=== PATIENT | male | born 1945 | race Caucasian/White ===

== ENCOUNTER → 2016-07-19 | Outpatient (CLI) | payer MEDICARE ==
--- NOTE | 2016-07-19 22:50 | CONS ---
DATE OF CONSULTATION: REASON FOR CONSULTATION: Sleep apnea. This is a 71-year-old male patient who was recently diagnosed having obstructive sleep apnea. The patient has undergone a sleep study in a sleep center in [place], [place], and he was told that he had obstructive sleep apnea, yet no followup was done. Unfortunately the results of the sleep study are not available to me at this point, and the patient failed to bring any of his paperwork and documentation regarding his sleep study. He snores and he has chronic sleepiness during the day. He also has restlessness and pain and burning sensation in his feet bilaterally. He has hypotestosteronism and is currently on testosterone supplements. He has also multiple other comorbidities, including coronary artery disease, hypertension, hypothyroidism, obesity along with peripheral neuropathy. He goes to bed around 9 p.m. and sometimes he goes to bed around 11 p.m. His wake-up time varies. Roughly he sleeps around 7 hours per night. Assaria score is 2. PAST MEDICAL HISTORY: 1. Coronary artery disease with previous stenting. 2. ANIKA. 3. Hypertension. 4. Hypothyroidism. 5. Obesity. 6. Peripheral neuropathy. 7. Hypotestosteronism. PAST SURGICAL HISTORY: Cardiac catheterization and insertion of coronary stents. Outpatient medication list includes: 1. Lisinopril 20 b.i.d. 2. Norvasc 5 daily. 3. Flomax 0.4 daily. 4. Atenolol 100 mg at bedtime. 5. Fish oil. 6. Percocet. 7. Calcium and vitamin D. ALLERGIES: MORPHINE. SOCIAL HISTORY: Nonsmoker. No history of alcoholism. No history of IV drugs. FAMILY HISTORY: Noncontributory. REVIEW OF SYSTEMS: Twelve-point review of systems was done. Positive finding were all mentioned above in the history of present illness. HIS CURRENT VITALS: BP is 181/68, pulse 65, respiratory rate 16, temperature 98.0. Saturation 96% on room air. Neck size 18 inches. BMI is 36.7. Assaria score is 2. Weight is 242. Height is 68 inches. GENERAL APPEARANCE: Calm, comfortable. HEENT: Mallampati class III. Edentulous. LUNGS: Clear to auscultation. HEART: Heart sounds are regular rate and rhythm. Normal S1 and S2. No S3. No S4. No murmurs. ABDOMEN: Soft, nontender. No organomegaly. EXTREMITIES: No edema. No cyanosis or clubbing. IMPRESSION: 1. Obstructive sleep apnea. The patient has been recently diagnosed having sleep apnea, and the documentation will be forwarded to me for further decisions in regard to his treatment. His sleep study was done at a sleep center in [place]. 2. Coronary artery disease with previous insertion of coronary stent. 3. Hypertension. 4. Hypothyroidism. 5. Obesity with a body mass index of 36.7. 6. Peripheral neuropathy. PLAN: 1. No decision will be made as far as treatment for today. 2. The patient will see me back once he is able to locate and bring in his sleep study that was done recently at an outside sleep center. 3. Encourage weight loss. 4. Issues related to sleep hygiene were discussed. 5. Tight control of cardiovascular risk factors. 6. Will continue to follow.
== END | disposition home or self-care (01) ==
LOC: SLEEP 16:09
PROVIDERS: ATTEND Internal Medicine Critical Care Medicine
DX: G47.33 Obstructive sleep apnea (adult) (pediatric) (principal); I25.10 Atherosclerotic heart disease of native coronary artery without angina pectoris; I10 Essential (primary) hypertension; E66.9 Obesity, unspecified; Z68.36 Body mass index [BMI] 36.0-36.9, adult; G62.9 Polyneuropathy, unspecified; Z95.5 Presence of coronary angioplasty implant and graft; Z88.5 Allergy status to narcotic agent; Z79.899 Other long term (current) drug therapy
CPT/HCPCS: 99202; 99211

== ENCOUNTER → 2016-08-30 | Outpatient (CLI) | payer MEDICARE ==
--- NOTE | 2016-08-30 19:02 | PN ---
A 71-year-old male patient is being seen in followup at the sleep center regarding his obstructive sleep apnea. The patient was seen in consultation 07/19/2016 and back then, he did not have any documentation of previous sleep studies. He was told to have ANIKA; however, he did not follow up with the sleep center and for that reason he is coming in for further advice. Note that the patient has multiple comorbidities, including coronary artery disease, hypertension, hypothyroidism, obesity and peripheral neuropathy and hypotestosteronism. He also suffers from chronic back pain. I was able to obtain a copy of the sleep study that was done on this patient on 03/21/2016. This turned out to be a split-night study. The patient was diagnosed having obstructive sleep apnea, moderate in severity, with an AHI of 24. Following that, the patient was given CPAP titration and was started at CPAP pressure of 4 and titrated up to 9 cm of water. Apparently this titration was ineffective in reducing his apnea-hypopnea index to less than 5 and this was labeled to be as a failed study and repeat titration was suggested. Nevertheless, the patient is currently refusing to undergo any further investigation or treatment regarding this issue. He tells me that he is feeling well. He does not have any major hypersomnia or sleepiness during the day. His sleep quality has improved. He is trying to lose weight and he has lost a few pounds since his last evaluation. I went over the studies. I went over the discussion in regard to his obstructive sleep apnea; however, the patient does not seem to be ready to undertake any treatment at this point in time. Based on that, I am willing to follow up this patient in 6 to 12 months and re-address the situation. REVIEW OF SYSTEMS: Twelve-point review of systems was done. Positive findings all mentioned above in the history of present illness. Otherwise, the rest is negative for now. His current vitals: BP is 178/75, pulse 56, respirations 16, temperature 98.2, saturation 97% on room air. Neck size 18 inches and BMI is 37.0. GENERAL APPEARANCE: Calm, comfortable. HEENT: Short neck. Crowding of the posterior pharynx there is no goiter or neck masses. LUNGS: Diminished breath sounds bilaterally, otherwise clear. HEART: Sounds are regular rate and rhythm. Normal S1, S2. No S3 or S4. No murmurs. ABDOMEN: Soft and nontender. No organomegaly. EXTREMITIES: No edema. No cyanosis or clubbing. IMPRESSION: 1. Obstructive sleep apnea, apnea-hypopnea index of 24. This is based on a sleep study that was done in a sleep center in [place], [place]. The patient was titrated to a continuous positive airway pressure of 9 and this was labeled to be an ineffective titration, knowing that the apnea-hypopnea index did not get reduced to less than 5. 2. Coronary artery disease with previous coronary stenting. 3. Hypertension. 4. Hypothyroidism. 5. Obesity. 6. Peripheral neuropathy. PLAN: The risks and benefits of CPAP therapy were discussed. The patient declined any treatment at this point. He will try to lose weight. He will optimize sleep hygiene measures, tight control of cardiovascular risk factors, see me back in a year's time in followup, earlier if needed, especially if he gets more symptomatic.
== END | disposition home or self-care (01) ==
LOC: SLEEP 14:47
PROVIDERS: ATTEND Internal Medicine Critical Care Medicine
DX: G47.33 Obstructive sleep apnea (adult) (pediatric) (principal); I25.10 Atherosclerotic heart disease of native coronary artery without angina pectoris; Z95.5 Presence of coronary angioplasty implant and graft; I10 Essential (primary) hypertension; E03.9 Hypothyroidism, unspecified; E66.9 Obesity, unspecified; Z68.37 Body mass index [BMI] 37.0-37.9, adult; G62.9 Polyneuropathy, unspecified; G89.29 Other chronic pain; M54.9 Dorsalgia, unspecified

== ENCOUNTER → 2016-09-26 | Outpatient (CLI) | payer MEDICARE ==
[2016-09-26 10:59] LABS: Anisocytosis Slight; CH 31.7; CHCM 34.7; HCT 44.9 % (39.0-53.0); HDW 3.99; HGB 15.2 gm/dL (13.0-17.5); MCH 31.1 pg (25.0-35.0); MCHC 33.9 g/dL (31.0-37.0); MCV 91.8 fL (80.0-100.0); Mean Platelet Volume 7.7; Poikilocytosis Slight; RBC 4.89 m/uL (4.30-5.90); RDW 16.5 % (11.5-15.5); WBC 6.4 k/uL (3.8-10.6)
[2016-09-26 11:33] LABS: Prostate Specific Antigen 0.88 ng/mL (0.00-4.00)
== END | disposition home or self-care (01) ==
LOC: LABWHC1 10:17
PROVIDERS: ATTEND Internal Medicine Endocrinology, Diabetes & Metabolism
DX: E29.1 Testicular hypofunction (principal)
CPT/HCPCS: 36415; 84153; 84403; 85027

== ENCOUNTER → 2017-06-08 | Outpatient (CLI) | payer MEDICARE ==
--- NOTE | 2017-06-08 15:33 | MR ---
EXAMINATION TYPE: MR brain wo con DATE OF EXAM: 06/08/2017 12:16 PM COMPARISON: 08/29/2015 HISTORY: Headache FINDINGS: The ventricles, basal cisterns and sulci overlying the cerebral convexities are moderately enlarged. Presence of a cavum septum pellucidum and cavum vergae. There is evidence of mild to moderate periventricular white matter ischemic demyelination. Remote deep white matter insults are also noted. No acute edema is seen on diffusion weighted imaging. There is no evidence for midline shift or mass effect. Acute intracranial hemorrhage or extra-axial collection is not evident. The paranasal sinuses and mastoid air cells are well-aerated. IMPRESSION: Age-related atrophic and chronic small vessel ischemic change. No acute intracranial process at this time.
== END ==
LOC: RADMRIMAIN 11:45
PROVIDERS: ATTEND Psychiatry & Neurology Neurology
DX: G31.1 Senile degeneration of brain, not elsewhere classified (principal); I67.82 Cerebral ischemia; R51 Headache
CPT/HCPCS: 70551

== ENCOUNTER → 2017-06-08 | Outpatient (CLI) | payer MEDICARE ==
--- NOTE | 2017-06-08 10:20 | CT ---
EXAMINATION TYPE: CT lumbar spine wo con DATE OF EXAM: 06/08/2017 COMPARISON: NONE HISTORY: Low back pain CT DLP: [address] of the lumbar spine was performed. Bone and soft tissue window settings are submitted as well as coronal and sagittal reconstructions. L1-L2: Normal disc space height. No disc herniation protrusion or central stenosis. No facet joint arthropathy. No evidence for foraminal encroachment. There is mild ventral spondylosis. L2-L3: Normal disc space height. No disc herniation protrusion or central stenosis. No facet joint arthropathy. No evidence for foraminal encroachment. Ventral spondylosis identified. L3-L4: Postoperative changes of fusion. Intervertebral stabilizer noted. Pedicular screws in place. D ecompressive laminectomy. Streak artifact limits evaluation. No evidence for recurrent or residual di sease although examination is limited. Alignment within normal limits. L4-L5: Postoperative changes of fusion. Intervertebral stabilizer noted. Pedicular screws in place. D ecompressive laminectomy. Streak artifact limits evaluation. No evidence for recurrent or residual di sease although examination is limited. Grade 1 anterolisthesis L4 and L5 measuring 3.5 mm. L5-S1: Mild degenerative disc space narrowing. Mild circumferential disc bulge with minimal effacemen t ventral thecal sac. No herniation or protrusion. Facet joint arthropathy with bilateral foraminal e ncroachment. No paraspinal masses are identified. Lumbar segments are free if fracture. IMPRESSION: 1. Postoperative changes of lumbar laminectomy with fusion at L3-4 and L4-5. Grade 1 anterolisthesis L4 and L5 of 3.5 mm. 2. Mild degenerative disc disease and disc bulging at L5-S1.
== END | disposition home or self-care (01) ==
LOC: RADCTMAIN 08:44
PROVIDERS: ATTEND Psychiatry & Neurology Neurology
DX: M51.27 Other intervertebral disc displacement, lumbosacral region (principal); M43.16 Spondylolisthesis, lumbar region; M51.37 Other intervertebral disc degeneration, lumbosacral region; R51 Headache; Z98.890 Other specified postprocedural states; Z98.1 Arthrodesis status
CPT/HCPCS: 70551; 72131

== ENCOUNTER → 2017-07-07 | Outpatient (CLI) | payer MEDICARE ==
[2017-07-07 15:24] LABS: HCT 43.4 % (39.0-53.0); HGB 14.3 gm/dL (13.0-17.5); MCH 28.5 pg (25.0-35.0); MCHC 33.1 g/dL (31.0-37.0); MCV 86.2 fL (80.0-100.0); Mean Platelet Volume 7.5; Platelet Count 134 k/uL (150-450); RBC 5.03 m/uL (4.30-5.90); RDW 15.7 % (11.5-15.5); WBC 5.8 k/uL (3.8-10.6)
[2017-07-07 15:54] LABS: Anion Gap 11 mmol/L; Blood Urea Nitrogen 25 mg/dL (9-20); Carbon Dioxide 32 mmol/L (22-30); Chloride 99 mmol/L (98-107); Potassium 4.8 mmol/L (3.5-5.1); Sodium 142 mmol/L (137-145)
== END | disposition home or self-care (01) ==
LOC: LABPAT 14:56
PROVIDERS: ATTEND Internal Medicine Interventional Cardiology
DX: Z01.812 Encounter for preprocedural laboratory examination (principal); I73.9 Peripheral vascular disease, unspecified
CPT/HCPCS: 36415; 80051; 82565; 84520; 85027

== ENCOUNTER 2017-07-13 11:00 | Day surgery (SDC) | payer MEDICARE ==
[2017-07-10 15:40] VITALS: BMI 29.5
[~2017-07-13 11:00] MED LIST: SODIUM CHLORIDE 0.9% 1,000 ML in EMPTY BAG 1 BAG IV ONE
[2017-07-13 11:57] LABS: Anisocytosis Slight; Basophils % (A) 0 %; Eosinophils % (A) 1 %; HCT 40.7 % (39.0-53.0); HGB 13.5 gm/dL (13.0-17.5); Lymphocytes # (A) 1.1 k/uL (1.0-4.8); Lymphocytes % (A) 19 %; MCH 28.1 pg (25.0-35.0); MCHC 33.3 g/dL (31.0-37.0); MCV 84.6 fL (80.0-100.0); Mean Platelet Volume 8.4; Monocytes # (A) 0.5 k/uL (0-1.0); Monocytes % (A) 8 %; Neutrophils # (A) 4.3 k/uL (1.3-7.7); Neutrophils % (A) 71 %; Platelet Count 134 k/uL (150-450); RBC 4.81 m/uL (4.30-5.90); RDW 16.3 % (11.5-15.5)
[2017-07-13 12:06] LABS: Anion Gap 8 mmol/L; Blood Urea Nitrogen 17 mg/dL (9-20); Calcium 9.3 mg/dL (8.4-10.2); Carbon Dioxide 33 mmol/L (22-30); Chloride 97 mmol/L (98-107); Glucose 86 mg/dL (74-99); Potassium 4.5 mmol/L (3.5-5.1); Sodium 138 mmol/L (137-145)
[2017-07-13] MEDS ORDERED: SODIUM CHLORIDE 0.9% 1,000 ML IV SCH (12:15)
[2017-07-13] MEDS ORDERED: NITROGLYCERIN SL TABS 0.4 MG TAB SUBLINGUAL PRN (13:12)
[2017-07-13] MEDS ORDERED: [UNRECOGNIZED DRUG - OTHER] IJ SCH (13:15)
[2017-07-13 17:11] LABS: Glucose,Whole Blood 86 mg/dL (75-99)
[2017-07-13] MEDS: SODIUM CHLORIDE 0.9% 1,000 ML IV SCH ×2 (17:26→23:58)
[2017-07-13] MEDS: oxyCODONE-APAP 10-325MG 1 EACH TAB PO PRN ×2 (17:28→21:32)
[2017-07-13] MEDS: amLODIPine 5 MG TAB PO SCH (17:28)
[2017-07-13] MEDS ORDERED: TAMSULOSIN 0.4 MG CAP.ER.24H PO SCH (21:00)
[2017-07-13] MEDS ORDERED: ATENOLOL 50 MG TAB PO SCH (21:00)
[2017-07-13 21:01] LABS: Glucose,Whole Blood 103 mg/dL (75-99)
[2017-07-13] MEDS ORDERED: ACETAMINOPHEN TAB 325 MG TAB PO PRN (21:09)
[2017-07-13] MEDS ORDERED: DOCUSATE 100 MG CAP PO PRN (21:58)
[2017-07-14] MEDS: oxyCODONE-APAP 10-325MG 1 EACH TAB PO PRN ×3 (01:12→15:45)
[2017-07-14 07:05] LABS: Glucose,Whole Blood 101 mg/dL (75-99)
[2017-07-14 08:14] VITALS: RESP 18
[2017-07-14] MEDS ORDERED: MIDAZOLAM 2 MG/2 ML VIAL IV ONE (08:52)
[2017-07-14] MEDS ORDERED: SODIUM CHLORIDE 0.9% 1,000 ML IV ONE (08:59)
[2017-07-14] MEDS ORDERED: LISINOPRIL 20 MG TAB PO SCH (09:00)
[2017-07-14] MEDS ORDERED: DHA PO SCH (09:00)
[2017-07-14] MEDS ORDERED: FISH OIL PO SCH (09:00)
[2017-07-14] MEDS ORDERED: EPA PO SCH (09:00)
[2017-07-14] MEDS ORDERED: POTASSIUM 198 MG PO SCH (09:00)
[2017-07-14] MEDS ORDERED: MAGNESIUM OXIDE 400 MG TAB PO SCH (09:00)
[2017-07-14] MEDS ORDERED: ASCORBIC ACID 500 MG TAB PO SCH (09:00)
[2017-07-14] MEDS ORDERED: IODIXANOL 320 MG/ML 100 ML INTRAARTER ONE (09:26)
[2017-07-14] MEDS ORDERED: SODIUM CHLORIDE 0.9% 1,000 ML IV SCH (09:30)
[2017-07-14] MEDS: SODIUM CHLORIDE 0.9% 1,000 ML IV SCH (09:40)
--- NOTE | 2017-07-14 10:04 | LTR ---
DATE OF SERVICE: 07/14/2017 RE: Wicho Michael Dear Dr. Simms; Mr. Wicho Michael was experiencing bilateral lower extremities intermittent claudication. He underwent a peripheral angiogram and that came in to be unremarkable without any evidence of peripheral arterial disease. I want to thank you for allowing me to participate in his care and please do not hesitate to call if you have any question or concern. Sincerely, MD MANNY Messina / BRINA: [phone] /
--- NOTE | 2017-07-14 10:07 | AN ---
ANGIOGRAPHY REPORT DATE OF SERVICE: 07/14/2017 PERFORMING PHYSICIAN: Jairo Hamilton MD, [facility]. PROCEDURE PERFORMED: 1. An abdominal aortogram. 2. Bilateral lower extremities runoff. INDICATION: This is a pleasant 72-year-old gentleman who was experiencing bilateral lower extremities intermittent claudication. APPROACH: Right common femoral artery. COMPLICATION: None. LEVEL OF SEDATION: Moderate sedation length of 13 minutes. PROCEDURE DESCRIPTION: After obtaining an informed consent, the patient was brought to the [facility]. The right common femoral artery was cannulated using micropuncture technique and a micropuncture wire passed easily, then I placed a 6-[place] sheath in the right common femoral artery. After that, I did an abdominal aortogram and bilateral lower extremities runoff using 5-[place] pigtail catheter which was initially placed at the level of the renal arteries, then it was pulled into above the bifurcation of the aorta to right and left common iliac arteries. The procedure was completed without any complication. SELECTIVE PERIPHERAL ANGIOGRAM: 1. The abdominal aorta appeared to be angiographically normal. 2. RENAL ARTERIES: The right and left renal arteries are angiographically normal. 3. ILIAC ARTERIES: The right and left common iliac arteries are angiographically normal. The right and left external and internal iliac arteries are angiographically normal. 4. FEMORAL ARTERIES: The right and left common femoral arteries are angiographically normal. 5. PROFUNDA: The right and left profunda are patent. 6. SFA: The right and left SFA are patent as well. 7. POPLITEAL: The right and left popliteal are patent as well. 8. BELOW THE KNEE: There are 3 vessels runoff below the knee, bilaterally. CONCLUSION: Normal peripheral angiogram. POSTPROCEDURE MANAGEMENT: Medical treatment only and follow up with the patient. MMODL / IJN: [id number] /
--- NOTE | 2017-07-14 10:13 | DS ---
DISCHARGE SUMMARY ADMISSION DATE: 07/13/2017 DISCHARGE DATE: 07/14/2017 BRIEF HISTORY: This is a pleasant 72-year-old gentleman who was experiencing bilateral lower extremities intermittent claudication. He was admitted to the hospital yesterday and unfortunately we could not do the angiogram on yesterday, so we kept him overnight to do today. Today, he underwent a peripheral angiogram that came in to be unremarkable. The patient is going to be discharged home and I will follow up with him in the office next week. MANNY / BRINA: [phone] /
--- NOTE | 2017-07-14 11:45 | IR ---
EXAMINATION TYPE: IR angio abdominal w runoff DATE OF EXAM: 07/14/2017 CLINICAL HISTORY: Leg pain. TECHNIQUE: Fluoroscopy. COMPARISON: None. FINDINGS: Fluoroscopic guidance was provided during abdominal angiogram with lower extremity runoff procedure performed by Dr. Hamilton. A total of 1.5 minutes of fluoroscopic time was utilized during the procedure and 7 cine images are acquired. There is vascular access right groin region. There is surgical change lower lumbar spine and lap band device. Please refer to procedure note for further details of intravascular procedure as I was not p resent nor performed procedure. IMPRESSION: As Above.
[2017-07-14] MEDS ORDERED: CHOLECALCIFEROL 1,000 UNIT TAB PO SCH (12:00)
[2017-07-14 12:09] LABS: Glucose,Whole Blood 87 mg/dL (75-99)
[2017-07-14] MEDS: amLODIPine 5 MG TAB PO SCH (15:43)
--- NOTE | 2017-07-14 15:51 | P.GSCN ---
History of Present Illness Consult date: 07/14/17 Reason for Consult: Urinary retention History of present illness: The patient is a 72-year-old male admitted on 07/13/2017 for the purpose of an aortogram and evaluation of the arteries in his left leg due to a history suggestive of claudication. The arteriogram could not be performed yesterday but was performed today and did not show any significant peripheral vascular disease. Yesterday the patient was unable to void and required in and out catheterization on 2 occasions for over 1000 mL. The patient has been able to void small amounts today but continues to have postvoid residuals over 1000 mL. I was asked to see the patient for further evaluation. Patient has a history of bladder outflow obstruction and had been started on tamsulosin in 2014. He said that he had been doing well up until approximately 2 weeks ago when he was placed on a new medication. The patient could not recall the name of the medication but said that it made it more difficult for him to void and he was voiding much more frequently. He also had some problems with constipation. He said that he discontinued the medication one week ago but continued to have some difficulty. Prior to this he said he was voiding every 1-2 hours during the day and 3 times at night. Over the last week he said that he was voiding at least every hour. He is also had some recent constipation and said that his last bowel movement was 3 days ago. He has had no gross hematuria or dysuria. Review of Systems - Constitutional Reports chronic pain - Cardiovascular Denies chest pain - Respiratory Denies congestion, Denies cough - Gastrointestinal Reports constipation, Denies abdominal pain - Genitourinary Reports as per HPI Past Medical History Past Medical History: Coronary Artery Disease (CAD), Chest Pain / Angina, Deep Vein Thrombosis (DVT), GERD/Reflux, Hypertension, Osteoarthritis (OA), Prostate Disorder, Vascular Disorder Additional Past Medical History / Comment(s): migraines, hx KIDNEY STONES. urinary frequency. chronic back pain. marilou lower leg edema, poor circulation in legs, neuropathy, varicose veins, DVT rt leg 1999, abdominal hernia, History of Any Multi-Drug Resistant Organisms: None Reported Past Surgical History: Back Surgery, Bariatric Surgery, Heart Catheterization With Stent, Joint Replacement, Orthopedic Surgery Additional Past Surgical History / Comment(s): 2 CARDIAC STENTS 1999, neck surgery with bone graft, cervical fusion, back sugery with cage, hemorrhoidectomy, rt knee replacement x2, penile implant, spinal fusion Past Anesthesia/Blood Transfusion Reactions: Previous Problems w/ Anesthesia Additional Past Anesthesia/Blood Transfusion Reaction / Comm: woke up with severe leg cramps after back surgery Date of Last Stent Placement:: 1999 Smoking Status: Never smoker - Past Family History Mother Family Medical History: No Reported History Additional Family Medical History / Comment(s): . Father History Unknown: Yes Family Medical History: Congestive Heart Failure (CHF) Additional Family Medical History / Comment(s): ALCOHOL, SMOKING Brother(s) Family Medical History: Coronary Artery Disease (CAD), Diabetes Mellitus Sister(s) Family Medical History: No Reported History Daughter(s) Family Medical History: No Reported History Medications and Allergies Home Medications Medication Instructions Recorded Confirmed Type Lisinopril [Prinivil] 40 mg PO QAM 01/01/15 07/10/17 History oxyCODONE-APAP 10-325MG [Percocet 1 tab PO Q4HR PRN 01/01/15 07/10/17 History 10-325 mg] amLODIPine [Norvasc] 5 mg PO DAILY@1400 04/01/15 07/10/17 History Ascorbic Acid [Vitamin C] 1,000 mg PO DAILY 07/10/17 07/10/17 History Atenolol [Tenormin] 50 mg PO HS 07/10/17 07/10/17 History Cholecalciferol (Vitamin D3) 4,000 unit PO DAILY 07/10/17 07/13/17 History [Vitamin D3] Fish Oil/Dha/Epa [Fish Oil 1,200 2 each PO DAILY 07/10/17 07/10/17 History mg Fish Oil] Magnesium Oxide [Mag-Ox] 500 mg PO DAILY 07/10/17 07/10/17 History Nitroglycerin Sl Tabs [Nitrostat] 0.4 mg SUBLINGUAL Q5M PRN 07/10/17 07/10/17 History Potassium 198 mg PO DAILY 07/10/17 07/10/17 History Tamsulosin HCl [Flomax] 0.4 mg PO HS 07/10/17 07/10/17 History Testosterone Injections(Dose 1 applicate IJ Q14D 07/10/17 07/10/17 History Unknown) Allergies Allergy/AdvReac Type Severity Reaction Status Date / Time morphine Allergy Rash/Hives Verified 07/10/17 15:21 Surgical - Exam Vital Signs Temp Pulse Resp BP Pulse Ox 98.7 F 54 L 20 128/61 98 07/13/17 11:48 07/13/17 11:48 07/13/17 11:48 07/13/17 11:48 07/13/17 11:48 - General well developed, well nourished, no distress, obese - Neck no masses, no lymphadectomy - Respiratory normal respiratory effort - Abdomen Abdomen: soft, non tender - Genitourinary other (The patient has a [place] inflatable penile prosthesis with the pump in his right scrotum. The prosthesis is functional but was inflated at the time of my examination. I deflated the prosthesis at the time of my examination.) - Rectum Rectum: normal sphincter tone, no masses, other (Prostate is 2+ enlarged and smooth. A moderate amount of stool is present in the rectum but the patient does not appear to have a fecal impaction.) Results - Labs 07/13/17 11:52 07/13/17 11:52 Abnormal Lab Results - Last 24 Hours (Table) 07/13/17 07/14/17 Range/Units 20:58 07:02 POC Glucose (mg/dL) 103 H 101 H (75-99) mg/dL Assessment and Plan (1) Urinary retention Narrative/Plan: The patient sounds like he's had difficulty voiding even prior to this admission. He does have a history of BPH which has been treated with tamsulosin but by history his symptoms worsened approximately 2 weeks ago when he was started on a new medication. Unfortunately the patient could not recall the name of the medication although it has been discontinued. At the present time the patient is having postvoid residuals in excess of 1000 mL. I told him that it would be best to either perform intermittent catheterization frequently enough that his bladder volumes are not over 500 mL or to leave a 14-[place] catheter in place for several days to allow the bladder to regain its tone. The patient should be continued on tamsulosin. He may also need a laxative if he has constipation. From my standpoint the patient could be discharged either with an indwelling catheter or performing self- catheterization. He could be seen back in follow-up in the office next week. Current Visit: Yes Status: Acute Code(s): R33.9 - RETENTION OF URINE, UNSPECIFIED SNOMED Code(s): 850153081
[2017-07-14 15:52] VITALS: BP 184/85; PULSE 65; TEMP 97.4
== END 2017-07-14 17:40 | disposition home or self-care (01) ==
LOC: CATHCVL 11:00 → 3OBS 13:11 → CATHCVL 07-14 17:40
PROVIDERS: ATTEND Internal Medicine Interventional Cardiology
DX: I73.9 Peripheral vascular disease, unspecified (principal); N40.1 Benign prostatic hyperplasia with lower urinary tract symptoms; R33.8 Other retention of urine; I10 Essential (primary) hypertension; E78.2 Mixed hyperlipidemia; I25.118 Atherosclerotic heart disease of native coronary artery with other forms of angina pectoris; Z95.5 Presence of coronary angioplasty implant and graft; K21.9 Gastro-esophageal reflux disease without esophagitis; M19.90 Unspecified osteoarthritis, unspecified site; G43.909 Migraine, unspecified, not intractable, without status migrainosus; G89.29 Other chronic pain; M54.9 Dorsalgia, unspecified; G62.9 Polyneuropathy, unspecified; Z86.718 Personal history of other venous thrombosis and embolism; Z82.49 Family history of ischemic heart disease and other diseases of the circulatory system; Z79.891 Long term (current) use of opiate analgesic; Z79.899 Other long term (current) drug therapy; Z98.84 Bariatric surgery status; Z98.1 Arthrodesis status; Z96.651 Presence of right artificial knee joint; Z88.5 Allergy status to narcotic agent
CPT/HCPCS: 92610; 36200; 75625; 75716; 80048; 85025; C1894; C1769 ×4; J2250; Q9967

== ENCOUNTER 2017-07-31 11:41 | Inpatient (IN) | payer MEDICARE ==
[2017-07-31 12:11] LABS: Glucose,Whole Blood 111 mg/dL (75-99)
--- NOTE | 2017-07-31 12:21 | ED ---
General Adult HPI - General Chief complaint: Neuro Symptoms/Deficit Stated complaint: Stroke Time Seen by Provider: 07/31/17 11:45 Source: patient, RN notes reviewed Mode of arrival: wheelchair Limitations: no limitations - History of Present Illness Initial comments: This is a 72-year-old male who presents emergency Department complaining of slurred speech. Patient states he started having some slight difficulty swallowing approximately 3 weeks ago and then slowly the swelling got worse as did his speech and over the last week the symptoms got progressively worse. Patient denies any numbness or weakness. Patient denies any blurred vision. Patient denies any headache family states he is not altered in any way. Patient states he can't eat but it's difficult to swallow he is not choking on anything however. Patient denies any recent fever chills or cough. Patient denies any lightheadedness or being off balance. Patient denies any chest pain palpitations difficulty breathing or shortness of breath. Patient denies any abdominal pain patient denies nausea vomiting or diarrhea. - Related Data Home Medications Medication Instructions Recorded Confirmed Lisinopril [Prinivil] 40 mg PO QAM 01/01/15 07/31/17 oxyCODONE-APAP 10-325MG [Percocet 1 tab PO Q4HR PRN 01/01/15 07/31/17 10-325 mg] amLODIPine [Norvasc] 5 mg PO DAILY@1400 04/01/15 07/31/17 Ascorbic Acid [Vitamin C] 1,000 mg PO DAILY 07/10/17 07/31/17 Atenolol [Tenormin] 50 mg PO HS 07/10/17 07/31/17 Cholecalciferol (Vitamin D3) 4,000 unit PO DAILY 07/10/17 07/31/17 [Vitamin D3] Fish Oil/Dha/Epa [Fish Oil 1,200 2 each PO DAILY 07/10/17 07/31/17 mg Fish Oil] Magnesium Oxide [Mag-Ox] 500 mg PO DAILY 07/10/17 07/31/17 Nitroglycerin Sl Tabs [Nitrostat] 0.4 mg SUBLINGUAL Q5M PRN 07/10/17 07/31/17 Potassium 198 mg PO DAILY 07/10/17 07/31/17 Tamsulosin HCl [Flomax] 0.4 mg PO HS 07/10/17 07/31/17 Testosterone Injections(Dose 1 applicate IJ Q14D 07/10/17 07/31/17 Unknown) Allergies Allergy/AdvReac Type Severity Reaction Status Date / Time morphine Allergy Rash/Hives Verified 07/31/17 12:08 Review of Systems ROS Statement: Those systems with pertinent positive or pertinent negative responses have been documented in the HPI. ROS Other: All systems not noted in ROS Statement are negative. Past Medical History Past Medical History: Coronary Artery Disease (CAD), Chest Pain / Angina, CVA/ TIA, GERD/Reflux, Hyperlipidemia, Hypertension, Musculoskeletal Disorder, Osteoarthritis (OA), Prostate Disorder, Renal Disease, Vascular Disorder Additional Past Medical History / Comment(s): CHRONIC CONSTIPATION FROM PAIN MEDS. KIDNEY STONES. urinary frequency. chronic back pain. BPH, impotence status post penile implant. Bilateral lower extremity edema, WITH CHRONIC LEG PAIN (POST PAIN CLINIC PROCEDURE). History of Any Multi-Drug Resistant Organisms: None Reported Past Surgical History: Back Surgery, Bariatric Surgery, Heart Catheterization With Stent, Joint Replacement, Orthopedic Surgery Additional Past Surgical History / Comment(s): CARDIAC STENTS 1999. Lap band surgery 10 years ago. penile implant. RIGHT KNEE REPLACED X 2. Past Anesthesia/Blood Transfusion Reactions: No Reported Reaction Date of Last Stent Placement:: 1999 Past Psychological History: No Psychological Hx Reported Smoking Status: Never smoker - Past Family History Mother Family Medical History: No Reported History Additional Family Medical History / Comment(s): . Father History Unknown: Yes Family Medical History: Congestive Heart Failure (CHF) Additional Family Medical History / Comment(s): ALCOHOL, SMOKING Brother(s) Family Medical History: Coronary Artery Disease (CAD), Diabetes Mellitus Sister(s) Family Medical History: No Reported History Daughter(s) Family Medical History: No Reported History General Exam - General Exam Comments Initial Comments: GENERAL: Patient is well-developed and well-nourished. Patient is nontoxic and well- hydrated and is in no acute distress. ENT: Neck is soft and supple. No significant lymphadenopathy is noted. Oropharynx is clear. Moist mucous membranes. Neck has full range of motion without eliciting any pain. EYES: The sclera were anicteric and conjunctiva were pink and moist. Extraocular movements were intact and pupils were equal round and reactive to light. Eyelids were unremarkable. PULMONARY: Unlabored respirations. Good breath sounds bilaterally. No audible rales rhonchi or wheezing was noted. CARDIOVASCULAR: There is a regular rate and rhythm without any murmurs gallops or rubs. ABDOMEN: Soft and nontender with normal bowel sounds. No palpable organomegaly was noted. There is no palpable pulsatile mass. SKIN: Skin is clear with no lesions or rashes and otherwise unremarkable. NEUROLOGIC: Patient is alert and oriented x3. Cranial nerves II through XII are grossly intact. Motor and sensory are also intact. Patient has significantly slurred speech and his tongue appears to deviate to the right when he tries to stick it out.. MUSCULOSKELETAL: Normal extremities with adequate strength and full range of motion. No lower extremity swelling or edema. No calf tenderness. LYMPHATICS: No significant lymphadenopathy is noted PSYCHIATRIC: Normal psychiatric evaluation. Normal interpersonal interactions appears functionally intact in deals appropriately with others. No signs of depression. No signs of anxiety. Limitations: no limitations Course Vital Signs 07/31/17 07/31/17 11:42 13:42 Temperature 97.9 F Pulse Rate 65 55 L Respiratory 18 18 Rate Blood Pressure 140/66 132/64 O2 Sat by Pulse 97 95 Oximetry Medical Decision Making - Medical Decision Making EKG shows normal sinus rhythm at 62 bpm [place] interval is on a 74 QRS 100 a QT interval 46 QTC is 412 per patient's EKG shows no ST segment elevation or depression or T wave abnormalities are noted. CT shows no acute abnormalities. Patient continues to have difficulty manipulating his tongue swallowing. - Lab Data Result diagrams: 07/31/17 12:00 07/31/17 12:00 Lab Results 07/31/17 07/31/17 07/31/17 Range/Units 11:56 12:00 12:00 WBC 7.8 (3.8-10.6) k/uL RBC 4.96 (4.30-5.90) m/uL Hgb 14.2 (13.0-17.5) gm/dL Hct 42.6 (39.0-53.0) % MCV 86.0 (80.0-100.0) fL MCH 28.7 (25.0-35.0) pg MCHC 33.4 (31.0-37.0) g/dL RDW 16.3 H (11.5-15.5) % Plt Count 157 (150-450) k/uL Neutrophils % 79 % Lymphocytes % 13 % Monocytes % 7 % Eosinophils % 0 % Basophils % 0 % Neutrophils # 6.1 (1.3-7.7) k/uL Lymphocytes # 1.0 (1.0-4.8) k/uL Monocytes # 0.5 (0-1.0) k/uL Eosinophils # 0.0 (0-0.7) k/uL Basophils # 0.0 (0-0.2) k/uL Anisocytosis Slight PT (9.0-12.0) sec INR (<1.2) APTT (22.0-30.0) sec Sodium (137-145) mmol/L Potassium (3.5-5.1) mmol/L Chloride (98-107) mmol/L Carbon Dioxide (22-30) mmol/L Anion Gap mmol/L BUN (9-20) mg/dL Creatinine (0.66-1.25) mg/dL Est GFR (CKD-EPI)AfAm (>60 ml/min/1.73 sqM) Est GFR (CKD-EPI)NonAf (>60 ml/min/1.73 sqM) Glucose (74-99) mg/dL POC Glucose (mg/dL) 111 H (75-99) mg/dL POC Glu Advertising Copy Writer ID Mohit Hernandez Calcium (8.4-10.2) mg/dL Total Bilirubin (0.2-1.3) mg/dL AST (17-59) U/L ALT (21-72) U/L Alkaline Phosphatase (38-126) U/L Total Creatine Kinase 61 (55-170) U/L CK-MB (CK-2) 1.5 (0.0-2.4) ng/mL CK-MB (CK-2) Rel Index 2.5 Troponin I <0.012 (0.000-0.034) ng/mL Total Protein (6.3-8.2) g/dL Albumin (3.5-5.0) g/dL 07/31/17 07/31/17 Range/Units 12:00 12:00 WBC (3.8-10.6) k/uL RBC (4.30-5.90) m/uL Hgb (13.0-17.5) gm/dL Hct (39.0-53.0) % MCV (80.0-100.0) fL MCH (25.0-35.0) pg MCHC (31.0-37.0) g/dL RDW (11.5-15.5) % Plt Count (150-450) k/uL Neutrophils % % Lymphocytes % % Monocytes % % Eosinophils % % Basophils % % Neutrophils # (1.3-7.7) k/uL Lymphocytes # (1.0-4.8) k/uL Monocytes # (0-1.0) k/uL Eosinophils # (0-0.7) k/uL Basophils # (0-0.2) k/uL Anisocytosis PT 10.7 (9.0-12.0) sec INR 1.1 (<1.2) APTT 23.1 (22.0-30.0) sec Sodium 141 (137-145) mmol/L Potassium 4.2 (3.5-5.1) mmol/L Chloride 103 (98-107) mmol/L Carbon Dioxide 27 (22-30) mmol/L Anion Gap 11 mmol/L BUN 18 (9-20) mg/dL Creatinine 0.95 (0.66-1.25) mg/dL Est GFR (CKD-EPI)AfAm >90 (>60 ml/min/1.73 sqM) Est GFR (CKD-EPI)NonAf 81 (>60 ml/min/1.73 sqM) Glucose 111 H (74-99) mg/dL POC Glucose (mg/dL) (75-99) mg/dL POC Glu Advertising Copy Writer ID Calcium 9.7 (8.4-10.2) mg/dL Total Bilirubin 0.7 (0.2-1.3) mg/dL AST 18 (17-59) U/L ALT 21 (21-72) U/L Alkaline Phosphatase 69 (38-126) U/L Total Creatine Kinase (55-170) U/L CK-MB (CK-2) (0.0-2.4) ng/mL CK-MB (CK-2) Rel Index Troponin I (0.000-0.034) ng/mL Total Protein 6.7 (6.3-8.2) g/dL Albumin 4.1 (3.5-5.0) g/dL Disposition Clinical Impression: Cerebrovascular accident Disposition: ADMITTED IP TO THIS HOSP Referrals: Altaf Simms DO [Primary Care Provider] - 1-2 days Time of Disposition: 13:53
[2017-07-31 12:29] LABS: Anisocytosis Slight; Basophils % (A) 0 %; Eosinophils % (A) 0 %; HCT 42.6 % (39.0-53.0); HGB 14.2 gm/dL (13.0-17.5); Lymphocytes % (A) 13 %; MCH 28.7 pg (25.0-35.0); MCHC 33.4 g/dL (31.0-37.0); Mean Platelet Volume 7.9; Monocytes # (A) 0.5 k/uL (0-1.0); Monocytes % (A) 7 %; Neutrophils # (A) 6.1 k/uL (1.3-7.7); Neutrophils % (A) 79 %; Platelet Count 157 k/uL (150-450); RBC 4.96 m/uL (4.30-5.90); RDW 16.3 % (11.5-15.5); WBC 7.8 k/uL (3.8-10.6)
[2017-07-31 12:43] LABS: INR 1.1 (<1.2); Partial Thromboplastin Time 23.1 sec (22.0-30.0); Prothrombin Time 10.7 sec (9.0-12.0)
[2017-07-31 12:44] LABS: ALT 21 U/L (21-72); AST 18 U/L (17-59); Albumin 4.1 g/dL (3.5-5.0); Alkaline Phosphatase 69 U/L (38-126); Anion Gap 11 mmol/L; Blood Urea Nitrogen 18 mg/dL (9-20); Calcium 9.7 mg/dL (8.4-10.2); Carbon Dioxide 27 mmol/L (22-30); Chloride 103 mmol/L (98-107); Glucose 111 mg/dL (74-99); Potassium 4.2 mmol/L (3.5-5.1); Sodium 141 mmol/L (137-145); Total Bilirubin 0.7 mg/dL (0.2-1.3); Total Protein 6.7 g/dL (6.3-8.2)
--- NOTE | 2017-07-31 12:50 | CT ---
EXAMINATION TYPE: CT brain wo con for TPA DATE OF EXAM: 07/31/2017 COMPARISON: 07/27/2015 HISTORY: Neuro deficits CT DLP: 1008.9 mGycm Automated exposure control for dose reduction was used. Helical acquisition through the brain. FINDINGS: There is no hemorrhage or hydrocephalus. Periventricular white matter shows patchy low attenuation. N o mass effect. There may be some increase in the low attenuation in the periventricular location on t he right involving the internal capsule, basal ganglia as compared to prior. Cerebral vascular calcif ications are present. Cortical atrophy is likely age-related. Calvarium is intact. IMPRESSION: FINDINGS SUGGEST CHRONIC CEREBRAL VASCULAR DISEASE AND ISCHEMIA, AGE RELATED ATROPHY. NO ACUTE ABNORM ALITY IS EVIDENT. INTERVAL CHANGE DESCRIBED, BRAIN MRI MAY BE OF BENEFIT.
[2017-07-31 12:52] LABS: Creatine Kinase 61 U/L (55-170)
--- NOTE | 2017-07-31 13:02 | XR ---
EXAMINATION TYPE: XR chest 2V DATE OF EXAM: 07/31/2017 COMPARISON: 01/01/2015 TECHNIQUE: PA and lateral views submitted. HISTORY: Altered mental status FINDINGS: The lungs are clear and there is no pneumothorax, pleural effusion, or focal pneumonia. Hypertrophi c and degenerative change of the spine. Postsurgical change overlying the cervical spine. Arthropathy of the right shoulder correlate for chronic rotator cuff disease. No overt failure. IMPRESSION: 1. No acute process.
[2017-07-31 13:05] LABS: Creatine Kinase MB 1.5 ng/mL (0.0-2.4); Troponin I <0.012 ng/mL (0.000-0.034)
[2017-07-31] MEDS ORDERED: ASPIRIN 325 MG TAB PO STA (13:54)
[2017-07-31] MEDS ORDERED: NITROGLYCERIN SL TABS 0.4 MG TAB SUBLINGUAL PRN (19:54)
--- NOTE | 2017-07-31 20:14 | P.HPIM ---
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 Patient followed Dr. Blandon in May for his lower back. He was started on a pain pill by him. According to patient he started having difficulty swallowing after he initiated the pill which he took for 7 days. Following difficulty swallowing patient started having difficulty with slurring of his voice. Since patient had gait instability when he woke up this morning he decided to come to the ER for evaluation. He denies any lightheadedness or dizziness. He denies any motor or sensory loss, any numbness of face or drooping. Patient denies any history of seizures. He denies any history of cancer or weight loss. He had an normal MRI brain done in May. Labs included CBC and BMP are unremarkable. Carotid Dopplers, echo , MRI brain ordered to evaluate the brain stem for bulbar palsy. Review of Systems Constitutional: Denies chills, Denies fever, Denies lethargy, Denies malaise, Denies poor appetite, Denies weakness, Denies weight loss Eyes: denies decreased vision, denies diplopia, denies discharge, denies pain Ears: deny: decreased hearing Ears, nose, mouth and throat: Denies dental pain, Denies headache, Denies nasal discharge, Denies nose pain endorses swallowing difficulty worse with solid food , does have problems swallowing pills intermittently Cardiovascular: Denies chest pain, Denies decreased exercise tolerance, Denies edema, Denies high blood pressure, Denies irregular heart beat, Denies palpitations, Denies paroxysmal nocturnal dyspnea, Denies rapid heart beat, Denies shortness of breath Respiratory: Denies congestion, Denies cough, Denies cough with sputum, Denies dyspnea, Denies home oxygen, Denies wheezing Gastrointestinal: Denies abdominal pain, Denies change in bowel habits, Denies coffee ground emesis, Denies early satiety, Denies excessive gas, Denies heartburn, Denies hematemesis, Denies hematochezia, Denies loss of appetite, Denies nausea, Denies vomiting Genitourinary: Denies dysuria, Denies flank pain, Denies kidney stones, Denies menorrhagia, Denies urgency, Denies urinary frequency Musculoskeletal: Denies gait dysfunction, Denies limitation of motion, Denies morning stiffness, Denies muscle cramps Integumentary: Denies rash, Denies wounds, Denies brittle nails, Denies change in hair/nails, Denies darkening of skin Neurological: Endorses balance difficulties, endorses change in speech, Denies double vision, Denies gait dysfunction, Denies loss of vision, Denies motor disturbance, Denies numbness, Denies paralysis, Denies paresthesias, Denies seizures Psychiatric: Denies anxiety, Denies depression Endocrine: Denies excessive sweating, Denies excessive thirst, Denies high blood sugars, Denies palpitations Hematologic/Lymphatic: Denies easy bruising, Denies lymphadenopathy Past Medical History Past Medical History: Coronary Artery Disease (CAD), Chest Pain / Angina, CVA/ TIA, GERD/Reflux, Hyperlipidemia, Hypertension, Musculoskeletal Disorder, Osteoarthritis (OA), Prostate Disorder, Renal Disease, Vascular Disorder Additional Past Medical History / Comment(s): CHRONIC CONSTIPATION FROM PAIN MEDS. KIDNEY STONES. urinary frequency. chronic back pain. BPH, impotence status post penile implant. Bilateral lower extremity edema, WITH CHRONIC LEG PAIN (POST PAIN CLINIC PROCEDURE). History of Any Multi-Drug Resistant Organisms: None Reported Past Surgical History: Back Surgery, Bariatric Surgery, Heart Catheterization With Stent, Joint Replacement, Orthopedic Surgery Additional Past Surgical History / Comment(s): CARDIAC STENTS 1999. Lap band surgery 10 years ago. penile implant. RIGHT KNEE REPLACED X 2. Past Anesthesia/Blood Transfusion Reactions: No Reported Reaction Date of Last Stent Placement:: 1999 Past Psychological History: No Psychological Hx Reported Smoking Status: Never smoker - Past Family History Mother Family Medical History: No Reported History Additional Family Medical History / Comment(s): . Father History Unknown: Yes Family Medical History: Congestive Heart Failure (CHF) Additional Family Medical History / Comment(s): ALCOHOL, SMOKING Brother(s) Family Medical History: Coronary Artery Disease (CAD), Diabetes Mellitus Sister(s) Family Medical History: No Reported History Daughter(s) Family Medical History: No Reported History Additional Family Medical History / Comment(s): Daughter has peripheral artery disease. No history of stroke in mother or father Medications and Allergies Home Medications Medication Instructions Recorded Confirmed Type Lisinopril [Prinivil] 40 mg PO QAM 01/01/15 07/31/17 History oxyCODONE-APAP 10-325MG [Percocet 1 tab PO Q4HR PRN 01/01/15 07/31/17 History 10-325 mg] amLODIPine [Norvasc] 5 mg PO DAILY@1400 04/01/15 07/31/17 History Ascorbic Acid [Vitamin C] 1,000 mg PO DAILY 07/10/17 07/31/17 History Atenolol [Tenormin] 50 mg PO HS 07/10/17 07/31/17 History Cholecalciferol (Vitamin D3) 4,000 unit PO DAILY 07/10/17 07/31/17 History [Vitamin D3] Fish Oil/Dha/Epa [Fish Oil 1,200 2 each PO DAILY 07/10/17 07/31/17 History mg Fish Oil] Magnesium Oxide [Mag-Ox] 500 mg PO DAILY 07/10/17 07/31/17 History Nitroglycerin Sl Tabs [Nitrostat] 0.4 mg SUBLINGUAL Q5M PRN 07/10/17 07/31/17 History Potassium 198 mg PO DAILY 07/10/17 07/31/17 History Tamsulosin HCl [Flomax] 0.4 mg PO HS 07/10/17 07/31/17 History Testosterone Injections(Dose 1 applicate IJ Q14D 07/10/17 07/31/17 History Unknown) Allergies Allergy/AdvReac Type Severity Reaction Status Date / Time morphine Allergy Rash/Hives Verified 07/31/17 12:08 Physical Exam Vitals: Vital Signs Temp Pulse Pulse Resp BP BP Pulse Ox 07/31/17 18:28 98.2 F 60 18 158/85 98 07/31/17 17:47 97.9 F 64 18 146/62 98 07/31/17 17:24 64 18 146/62 07/31/17 14:37 54 L 18 130/63 98 07/31/17 13:42 55 L 18 132/64 95 07/31/17 11:42 97.9 F 65 18 140/66 97 Intake and Output 07/31/17 07/31/17 07/31/17 06:59 14:59 22:59 Other: # Voids 1 Weight 93.44 kg - Constitutional General appearance: cooperative, no acute distress - EENT Eyes: anicteric sclerae, PERRLA, normal appearance, no nystagmus appreciated no facial droop or facial numbness ENT: hearing grossly normal - Neck Neck: no lymphadenopathy, normal ROM, no other, no rigidity, no stridor, no thyromegaly is able to shrug his shoulders equally with good strength - Respiratory Respiratory: bilateral: CTA, negative: diminished, dullness, rales, rhonchi - Cardiovascular Rhythm: regular Heart sounds: normal: S1, S2 Abnormal Heart Sounds: no systolic murmur, no diastolic murmur, no rub, no S3 Gallop, no S4 Gallop, no click, no other - Gastrointestinal General gastrointestinal: normal bowel sounds, soft - Integumentary Integumentary: no rash - Neurologic Neurologic: Pupils equal and reactive to light. Significant tongue atrophy seen on the left side of the tongue with deviation to the left. equal elevation of the palate bilaterally. Patient has limited movement of the neck bilaterally due to significant degenerative disc disease in the neck - Musculoskeletal Musculoskeletal: gait normal, strength equal bilaterally Romberg negative. [id number] test negative ,negative for dysdiadochokinesia - Psychiatric Psychiatric: A&O x's 3, appropriate affect Results CBC & Chem 7: 07/31/17 12:00 07/31/17 12:00 Labs: Abnormal Lab Results - Last 24 Hours (Table) 07/31/17 07/31/17 07/31/17 Range/Units 11:56 12:00 12:00 RDW 16.3 H (11.5-15.5) % Glucose 111 H (74-99) mg/dL POC Glucose (mg/dL) 111 H (75-99) mg/dL Thrombosis Risk Factor Assmnt - DVT/VTE Prophylaxis DVT/VTE Prophylaxis: Pharmacologic Prophylaxis ordered Assessment and Plan Plan: 1. Gait instability with speech and swallowing abnormality. Differential includes bulbar or pseudobulbar palsy. Patient's gait instability points towards brainstem lesion. MRI brain ordered. Carotid Dopplers ordered was stopped neurology evaluation ordered as it is unclear if patient has a central or peripheral lesion. There is a possibility patient's close the pharyngeal and valgus now is also involved. Continue aspirin daily. Lipid panel ordered. Echo ordered. Swallow evaluation. PE evaluation. We will consider ENT evaluation if central lesion rule out 2. chronic kidney disease stage III. Stable 3. Benign prostatic hypertrophy. Flomax 0.4 mg orally once every day. 4. CAD status post PCI. Atenolol 100 mg orally once every day, aspirin 81 mg once every day. 5. Hypertension and hypertensive cardiovascular disease. Atenolol 100 mg orally once every day, lisinopril 20 mg orally twice a day along with amlodipine 5 mg orally once every day. 6. Postlaminectomy syndrome. Chronic pain syndrome. Continue current pain management. 7. DVT prophylaxis .heparin 5000 units subcutaneously every 12 hours . 8. GI prophylaxis .Prilosec 20 mg orally once every day . 9. Inpatient .estimated length of stay 2 days . 10. Full code .
[2017-07-31] MEDS: ATENOLOL 50 MG TAB PO SCH (20:48)
[2017-07-31] MEDS: TAMSULOSIN 0.4 MG CAP.ER.24H PO SCH (20:48)
[2017-07-31] MEDS: HEPARIN SODIUM,PORCINE 5,000 UNIT/ML 1 ML VIAL SQ SCH (20:48)
[2017-07-31] MEDS: oxyCODONE-APAP 10-325MG 1 EACH TAB PO PRN (21:02)
[2017-08-01] MEDS: oxyCODONE-APAP 10-325MG 1 EACH TAB PO PRN ×6 (00:31→23:23)
[2017-08-01 05:19] LABS: Cholesterol 158 mg/dL (<200); HDL Cholesterol 39 mg/dL (40-60); LDL Cholesterol,Calculated 100 mg/dL (0-99); Triglycerides 93 mg/dL (<150)
--- NOTE | 2017-08-01 05:43 | CONS ---
CONSULTATION DATE OF CONSULTATION: 07/31/2017. CHIEF COMPLAINT: Dysarthria. HISTORY OF PRESENT ILLNESS: Mr. Michael is a pleasant 72-year-old, male, who is being evaluated by the neurology service per the request of Dr. Christianson for slurred speech. The patient was brought into [facility] Emergency Room with the complaints of slurred speech, which started approximately 2-3 weeks ago. His symptoms did not improve, which caused him to come into the emergency room. He also reports having some dysphagia over the past few days. He denies any extremity numbness or weakness and denies any headache. A CT scan of the brain was done, which showed hypoattenuation involving the internal capsule and basal ganglia. There was also evidence of small vessel ischemic changes and generalized atrophy. His CBC, comprehensive metabolic profile, cardiac enzymes and INR were reviewed and were normal. At the time of my evaluation, he is resting in his bed and appears to be in no acute distress. He denies any changes in his symptoms. PAST MEDICAL HISTORY: Coronary artery disease, angina, history of ischemic strokes, gastroesophageal reflux disease, dyslipidemia, hypertension, arthritis, benign prostatic hypertrophy, chronic pain syndrome with chronic low back pain, history of coronary artery stent placement, joint replacement surgery, lumbar spine surgery, bariatric surgery. SOCIAL HISTORY: He denies any tobacco, alcohol or drug use. FAMILY HISTORY: Positive for heart disease and diabetes. HOME MEDICATIONS: Reviewed in the chart. ALLERGIES: MORPHINE. REVIEW OF SYSTEMS: CONSTITUTIONAL: Negative. EYES: Negative. ENT: As mentioned above. CARDIOVASCULAR: Negative. RESPIRATORY: Negative. NEUROLOGICAL: As mentioned above. GASTROINTESTINAL: As mentioned above. GENITOURINARY: Negative. DERMATOLOGICAL: Negative. ENDOCRINE: Negative. MUSCULOSKELETAL: As mentioned above. PSYCHIATRIC: Negative. PHYSICAL EXAM: Vital signs show a temperature of 98.2, pulse 60, respiration 18, blood pressure 158/85. GENERAL APPEARANCE: The patient is a well-developed male, who appears to be in no acute distress. HEENT: Normocephalic, atraumatic. Extraocular muscles are intact. The patient has significant left side tongue atrophy. NECK: Supple with no masses felt. CARDIOVASCULAR: Regular rate and rhythm. ABDOMEN: Nontender, nondistended. EXTREMITIES: Showed no edema or clubbing. NEUROLOGICAL EXAM: The patient is alert aware and oriented x3. Speech is slightly dysarthric. Language testing was normal. Sensory exam was normal to light touch in all 4 extremities. No lateralizing weakness is seen. No pronator drift is noticed. Cranial nerve testing showed left tongue atrophy with no fasciculations seen. IMPRESSION: 1. Dysarthria. 2. Dysphagia. 3. Left hypoglossal nerve palsy. 4. Tongue atrophy. RECOMMENDATION: The patient's dysphagia and dysarthria are unchanged and have been present for a few weeks as mentioned above. His CT scan of the brain did show evidence of hypoattenuation. An MRI of the brain with contrast has been ordered. I will consult speech therapy. His left hypoglossal nerve palsy etiology is unknown at this time. The MRI of the brain. Will check for any structural abnormalities for this finding. A carotid Doppler has been ordered as well. The patient has been started on aspirin daily. Continue neuro checks. I will continue to follow with you. Further recommendations to follow. Thank you for allowing me to participate in the care of your patient. If you have any questions, please feel free to contact me. MANNY / JAVIERN: [id number] /
[2017-08-01] MEDS: FAMOTIDINE 20 MG TAB PO SCH (08:31)
[2017-08-01] MEDS: HEPARIN SODIUM,PORCINE 5,000 UNIT/ML 1 ML VIAL SQ SCH ×2 (08:31→20:12)
[2017-08-01] MEDS: LISINOPRIL 20 MG TAB PO SCH (08:32)
[2017-08-01] MEDS: ASPIRIN 325 MG TAB PO SCH (08:34)
[2017-08-01 08:47] VITALS: RESP 18
[2017-08-01 10:42] VITALS: BMI 29.3
--- NOTE | 2017-08-01 11:05 | ECHOF ---
Referral Reason:stroke MEASUREMENTS -------- HEIGHT: 177.8 cm WEIGHT: 92.5 kg BP: 113/58 RVIDd: 3.8 cm (< 3.3) IVSd: 1.3 cm (0.6 - 1.1) LVIDd: 4.5 cm (3.9 - 5.3) LVPWd: 1.3 cm (0.6 - 1.1) IVSs: 1.6 cm LVIDs: 3.4 cm LVPWs: 1.6 cm LA Diam: 3.8 cm (2.7 - 3.8) LAESV Index (A-L): 25.01 ml/m Ao Diam: 3.6 cm (2.0 - 3.7) AV Cusp: 2.4 cm (1.5 - 2.6) MV EXCURSION: 13.536 mm (> 18.000) MV EF SLOPE: 70 mm/s (70 - 150) EPSS: 0.7 cm MV E Jose: 0.86 m/s MV DecT: 242 ms MV A Jose: 0.96 m/s MV E/A Ratio: 0.89 RAP: 5.00 mmHg RVSP: 24.48 mmHg FINDINGS -------- Sinus rhythm. This was a technically good study. The left ventricular size is normal. There is mild concentric left ventricular hypertrophy. Overa ll left ventricular systolic function is normal with, an EF between 55 - 60 %. The right ventricle is mild to moderately enlarged. Normal LA size by volume 22+/-6 ml/m2. The right atrium is normal in size. The aortic valve is trileaflet and appears structurally normal. Mild mitral annular calcification present. Trace tricuspid regurgitation present. Right ventricular systolic pressure is normal at < 35 mmHg. Trace/mild (physiologic) pulmonic regurgitation. The aortic root size is normal. Normal inferior vena cava with normal inspiratory collapse consistent with estimated right atrial pre ssure of 5 mmHg. The inferior vena cava is mildly dilated. There is no pericardial effusion. CONCLUSIONS -------- 1. Sinus rhythm. 2. This was a technically good study. 3. The left ventricular size is normal. 4. There is mild concentric left ventricular hypertrophy. 5. Overall left ventricular systolic function is normal with, an EF between 55 - 60 %. 6. The right ventricle is mild to moderately enlarged. 7. Normal LA size by volume 22+/-6 ml/m2. 8. The right atrium is normal in size. 9. The aortic valve is trileaflet and appears structurally normal. 10. Mild mitral annular calcification present. 11. Trace tricuspid regurgitation present. 12. Right ventricular systolic pressure is normal at < 35 mmHg. 13. Trace/mild (physiologic) pulmonic regurgitation. 14. The aortic root size is normal. 15. Normal inferior vena cava with normal inspiratory collapse consistent with estimated right atrial pressure of 5 mmHg. 16. The inferior vena cava is mildly dilated. 17. There is no pericardial effusion. [employer]: Lula Olguin RDCS
--- NOTE | 2017-08-01 13:33 | P.PN ---
Subjective Progress Note Date: 08/01/17 Principal diagnosis: Dysarthria 70-year-old male one of Dr. 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 Patient followed Dr. Blandon in May for his lower back. He was started on a pain pill by him. According to patient he started having difficulty swallowing after he initiated the pill which he took for 7 days. Following difficulty swallowing patient started having difficulty with slurring of his voice. Since patient had gait instability when he woke up this morning he decided to come to the ER for evaluation. He denies any lightheadedness or dizziness. He denies any motor or sensory loss, any numbness of face or drooping. Patient denies any history of seizures. He denies any history of cancer or weight loss. He had an normal MRI brain done in May. Labs included CBC and BMP are unremarkable. Carotid Dopplers, echo , MRI brain ordered to evaluate the brain stem for bulbar palsy. 08/01: Patient doing well today. He was able to eat his meal without any aspiration. Speech therapy evaluated the patient is monitoring recommended regular diet/ thin liquids. Brain MRI pending. Carotid Dopplers pending. Objective - Vital Signs Vital signs: Vital Signs Temp 98.4 F 08/01/17 12:00 Pulse 60 08/01/17 12:00 Resp 18 08/01/17 12:00 BP 136/70 08/01/17 12:00 Pulse Ox 98 08/01/17 12:00 Intake & Output 07/31/17 08/01/17 08/01/17 18:59 06:59 18:59 Intake Total 480 360 Balance 480 360 Weight 93.44 kg 92.7 kg 92.7 kg Intake: Oral 480 360 Other: Voiding Method Toilet # Voids 1 3 0 - Exam - Constitutional General appearance: cooperative, no acute distress - EENT Eyes: anicteric sclerae, PERRLA, normal appearance, no nystagmus appreciated no facial droop or facial numbness ENT: hearing grossly normal - Neck Neck: no lymphadenopathy, normal ROM, no other, no rigidity, no stridor, no thyromegaly is able to shrug his shoulders equally with good strength - Respiratory Respiratory: bilateral: CTA, negative: diminished, dullness, rales, rhonchi - Cardiovascular Rhythm: regular Heart sounds: normal: S1, S2 Abnormal Heart Sounds: no systolic murmur, no diastolic murmur, no rub, no S3 Gallop, no S4 Gallop, no click, no other - Gastrointestinal General gastrointestinal: normal bowel sounds, soft - Integumentary Integumentary: no rash - Neurologic Neurologic: Pupils equal and reactive to light. Significant tongue atrophy seen on the left side of the tongue with deviation to the left. equal elevation of the palate bilaterally. Patient has limited movement of the neck bilaterally due to significant degenerative disc disease in the neck - Musculoskeletal Musculoskeletal: gait normal, strength equal bilaterally Romberg negative. Ndmfyk-ev-axmi test negative ,negative for dysdiadochokinesia - Psychiatric Psychiatric: A&O x's 3, appropriate affect - Labs CBC & Chem 7: 07/31/17 12:00 07/31/17 12:00 Labs: Abnormal Lab Results - Last 24 Hours (Table) 07/31/17 Range/Units 12:00 LDL Cholesterol, Calc 100 H (0-99) mg/dL HDL Cholesterol 39 L (40-60) mg/dL Assessment and Plan Plan: 1. Gait instability resolved with speech and swallowing abnormality. Differential includes bulbar or pseudobulbar palsy. Patient's gait instability points towards brainstem lesion. MRI brain ordered. Carotid Dopplers ordered was stopped neurology evaluation ordered as it is unclear if patient has a central or peripheral lesion. There is a possibility patient's close the pharyngeal and valgus nerve is also involved. Continue aspirin daily. Lipid panel ordered. Echo ordered. Swallow evaluation was appropriate speech recommended regular diet/thin liquids. 2. chronic kidney disease stage III. Stable 3. Benign prostatic hypertrophy. Flomax 0.4 mg orally once every day. 4. CAD status post PCI. Atenolol 100 mg orally once every day, aspirin 81 mg once every day. 5. Hypertension and hypertensive cardiovascular disease. Atenolol 100 mg orally once every day, lisinopril 20 mg orally twice a day along with amlodipine 5 mg orally once every day. 6. Postlaminectomy syndrome. Chronic pain syndrome. Continue current pain management. 7. DVT prophylaxis .heparin 5000 units subcutaneously every 12 hours . 8. GI prophylaxis .Prilosec 20 mg orally once every day . 9. Disposition patient can be discharged today if MRI is back and carotid dopplers are n ormal 10. Full code .
[2017-08-01] MEDS ORDERED: amLODIPine 5 MG TAB PO SCH (14:00)
--- NOTE | 2017-08-01 14:49 | US ---
EXAMINATION TYPE: US carotid duplex BILAT DATE OF EXAM: 08/01/2017 COMPARISON: US 07/27/2015 CLINICAL HISTORY: stroke. Stroke EXAM MEASUREMENTS: RIGHT: Peak Systolic Velocity (PSV) cm/sec ----- Right CCA: 92.1 ----- Right ICA: 138.4 ----- Right ECA: 131.6 ICA/CCA ratio: 1.5 RIGHT: End Diastole cm/sec ----- Right CCA: 17.2 ----- Right ICA: 26.8 ----- Right ECA: 12.4 LEFT: Peak Systolic Velocity (PSV) cm/sec ----- Left CCA: 122.9 ----- Left ICA: 160.9 ----- Left ECA: 118.5 ICA/CCA ratio: 1.3 LEFT: End Diastole cm/sec ----- Left CCA: 17.0 ----- Left ICA: 20.9 ----- Left ECA: 11.2 VERTEBRALS (direction of flow): Right Vertebral: Antegrade Left Vertebral: Antegrade Rhythm: Normal Slightly more elevated velocities since previous exam IMPRESSION: Slightly elevated peak systolic velocities corresponding to a of 50-69% of the right internal carotid artery, left internal carotid artery, and external carotid arteries. Grayscale images favor 50% sten osis. CTA neck could be performed for more accurate assessment of degree of stenosis is clinically in dicated. Underlying hypertension is also suspected.
[2017-08-01] MEDS: CHOLECALCIFEROL 1,000 UNIT TAB PO SCH (14:53)
[2017-08-01] MEDS: MAGNESIUM OXIDE 400 MG TAB PO SCH (14:54)
--- NOTE | 2017-08-01 15:28 | MR ---
EXAMINATION TYPE: MR brain wo/w con DATE OF EXAM: 08/01/2017 COMPARISON: 07/31/2017 HISTORY: stroke TECHNIQUE: Multiplanar, multisequence images of the brain and brainstem is performed without and with IV contras t, utilizing 9 mL intravenous Gadavist . FINDINGS: Diffusion weighted images demonstrate no acute clear infiltrate involving the right putamen , globus pallidus, and medel radiata of the right frontal lobe. Correspondingly there is an area of T2/IR hyperintensity representing edema. Other foci of nonspecific white matter change that are demon strated as T2/IR hyperintensity are scattered throughout the subcortical and periventricular white ma tter. Note is made of a normal variant cavum septum lucidum et verge. There is no extra-axial fluid c ollection. The ventricular system and peripheral sulci are symmetrically prominent compatible with a ge-related volume loss. Midline structures demonstrate normal morphology. The craniocervical junction appears within normal limits. Post contrast images demonstrate no abnormal enhancement. The dural venous sinuses appear pa tent. The visualized sinuses are clear and the globes are intact. IMPRESSION: 1. Acute lacunar injury of the right basal ganglia extending into the right medel radiata. 2. Mild burden nonspecific white matter change, most commonly on the basis of chronic microangiopathy . 2. No abnormal intracranial enhancement or enhancing intracranial mass. A Yellow level critical message alert has been initiated for Sheryl Christianson MD via the [employer] Critical Results System on 08/01/2017 3:26 PM. This message alert has been sent to Sheryl Christianson MD via the preferences provided by the clinician for the receipt of Radiology Critical Findings. Message ID [id number].
[2017-08-01] MEDS ORDERED: amLODIPine 5 MG TAB PO STA (16:29)
--- NOTE | 2017-08-01 17:11 | P.PN ---
Subjective Progress Note Date: 08/01/17 Principal diagnosis: Dysarthria This 72-year-old male continuing to be evaluated by the neurology service. He was brought to [facility] emergency room with slurred speech and trouble swallowing. He denied any lateralizing numbness or weakness. Initial CT of the brain showed some hypoattenuation of the internal capsule in the basal ganglion. A subsequent MRI was done and showed an acute lacunar infarct of the right basal ganglia extending into the right medel radiata. It also showed chronic microvascular disease. No masses or enhancing lesions were found were found. His carotid Dopplers did show some significant stenosis bilaterally. A CTA of the head and neck have been ordered. He does have a significant cardiovascular history. He will not take statins due to muscle aches and chest pain. At the time my exam he is resting comfortably in bed in no acute distress. Objective - Vital Signs Vital signs: Vital Signs Temp 98.2 F 08/01/17 16:00 Pulse 52 L 08/01/17 16:00 Resp 18 08/01/17 16:00 BP 196/86 08/01/17 16:00 Pulse Ox 96 08/01/17 16:00 Intake & Output 07/31/17 08/01/17 08/01/17 18:59 06:59 18:59 Intake Total 480 360 Balance 480 360 Weight 93.44 kg 92.7 kg 92.7 kg Intake: Oral 480 360 Other: Voiding Method Toilet # Voids 1 3 0 - Constitutional General appearance: Present: cooperative, no acute distress - EENT Eyes: Present: PERRLA. Absent: abnormal pupil, EOMI, ptosis ENT: Present: hearing grossly normal - Neck Neck: Present: normal ROM - Respiratory Respiratory: negative: prolonged expiration, prolonged inspiration - Cardiovascular Rhythm: regular - Gastrointestinal General gastrointestinal: Absent: distended - Neurologic Neurologic Comment(s): Patient is alert awake and oriented 3. Speech is mildly dysarthric. Language is normal. There is no lateralizing weakness. There is no sensory deficit. Cranial nerve testing continues to show left-sided tongue atrophy. - Labs CBC & Chem 7: 07/31/17 12:00 07/31/17 12:00 Labs: Abnormal Lab Results - Last 24 Hours (Table) 07/31/17 Range/Units 12:00 LDL Cholesterol, Calc 100 H (0-99) mg/dL HDL Cholesterol 39 L (40-60) mg/dL Assessment and Plan (1) Dysarthria Current Visit: Yes Status: Acute Code(s): R47.1 - DYSARTHRIA AND ANARTHRIA SNOMED Code(s): 6532820 (2) Dysphagia Current Visit: Yes Status: Acute Code(s): R13.10 - DYSPHAGIA, UNSPECIFIED SNOMED Code(s): 15495373 (3) Cerebrovascular accident Current Visit: Yes Status: Acute Code(s): I63.9 - CEREBRAL INFARCTION, UNSPECIFIED SNOMED Code(s): 749773085 (4) Hyperlipidemia Current Visit: Yes Status: Acute Code(s): E78.5 - HYPERLIPIDEMIA, UNSPECIFIED SNOMED Code(s): 92374139 (5) Coronary artery disease Current Visit: Yes Status: Chronic Code(s): I25.10 - ATHSCL HEART DISEASE OF [place] CORONARY ARTERY W/O ANG PCTRS SNOMED Code(s): 33513761 (6) Hypertension Current Visit: Yes Status: Chronic Code(s): I10 - ESSENTIAL (PRIMARY) HYPERTENSION SNOMED Code(s): 07416822 (7) Carotid stenosis Current Visit: Yes Status: Chronic Code(s): I65.29 - OCCLUSION AND STENOSIS OF UNSPECIFIED CAROTID ARTERY SNOMED Code(s): 53558050 Plan: This patient has suffered an acute stroke involving the right basal ganglia and right medel radiata. His symptoms of dysarthria and dysphagia are slowly improving. He will continue to work with physical and speech therapy. With his significant cardiac history Plavix would be recommended. He had stopped antiplatelets on its own and was restarted on aspirin 325 mg. Unsure whether there is some reaction or contraindication to Plavix. If not it should be restarted 75 mg daily. He refuses to take statins. He says they have given him muscle aches and/or chest pain in the past. He also believes that taking statins did some harm to his brother. No further neurological workup is needed. A serum homocysteine level was ordered. If this is abnormal consideration can be given to adding Folbic We can be consulted on as-needed basis for any changes in his neurological status. I have performed a history and physical on the above patient. I have reviewed the above note, and agree.
--- NOTE | 2017-08-01 18:40 | CT ---
EXAMINATION TYPE: CT angio head neck DATE OF EXAM: 08/01/2017 HISTORY: Abnormal US COMPARISON: NONE CT DLP: 394.9 mGycm. Automated Exposure Control for Dose Reduction was Utilized. TECHNIQUE: CTA scan of the neck is performed with IV Contrast, patient injected with 70 mL of Omnipa que 350, axial images are obtained, coronal and sagittal reformatted images are reviewed. Three-D rec onstructed images are created on an independent workstation and reviewed. FINDINGS: Carotid/Vascular Structures: Minimal nonhemodynamically significant atheromatous plaquing is seen at the origin of the brachiocephalic artery. There is a normal configuration of the great vessel branch pattern of the aortic arch. At the carotid bulbs there is 50% short segment luminal narrowing spannin g a distance of approximately 4 mm each. There is no hemodynamically significant stenosis within the common carotid arteries or visualized extracranial internal carotid arteries. In the intracranial int ernal carotid arteries nonhemodynamically significant stenosis is seen at the supraclinoid portion on the left and approximately 50% stenosis of the cavernous portion on the right and 50% within the sup raclinoid portion of the right. No evidence of dissection or focal aneurysmal outpouching is seen. There is dominance of the left ella tebral artery. No evidence of vascular occlusion. The [place] of [place] is patent. There is mild centr ilobular emphysema in the visualized lung apices. Multilevel degenerative changes of the cervical spi ne are moderate in degree with anterior cervical fusion device. Osseous structures are grossly intact . Other: The visualized portions of the brain are discussed in the MR brain of the same date. This incl udes the known acute lacunar injury of the right basal ganglia and medel radiata. IMPRESSION: 1. Short segment focal stenoses of the carotid bulbs measuring over 4 mm in distance of approximately 50% stenosis bilaterally. 2. Approximately 50% stenosis of the cavernous portion of the right internal carotid artery and supra clinoid portion of the right internal carotid artery. 3. The known right acute lacunar injury is better visualized on the MR brain of the same day.
[2017-08-01] MEDS: ATENOLOL 50 MG TAB PO SCH (19:53)
[2017-08-01] MEDS: TAMSULOSIN 0.4 MG CAP.ER.24H PO SCH (19:54)
--- NOTE | 2017-08-01 21:02 | CONS ---
DATE OF CONSULTATION: 08/01/2017 This is a 72-year-old gentleman who has been admitted to [facility] through the ER. The patient came with history of slurred speech and difficulty in swallowing. The patient has been admitted and had a complete stroke workup. The patient had ultrasound of the carotid which shows bilateral 50-69% stenosis. The patient had a MRI of the brain which showed acute lacunar infarct involving the right basal ganglia. The patient has a significant coronary artery disease. The patient also has a chronic back pain for that he has been seeing Neurology. There is no history of TIA, amaurosis fugax. No history of any motor deficit. The patient has no evidence of any swelling in the foot. PHYSICAL EXAMINATION: NECK: Supple. No bruit appreciated. CHEST: Clear to auscultation. ABDOMEN: Soft. Femoral pulses are present. The patient has a normal motor function upper and lower extremity. The patient is scheduled to have a CT of the carotid. We will wait for the result and neuro has been on consult. We will follow with you. Thank you very for this consultation. MMODL / IJN: [id number] / PIPER
[2017-08-02] MEDS: CYCLOBENZAPRINE 10 MG TAB PO PRN ×2 (00:59→08:00)
[2017-08-02] MEDS: oxyCODONE-APAP 10-325MG 1 EACH TAB PO PRN ×2 (03:14→08:00)
[2017-08-02] MEDS: ASPIRIN 325 MG TAB PO SCH (07:56)
[2017-08-02] MEDS: MAGNESIUM OXIDE 400 MG TAB PO SCH (07:56)
[2017-08-02] MEDS: HEPARIN SODIUM,PORCINE 5,000 UNIT/ML 1 ML VIAL SQ SCH (07:56)
[2017-08-02] MEDS: FAMOTIDINE 20 MG TAB PO SCH (07:56)
[2017-08-02] MEDS: LISINOPRIL 20 MG TAB PO SCH (07:56)
[2017-08-02] MEDS: CHOLECALCIFEROL 1,000 UNIT TAB PO SCH (07:56)
[2017-08-02 08:50] VITALS: BP 139/97; PULSE 67; TEMP 98.2
--- NOTE | 2017-08-02 13:06 | P.DS ---
Providers Date of admission: 07/31/17 13:54 Expected date of discharge: 08/02/17 Attending physician: Sheryl Christianson Consults: 07/31/17 14:01 Consult Physician Urgent Consulting Provider: Rigo Blandon Consult Reason/Comments: CVA Do you want consulting provider notified?: Yes 08/01/17 16:49 Consult Physician Urgent Consulting Provider: Jose Luis Lewis Consult Reason/Comments: carotid stenosis Do you want consulting provider notified?: Yes Primary care physician: Altaf Simms [facility] Course: 70-year-old male one of Dr. 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 Patient followed Dr. Blandon in May for his lower back. He was started on a pain pill by him. According to patient he started having difficulty swallowing after he initiated the pill which he took for 7 days. Following difficulty swallowing patient started having difficulty with slurring of his voice. Since patient had gait instability when he woke up this morning he decided to come to the ER for evaluation. He denies any lightheadedness or dizziness. He denies any motor or sensory loss, any numbness of face or drooping. Patient denies any history of seizures. He denies any history of cancer or weight loss. He had an normal MRI brain done in May. Labs included CBC and BMP are unremarkable. Carotid Dopplers, echo , MRI brain ordered to evaluate the brain stem for bulbar palsy. 08/01: Patient doing well today. He was able to eat his meal without any aspiration. Speech therapy evaluated the patient is monitoring recommended regular diet/ thin liquids. Brain MRI pending. Carotid Dopplers pending. 08/02: MRI of the brain showed acute lacunar injury of the right basal ganglia extending into the right medel radiata. Mild burden nonspecific white matter change most commonly on the basis of chronic microangiopathic. No abnormal intracranial enhancement or enhancing intracranial mass. Carotid ultrasound revealed 50-69% right internal carotid artery stenosis and left internal carotid artery and external carotid arteries. Grayscale images fever 50% stenosis. Patient's discharge was held yesterday due to these findings and CT of the carotids and vascular consult requested. Patient has been seen by Dr. Lewis who is waiting for the recent report on the CT of the carotids. This revealed short segment focal stenosis of the carotid bulbs measuring 4 mm and distance of approximately 50% stenosis bilaterally. Approximate 50% stenosis of the cavernous portion of the right internal carotid artery and supraclinoid portion of the right internal carotid artery. Known right acute lacunar injury is better visualized on the MR brain. Patient has been evaluated by speech therapy with recommendations for regular diet and thin liquids but patient needs to take small bites. Patient was evaluated by OT and PT with recommendations for home. Patient refuses taking a statin which will not be provided at discharge because of this. His blood pressure remains high for which amlodipine will be increased to 10 mg daily. Fish oil will be discontinued and discussed in detail with the patient and his daughter. Regarding the tongue atrophy, patient has had this for more than one month and recommend the patient follow up with oral surgeon. Referral placed on this discharge for Dr. Starkey. She'll be discharged home today in stable condition. Discharge diagnoses: 1. Acute lacunar CVA, right basal ganglia extending into the right medel radiata. 2. Chronic kidney disease stage III. 3. Benign prostatic hypertrophy. 4. CAD status post PCI. 5. Hypertension and hypertensive cardiovascular disease. 6. Postlaminectomy syndrome. Discharge plan: home Impression and plan of care have been directed as dictated by the signing physician. Ana Maria Benson nurse practitioner acting as scribe for signing physician. Patient Condition at Discharge: Good Plan - Discharge Summary Discharge Rx Participant: No New Discharge Prescriptions: New amLODIPine [Norvasc] 10 mg PO DAILY #30 tablet Clopidogrel Bisulfate [Plavix] 75 mg PO DAILY #30 tab Continue Lisinopril [Prinivil] 40 mg PO QAM oxyCODONE-APAP 10-325MG [Percocet 10-325 mg] 1 tab PO Q4HR PRN PRN Reason: Pain Potassium 198 mg PO DAILY Magnesium Oxide [Mag-Ox] 500 mg PO DAILY Cholecalciferol (Vitamin D3) [Vitamin D3] 4,000 unit PO DAILY Ascorbic Acid [Vitamin C] 1,000 mg PO DAILY Nitroglycerin Sl Tabs [Nitrostat] 0.4 mg SUBLINGUAL Q5M PRN PRN Reason: Chest Pain Tamsulosin HCl [Flomax] 0.4 mg PO HS Atenolol [Tenormin] 50 mg PO HS Testosterone Injections(Dose Unknown) 1 applicate IJ Q14D Discontinued amLODIPine [Norvasc] 5 mg PO DAILY@1400 Fish Oil/Dha/Epa [Fish Oil 1,200 mg Fish Oil] 2 each PO DAILY Discharge Medication List Lisinopril [Prinivil] 40 mg PO QAM 01/01/15 [History] oxyCODONE-APAP 10-325MG [Percocet 10-325 mg] 1 tab PO Q4HR PRN 01/01/15 [History ] Ascorbic Acid [Vitamin C] 1,000 mg PO DAILY 07/10/17 [History] Atenolol [Tenormin] 50 mg PO HS 07/10/17 [History] Cholecalciferol (Vitamin D3) [Vitamin D3] 4,000 unit PO DAILY 07/10/17 [History] Magnesium Oxide [Mag-Ox] 500 mg PO DAILY 07/10/17 [History] Nitroglycerin Sl Tabs [Nitrostat] 0.4 mg SUBLINGUAL Q5M PRN 07/10/17 [History] Potassium 198 mg PO DAILY 07/10/17 [History] Tamsulosin HCl [Flomax] 0.4 mg PO HS 07/10/17 [History] Testosterone Injections(Dose Unknown) 1 applicate IJ Q14D 07/10/17 [History] Clopidogrel Bisulfate [Plavix] 75 mg PO DAILY #30 tab 08/02/17 [Rx] amLODIPine [Norvasc] 10 mg PO DAILY #30 tablet 08/02/17 [Rx] Follow up Appointment(s)/Referral(s): Efrem Starkey DDS [STAFF PHYSICIAN] - 1 Week (Please call to make appointment ) Rigo Blandon MD [STAFF PHYSICIAN] - 1 Week (Spoke to sales attendant Sonya. Office will call with appointment time.) Altaf Simms DO [Primary Care Provider] - 1 Week (Spoke to sales attendant. Office will call with appointment time) Jose Luis Lewis MD [STAFF PHYSICIAN] - 08/09/17 11:30 am (monday) Patient Instructions/Handouts: Carotid Artery Disease (DC), Stroke (DC) Discharge Disposition: HOME SELF-CARE
== END 2017-08-02 10:15 | disposition home or self-care (01) | DRG 66 ==
LOC: EC 11:41 → 6SEL 13:54
PROVIDERS: ADMIT Internal Medicine; ATTEND Internal Medicine
DX: I63.9 Cerebral infarction, unspecified (principal); R13.10 Dysphagia, unspecified; I13.10 Hypertensive heart and chronic kidney disease without heart failure, with stage 1 through stage 4 chronic kidney disease, or unspecified chronic kidney disease; N18.3 Chronic kidney disease, stage 3 (moderate); R47.1 Dysarthria and anarthria; E78.5 Hyperlipidemia, unspecified; G58.8 Other specified mononeuropathies; G89.4 Chronic pain syndrome; I25.10 Atherosclerotic heart disease of native coronary artery without angina pectoris; I65.21 Occlusion and stenosis of right carotid artery; K21.9 Gastro-esophageal reflux disease without esophagitis; M96.1 Postlaminectomy syndrome, not elsewhere classified; N40.0 Benign prostatic hyperplasia without lower urinary tract symptoms; K59.03 Drug induced constipation; M19.90 Unspecified osteoarthritis, unspecified site; M79.606 Pain in leg, unspecified; R26.9 Unspecified abnormalities of gait and mobility; K14.8 Other diseases of tongue; R35.0 Frequency of micturition; Z79.899 Other long term (current) drug therapy; Z88.5 Allergy status to narcotic agent; Z86.73 Personal history of transient ischemic attack (TIA), and cerebral infarction without residual deficits; Z95.5 Presence of coronary angioplasty implant and graft; Z98.84 Bariatric surgery status; Z96.651 Presence of right artificial knee joint; Z82.49 Family history of ischemic heart disease and other diseases of the circulatory system; Z87.442 Personal history of urinary calculi
CPT/HCPCS: 36415; 70450; 70496; 70498; 70553; 71046; 80053; 80061; 82550; 82553; 83090; 84484; 85025; 85610; 85730; 93005; 93306; 93880; 99285

== ENCOUNTER → 2017-08-17 | Outpatient (CLI) | payer MEDICARE ==
--- NOTE | 2017-08-18 09:10 | NM ---
Nuclear medicine hepatobiliary scan. HISTORY: Pain. DOSAGE: The patient received 8 ounces of ensure plus and 5.2 mCi of Technetium 99m Choletec. FINDINGS: There is normal hepatic extraction. The gallbladder is seen by 30 minutes. There is bilia ry to bowel clearance by 20 minutes. Ejection fraction is 24%. IMPRESSION: 1. Ejection fraction of 24% correlate for biliary dyskinesia.
== END | disposition home or self-care (01) ==
LOC: RADNMMAIN 14:48
PROVIDERS: ATTEND Surgery
DX: K81.1 Chronic cholecystitis (principal)
CPT/HCPCS: 78227; A9537; J2805

== ENCOUNTER 2017-08-31 09:13 | Day surgery (SDC) | payer MEDICARE ==
[2017-08-29 11:00] VITALS: BMI 28.7
[~2017-08-31 09:13] MED LIST changes: +LACTATED RINGERS 1,000 ML IV SCH; -SODIUM CHLORIDE 0.9% 1,000 ML in EMPTY BAG 1 BAG IV ONE
[2017-08-31 09:46] VITALS: RESP 16; TEMP 98.1
[2017-08-31] MEDS ORDERED: LIDOCAINE 1% 20 ML VIAL (10MG/ML) FOR IV START INTRADERMA ONE (09:53)
[2017-08-31] MEDS ORDERED: GLYCOPYRROLATE 0.2 MG/ML 2 ML VIAL ONE (10:47)
[2017-08-31] MEDS ORDERED: PROPOFOL 10 MG/ML 20 ML VIAL IV ONE (10:47)
[2017-08-31] MEDS ORDERED: LIDOCAINE 1% INJ 10MG/ML (20 ML MDV) ONE (10:47)
--- NOTE | 2017-08-31 10:54 | P.GSHP ---
History of Present Illness H&P Date: 08/31/17 Chief Complaint: GERD, dysphagia, screening colonoscopy Cyst 72-year-old male referred from Dr. Altaf Simms. Patient presents today for EGD and colonoscopy. He's had issues with GERD and dysphagia. His last colonoscopy was over 10 years ago Past Medical History Past Medical History: Coronary Artery Disease (CAD), Chest Pain / Angina, CVA/ TIA, GERD/Reflux, Hyperlipidemia, Hypertension, Musculoskeletal Disorder, Osteoarthritis (OA), Prostate Disorder, Renal Disease, Vascular Disorder Additional Past Medical History / Comment(s): CHRONIC CONSTIPATION FROM PAIN MEDS. KIDNEY STONES. urinary frequency. chronic back pain. BPH, impotence status post penile implant. Bilateral lower extremity edema, WITH CHRONIC LEG PAIN (POST PAIN CLINIC PROCEDURE). CVA-07/31/17, HX FREQUENT CONSTIPATION History of Any Multi-Drug Resistant Organisms: None Reported Past Surgical History: Back Surgery, Bariatric Surgery, Heart Catheterization With Stent, Joint Replacement, Orthopedic Surgery Additional Past Surgical History / Comment(s): CARDIAC STENTS 1999. Lap band surgery 10 years ago. penile implant. RIGHT KNEE REPLACED X 2.cervical sx has titanium plate, colonoscopy, AORTAGRAM, COLONOSCOPY Past Anesthesia/Blood Transfusion Reactions: Previous Problems w/ Anesthesia Additional Past Anesthesia/Blood Transfusion Reaction / Comment(s): had itchy skin and severe leg cramps after sx Date of Last Stent Placement:: 1999 Smoking Status: Never smoker - Past Family History Mother Family Medical History: Cancer Additional Family Medical History / Comment(s): . Father History Unknown: Yes Family Medical History: Congestive Heart Failure (CHF) Additional Family Medical History / Comment(s): etoh, smoking Brother(s) Family Medical History: Coronary Artery Disease (CAD), Diabetes Mellitus Sister(s) Family Medical History: No Reported History Daughter(s) Family Medical History: No Reported History Additional Family Medical History / Comment(s): Daughter has peripheral artery disease. No history of stroke in mother or father Medications and Allergies Home Medications Medication Instructions Recorded Confirmed Type Lisinopril [Prinivil] 40 mg PO QAM 01/01/15 08/29/17 History oxyCODONE-APAP 10-325MG [Percocet 1 tab PO Q4HR PRN 01/01/15 08/29/17 History 10-325 mg] Ascorbic Acid [Vitamin C] 1,000 mg PO DAILY 07/10/17 08/29/17 History Atenolol [Tenormin] 50 mg PO HS 07/10/17 08/31/17 History Cholecalciferol (Vitamin D3) 4,000 unit PO DAILY 07/10/17 08/31/17 History [Vitamin D3] Magnesium Oxide [Mag-Ox] 500 mg PO DAILY 07/10/17 08/31/17 History Nitroglycerin Sl Tabs [Nitrostat] 0.4 mg SUBLINGUAL Q5M PRN 07/10/17 08/31/17 History Potassium 198 mg PO DAILY 07/10/17 08/31/17 History Tamsulosin HCl [Flomax] 0.4 mg PO HS 07/10/17 08/31/17 History Testosterone Injections(Dose 1 applicate IJ Q14D 07/10/17 08/31/17 History Unknown) Clopidogrel Bisulfate [Plavix] 75 mg PO DAILY #30 tab 08/02/17 08/29/17 Rx amLODIPine [Norvasc] 10 mg PO DAILY #30 tablet 08/02/17 08/29/17 Rx Aspirin EC [Ecotrin Low Dose] 81 mg PO DAILY 08/29/17 08/29/17 History Fish Oil/Dha/Epa [Fish Oil 1,200 1 each PO DAILY 08/29/17 08/29/17 History mg Fish Oil] Cyclobenzaprine [Flexeril] 5 mg PO TID PRN 08/31/17 08/31/17 History Allergies Allergy/AdvReac Type Severity Reaction Status Date / Time morphine Allergy Rash/Hives Verified 08/29/17 10:51 Surgical - Exam Vital Signs Temp Pulse Resp BP Pulse Ox 98.1 F 53 L 16 137/77 96 08/31/17 09:45 08/31/17 09:45 08/31/17 09:45 08/31/17 09:45 08/31/17 09:45 - General well developed, no distress - Eyes PERRL - ENT normal pinna - Neck no masses - Respiratory normal expansion - Cardiovascular Rhythm: regular - Abdomen Abdomen: soft, non tender Results - Imaging Additional studies: Patient's recent HIDA scan shows diminished ejection fraction of 24% soaked biliary dysfunction. Assessment and Plan Assessment: GERD and dysphagia. We'll perform EGD. We'll also perform screening colonoscopy.
[2017-08-31] MEDS ORDERED: LACTATED RINGERS 1,000 ML IV ONE (11:11)
--- NOTE | 2017-08-31 11:17 | P.OP ---
Date of Procedure: 08/31/17 Preoperative Diagnosis: GERD Screening colonoscopy Postoperative Diagnosis: Antral gastritis No evidence of esophagitis LAP-BAND in normal position without evidence of erosion or inflammation. Normal colonoscopy with limited view mucosa due to large amount of stool Procedure(s) Performed: EGD Colonoscopy Anesthesia: MAC Surgeon: Edmundo Singh Pathology: other (Antrum) Condition: stable Disposition: PACU Description of Procedure: The patient's placed on the endoscopy table lateral position. He received received IV sedation. The gastroscope placed oropharynx and passed into the esophagus and stomach. Scope was then placed through the pylorus. The first second portion of the duodenum appeared normal. Scope was then brought back the antrum and this was minimal inflamed. A biopsies performed. The scope was retroflexed and remainder stomach appeared normal. The patient had a previous placed lap band device this was without evidence of inflammation or erosion. There was no evidence of a hiatal hernia. The distal esophagus appeared normal. The proximal esophagus appeared normal. Scope was withdrawn for patient. Next digital rectal exam was performed which revealed a large amount liquid stool. The flexible colonoscope was then placed patient anus passed throughout the entire colon. The entire colon had a large amount of pasty stool throughout. This limited the view of the mucosa. The right colon, transverse colon, descending colon and sigmoid colon appeared normal. Scope was then brought back the rectum this appeared normal. There is known to blood or polyps in the colon. However the view was quite limited. The patient's recent HIDA scan shows abnormal ejection fraction consistent with biliary dysfunction. He'll be seen in the office for consultation regarding laparoscopic cholecystectomy.
[2017-08-31 11:50] VITALS: BP 137/62; PULSE 50
== END 2017-08-31 12:18 | disposition home or self-care (01) ==
LOC: ORWHC2ENDO 09:13
PROVIDERS: ATTEND Surgery
DX: Z12.11 Encounter for screening for malignant neoplasm of colon (principal); K29.70 Gastritis, unspecified, without bleeding; K64.9 Unspecified hemorrhoids; I25.10 Atherosclerotic heart disease of native coronary artery without angina pectoris; K21.9 Gastro-esophageal reflux disease without esophagitis; E78.5 Hyperlipidemia, unspecified; M19.90 Unspecified osteoarthritis, unspecified site; G89.29 Other chronic pain; I10 Essential (primary) hypertension; K59.09 Other constipation; T40.2X5A Adverse effect of other opioids, initial encounter; I73.9 Peripheral vascular disease, unspecified; Z95.5 Presence of coronary angioplasty implant and graft; Z86.73 Personal history of transient ischemic attack (TIA), and cerebral infarction without residual deficits; Z82.49 Family history of ischemic heart disease and other diseases of the circulatory system; Z79.82 Long term (current) use of aspirin; Z87.442 Personal history of urinary calculi; N40.0 Benign prostatic hyperplasia without lower urinary tract symptoms; Z98.84 Bariatric surgery status; Z96.651 Presence of right artificial knee joint; Z79.02 Long term (current) use of antithrombotics/antiplatelets; Z79.899 Other long term (current) drug therapy
CPT/HCPCS: 88305; 43239; J2001; J2704; G0121

== ENCOUNTER 2017-09-06 13:19 | Day surgery (SDC) | payer MEDICARE ==
[2017-09-01 15:59] VITALS: BMI 30.4
[~2017-09-06 13:19] MED LIST changes: +DEXAMETHASONE SOD PHOSPHATE 10 MG/ML 1 ML VIAL IV ONE; +HEPARIN SODIUM,PORCINE 5,000 UNIT/ML 1 ML VIAL SQ ONE; +MORPHINE SULFATE 4 MG/0.8 ML SYRINGE (INJ) IV PRN; +ONDANSETRON ODT 4 MG TAB PO ONE; +ceFAZolin IN SWFI 2 GM/20 ML SYRINGE IVP ONE
--- NOTE | 2017-09-06 13:42 | P.GSHP ---
History of Present Illness H&P Date: 09/06/17 Chief Complaint: Right upper quadrant pain Is a 72-year-old male who presents today for laparoscopic cholestatic. Patient' s had complaints of right upper quadrant pain. His recent HIDA scan shows abnormal ejection fraction. Past Medical History Past Medical History: Coronary Artery Disease (CAD), Chest Pain / Angina, CVA/ TIA, GERD/Reflux, Hyperlipidemia, Hypertension, Musculoskeletal Disorder, Osteoarthritis (OA), Prostate Disorder, Renal Disease, Vascular Disorder Additional Past Medical History / Comment(s): Pt states he had a stroke 07/02 and 07/30 r/[employer] BP;Hx KIDNEY STONES. urinary frequency. chronic back pain. BPH, impotence status post penile implant. Bilateral lower extremity edema, CHRONIC LEG PAIN (POST PAIN CLINIC PROCEDURE). Chronic constipation History of Any Multi-Drug Resistant Organisms: None Reported Past Surgical History: Back Surgery, Bariatric Surgery, Heart Catheterization With Stent, Joint Replacement, Orthopedic Surgery Additional Past Surgical History / Comment(s): CARDIAC STENTS 1999. Lap band surgery 10 years ago. penile implant. RIGHT KNEE REPLACED X 2.cervical sx has titanium plate, colonoscopy Past Anesthesia/Blood Transfusion Reactions: Previous Problems w/ Anesthesia Additional Past Anesthesia/Blood Transfusion Reaction / Comment(s): had itchy skin and severe leg cramps after sx Date of Last Stent Placement:: 1999 Smoking Status: Never smoker - Past Family History Mother Family Medical History: Cancer Additional Family Medical History / Comment(s): . Father History Unknown: Yes Family Medical History: Congestive Heart Failure (CHF) Additional Family Medical History / Comment(s): etoh, smoking Brother(s) Family Medical History: Coronary Artery Disease (CAD), Diabetes Mellitus Sister(s) Family Medical History: No Reported History Daughter(s) Family Medical History: No Reported History Additional Family Medical History / Comment(s): Daughter has peripheral artery disease. No history of stroke in mother or father Medications and Allergies Home Medications Medication Instructions Recorded Confirmed Type Lisinopril [Prinivil] 40 mg PO QAM 01/01/15 09/01/17 History oxyCODONE-APAP 10-325MG [Percocet 1 tab PO Q4HR PRN 01/01/15 09/01/17 History 10-325 mg] Ascorbic Acid [Vitamin C] 1,000 mg PO DAILY 07/10/17 09/01/17 History Atenolol [Tenormin] 50 mg PO HS 07/10/17 09/01/17 History Cholecalciferol (Vitamin D3) 4,000 unit PO DAILY 07/10/17 09/01/17 History [Vitamin D3] Magnesium Oxide [Mag-Ox] 500 mg PO DAILY 07/10/17 09/01/17 History Nitroglycerin Sl Tabs [Nitrostat] 0.4 mg SUBLINGUAL Q5M PRN 07/10/17 09/01/17 History Potassium 198 mg PO DAILY 07/10/17 09/01/17 History Tamsulosin HCl [Flomax] 0.4 mg PO HS 07/10/17 09/01/17 History Testosterone Injections(Dose 1 applicate IJ Q14D 07/10/17 09/01/17 History Unknown) Clopidogrel Bisulfate [Plavix] 75 mg PO DAILY #30 tab 08/02/17 09/01/17 Rx amLODIPine [Norvasc] 10 mg PO DAILY #30 tablet 08/02/17 09/01/17 Rx Aspirin EC [Ecotrin Low Dose] 81 mg PO DAILY 08/29/17 09/01/17 History Fish Oil/Dha/Epa [Fish Oil 1,200 1 each PO DAILY 08/29/17 09/01/17 History mg Fish Oil] Cyclobenzaprine [Flexeril] 5 mg PO TID PRN 08/31/17 09/01/17 History Docusate [Colace] 100 mg PO BID #20 capsule 09/06/17 Rx HYDROcodone/APAP 7.5-325MG [Evangeline 1 each PO Q4H PRN #30 tab 09/06/17 Rx 7.5] Allergies Allergy/AdvReac Type Severity Reaction Status Date / Time morphine Allergy Rash/Hives Verified 09/06/17 13:32 Surgical - Exam - General well developed, no distress - Eyes PERRL - ENT normal pinna - Neck no masses - Respiratory normal expansion - Cardiovascular Rhythm: regular - Abdomen Abdomen: soft, non tender Assessment and Plan Assessment: Chronic cholecystitis Right upper quadrant pain Abnormal ejection fraction on HIDA scan. We'll perform laparoscopic cholecystectomy.
[2017-09-06] MEDS ORDERED: LIDOCAINE 1% 20 ML VIAL (10MG/ML) FOR IV START INTRADERMA ONE (14:04)
[2017-09-06] MEDS ORDERED: BUPIVACAINE (PF) 0.25% 30 ML VIAL SQ ONE (14:27)
[2017-09-06] MEDS ORDERED: SUCCINYLCHOLINE CHLORIDE 100 MG/5 ML SYR IV ONE (14:34)
[2017-09-06] MEDS ORDERED: PROPOFOL 10 MG/ML 20 ML VIAL IV ONE (14:34)
[2017-09-06] MEDS ORDERED: fentaNYL (PF) 50 MCG/ML 2 ML AMP ONE (14:34)
[2017-09-06] MEDS ORDERED: LIDOCAINE 1% INJ 10MG/ML (20 ML MDV) ONE (14:34)
[2017-09-06] MEDS ORDERED: MIDAZOLAM 2 MG/2 ML VIAL ONE (14:34)
[2017-09-06] MEDS ORDERED: GLYCOPYRROLATE 0.2 MG/ML 2 ML VIAL ONE (14:34)
[2017-09-06] MEDS ORDERED: NEOSTIGMINE 1 MG/ML 10 ML VIAL ONE (14:34)
[2017-09-06] MEDS ORDERED: ROCURONIUM BROMIDE 10 MG/ML 10 ML VIAL IV ONE (14:34)
--- NOTE | 2017-09-06 15:34 | P.OP ---
Date of Procedure: 09/06/17 Preoperative Diagnosis: Chronic Cholecystitis Postoperative Diagnosis: Chronic cholecystitis Procedure(s) Performed: Laparoscopic cholecystectomy Anesthesia: WISAM Surgeon: Edmundo Singh Pathology: other (Gallbladder) Condition: stable Disposition: PACU Description of Procedure: The patient was placed on the operating table. The patient received a general endotracheal tube anesthesia. The patients abdomen was prepped and draped in the usual sterile fashion. Through an infraumbilical stab incision, the fascia of the anterior abdominal wall was grasped with a pair of Kochers and then the Veress needle was placed in the peritoneal cavity. Position of the Veress needle was confirmed with positive drop test. The abdomen was then insufflated. After adequate insufflation, the 10 mm trocar was placed in the peritoneal cavity. Following this the laparoscope was placed in the peritoneal cavity. The patient was placed in the head-up, right side up position and then a 5 mm trocar was placed in the right lateral and right subcostal position under direct visualization. A 8 mm trocar was placed in the epigastric position. The gallbladder was grasped in the fundus and infundibulum. Traction on the gallbladder was placed in the lateral and the cephalad positions. The triangle of Calot was visualized.. The cystic duct was bluntly dissected until the union of the cystic duct and common bile duct was seen. The cystic duct was then divided and sealed with the Harmonic scissors. A PDS Endoloop was then placed throughout the cystic duct stump. The cystic artery divided and sealed with the Harmonic scissors. The gallbladder was then removed from the liver bed using Harmonic scissors. The gallbladder was then extracted through the epigastric port site. Operative field was checked for any bleeding spots and Harmonic scissors was used to coagulate the liver bed. The abdomen was irrigated. The trocars were removed. The skin was closed using interrupted 3-0 Vicryl suture. Dermabond dressing were applied. The patient tolerated the procedure well.
[2017-09-06 15:57] VITALS: RESP 18; TEMP 97.8
[2017-09-06] MEDS ORDERED: KETOROLAC 30 MG/ML 1 ML VIAL IVP ONE (15:57)
[2017-09-06] MEDS ORDERED: LACTATED RINGERS 1,000 ML IV ONE (16:00)
[2017-09-06] MEDS ORDERED: oxyCODONE-APAP 10-325MG 1 EACH TAB PO PRN ×2 (17:04→17:06)
[2017-09-06 17:13] VITALS: PULSE 62
[2017-09-06 17:32] VITALS: BP 157/71
== END 2017-09-06 17:50 | disposition home or self-care (01) ==
LOC: OR 13:19
PROVIDERS: ATTEND Surgery
DX: K81.1 Chronic cholecystitis (principal); I25.119 Atherosclerotic heart disease of native coronary artery with unspecified angina pectoris; K21.9 Gastro-esophageal reflux disease without esophagitis; E78.5 Hyperlipidemia, unspecified; I10 Essential (primary) hypertension; M19.90 Unspecified osteoarthritis, unspecified site; N40.0 Benign prostatic hyperplasia without lower urinary tract symptoms; N28.9 Disorder of kidney and ureter, unspecified; M54.9 Dorsalgia, unspecified; M79.606 Pain in leg, unspecified; G89.29 Other chronic pain; K59.00 Constipation, unspecified; Z98.84 Bariatric surgery status; Z95.5 Presence of coronary angioplasty implant and graft; Z86.73 Personal history of transient ischemic attack (TIA), and cerebral infarction without residual deficits; Z87.442 Personal history of urinary calculi; Z96.651 Presence of right artificial knee joint; Z96.89 Presence of other specified functional implants; Z79.02 Long term (current) use of antithrombotics/antiplatelets; Z79.82 Long term (current) use of aspirin; Z79.890 Hormone replacement therapy; Z79.899 Other long term (current) drug therapy; Z88.5 Allergy status to narcotic agent
CPT/HCPCS: 88304; 47562; J2250; J1644; J1100; J2710; J2001; J3010; J0330; J2704

== ENCOUNTER → 2017-10-13 | Outpatient (CLI) | payer MEDICARE ==
--- NOTE | 2017-10-13 12:48 | MR ---
EXAMINATION TYPE: MR lumbar spine wo/w con DATE OF EXAM: 10/13/2017 COMPARISON: MRI lumbar spine October 31, 2013. CT lumbar spine June 08, 2017 History: chronic radicular low back pain with history of fusion per order. Back back surgery with ext lionel pain for 9 months causing pain into both lower extremities per patient. TECHNIQUE: Multiplanar, multisequence images of the lumbar spine is performed without and with IV contrast, util izing 10 mL intravenous Gadavist FINDINGS: Sagittal images of the lumbar spine show vertebral body heights and alignment to remain sta ble. There is stable slight grade 1 anterolisthesis of L4 on L5 not significantly changed from recent CT. There is artifact from posterior interpedicular rods and screws transfixing L3-L5 levels bilater ally now identified. Artifact from disc material at this level is seen. Postsurgical change with bila teral laminectomy defects and spinous process resection in the posterior soft tissue is noted. The in tervertebral discs demonstrate normal heights above and below this. Some disc desiccation L5-S1 leve l is present. The conus medullaris remains normal in position and signal ending mid L1 level. The rosa ne marrow signal intensity is within normal limits. No suspicious postcontrast enhancement is seen. N o suspicious new disc herniations are identified. Axial images show the T12-L1 to show persistent mild right-sided facet arthropathy seen better on CT axial image 9. Spinal canal is preserved. Bilateral neural foramina are patent. Axial images at L1-L2 level remain within normal limits. Axial images at L2-L3 level show artifact from posterior fusion hardware. There is mild broad disc bu lge minimally effacing the anterior thecal sac. Bilateral neural foramina are patent. Axial images at L3-L4 level show artifact from posterior and lateral fusion hardware. There are bilat eral laminectomy defect with spinous process resection. Enhancing scar tissue surrounds spinal canal along the anterior right and posterior aspects axial image 13. Bilateral neural foramina are felt pat ent. Some artifact degradation however is noted. Axial images at L4-L5 level show artifact from posterior and lateral fusion hardware. There is enhanc ing scar tissue surrounding spinal canal. There are bilateral laminectomy defects and spinous process resection. Bilateral neural foramina are felt patent though there is some obscuration from artifact. Axial images at L5-S1 level show persistent moderate to severe right greater than left facet degenera tive changes. There is central disc protrusion seen. Spinal canal is felt preserved. Bilateral neural foramina are felt patent. There is some spurring in the superior sacroiliac joints redemonstrated on inferior most axial images bilaterally. There is irregular thin walled lobulated fluid over left iliopsoas muscle axial image 6 which is unchanged from CT axial image 65 of uncertain etiology. IMPRESSION: Postsurgical change L3-L5 level redemonstrated with stable alignment. Multilevel degenera tive changes are seen as detailed above.
== END ==
LOC: RADMRIMAIN 10:41
PROVIDERS: ATTEND Orthopaedic Surgery Orthopaedic Surgery of the Spine
DX: M51.16 Intervertebral disc disorders with radiculopathy, lumbar region (principal); Z98.1 Arthrodesis status
CPT/HCPCS: 82565; 72158; 36415; A9581

== ENCOUNTER → 2017-10-16 | Outpatient (CLI) | payer MEDICARE ==
[2017-10-16 14:03] LABS: HCT 41.2 % (39.0-53.0); HGB 14.3 gm/dL (13.0-17.5); MCH 30.7 pg (25.0-35.0); MCHC 34.6 g/dL (31.0-37.0); MCV 88.6 fL (80.0-100.0); Mean Platelet Volume 7.3; Platelet Count 169 k/uL (150-450); RBC 4.65 m/uL (4.30-5.90); WBC 5.8 k/uL (3.8-10.6)
[2017-10-16 14:25] LABS: T4, Free (Free Thyroxine) 1.14 ng/dL (0.78-2.19)
== END | disposition home or self-care (01) ==
LOC: LABWHC1 13:17
PROVIDERS: ATTEND Internal Medicine Endocrinology, Diabetes & Metabolism
DX: E04.2 Nontoxic multinodular goiter (principal); E29.1 Testicular hypofunction
CPT/HCPCS: 36415; 84403; 84439; 84443; 85027

== ENCOUNTER → 2017-10-19 | Outpatient (CLI) | payer MEDICARE ==
--- NOTE | 2017-10-19 10:34 | XR ---
EXAMINATION TYPE: XR abdomen 1V DATE OF EXAM: 10/19/2017 COMPARISON: NONE HISTORY: Pain TECHNIQUE: Single supine KUB image of the abdomen is obtained FINDINGS: Gastric banding device noted. Small bowel demonstrates no evidence for dilatation or air fluid levels. Gas and fecal material is seen in non-distended colon. No convincing evidence for pneumoperitoneum. No unusual calcifications. The lung bases are clear. The osseous structures are intact. IMPRESSION: 1. Overall nonobstructive bowel gas pattern.
== END | disposition home or self-care (01) ==
LOC: RADXRMAIN 10:15
PROVIDERS: ATTEND Family Medicine
DX: G89.29 Other chronic pain (principal); R10.9 Unspecified abdominal pain
CPT/HCPCS: 74018

== ENCOUNTER → 2017-10-31 | Outpatient (CLI) | payer MEDICARE ==
--- NOTE | 2017-10-31 09:21 | CT ---
EXAMINATION TYPE: CT abdomen pelvis wo con DATE OF EXAM: 10/31/2017 COMPARISON: 03/31/2015 HISTORY: Abdominal pain, Constipation CT DLP: 1059 mGycm Automated exposure control for dose reduction was used. TECHNIQUE: Helical acquisition of images was performed from the lung bases through the pelvis. FINDINGS: Lack of intravenous contrast limits evaluation of the solid viscera. LUNG BASES: Minimal bibasilar subsegmental atelectasis is present. LIVER/GB: No significant abnormality is appreciated. Gallbladder is surgically absent. PANCREAS: No ductal dilatation. SPLEEN: No splenomegaly. ADRENALS: No nodularity or thickening. KIDNEYS: No hydronephrosis. The known hyperdense renal cyst is not well appreciated on today's examin ation and could be further evaluated with enhanced CT. FREE AIR: No free air is visualized REPRODUCTIVE ORGANS: Penile prosthesis is incidentally noted. URINARY BLADDER: Largely decompressed and incompletely evaluated. ADENOPATHY: No greater than 1 cm short axis lymph node is seen within the abdomen or pelvis. OSSEOUS STRUCTURES: Moderate degenerative changes of the femoral acetabular joints and visualized th oracolumbar spine are seen with postsurgical changes of the lower lumbar spine. BOWEL: Gastric lap band is seen at the gastroesophageal junction. There is slight eccentric wall thi ckening that is right lateral on series 3 image 89 within the rectum and right lateral fascial thicke hansa. Few colonic diverticula are present without pericolonic fat stranding. A moderate amount retain ed bowel limits evaluation for colonic masses. No obstructing mass is identified. Asymmetric wall thi ckening could relate to haustral thickening and peristalsis just above the ileocecal valve on series 3 image 48. There is slight lipomatous hypertrophy of the ileocecal valve. Terminal ileum is none thi ckened. No dilation of small bowel or large bowel. OTHER: Abdominal aorta is of normal course and caliber with moderate calcific atheromatous changes. IMPRESSION: RIGHT LATERAL ECCENTRIC RECTAL WALL THICKENING THAT COULD RELATE TO INCOMPLETE DISTENTION OR SESSILE MASS.. DIRECT VISUALIZATION IS RECOMMENDED. NO OBSTRUCTING MASSES SEEN. THERE IS ALSO THICKENING OF T HE ASCENDING COLON JUST SUPERIOR TO THE ILEOCECAL VALVE FOR WHICH COLONOSCOPY IS RECOMMENDED THIS COULD REPRESENT HAUSTRAL THICKENING FROM PERISTALSIS OR MASS. MODERATE AMOUNT RETAINED COLONIC STOOL DOES LIMIT EVALUATION FOR COLONIC MASSES. NO OBSTRUCTION.
== END | disposition home or self-care (01) ==
LOC: RADCTMAIN 07:11
PROVIDERS: ATTEND Family Medicine
DX: R93.3 Abnormal findings on diagnostic imaging of other parts of digestive tract (principal); R10.9 Unspecified abdominal pain; K59.00 Constipation, unspecified
CPT/HCPCS: 74176

== ENCOUNTER 2017-12-25 08:59 | Day surgery (SDC) | payer MEDICARE ==
[2017-12-20 12:29] VITALS: BMI 29.0
[~2017-12-25 08:59] MED LIST changes: -DEXAMETHASONE SOD PHOSPHATE 10 MG/ML 1 ML VIAL IV ONE; -HEPARIN SODIUM,PORCINE 5,000 UNIT/ML 1 ML VIAL SQ ONE; +LIDOCAINE 1% 20 ML VIAL (10MG/ML) FOR IV START INTRADERMA PRN; -MORPHINE SULFATE 4 MG/0.8 ML SYRINGE (INJ) IV PRN; -ONDANSETRON ODT 4 MG TAB PO ONE; -ceFAZolin IN SWFI 2 GM/20 ML SYRINGE IVP ONE
[2017-12-25 09:17] VITALS: RESP 16; TEMP 98.1
[2017-12-25] MEDS ORDERED: PROPOFOL 10 MG/ML 20 ML VIAL IV ONE (10:03)
[2017-12-25] MEDS ORDERED: LIDOCAINE 1% INJ 10MG/ML (20 ML MDV) ONE (10:03)
[2017-12-25 10:37] VITALS: PULSE 54
--- NOTE | 2017-12-25 10:40 | P.PCN ---
Date of Procedure: 12/25/17 Procedure(s) Performed: Procedure: Total colonoscopy. Preoperative diagnosis: Abnormal CT of the abdomen. Postoperative diagnosis: Sigmoid diverticulosis with no evidence of acute diverticulitis, strictures, polyps or cancer. Preparation: HalfLytely prep. Sedation: Was provided by anesthesia. Brief clinical history: The patient is a 72-year-old male who I have evaluated in the office last month regarding abnormal computed tomography scan. There was eccentric right lateral thickening of the rectum and the radiologist raised the question of rectal mass. There were other areas of abnormality elsewhere on that study. He had a poor prep on his colonoscopy in 2013 and he was thus scheduled for this evaluation to rule out neoplasia or other pathology. Procedure: With the patient on his left lateral decubitus position and after informed consent and adequate sedation, the perianal area was inspected and it did not show any fissures or fistulas. There were no masses felt on digital rectal examination. The Olympus CFQ 160L video colonoscope was then inserted in the rectum in the usual fashion and advanced to the cecum. The preparation was less than ideal and I spent some time cleansing the bowel washing and suctioning. There were multiple diverticular orifices seen scattered in the sigmoid but I saw no evidence of acute diverticulitis or strictures. The mucosa appeared healthy. No polyps or tumors were seen. Particular attention was made to the areas of abnormalities on CT including the rectum. No obvious abnormalities were noted. I retroflexed the endoscope in the rectum before the endoscope was withdrawn. The patient tolerated the procedure well. Plan: The patient was reassured. Discussed dietary measures. He will follow up with you as planned and I recommended repeat exam in 10 years depending on his overall health at that time. He will discuss that with you.
[2017-12-25 11:29] VITALS: BP 128/70
== END 2017-12-25 11:43 | disposition home or self-care (01) ==
LOC: ORWHC2ENDO 08:59
DX: K57.30 Diverticulosis of large intestine without perforation or abscess without bleeding (principal); K21.9 Gastro-esophageal reflux disease without esophagitis; I25.10 Atherosclerotic heart disease of native coronary artery without angina pectoris; I10 Essential (primary) hypertension; E78.5 Hyperlipidemia, unspecified; N40.0 Benign prostatic hyperplasia without lower urinary tract symptoms; M19.90 Unspecified osteoarthritis, unspecified site; Z95.5 Presence of coronary angioplasty implant and graft; Z87.442 Personal history of urinary calculi; Z86.73 Personal history of transient ischemic attack (TIA), and cerebral infarction without residual deficits; Z79.02 Long term (current) use of antithrombotics/antiplatelets; Z79.899 Other long term (current) drug therapy; Z88.5 Allergy status to narcotic agent
CPT/HCPCS: 45378; J2001; J2704

== ENCOUNTER 2018-02-28 13:32 | Emergency (ER) | payer MEDICARE ==
[2018-02-28] MEDS ORDERED: SODIUM CHLORIDE 0.9% 1,000 ML IV STA (14:02)
[2018-02-28] MEDS ORDERED: LORazepam 2 MG/ML INJ IV STA (14:02)
--- NOTE | 2018-02-28 14:07 | ED ---
General Adult HPI - General Chief complaint: Recheck/Abnormal Lab/Rx Stated complaint: rt arm pain Time Seen by Provider: 02/28/18 13:49 Source: patient, family, RN notes reviewed Mode of arrival: wheelchair Limitations: no limitations - History of Present Illness Initial comments: Patient is a pleasant 73-year-old male presenting to the emergency Department with right arm spasms. Patient woke up around 7:00 and took his pills. Patient also took 2 diet pills and 2 energy pills. Patient states these were new things for him. Patient states since around 8:00 he is starting to have spasms of his extremities, mostly of the right arm. Patient denies having any chest discomfort. No difficulty breathing. No weakness. No history of similar symptoms previously. Patient has taken around 10 nitroglycerin however none of them have seemed to help at all. Patient was sweaty earlier. - Related Data Home Medications Medication Instructions Recorded Confirmed Lisinopril [Prinivil] 20 mg PO BID 01/01/15 02/28/18 oxyCODONE-APAP 10-325MG [Percocet 1 tab PO Q4HR PRN 01/01/15 02/28/18 10-325 mg] Atenolol [Tenormin] 100 mg PO HS 07/10/17 02/28/18 Magnesium Oxide [Mag-Ox] 500 mg PO DAILY 07/10/17 02/28/18 Nitroglycerin Sl Tabs [Nitrostat] 0.4 mg SUBLINGUAL Q5M PRN 07/10/17 02/28/18 Potassium 99 mg PO DAILY 07/10/17 02/28/18 Tamsulosin HCl [Flomax] 0.4 mg PO BID 07/10/17 02/28/18 Fish Oil/Dha/Epa [Fish Oil 1,200 1 cap PO DAILY 08/29/17 02/28/18 mg Fish Oil] Testosterone Cypionate 200 mg IM Q14D 02/28/18 02/28/18 [Depo-Testosterone] Previous Rx's Medication Instructions Recorded Clopidogrel Bisulfate [Plavix] 75 mg PO DAILY #30 tab 08/02/17 amLODIPine [Norvasc] 10 mg PO DAILY #30 tablet 08/02/17 Docusate [Colace] 100 mg PO BID #20 capsule 09/06/17 Allergies Allergy/AdvReac Type Severity Reaction Status Date / Time morphine Allergy Rash/Hives Verified 02/28/18 14:13 Review of Systems ROS Statement: Those systems with pertinent positive or pertinent negative responses have been documented in the HPI. ROS Other: All systems not noted in ROS Statement are negative. Constitutional: Denies: fever Eyes: Denies: eye pain ENT: Denies: ear pain Respiratory: Denies: cough Cardiovascular: Denies: chest pain Endocrine: Denies: fatigue Gastrointestinal: Denies: abdominal pain Genitourinary: Denies: dysuria Musculoskeletal: Denies: back pain Skin: Denies: rash Neurological: Denies: headache, weakness, confusion Past Medical History Past Medical History: Coronary Artery Disease (CAD), Chest Pain / Angina, GERD/ Reflux, Hyperlipidemia, Hypertension, Musculoskeletal Disorder, Osteoarthritis ( OA), Prostate Disorder, Renal Disease, Vascular Disorder Additional Past Medical History / Comment(s): CHRONIC CONSTIPATION FROM PAIN MEDS. KIDNEY STONES. urinary frequency. chronic back pain. BPH, impotence status post penile implant. Bilateral lower extremity edema, WITH CHRONIC LEG PAIN (POST PAIN CLINIC PROCEDURE). History of Any Multi-Drug Resistant Organisms: None Reported Past Surgical History: Back Surgery, Bariatric Surgery, Cholecystectomy, Heart Catheterization With Stent, Joint Replacement, Orthopedic Surgery Additional Past Surgical History / Comment(s): CARDIAC STENTS 1999. Lap band surgery 10 years ago. penile implant. RIGHT KNEE REPLACED X 2.cervical sx has titanium plate, colonoscopy, EGD Past Anesthesia/Blood Transfusion Reactions: Previous Problems w/ Anesthesia Additional Past Anesthesia/Blood Transfusion Reaction / Comment(s): had itchy skin and severe leg cramps after sx Date of Last Stent Placement:: 1999 Past Psychological History: Depression Smoking Status: Never smoker Past Alcohol Use History: None Reported Past Drug Use History: None Reported - Past Family History Mother Family Medical History: Cancer Additional Family Medical History / Comment(s): . Father History Unknown: Yes Family Medical History: No Reported History, Congestive Heart Failure (CHF) Additional Family Medical History / Comment(s): etoh, smoking Brother(s) Family Medical History: Coronary Artery Disease (CAD), Diabetes Mellitus Sister(s) Family Medical History: No Reported History Daughter(s) Family Medical History: No Reported History Additional Family Medical History / Comment(s): Daughter has peripheral artery disease. No history of stroke in mother or father General Exam Limitations: no limitations General appearance: alert, in no apparent distress, other (Patient is noticed having intermittent extremity spasms) Head exam: Present: atraumatic, normocephalic Eye exam: Present: normal appearance, PERRL, EOMI. Absent: nystagmus ENT exam: Present: normal oropharynx Neck exam: Present: normal inspection Respiratory exam: Present: normal lung sounds bilaterally. Absent: chest wall tenderness Cardiovascular Exam: Present: regular rate, normal rhythm Expanded Peripheral pulses: 2+: Radial (R), Radial (L), Dorsalis Pedis (R), Dorsalis Pedis (L) GI/Abdominal exam: Present: soft. Absent: tenderness Extremities exam: Present: normal inspection, full ROM. Absent: tenderness, pedal edema, calf tenderness Neurological exam: Present: alert, oriented X3, CN II-XII intact. Absent: motor sensory deficit Expanded Neurological exam: Present: protecting the airway Patient oriented to: Present: person, place, time Speech: Present: fluid speech Cranial nerves: EOM's Intact: Normal, Facial Sensation: Normal Sensory exam: Upper Extremity Light Touch: Normal, Lower Extremity Light Touch: Normal Motor strength exam: RUE: 5, LUE: 5, RLE: 5, LLE: 5 Eye Response: (4) open spontaneously Motor Response: (6) obeys commands Verbal Response: (5) oriented Psychiatric exam: Present: normal affect, normal mood Skin exam: Present: normal color Course Vital Signs 02/28/18 02/28/18 02/28/18 13:47 13:55 14:00 Temperature 99 F Pulse Rate 58 L 61 56 L Respiratory 18 Rate Blood Pressure 125/81 125/81 O2 Sat by Pulse 97 98 97 Oximetry 02/28/18 02/28/18 02/28/18 14:30 15:00 16:00 Temperature Pulse Rate 66 62 67 Respiratory 20 18 Rate Blood Pressure 118/75 115/72 147/76 O2 Sat by Pulse 97 96 98 Oximetry EKG Findings - EKG Comments: EKG Findings:: Sinus bradycardia 57. For screening AV block with UT of 202. QRS 110. QT 390. QTC 379. Normal axis. Normal QRS. No acute ST change. Medical Decision Making - Medical Decision Making Patient reevaluated and resting comfortably in bed. Patient is symptom-free at this time. Patient requests discharge home. Patient denies having any extremity problems at this time. Patient still denies ever having any chest discomfort. Patient states he feels he just needed time for the pills to get out of his system. Patient is alert and oriented 3. - Lab Data Result diagrams: 02/28/18 13:59 02/28/18 13:59 Lab Results 02/28/18 02/28/18 02/28/18 Range/Units 13:59 13:59 13:59 WBC 9.9 (3.8-10.6) k/uL RBC 5.23 (4.30-5.90) m/uL Hgb 15.3 (13.0-17.5) gm/dL Hct 46.4 (39.0-53.0) % MCV 88.8 (80.0-100.0) fL MCH 29.2 (25.0-35.0) pg MCHC 32.9 (31.0-37.0) g/dL RDW 14.7 (11.5-15.5) % Plt Count 177 (150-450) k/uL Neutrophils % 87 % Lymphocytes % 9 % Monocytes % 3 % Eosinophils % 0 % Basophils % 0 % Neutrophils # 8.6 H (1.3-7.7) k/uL Lymphocytes # 0.9 L (1.0-4.8) k/uL Monocytes # 0.3 (0-1.0) k/uL Eosinophils # 0.0 (0-0.7) k/uL Basophils # 0.0 (0-0.2) k/uL PT (9.0-12.0) sec INR (<1.2) APTT (22.0-30.0) sec Sodium 140 (137-145) mmol/L Potassium 4.7 (3.5-5.1) mmol/L Chloride 108 H (98-107) mmol/L Carbon Dioxide 24 (22-30) mmol/L Anion Gap 8 mmol/L BUN 19 (9-20) mg/dL Creatinine 1.02 (0.66-1.25) mg/dL Est GFR (CKD-EPI)AfAm 85 (>60 ml/min/1.73 sqM) Est GFR (CKD-EPI)NonAf 73 (>60 ml/min/1.73 sqM) Glucose 109 H (74-99) mg/dL Calcium 9.7 (8.4-10.2) mg/dL Magnesium 1.9 (1.6-2.3) mg/dL Total Bilirubin 0.7 (0.2-1.3) mg/dL AST 23 (17-59) U/L ALT 30 (21-72) U/L Alkaline Phosphatase 80 (38-126) U/L Total Creatine Kinase 108 (55-170) U/L CK-MB (CK-2) 2.4 (0.0-2.4) ng/mL CK-MB (CK-2) Rel Index 2.2 Troponin I <0.012 (0.000-0.034) ng/mL Total Protein 7.1 (6.3-8.2) g/dL Albumin 4.2 (3.5-5.0) g/dL 02/28/18 Range/Units 13:59 WBC (3.8-10.6) k/uL RBC (4.30-5.90) m/uL Hgb (13.0-17.5) gm/dL Hct (39.0-53.0) % MCV (80.0-100.0) fL MCH (25.0-35.0) pg MCHC (31.0-37.0) g/dL RDW (11.5-15.5) % Plt Count (150-450) k/uL Neutrophils % % Lymphocytes % % Monocytes % % Eosinophils % % Basophils % % Neutrophils # (1.3-7.7) k/uL Lymphocytes # (1.0-4.8) k/uL Monocytes # (0-1.0) k/uL Eosinophils # (0-0.7) k/uL Basophils # (0-0.2) k/uL PT 10.9 (9.0-12.0) sec INR 1.1 (<1.2) APTT 24.3 (22.0-30.0) sec Sodium (137-145) mmol/L Potassium (3.5-5.1) mmol/L Chloride (98-107) mmol/L Carbon Dioxide (22-30) mmol/L Anion Gap mmol/L BUN (9-20) mg/dL Creatinine (0.66-1.25) mg/dL Est GFR (CKD-EPI)AfAm (>60 ml/min/1.73 sqM) Est GFR (CKD-EPI)NonAf (>60 ml/min/1.73 sqM) Glucose (74-99) mg/dL Calcium (8.4-10.2) mg/dL Magnesium (1.6-2.3) mg/dL Total Bilirubin (0.2-1.3) mg/dL AST (17-59) U/L ALT (21-72) U/L Alkaline Phosphatase (38-126) U/L Total Creatine Kinase (55-170) U/L CK-MB (CK-2) (0.0-2.4) ng/mL CK-MB (CK-2) Rel Index Troponin I (0.000-0.034) ng/mL Total Protein (6.3-8.2) g/dL Albumin (3.5-5.0) g/dL - Radiology Data Radiology results: report reviewed (Computed tomography scan shows lacunar infarct. No acute intercranial process.), image reviewed (chest x-ray shows no acute process.) Disposition Clinical Impression: Spasm Disposition: HOME SELF-CARE Condition: Stable Instructions: Muscle Spasm (ED) Additional Instructions: Please discontinue energy pills and diet pills. Please follow-up with primary care physician in the next day or 2 for recheck. Return for chest pain, increased spasms, worsening or change in symptoms, change in mental status, or other concerns Is patient prescribed a controlled substance at d/c from ED?: No Referrals: Altaf Simms DO [Primary Care Provider] - 1-2 days Time of Disposition: 16:55
[2018-02-28 14:29] LABS: Basophils % (A) 0 %; Eosinophils % (A) 0 %; HCT 46.4 % (39.0-53.0); HGB 15.3 gm/dL (13.0-17.5); Lymphocytes # (A) 0.9 k/uL (1.0-4.8); Lymphocytes % (A) 9 %; MCH 29.2 pg (25.0-35.0); MCHC 32.9 g/dL (31.0-37.0); MCV 88.8 fL (80.0-100.0); Mean Platelet Volume 7.1; Monocytes # (A) 0.3 k/uL (0-1.0); Monocytes % (A) 3 %; Neutrophils # (A) 8.6 k/uL (1.3-7.7); Neutrophils % (A) 87 %; Platelet Count 177 k/uL (150-450); RBC 5.23 m/uL (4.30-5.90); RDW 14.7 % (11.5-15.5); WBC 9.9 k/uL (3.8-10.6)
[2018-02-28 14:40] LABS: Albumin 4.2 g/dL (3.5-5.0); Calcium 9.7 mg/dL (8.4-10.2); Magnesium 1.9 mg/dL (1.6-2.3); Potassium 4.7 mmol/L (3.5-5.1); Total Bilirubin 0.7 mg/dL (0.2-1.3); Total Protein 7.1 g/dL (6.3-8.2)
[2018-02-28 14:47] LABS: INR 1.1 (<1.2); Partial Thromboplastin Time 24.3 sec (22.0-30.0); Prothrombin Time 10.9 sec (9.0-12.0)
[2018-02-28 14:50] LABS: Creatine Kinase 108 U/L (55-170)
[2018-02-28 15:03] LABS: Creatine Kinase MB 2.4 ng/mL (0.0-2.4); Troponin I <0.012 ng/mL (0.000-0.034)
--- NOTE | 2018-02-28 15:46 | CT ---
EXAMINATION TYPE: CT brain wo con DATE OF EXAM: 02/28/2018 COMPARISON: 07/31/2017 HISTORY: 73-year-old male confusion, Altered mental status. TECHNIQUE: Examination was done in axial plane without intravenous contrast. Coronal and sagittal r econstructions performed. CT DLP: 1167.4 mGycm Automated exposure control for dose reduction was used. FINDINGS: There is no evidence of acute intracranial hemorrhage, acute ischemic changes, mass, mass-effect, or extra-axial fluid collection. There is no effacement of cerebral sulci or basal subarachnoid cister ns. There is no hydrocephalus. There is no midline shift. [place]-white matter distinction is preserv ed. Normal variant persistent cavum septum lucidum. There is a matured lacunar infarct of the right basal ganglia as compared to 07/31/2017 mild age-related cerebral cortical atrophy. Paranasal sinuses and mastoid air cells well pneumatized. Orbits and globes are intact. 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 No acute intracranial abnormality seen.
--- NOTE | 2018-02-28 15:59 | XR ---
EXAMINATION TYPE: XR chest 2V DATE OF EXAM: 02/28/2018 COMPARISON: Prior chest x-ray 07/31/2017 HISTORY: Chest pain TECHNIQUE: Frontal and lateral views of the chest are obtained. FINDINGS: There is no focal air space opacity, pleural effusion, or pneumothorax seen. The cardiac silhouette size is stable. The osseous structures are intact. Postop changes are noted in the cervi crystal spine. Right shoulder is high riding as on prior possibly due to chronic rotator cuff tear, arthr opathy noted at the acromioclavicular joints. There are overlying cardiac leads. Patient is rotated. Aorta is dense. Postop changes are noted in the abdomen IMPRESSION: No acute cardiopulmonary process.
[2018-02-28 16:43] VITALS: BP 147/76; PULSE 67; RESP 18
[2018-02-28 17:21] VITALS: TEMP 97.5
== END 2018-02-28 17:20 | disposition home or self-care (01) ==
LOC: EC 13:32
DX: M62.838 Other muscle spasm (principal); M79.601 Pain in right arm; I25.119 Atherosclerotic heart disease of native coronary artery with unspecified angina pectoris; I10 Essential (primary) hypertension; Z79.899 Other long term (current) drug therapy; Z88.5 Allergy status to narcotic agent
CPT/HCPCS: 36415; 80053; 82550; 82553; 83735; 84484; 85025; 85610; 85730; 71046; 70450; 99284; 96374; 96361 ×3; J2060

== ENCOUNTER → 2018-03-08 | Outpatient (CLI) | payer MEDICARE ==
[2018-03-08 14:26] LABS: HCT 43.5 % (39.0-53.0); HGB 14.8 gm/dL (13.0-17.5); MCH 29.8 pg (25.0-35.0); MCV 87.7 fL (80.0-100.0); Mean Platelet Volume 7.9; Platelet Count 140 k/uL (150-450); RBC 4.96 m/uL (4.30-5.90); RDW 14.7 % (11.5-15.5); WBC 5.4 k/uL (3.8-10.6)
--- NOTE | 2018-03-08 14:27 | US ---
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 0.9 X 0.7 x 0.6 cm hypoechoic mixed nodule at the upper pole with poorly defined margins. This nodule is wider than tall and shows no intranodular vascularity. 2. 1.9 X 2.0 x 1.5 cm isoechoic solid nodule at the mid pole with well-defined margins. This nodule is wider than tall and shows no intranodular vascularity. LEFT: # of nodules measured on left: 2 1. 1.1 X 1.0 x 1.1 cm hypoechoic mixed nodule at the mid pole with well-defined margins. This nodu le is taller than wide and shows no intranodular vascularity. 2. 0.5 X 0.4 x 0.3 cm hypoechoic mixed nodule at the mid lateral pole with well-defined margins. Th is nodule is wider than tall and shows no intranodular vascularity. ISTHMUS: # of nodules measured in the isthmus: 0 Bilateral neck scanned: inferior to right thyroid an oval, solid, hyperechoic nodule is seen = 0.6 x 0.5 x 0.6cm IMPRESSION: 1. Multiple thyroid nodules the largest of which measures 1.9 cm on the right and is solid in nature. This meet criteria for needle aspiration, which should be considered. Alternatively nuclear medicine thyroid uptake scan could evaluate for cold nodule at this location. 2. Possible 6 mm hyperechoic lymph node adjacent to the thyroid gland. Surveillance is recommended al though this is nonenlarged at this time.
== END | disposition home or self-care (01) ==
LOC: RADUSWWP 13:20
PROVIDERS: ATTEND Internal Medicine Endocrinology, Diabetes & Metabolism
DX: E04.2 Nontoxic multinodular goiter (principal)
CPT/HCPCS: 36415; 76536; 84153; 84403; 85027

== ENCOUNTER → 2018-08-17 | Outpatient (CLI) | payer MEDICARE ==
--- NOTE | 2018-08-17 16:19 | MR ---
EXAMINATION TYPE: MR hips BILAT wo con DATE OF EXAM: 08/17/2018 COMPARISON: CT abdomen and pelvis 07/03/2017 HISTORY: [facility] Hip Pain Standard multiplanar, multisequence MRI departmental protocol Multiplanar, multisequence images of the pelvis focusing on the bilateral hips were acquired. FINDINGS: There is symmetric [id number] axial joint space loss with moderate acetabular spurr ing in both hip joints. There are small to moderate right greater than left hip joint effusions noted . Femoral head shapes are maintained bilaterally. There is heterogeneity of bone marrow signal intens ity without suspicious edema. No serpiginous low T1 signal is present. Remainder pelvic structures ar e intact with heterogeneous signal. No significant increased fluid signal seen at level of greater or lesser trochanters bilaterally. Muscle bulk is symmetric and felt within normal limits and bilateral thighs. There is small fat-conta ining right inguinal hernia. No significant left-sided hernia is seen. No suspicious groin adenopathy is noted. Prostate gland is heterogeneous and upper limits of normal in size. There is artifact from penile pro sthetic device noted. Visualized portion of the bladder is unremarkable. No suspicious bowel dilatati on is seen. Some diverticula are seen in visualized sigmoid colon. No concerning pelvic fluid collect ion is noted. IMPRESSION: Fairly moderate to severe degenerative changes both hips, right slightly worse than left, with increased joint effusion noted.
== END | disposition home or self-care (01) ==
LOC: RADMRIMAIN 14:28
PROVIDERS: ATTEND Family Medicine
DX: M16.0 Bilateral primary osteoarthritis of hip (principal)

== ENCOUNTER → 2018-08-17 | Outpatient (CLI) | payer MEDICARE | LOC: LABWHC1 15:37 | PROVIDERS: ATTEND Family Medicine | DX: Z01.812 Encounter for preprocedural laboratory examination (principal); M54.9 Dorsalgia, unspecified; M25.551 Pain in right hip; M25.552 Pain in left hip | CPT/HCPCS: 36415; 82565 ==

== ENCOUNTER → 2018-08-18 | Outpatient (CLI) | payer MEDICARE ==
--- NOTE | 2018-08-18 22:53 | MR ---
EXAMINATION TYPE: MR lumbar spine wo/w con DATE OF EXAM: 08/18/2018 COMPARISON: MRI lumbar spine 10/13/2017 HISTORY: Back pain, Logan hip pain CONTRAST: 10 mL intravenous Gadavist. TECHNIQUE: Multiplanar, multisequence images of the lumbar spine were acquired. FINDINGS: Cord terminates at the T12 level L5-S1: Small central focal bulge has mild anterior thecal sac compression. No spinal canal stenosis i s present. Mild right foraminal narrowing is present. Marked facet hypertrophy is present on the righ t and moderate on the left. Disc desiccation is present. L4-L5: Disc desiccation is present. Mild disc bulging is anterior thecal sac flattening. No AP spinal canal stenosis is present. Pedicle screws are present at L5 and L4. This causes some limitation on t he evaluation. Obvious foraminal stenosis is identified. Some mild foraminal narrowing is suspected. L3-L4: No focal disc herniation or significant disc bulge is evident. No spinal canal stenosis is pre sent. Mild bilateral foraminal narrowing is present, greater on the left. Pedicle screws are present which cause some limitation on the evaluation. Laminectomies been performed at this level L2-L3: No focal disc herniation or significant disc bulge is evident. No spinal canal stenosis is pre sent. There is some posterior lateral thecal sac compression from ligamentum flavum laxity and facet hypertrophy. L1-L2: No significant disc bulge or disc herniation. No spinal canal stenosis. No foraminal stenosi s. . T12-L1: No significant disc bulge or disc herniation. No spinal canal stenosis. No foraminal stenos is. . No abnormal enhancement. COMPARISON: Findings appear stable over the interval. No new focal bulging significant change and fac et hypertrophy or obvious change foraminal narrowing is evident. Disc height and disc hydration level s appear preserved. IMPRESSION: 1. Examination is stable from comparison. 2. Facet hypertrophy and ligamentum flavum laxity L2-3 with posterior lateral thecal sac compression. 3. Multilevel facet changes. Pedicle screws and postsurgical laminectomies to the mid to lower lumbar spine, stable from comparison
== END ==
LOC: RADMRIMAIN 14:04
PROVIDERS: ATTEND Family Medicine
DX: M47.816 Spondylosis without myelopathy or radiculopathy, lumbar region (principal)
CPT/HCPCS: 72158; A9585

== ENCOUNTER → 2018-10-30 | Outpatient (CLI) | payer MEDICARE ==
--- NOTE | 2018-10-30 14:07 | US ---
EXAMINATION TYPE: US thyroid st tissue head/neck DATE OF EXAM: 10/30/2018 COMPARISON: 03/08/2018 CLINICAL HISTORY: E04.2 NONTOXIC MULTINODULAR GOITER. GLAND SIZE: Right Lobe: 5.9 x 2.5 x 2.6 cm Overall Parenchyma: homogenous Left Lobe: 5.1 x 2.2 x 1.8 cm Overall Parenchyma: homogeneous Isthmus Thickness: 0.6 cm NODULES RIGHT: # of nodules measured on right: 2 1. 1.1 X 0.8 x 0.8 cm hypoechoic mixed nodule at the upper pole with poorly defined margins; . Thi s nodule is wider than tall and shows no intranodular vascularity. Prior size: 0.9 x 0.7 x 0.6 cm 2. 1.9 X 1.6 x 2.1 cm isoechoic solid nodule at the mid pole with well-defined margins; . This nodu le is wider than tall and shows no intranodular vascularity. Prior size: 1.9 x 2.0 x 1.5 cm LEFT: # of nodules measured on left: 1 1. 1.2 X 1.2 x 1.2 cm hypoechoic mixed nodule at the mid pole with well-defined margins; shows enha ncement. This nodule is taller than wide and shows no intranodular vascularity. Prior size: 1.1 x 1.0 x 1.1 cm Left subcentimeter nodule from previous exam not appreciated at this time ISTHMUS: # of nodules measured in the isthmus: 0 Bilateral neck scanned, no evidence of lymphadenopathy. Homogeneous slightly enlarged thyroid with stable nodules. No new suspicious nodules. IMPRESSION: As above.
[2018-10-30 14:22] LABS: HCT 46.3 % (39.0-53.0); HGB 15.4 gm/dL (13.0-17.5); MCH 30.7 pg (25.0-35.0); MCHC 33.2 g/dL (31.0-37.0); MCV 92.7 fL (80.0-100.0); Mean Platelet Volume 7.9; Platelet Count 169 k/uL (150-450); Poikilocytosis Slight; RDW 15.8 % (11.5-15.5)
[2018-10-30 14:30] LABS: T4, Free (Free Thyroxine) 1.02 ng/dL (0.78-2.19)
== END | disposition home or self-care (01) ==
LOC: RADUSWWP 12:45
PROVIDERS: ATTEND Internal Medicine Endocrinology, Diabetes & Metabolism
DX: E04.2 Nontoxic multinodular goiter (principal); E29.1 Testicular hypofunction
CPT/HCPCS: 76536; 84153; 84403; 84439; 84443; 85027

== ENCOUNTER 2018-12-08 11:19 | Emergency (ER) | payer MEDICARE ==
[2018-12-08 11:28] VITALS: PULSE 50
[2018-12-08] MEDS ORDERED: DIPH,PERTUS(ACELL)TETVAC-LF 0.5 ML VIAL IM ONE (11:40)
[2018-12-08] MEDS ORDERED: LIDOCAINE 1% INJ 10MG/ML (20 ML MDV) SQ ONE (11:48)
--- NOTE | 2018-12-08 12:03 | XR ---
EXAMINATION TYPE: XR hand complete RT , 3 VIEWS DATE OF EXAM ORDERED: 12/08/2018 HISTORY: Pain. COMPARISON: None. FINDINGS: The fingers are flexed in all projections. This makes assessment of the joint spaces diffi cult. There are degenerative changes present in the PIP and DIP joints as well as the MCP joints. The re has been partial collapse of the scaphoid. There is severe degenerative change at the base of the thumb. The trapezoid is largely collapsed. The triscaphe joint is degenerative. There is been a previ ous fracture of the distal radius and ulnar styloid. This dilator no fracture is ununited. No new fra ctures are seen. No radiopaque foreign body is identified. IMPRESSION: 1. NO ACUTE OSSEOUS LESION. 2. NO RETAINED FOREIGN BODY. 3. SEVERE DEGENERATIVE CHANGE. 4. EVIDENCE OF PRIOR TRAUMA.
--- NOTE | 2018-12-08 12:03 | ED ---
Wound/Laceration HPI - General Chief Complaint: Wound/Laceration Stated Complaint: RT THUMB LAC Time Seen by Provider: 12/08/18 11:40 Source: patient, RN notes reviewed, old records reviewed Mode of arrival: ambulatory Limitations: no limitations - History of Present Illness Initial Comments: Patient is a 73-year-old male who presents emergency department today for evaluation with complaints of laceration over his right thumb. Patient reports that he cut it on a metal clip that while he was loading lawn equipment and out of a trailer with his friend. Patient reports he has full range of motion of the thumb. Patient states he is right-handed. Patient states that when he cut his thumb the tissue came out of the laceration. Patient states that he is questioning if he is up-to-date on his vaccines for tetanus. - Related Data Home Medications Medication Instructions Recorded Confirmed Lisinopril [Prinivil] 20 mg PO BID 01/01/15 02/28/18 oxyCODONE-APAP 10-325MG [Percocet 1 tab PO Q4HR PRN 01/01/15 02/28/18 10-325 mg] Atenolol [Tenormin] 100 mg PO HS 07/10/17 02/28/18 Magnesium Oxide [Mag-Ox] 500 mg PO DAILY 07/10/17 02/28/18 Nitroglycerin Sl Tabs [Nitrostat] 0.4 mg SUBLINGUAL Q5M PRN 07/10/17 02/28/18 Potassium 99 mg PO DAILY 07/10/17 02/28/18 Tamsulosin HCl [Flomax] 0.4 mg PO BID 07/10/17 02/28/18 Fish Oil/Dha/Epa [Fish Oil 1,200 1 cap PO DAILY 08/29/17 02/28/18 mg Fish Oil] Testosterone Cypionate 200 mg IM Q14D 02/28/18 02/28/18 [Depo-Testosterone] Previous Rx's Medication Instructions Recorded Clopidogrel Bisulfate [Plavix] 75 mg PO DAILY #30 tab 08/02/17 amLODIPine [Norvasc] 10 mg PO DAILY #30 tablet 08/02/17 Docusate [Colace] 100 mg PO BID #20 capsule 09/06/17 Cephalexin [Keflex] 500 mg PO Q8HR #21 cap 12/08/18 Allergies Allergy/AdvReac Type Severity Reaction Status Date / Time morphine Allergy Rash/Hives Verified 12/08/18 11:27 Review of Systems ROS Statement: Those systems with pertinent positive or pertinent negative responses have been documented in the HPI. ROS Other: All systems not noted in ROS Statement are negative. Past Medical History Past Medical History: Coronary Artery Disease (CAD), Chest Pain / Angina, GERD/Reflux, Hyperlipidemia, Hypertension, Musculoskeletal Disorder, Osteoarthritis (OA), Prostate Disorder, Renal Disease, Vascular Disorder Additional Past Medical History / Comment(s): CHRONIC CONSTIPATION FROM PAIN MEDS. KIDNEY STONES. urinary frequency. chronic back pain. BPH, impotence status post penile implant. Bilateral lower extremity edema, WITH CHRONIC LEG PAIN (POST PAIN CLINIC PROCEDURE). History of Any Multi-Drug Resistant Organisms: None Reported Past Surgical History: Back Surgery, Bariatric Surgery, Heart Catheterization With Stent, Joint Replacement, Orthopedic Surgery Additional Past Surgical History / Comment(s): CARDIAC STENTS 1999. Lap band surgery 10 years ago. penile implant. RIGHT KNEE REPLACED X 2.cervical sx has titanium plate, colonoscopy Past Anesthesia/Blood Transfusion Reactions: Previous Problems w/ Anesthesia Additional Past Anesthesia/Blood Transfusion Reaction / Comment(s): had itchy skin and severe leg cramps after sx Date of Last Stent Placement:: 1999 Past Psychological History: No Psychological Hx Reported Smoking Status: Never smoker Past Alcohol Use History: None Reported Past Drug Use History: None Reported - Past Family History Mother Family Medical History: Cancer Additional Family Medical History / Comment(s): . Father History Unknown: Yes Family Medical History: No Reported History, Congestive Heart Failure (CHF) Additional Family Medical History / Comment(s): etoh, smoking Brother(s) Family Medical History: Coronary Artery Disease (CAD), Diabetes Mellitus Sister(s) Family Medical History: No Reported History Daughter(s) Family Medical History: No Reported History Additional Family Medical History / Comment(s): Daughter has peripheral artery disease. No history of stroke in mother or father General Exam - General Exam Comments Initial Comments: His is a 73-year-old male. Alert and oriented 3. No significant distress. Limitations: no limitations Head exam: Present: atraumatic, normocephalic, normal inspection Eye exam: Present: normal appearance, PERRL, EOMI. Absent: scleral icterus, conjunctival injection, periorbital swelling ENT exam: Present: normal exam, mucous membranes moist Neck exam: Present: normal inspection. Absent: tenderness, meningismus, lymphadenopathy Respiratory exam: Present: normal lung sounds bilaterally. Absent: respiratory distress, wheezes, rales, rhonchi, stridor Cardiovascular Exam: Present: regular rate, normal rhythm, normal heart sounds. Absent: systolic murmur, diastolic murmur, rubs, gallop, clicks GI/Abdominal exam: Present: soft, normal bowel sounds. Absent: distended, tenderness, guarding, rebound, rigid Extremities exam: Present: normal inspection, full ROM, normal capillary refill. Absent: tenderness, pedal edema, joint swelling, calf tenderness Right Hand Wrist exam: Present: full ROM, swelling ( 3cm laceration to pad of R thumb ). Absent: normal inspection Neuro motor exam: Present: wrist extension intact, thumb opposition intact, thumb IP flexion intact, thumb adduction intact Back exam: Present: normal inspection Neurological exam: Present: alert, oriented X3, CN II-XII intact Psychiatric exam: Present: normal affect, normal mood Skin exam: Present: warm, dry, intact, normal color. Absent: rash Course Vital Signs 12/08/18 11:25 Temperature 98.3 F Pulse Rate 50 L Respiratory 20 Rate Blood Pressure 127/67 O2 Sat by Pulse 96 Oximetry Procedures - Laceration Laceration #1 Size (cm): 3 Description: linear Depth: simple, single layer Anesthetic Used: lidocaine 1% Anesthesia Technique: local infiltration Amount (mls): 5 Pre-repair: wound explored, irrigated extensively Type of Sutures: nylon Size of Sutures: 5-0 Number of Sutures: 8 Technique: simple, interrupted Patient Tolerated Procedure: well, no complications Medical Decision Making - Medical Decision Making Patient is a 73-year-old male process returns today with laceration of his right thumb. Patient was moving lawn equipment and cut his thumb. Patient x-ray was negative for any fracture 14 foreign body. Wound was thoroughly irrigated and closed with 8 sutures. I discussed monitoring for infection including redness and drainage. Due to the nature of the limiting somewhat contaminated Patient will be started on Keflex. I discussed suture instructions. All questions were answered return parameters were discussed. Patient has full range motion of the thumb and DIP and normal is neurovascularly intact. - Radiology Data Radiology results: report reviewed X-rays negative for any acute osseous lesion. No retained foreign body. Severe degenerative changes. Evidence of prior trauma the hand. Disposition Clinical Impression: Thumb laceration Disposition: HOME SELF-CARE Condition: Good Instructions (If sedation given, give patient instructions): Care For Your Stitches (ED) Additional Instructions: Please return to the emergency room in 8-10 days to have sutures removed. Please leave wound covered for the first 24-48 hours and then leave open to air after that time. Please use clean soap and water to clean the suture area to prevent scabbing over the top of your sutures. Please watch for any signs of infection which may include but not limited to increased pain, swelling, redness, fever or chills. Please return to the emergency room if any signs of infection do occur. Please return to the emergency room for any other concerns or complications. Prescriptions: Cephalexin [Keflex] 500 mg PO Q8HR #21 cap Is patient prescribed a controlled substance at d/c from ED?: No Referrals: Altaf Simms DO [Primary Care Provider] - 1-2 days Time of Disposition: 13:14
[2018-12-08 13:23] VITALS: BP 141/84; RESP 18; TEMP 99
== END 2018-12-08 13:21 | disposition home or self-care (01) ==
LOC: EC 11:19
DX: S61.011A Laceration without foreign body of right thumb without damage to nail, initial encounter (principal); I25.10 Atherosclerotic heart disease of native coronary artery without angina pectoris; I10 Essential (primary) hypertension; N40.0 Benign prostatic hyperplasia without lower urinary tract symptoms; M19.90 Unspecified osteoarthritis, unspecified site; Z95.5 Presence of coronary angioplasty implant and graft; Z79.890 Hormone replacement therapy; Z79.899 Other long term (current) drug therapy; Z88.5 Allergy status to narcotic agent; Z96.651 Presence of right artificial knee joint; Z23 Encounter for immunization; W26.8XXA Contact with other sharp object(s), not elsewhere classified, initial encounter; Y93.89 Activity, other specified
CPT/HCPCS: 73130; 90715; 99283; 12002; 90471; J2001

== ENCOUNTER 2019-01-19 17:19 | Emergency (ER) | payer MEDICARE ==
[2019-01-19 17:24] VITALS: RESP 18; TEMP 97.9
--- NOTE | 2019-01-19 17:38 | ED ---
General Adult HPI - General Source: patient, RN notes reviewed, old records reviewed Mode of arrival: wheelchair Limitations: no limitations <Delfino Lockwood - Last Filed: 01/19/19 22:51> <Tash Sood - Last Filed: 01/19/19 23:03> - General Chief complaint: Extremity Problem,Nontraumatic Stated complaint: poss bloodclot post op rt hip replacement Time Seen by Provider: 01/19/19 17:26 - History of Present Illness Initial comments: 73-year-old male patient with past history significant for prior DVT, total hip replacement approximately 10 days ago presents ED chief complaint of right posterior thigh pain which is no ongoing for approximately 2 days. Patient seen that he has another DVT. Patient has an chest pain shortness of breath. Patient denies any other complaints at this time. Systemic: Pt denies fatigue, fever/chills, rash. Pt denies weakness, night sweats, weight loss. Neuro: Pt denies headache, visual disturbances, syncope or pre-syncope. HEENT: Pt denies ocular discharge or irritation, otalgia, rhinorrhea, pharyngitis or notable lymphadenopathy. Cardiopulmonary: Pt denies chest pain, SOB, heart palpitations, dyspnea on exertion. Abdominal/GI: Pt denies abdominal pain, n/v/d. : Pt denies dysuria, burning w/ urination, frequency/urgency. Denies new onset urinary or bowel incontinence. MSK: Pt denies loss of strength or function in extremities. Neuro: Pt denies new onset weakness, paresthesias. (Delfino Lockwood) - Related Data Home Medications Medication Instructions Recorded Confirmed Lisinopril [Prinivil] 20 mg PO BID 01/01/15 01/19/19 oxyCODONE-APAP 10-325MG [Percocet 1 tab PO Q4HR PRN 01/01/15 01/19/19 10-325 mg] Fish Oil/Dha/Epa [Fish Oil 1,200 1 cap PO DAILY 08/29/17 01/19/19 mg Fish Oil] Previous Rx's Medication Instructions Recorded Clopidogrel Bisulfate [Plavix] 75 mg PO DAILY #30 tab 08/02/17 amLODIPine [Norvasc] 10 mg PO DAILY #30 tablet 08/02/17 Allergies Allergy/AdvReac Type Severity Reaction Status Date / Time morphine AdvReac Itching Verified 01/19/19 21:55 Review of Systems ROS Other: All systems not noted in ROS Statement are negative. <Delfino Lockwood - Last Filed: 01/19/19 22:51> ROS Other: All systems not noted in ROS Statement are negative. <Alberto Soodssdiamond Miller - Last Filed: 01/19/19 23:03> ROS Statement: Those systems with pertinent positive or pertinent negative responses have been documented in the HPI. Past Medical History Past Medical History: Coronary Artery Disease (CAD), Chest Pain / Angina, GERD/Reflux, Hyperlipidemia, Hypertension, Musculoskeletal Disorder, Osteoarthritis (OA), Prostate Disorder, Renal Disease, Vascular Disorder Additional Past Medical History / Comment(s): CHRONIC CONSTIPATION FROM PAIN MEDS. KIDNEY STONES. urinary frequency. chronic back pain. BPH, impotence status post penile implant. Bilateral lower extremity edema, WITH CHRONIC LEG PAIN (POST PAIN CLINIC PROCEDURE). History of Any Multi-Drug Resistant Organisms: None Reported Past Surgical History: Back Surgery, Bariatric Surgery, Heart Catheterization With Stent, Joint Replacement, Orthopedic Surgery Additional Past Surgical History / Comment(s): CARDIAC STENTS 1999. Lap band surgery 10 years ago. penile implant. RIGHT KNEE REPLACED X 2.cervical sx has titanium plate, colonoscopy Past Anesthesia/Blood Transfusion Reactions: Previous Problems w/ Anesthesia Additional Past Anesthesia/Blood Transfusion Reaction / Comment(s): had itchy skin and severe leg cramps after sx Date of Last Stent Placement:: 1999 Past Psychological History: No Psychological Hx Reported Smoking Status: Never smoker Past Alcohol Use History: None Reported Past Drug Use History: None Reported - Past Family History Mother Family Medical History: Cancer Additional Family Medical History / Comment(s): . Father History Unknown: Yes Family Medical History: No Reported History, Congestive Heart Failure (CHF) Additional Family Medical History / Comment(s): etoh, smoking Brother(s) Family Medical History: Coronary Artery Disease (CAD), Diabetes Mellitus Sister(s) Family Medical History: No Reported History Daughter(s) Family Medical History: No Reported History Additional Family Medical History / Comment(s): Daughter has peripheral artery disease. No history of stroke in mother or father <Delfino Lockwood - Last Filed: 01/19/19 22:51> General Exam Limitations: no limitations <Delfino Lockwood - Last Filed: 01/19/19 22:51> - General Exam Comments Initial Comments: Constitutional: NAD, AOX3, Pt has pleasant affect. HEENT: NC/AT, trachea midline, neck supple, no lymphadenopathy. Posterior pharynx non erythematous, without exudates. External ears appear normal, without discharge. Mucous membranes moist. Eyes PERRLA, EOM intact. There is no scleral icterus. No pallor noted. Cardiopulmonary: RRR, no murmurs, rubs or gallops, no JVD noted. Lungs CTAB in anterior and posterior gonzalez. No peripheral edema. Abdominal exam: Abdomen soft and non-distended. Abdomen non-tender to palpation in all 4 quadrants. Bowel sounds active in LLQ. No hepatosplenomegaly. No ecchymosis Neuro: CN II-XII grossly intact. No nuchal rigidity. No raccon eyes, no woodard sign, no hemotympanum. No cervical spinal tenderness. MSK: Wound site clean, dry, no erythema, no discharge. No posterior calf tenderness bilaterally, homans sign negative bilaterally. Mild amount of bruising of right lower foot region, likely migratory. No peripheral less than 2 seconds. Distal pulses intact and equal. Posterior tibialis and radial pulse +2 bilaterally. Sensation intact in upper and lower extremities. Full active ROM in upper and lower extremities, 5/5 stregnth. (Delfino Lockwood) Course Vital Signs 01/19/19 01/19/19 01/19/19 17:22 20:31 20:39 Temperature 97.9 F Pulse Rate 57 L 53 L 60 Respiratory 18 Rate Blood Pressure 104/56 O2 Sat by Pulse 98 Oximetry Medical Decision Making - Lab Data Result diagrams: 01/19/19 17:40 01/19/19 19:35 <Delfino Lockwood - Last Filed: 01/19/19 22:51> - Lab Data Result diagrams: 01/19/19 17:40 01/19/19 22:30 <Tash Sood - Last Filed: 01/19/19 23:03> - Medical Decision Making 73 y/o male pt presents to ED in order to be evaluated for DVT. PT VSS, afebrile. Physical exam displayed: Wound site clean, dry, no erythema, no discharge. No posterior calf tenderness bilaterally, homans sign negative bilaterally. Mild amount of bruising of right lower foot region, likely migratory. No peripheral less than 2 seconds. Distal pulses intact and equal. Posterior tibialis and radial pulse +2 bilaterally. Sensation intact in upper and lower extremities. Full active ROM in upper and lower extremities, 5/5 stregnth. Laboratory investigations revealed hyperkalemia. US negative for DVT. Rpt K+ was 6.1. Pt initiated on tx for hyperkalemia, pt was signed out to attending physician Dr. Sood pending hyperkalemia tx. (Delfino Lockwood) - Lab Data Lab Results 01/19/19 01/19/19 01/19/19 Range/Units 17:40 17:40 17:40 WBC 8.1 (3.8-10.6) k/uL RBC 3.97 L (4.30-5.90) m/uL Hgb 12.3 L (13.0-17.5) gm/dL Hct 36.0 L (39.0-53.0) % MCV 90.7 (80.0-100.0) fL MCH 30.9 (25.0-35.0) pg MCHC 34.1 (31.0-37.0) g/dL RDW 18.7 H (11.5-15.5) % Plt Count 221 (150-450) k/uL Neutrophils % 75 % Lymphocytes % 13 % Monocytes % 8 % Eosinophils % 3 % Basophils % 1 % Neutrophils # 6.1 (1.3-7.7) k/uL Lymphocytes # 1.0 (1.0-4.8) k/uL Monocytes # 0.6 (0-1.0) k/uL Eosinophils # 0.2 (0-0.7) k/uL Basophils # 0.1 (0-0.2) k/uL Poikilocytosis Moderate Anisocytosis Slight PT 10.2 (9.0-12.0) sec INR 0.9 (<1.2) APTT 27.9 (22.0-30.0) sec Sodium 136 L (137-145) mmol/L Potassium 5.6 H (3.5-5.1) mmol/L Chloride 101 (98-107) mmol/L Carbon Dioxide 26 (22-30) mmol/L Anion Gap 9 mmol/L BUN 39 H (9-20) mg/dL Creatinine 1.69 H (0.66-1.25) mg/dL Est GFR (CKD-EPI)AfAm 46 (>60 ml/min/1.73 sqM) Est GFR (CKD-EPI)NonAf 40 (>60 ml/min/1.73 sqM) Glucose 102 H (74-99) mg/dL Calcium 9.0 (8.4-10.2) mg/dL Total Bilirubin 1.0 (0.2-1.3) mg/dL AST 35 (17-59) U/L ALT 34 (21-72) U/L Alkaline Phosphatase 85 (38-126) U/L Total Protein 6.7 (6.3-8.2) g/dL Albumin 3.9 (3.5-5.0) g/dL 01/19/19 01/19/19 Range/Units 19:35 22:30 WBC (3.8-10.6) k/uL RBC (4.30-5.90) m/uL Hgb (13.0-17.5) gm/dL Hct (39.0-53.0) % MCV (80.0-100.0) fL MCH (25.0-35.0) pg MCHC (31.0-37.0) g/dL RDW (11.5-15.5) % Plt Count (150-450) k/uL Neutrophils % % Lymphocytes % % Monocytes % % Eosinophils % % Basophils % % Neutrophils # (1.3-7.7) k/uL Lymphocytes # (1.0-4.8) k/uL Monocytes # (0-1.0) k/uL Eosinophils # (0-0.7) k/uL Basophils # (0-0.2) k/uL Poikilocytosis Anisocytosis PT (9.0-12.0) sec INR (<1.2) APTT (22.0-30.0) sec Sodium 136 L (137-145) mmol/L Potassium 6.1 H* 4.6 (3.5-5.1) mmol/L Chloride 100 (98-107) mmol/L Carbon Dioxide 25 (22-30) mmol/L Anion Gap 11 mmol/L BUN 38 H (9-20) mg/dL Creatinine 1.52 H (0.66-1.25) mg/dL Est GFR (CKD-EPI)AfAm 52 (>60 ml/min/1.73 sqM) Est GFR (CKD-EPI)NonAf 45 (>60 ml/min/1.73 sqM) Glucose 172 H (74-99) mg/dL Calcium 9.0 (8.4-10.2) mg/dL Total Bilirubin (0.2-1.3) mg/dL AST (17-59) U/L ALT (21-72) U/L Alkaline Phosphatase (38-126) U/L Total Protein (6.3-8.2) g/dL Albumin (3.5-5.0) g/dL Disposition Is patient prescribed a controlled substance at d/c from ED?: No <Delfino Lockwood - Last Filed: 01/19/19 22:51> Is patient prescribed a controlled substance at d/c from ED?: No <Tash Sood - Last Filed: 01/19/19 23:03> Clinical Impression: Leg swelling Disposition: HOME SELF-CARE Condition: Stable Instructions (If sedation given, give patient instructions): Musculoskeletal Pain (ED) Additional Instructions: Patient to adhere to previously discussed treatment plan and will take medication(s) as directed. Patient to follow up with PCP in 1-2 days. Patient to return to ED if symptoms do not improve. Follow-up with primary care provider orthopedic surgeon tomorrow, return to ER if condition worsens. Referrals: Altaf Simms DO [Primary Care Provider] - 1-2 days
[2019-01-19 17:53] LABS: Anisocytosis Slight; Basophils # (A) 0.1 k/uL (0-0.2); Basophils % (A) 1 %; Eosinophils # (A) 0.2 k/uL (0-0.7); Eosinophils % (A) 3 %; HGB 12.3 gm/dL (13.0-17.5); Lymphocytes % (A) 13 %; MCH 30.9 pg (25.0-35.0); MCHC 34.1 g/dL (31.0-37.0); MCV 90.7 fL (80.0-100.0); Mean Platelet Volume 8.1; Monocytes # (A) 0.6 k/uL (0-1.0); Monocytes % (A) 8 %; Neutrophils # (A) 6.1 k/uL (1.3-7.7); Neutrophils % (A) 75 %; Platelet Count 221 k/uL (150-450); Poikilocytosis Moderate; RBC 3.97 m/uL (4.30-5.90); RDW 18.7 % (11.5-15.5); WBC 8.1 k/uL (3.8-10.6)
[2019-01-19 18:03] LABS: Albumin 3.9 g/dL (3.5-5.0); Potassium 5.6 mmol/L (3.5-5.1); Total Protein 6.7 g/dL (6.3-8.2)
[2019-01-19 18:06] LABS: INR 0.9 (<1.2); Partial Thromboplastin Time 27.9 sec (22.0-30.0); Prothrombin Time 10.2 sec (9.0-12.0)
[2019-01-19] MEDS ORDERED: SODIUM CHLORIDE 0.9% 500 ML 500 ML IV STA ×2 (18:12→18:56)
[2019-01-19] MEDS ORDERED: HYDROmorphone 0.5 MG/0.5 ML SYRINGE IVP STA ×2 (18:16→20:13)
[2019-01-19] MEDS ORDERED: HYDROmorphone 1 MG/ML 1 ML SYRINGE IVP STA (18:56)
--- NOTE | 2019-01-19 19:50 | US ---
EXAMINATION TYPE: US venous doppler duplex LE RT DATE OF EXAM: 01/19/2019 5:33 PM COMPARISON: NONE CLINICAL HISTORY: Pain. Pain post op hip surgery SIDE PERFORMED: Right TECHNIQUE: The lower extremity deep venous system is examined utilizing real time linear array sonog temi with graded compression, doppler sonography and color-flow sonography. VESSELS IMAGED: External Iliac Vein (EIV) Common Femoral Vein Deep Femoral Vein Greater Saphenous Vein * Femoral Vein Popliteal Vein Small Saphenous Vein * Proximal Calf Veins (* superficial vessels) Right Leg: Negative for DVT IMPRESSION: No evidence of deep venous thrombosis in the right leg.
[2019-01-19] MEDS ORDERED: DEXTROSE 10 % IN WATER 250 ML IV ONE (20:05)
[2019-01-19] MEDS ORDERED: CALCIUM GLUCONATE 1 GM in SODIUM CHLORIDE 0.9% 100 ML IVPB ONE (20:05)
[2019-01-19] MEDS ORDERED: ALBUTEROL NEB (CONC) 2.5 MG/0.5 ML INHALATION ONE (20:05)
[2019-01-19] MEDS ORDERED: SODIUM BICARB 8.4% 50 ML SYR (1 MEQ/ML) IV ONE (20:05)
[2019-01-19] MEDS ORDERED: INSULIN REGULAR 100 UNIT/ML VIAL IV ONE (20:05)
[2019-01-19 20:40] VITALS: PULSE 60
[2019-01-19 22:54] LABS: Potassium 4.6 mmol/L (3.5-5.1)
[2019-01-19 23:47] VITALS: BP 110/60
== END 2019-01-19 23:05 | disposition home or self-care (01) ==
LOC: EC 17:19
DX: S90.31XA Contusion of right foot, initial encounter (principal); R07.9 Chest pain, unspecified; R06.02 Shortness of breath; E87.5 Hyperkalemia; I25.10 Atherosclerotic heart disease of native coronary artery without angina pectoris; I10 Essential (primary) hypertension; M19.90 Unspecified osteoarthritis, unspecified site; Z86.718 Personal history of other venous thrombosis and embolism; Z95.5 Presence of coronary angioplasty implant and graft; Z96.651 Presence of right artificial knee joint; Z96.641 Presence of right artificial hip joint; Z79.891 Long term (current) use of opiate analgesic; Z79.899 Other long term (current) drug therapy; Z88.5 Allergy status to narcotic agent; Z53.8 Procedure and treatment not carried out for other reasons
CPT/HCPCS: 99285; 96365; 96375; 96376 ×2; 96361; 36415; 94640; 80053; 80048; 84132; 85025; 85610; 85730; 93971; J1170 ×2; J0610

== ENCOUNTER 2019-01-21 16:23 | Emergency (ER) | payer MEDICARE ==
[2019-01-21 16:29] VITALS: RESP 18
[2019-01-21] MEDS ORDERED: HYDROmorphone 1 MG/ML 1 ML SYRINGE IVP STA ×3 (17:14→20:49)
--- NOTE | 2019-01-21 17:23 | ED ---
Extremity Problem HPI - General Chief complaint: Extremity Problem,Nontraumatic Stated complaint: poss blood clot Time Seen by Provider: 01/21/19 16:36 Source: patient, RN notes reviewed, old records reviewed Mode of arrival: wheelchair Limitations: physical limitation - History of Present Illness Initial comments: Patient is a 73-year-old male who presents emergency department today with chief complaint of right lower extremity swelling and pain. Patient reports she's had a hip arthroplasty proximally 2 weeks ago. He was sent home on oxycodone and is having a visiting nurse evaluated the Patient. He has no fever at this time. Patient states that he was here in the emergency department 2 days ago worried about possible blood clot. He is on Plavix and resumed this after surgery. Patient reports that he has had some pain from the lower extremity were also worsening pain over the last 8 hours in the right hip joint. Patient states that he has had his surgery at [facility] with Dr. Olson. She states she has not followed with Dr. Olson as of this time. - Related Data Home Medications Medication Instructions Recorded Confirmed Lisinopril [Prinivil] 20 mg PO BID 01/01/15 01/21/19 oxyCODONE-APAP 10-325MG [Percocet 1 tab PO Q4HR PRN 01/01/15 01/21/19 10-325 mg] Fish Oil/Dha/Epa [Fish Oil 1,200 1 cap PO DAILY 08/29/17 01/21/19 mg Fish Oil] Previous Rx's Medication Instructions Recorded Clopidogrel Bisulfate [Plavix] 75 mg PO DAILY #30 tab 08/02/17 amLODIPine [Norvasc] 10 mg PO DAILY #30 tablet 08/02/17 Allergies Allergy/AdvReac Type Severity Reaction Status Date / Time No Known Allergies Allergy Verified 01/21/19 16:38 Review of Systems ROS Statement: Those systems with pertinent positive or pertinent negative responses have been documented in the HPI. ROS Other: All systems not noted in ROS Statement are negative. Past Medical History Past Medical History: Coronary Artery Disease (CAD), Chest Pain / Angina, GERD/Reflux, Hyperlipidemia, Hypertension, Musculoskeletal Disorder, Osteoarthritis (OA), Prostate Disorder, Renal Disease, Vascular Disorder Additional Past Medical History / Comment(s): CHRONIC CONSTIPATION FROM PAIN MEDS. KIDNEY STONES. urinary frequency. chronic back pain. BPH, impotence status post penile implant. Bilateral lower extremity edema, WITH CHRONIC LEG PAIN (POST PAIN CLINIC PROCEDURE). History of Any Multi-Drug Resistant Organisms: None Reported Past Surgical History: Back Surgery, Bariatric Surgery, Heart Catheterization With Stent, Joint Replacement, Orthopedic Surgery Additional Past Surgical History / Comment(s): CARDIAC STENTS 1999. Lap band surgery 10 years ago. penile implant. RIGHT KNEE REPLACED X 2.cervical sx has titanium plate, colonoscopy, rt hip replacement Past Anesthesia/Blood Transfusion Reactions: Previous Problems w/ Anesthesia Additional Past Anesthesia/Blood Transfusion Reaction / Comment(s): had itchy skin and severe leg cramps after sx Date of Last Stent Placement:: 1999 Past Psychological History: No Psychological Hx Reported Smoking Status: Never smoker Past Alcohol Use History: None Reported Past Drug Use History: None Reported - Past Family History Mother Family Medical History: Cancer Additional Family Medical History / Comment(s): . Father History Unknown: Yes Family Medical History: No Reported History, Congestive Heart Failure (CHF) Additional Family Medical History / Comment(s): etoh, smoking Brother(s) Family Medical History: Coronary Artery Disease (CAD), Diabetes Mellitus Sister(s) Family Medical History: No Reported History Daughter(s) Family Medical History: No Reported History Additional Family Medical History / Comment(s): Daughter has peripheral artery disease. No history of stroke in mother or father General Exam - General Exam Comments Initial Comments: 73-year-old male. Patient appears in moderate discomfort. In a wheelchair. Limitations: physical limitation General appearance: alert, in no apparent distress Head exam: Present: atraumatic, normocephalic, normal inspection Eye exam: Present: normal appearance, PERRL, EOMI. Absent: scleral icterus, conjunctival injection, periorbital swelling ENT exam: Present: normal exam, mucous membranes moist Neck exam: Present: normal inspection. Absent: tenderness, meningismus, lymphadenopathy Respiratory exam: Present: normal lung sounds bilaterally. Absent: respiratory distress, wheezes, rales, rhonchi, stridor Cardiovascular Exam: Present: regular rate, normal rhythm, normal heart sounds. Absent: systolic murmur, diastolic murmur, rubs, gallop, clicks GI/Abdominal exam: Present: soft, normal bowel sounds. Absent: distended, tenderness, guarding, rebound, rigid Extremities exam: Present: normal inspection, full ROM, normal capillary refill, other (Patient has evidence of ecchymosis over the right lower extremity, diffuse edema noted. Dorsalis pedis pulse is intact. ). Absent: tenderness, pedal edema, joint swelling, calf tenderness Back exam: Present: normal inspection Neurological exam: Present: alert, oriented X3, CN II-XII intact Psychiatric exam: Present: normal affect, normal mood Skin exam: Present: warm, dry, intact, normal color. Absent: rash Course Vital Signs 01/21/19 01/21/19 16:26 19:14 Temperature 98.0 F Pulse Rate 55 L 69 Respiratory 18 18 Rate Blood Pressure 158/75 118/59 O2 Sat by Pulse 92 L 98 Oximetry Medical Decision Making - Medical Decision Making is a 33-year-old male presents for worsening pain or is a extremity 2 weeks post hip replacement. Patient has a well-appearing incision site over the lateral aspect of his right hip. He is has some significant hematoma and edema over the left right lower extremity. Patient had some blood work obtained today. Labs reveal unremarkable. His kidney function is improved. Patient potassium is mildly elevated at 5.80 was given IV fluids. Patient going studies are unremarkable. Ultrasound was negative for DVT at this time. Due to the edema states he was inflated. Shows no evidence of air or soft tissue fluid collection. Patient does have diffuse edema. Patient's hemoglobin is stable at this time. He has normal pulses bilaterally as well. I discussed the extremity edema is likely due to being on blood thinners and keeping the foot down. I discussed that he would benefit from Jonah wrap compression stockings to help pull the foot back into the leg. Patient is agreeable to treatment plan. Discharged home in stable condition. Discussed case with Dr. Arshad, who also examined the Patient. - Lab Data Result diagrams: 01/21/19 17:23 01/21/19 17:23 Lab Results 01/21/19 01/21/19 01/21/19 Range/Units 17:23 17: 17:23 WBC 7.0 (3.8-10.6) k/uL RBC 3.82 L (4.30-5.90) m/uL Hgb 11.6 L (13.0-17.5) gm/dL Hct 34.5 L (39.0-53.0) % MCV 90.4 (80.0-100.0) fL MCH 30.3 (25.0-35.0) pg MCHC 33.6 (31.0-37.0) g/dL RDW 16.5 H (11.5-15.5) % Plt Count 212 (150-450) k/uL Poikilocytosis Slight Anisocytosis Slight PT 10.3 (9.0-12.0) sec INR 1.0 (<1.2) APTT 28.8 (22.0-30.0) sec Sodium 136 L (137-145) mmol/L Potassium 5.8 H (3.5-5.1) mmol/L Chloride 100 (98-107) mmol/L Carbon Dioxide 27 (22-30) mmol/L Anion Gap 9 mmol/L BUN 38 H (9-20) mg/dL Creatinine 1.38 H (0.66-1.25) mg/dL Est GFR (CKD-EPI)AfAm 59 (>60 ml/min/1.73 sqM) Est GFR (CKD-EPI)NonAf 51 (>60 ml/min/1.73 sqM) Glucose 100 H (74-99) mg/dL Calcium 9.1 (8.4-10.2) mg/dL Total Bilirubin 0.7 (0.2-1.3) mg/dL AST 36 (17-59) U/L ALT 28 (21-72) U/L Alkaline Phosphatase 82 (38-126) U/L C-Reactive Protein 32.3 H (<10.0) mg/L Total Protein 6.8 (6.3-8.2) g/dL Albumin 4.0 (3.5-5.0) g/dL - Radiology Data Radiology results: report reviewed Ultrasound is negative for DVT as compared to study [address] of the lower sternum A shows metal hardware from the right knee arthroplasty causing streak artifact making evaluation suboptimal. No acute fracture C and positioning is satisfactory. Asymmetric enlargement of the right lower extremity versus absent left lower extremity with asymmetric moderate diffuse obtaining sedated. No fluid collection or hematomas noted. Muscle bulk is preserved. No fracture dislocation or hip. Disposition Clinical Impression: Lower extremity edema, Post-op pain, Superficial bruising of lower leg Disposition: HOME SELF-CARE Instructions (If sedation given, give patient instructions): Leg Edema (ED) Additional Instructions: Patient needs to follow-up with manufacture specialist. Patient should keep the lower external Jonah wrap and practice frequent range of motion is much as possible. Patient should return to the emergency department if any alarming signs or symptoms occur. Is patient prescribed a controlled substance at d/c from ED?: No Referrals: Altaf Simms DO [Primary Care Provider] - 1-2 days Time of Disposition: 20:13
[2019-01-21 17:35] LABS: Anisocytosis Slight; HCT 34.5 % (39.0-53.0); HGB 11.6 gm/dL (13.0-17.5); MCH 30.3 pg (25.0-35.0); MCHC 33.6 g/dL (31.0-37.0); MCV 90.4 fL (80.0-100.0); Mean Platelet Volume 6.9; Platelet Count 212 k/uL (150-450); Poikilocytosis Slight; RBC 3.82 m/uL (4.30-5.90); RDW 16.5 % (11.5-15.5)
[2019-01-21 17:44] LABS: Partial Thromboplastin Time 28.8 sec (22.0-30.0); Prothrombin Time 10.3 sec (9.0-12.0)
[2019-01-21 18:02] LABS: C Reactive Protein 32.3 mg/L (<10.0); Calcium 9.1 mg/dL (8.4-10.2); Potassium 5.8 mmol/L (3.5-5.1); Total Bilirubin 0.7 mg/dL (0.2-1.3); Total Protein 6.8 g/dL (6.3-8.2)
--- NOTE | 2019-01-21 18:37 | US ---
EXAMINATION TYPE: US venous doppler duplex LE RT DATE OF EXAM: 01/21/2019 6:25 PM COMPARISON: ] Lower extremity venous ultrasound 2 days ago. CLINICAL HISTORY: Pain. Right hip replacement 2 weeks ago. Pain right leg. Patient on Plavix due to c ardiac issues SIDE PERFORMED: right TECHNIQUE: The lower extremity deep venous system is examined utilizing real time linear array sonog temi with graded compression, doppler sonography and color-flow sonography. VESSELS IMAGED: External Iliac Vein (EIV) Common Femoral Vein Deep Femoral Vein Greater Saphenous Vein * Femoral Vein Popliteal Vein Small Saphenous Vein * Proximal Calf Veins (* superficial vessels) Right Leg: No evidence of DVT as visualized Grayscale, color doppler, spectral doppler imaging performed of the deep veins of the right lower ext remity. There is normal flow, compressibility, vascular waveforms. IMPRESSION: No ultrasound evidence for acute DVT in the right lower extremity. No significant change from study 2 days earlier.
[2019-01-21] MEDS ORDERED: SODIUM CHLORIDE 0.9% 1,000 ML IV ONE (19:11)
[2019-01-21] MEDS ORDERED: SODIUM CHLORIDE 0.9% 1,000 ML IV SCH (19:15)
--- NOTE | 2019-01-21 19:46 | XR ---
EXAMINATION TYPE: XR Hip RT and AP Pelvis DATE OF EXAM: 01/21/2019 COMPARISON: CT abdomen and pelvis October 31, 2017 HISTORY: Pelvic and right hip pain. TECHNIQUE: A single AP view of the pelvis is obtained. Two views of the right hip are obtained. FINDINGS: There is no acute fracture/dislocation evident in the pelvis. Symmetric mild narrowing of the sacroiliac joints. Metallic hardware from right hip arthroplasty. Mild narrowing and spurring lef t hip joint. Partial visualization of surgical change in the to lower lumbar spine. Pubic symphysis i s intact. Two views of right hip show no acute fracture or dislocation. Metallic prosthesis is well seated. No acute fracture is evident. Small metallic densities in the region of the penis are redemonstrated. IMPRESSION: There is no acute fracture or dislocation in the pelvis or right hip.
--- NOTE | 2019-01-21 20:04 | CT ---
EXAMINATION TYPE: CT lower leg RT w con DATE OF EXAM: 01/21/2019 COMPARISON: None. HISTORY: Hip surgery 2 weeks ago. Redness, pain and swelling to right lower leg. CT DLP: 544.8 mGycm Automated exposure control for dose reduction was used. CONTRAST: Performed with IV Contrast, patient injected with 80 mL of Isovue M300. Imaging is performed centered at the level of the right knee. FINDINGS: Metallic hardware from right knee arthroplasty is present causing streak artifact making evaluation s uboptimal. No acute prosthetic fracture is seen. Positioning is felt satisfactory. There is moderate to large suprapatellar joint effusion. Nonspecific finding. There is asymmetric enlargement of the right lower extremity versus absent left lower extremity with asymmetric moderate diffuse subcutaneous edema. No well-formed fluid collection or hematoma is noted. Muscle bulk is preserved. IMPRESSION: As above.
[2019-01-21 21:27] VITALS: BP 162/72; PULSE 72; TEMP 97.8
== END 2019-01-21 21:27 | disposition home or self-care (01) ==
LOC: EC 16:23
DX: S80.11XA Contusion of right lower leg, initial encounter (principal); G89.18 Other acute postprocedural pain; M79.89 Other specified soft tissue disorders; I25.119 Atherosclerotic heart disease of native coronary artery with unspecified angina pectoris; I10 Essential (primary) hypertension; Z79.02 Long term (current) use of antithrombotics/antiplatelets; Z79.899 Other long term (current) drug therapy; Z98.84 Bariatric surgery status; Z95.5 Presence of coronary angioplasty implant and graft; Z96.641 Presence of right artificial hip joint; Z96.651 Presence of right artificial knee joint
CPT/HCPCS: 99284 ×2; 96374 ×2; 96376 ×3; 96361 ×3; 36415; 80053; 85027; 85610; 85730; 86140; 73502; 93971; 73701; J1170; Q9967

== ENCOUNTER 2019-01-22 19:05 | Emergency (ER) | payer MEDICARE ==
--- NOTE | 2019-01-22 20:09 | ED ---
General Adult HPI - General Source: EMS Mode of arrival: EMS Limitations: physical limitation <Chantal Robertson - Last Filed: 01/22/19 23:24> <Jg Mclean - Last Filed: 01/24/19 08:11> - General Chief complaint: Extremity Injury, Lower Stated complaint: Hip pain Time Seen by Provider: 01/22/19 19:23 - History of Present Illness Initial comments: Patient is a 73-year-old male presenting to the emergency Department via EMS with complaints of right hip pain 3 days. Patient has been in the ER the previous 2 days secondary to right hip pain. Patient states the pain is still there and is not improving. Patient states he is unable to move around his house or stand up. Patient states he does have visiting nurses and visiting rehab but he is not improving. Patient states he did elevate his legs yesterday without improvement. Patient states he is ready to go to hospice and does not want to stay in this much pain. Patient states he spoke to somebody from a [facility] hospice and they said for "$2,000, they will put me on a morphine drip and slowly increase it until I within 7-10 days." Patient states he does not want his family to come back to his room as he is ready to go to hospice. Harmony ent is denying fever, chills, chest pain, shortness of breath, cough. Patient has no other complaints at this time. Upon arrival to ER, vital signs are stable, afebrile. (Chantal Robertson) - Related Data Home Medications Medication Instructions Recorded Confirmed Lisinopril [Prinivil] 20 mg PO BID 01/01/15 01/22/19 oxyCODONE-APAP 10-325MG [Percocet 1 tab PO Q4HR PRN 01/01/15 01/22/19 10-325 mg] Fish Oil/Dha/Epa [Fish Oil 1,200 1 cap PO DAILY 08/29/17 01/22/19 mg Fish Oil] Previous Rx's Medication Instructions Recorded Clopidogrel Bisulfate [Plavix] 75 mg PO DAILY #30 tab 08/02/17 amLODIPine [Norvasc] 10 mg PO DAILY #30 tablet 08/02/17 Furosemide [Lasix] 20 mg PO DAILY #5 tab 01/21/19 Allergies Allergy/AdvReac Type Severity Reaction Status Date / Time No Known Allergies Allergy Verified 01/22/19 19:12 Review of Systems ROS Other: All systems not noted in ROS Statement are negative. <Chantal Robertson - Last Filed: 01/22/19 23:24> ROS Other: All systems not noted in ROS Statement are negative. <Jg Mclean - Last Filed: 01/24/19 08:11> ROS Statement: Those systems with pertinent positive or pertinent negative responses have been documented in the HPI. Past Medical History Past Medical History: Coronary Artery Disease (CAD), Chest Pain / Angina, GERD/Reflux, Hyperlipidemia, Hypertension, Musculoskeletal Disorder, Osteoarthritis (OA), Prostate Disorder, Renal Disease, Vascular Disorder Additional Past Medical History / Comment(s): CHRONIC CONSTIPATION FROM PAIN MEDS. KIDNEY STONES. urinary frequency. chronic back pain. BPH, impotence status post penile implant. Bilateral lower extremity edema, WITH CHRONIC LEG PAIN (POST PAIN CLINIC PROCEDURE). History of Any Multi-Drug Resistant Organisms: None Reported Past Surgical History: Back Surgery, Bariatric Surgery, Heart Catheterization With Stent, Joint Replacement, Orthopedic Surgery Additional Past Surgical History / Comment(s): CARDIAC STENTS 1999. Lap band surgery 10 years ago. penile implant. RIGHT KNEE REPLACED X 2.cervical sx has titanium plate, colonoscopy, rt hip replacement Past Anesthesia/Blood Transfusion Reactions: Previous Problems w/ Anesthesia Additional Past Anesthesia/Blood Transfusion Reaction / Comment(s): had itchy skin and severe leg cramps after sx Date of Last Stent Placement:: 1999 Past Psychological History: No Psychological Hx Reported Smoking Status: Never smoker Past Alcohol Use History: None Reported Past Drug Use History: None Reported - Past Family History Mother Family Medical History: Cancer Additional Family Medical History / Comment(s): . Father History Unknown: Yes Family Medical History: No Reported History, Congestive Heart Failure (CHF) Additional Family Medical History / Comment(s): etoh, smoking Brother(s) Family Medical History: Coronary Artery Disease (CAD), Diabetes Mellitus Sister(s) Family Medical History: No Reported History Daughter(s) Family Medical History: No Reported History Additional Family Medical History / Comment(s): Daughter has peripheral artery disease. No history of stroke in mother or father <Chantal Robertson - Last Filed: 01/22/19 23:24> General Exam Limitations: physical limitation <Chantal Robertson Last Filed: 01/22/19 23:24> - General Exam Comments Initial Comments: GENERAL: Well-appearing, well-nourished and in no acute distress. HEAD: Atraumatic, normocephalic. EYES: Pupils equal round and reactive to light, extraocular movements intact, sclera anicteric, conjunctiva are normal. ENT: TMs normal, nares patent, oropharynx clear without exudates. Moist mucous membranes. NECK: Normal range of motion, supple without lymphadenopathy or JVD. LUNGS: Breath sounds clear to auscultation bilaterally and equal. No wheezes rales or rhonchi. HEART: Regular rate and rhythm without murmurs, rubs or gallops. ABDOMEN: Soft, nontender, normoactive bowel sounds. No guarding, no rebound. No masses appreciated. : Deferred EXTREMITIES: Patient has bilateral lower leg edema with 1+ pitting. Neurovascular intact bilateral. Patient does have some mild erythema right lower leg. Patient's incisions on right hip look clean and dry, no signs of infection. No fluctuance noted. No clubbing or cyanosis. NEUROLOGICAL: Cranial nerves II through XII grossly intact. Normal speech. PSYCH: Normal mood. Patient is wanting to go to hospice and is sick of being in pain. SKIN: Warm, Dry, normal turgor, no rashes or lesions noted. (Chantal Robertson) Course Vital Signs 01/22/19 01/22/19 01/23/19 19:08 23:21 00:22 Temperature 98.6 F 98 F Pulse Rate 70 75 79 Respiratory 16 18 16 Rate Blood Pressure 156/73 141/63 152/64 O2 Sat by Pulse 94 L 96 96 Oximetry Medical Decision Making - Lab Data Result diagrams: 01/22/19 20:00 01/22/19 20:00 <Chantal Robertson - Last Filed: 01/22/19 23:24> - Lab Data Result diagrams: 01/22/19 20:00 01/22/19 20:00 <Jg Mclean - Last Filed: 01/24/19 08:11> - Medical Decision Making Patient is a 73-year-old male presenting with right hip pain 3 days. Patient has been in the ER on 2 other occasions for the same issue. Patient states this time he is wanting to go to hospice care and just wants to . Patient states he has not been able to get up and move around last 2 days. Previous imaging was reviewed today. On exam patient has bilateral lower leg edema as well as bruising of the right lower extremity. Patient's surgery incision sites clean and dry, no signs of infection. CBC shows normal white count, hemoglobin is 10.3 which is slightly down from yesterday at 11.6. Sodium is 134 today, be glad has improved at 25. A shows no signs of infection. Chest x-ray is normal. Imaging performed her last 2 visits was reviewed as well. EPS to evaluate the patient secondary to suicidal complaints. They cleared the patient. Case was discussed with Dr. Mclean. Dr. Christianson declined to admit the patient secondary to recent surgery and recommended transfer back to surgical facility. Dr. Bloom from the ER at [facility] accepted the patient as an ER to ER transfer. Patient is in agreement with this plan. (Chantal Robertson) I saw this patient in conjunction with the physician assistant credit manager. I performed independent history and physical exam. Agree with case management.. I discussed case with , who requests patient go back to his surgical facility. (Jg Mclean) - Lab Data Lab Results 01/22/19 01/22/19 01/22/19 Range/Units 20:00 20:00 20:16 WBC 6.1 (3.8-10.6) k/uL RBC 3.71 L (4.30-5.90) m/uL Hgb 10.3 L (13.0-17.5) gm/dL Hct 32.9 L (39.0-53.0) % MCV 88.8 (80.0-100.0) fL MCH 27.8 (25.0-35.0) pg MCHC 31.3 (31.0-37.0) g/dL RDW 16.3 H (11.5-15.5) % Plt Count 227 (150-450) k/uL Neutrophils % 76 % Lymphocytes % 13 % Monocytes % 7 % Eosinophils % 1 % Basophils % 1 % Neutrophils # 4.6 (1.3-7.7) k/uL Lymphocytes # 0.8 L (1.0-4.8) k/uL Monocytes # 0.5 (0-1.0) k/uL Eosinophils # 0.1 (0-0.7) k/uL Basophils # 0.1 (0-0.2) k/uL Poikilocytosis Slight Anisocytosis Slight Sodium 134 L (137-145) mmol/L Potassium 4.6 (3.5-5.1) mmol/L Chloride 101 (98-107) mmol/L Carbon Dioxide 30 (22-30) mmol/L Anion Gap 3 mmol/L BUN 25 H (9-20) mg/dL Creatinine 1.13 (0.66-1.25) mg/dL Est GFR (CKD-EPI)AfAm 75 (>60 ml/min/1.73 sqM) Est GFR (CKD-EPI)NonAf 65 (>60 ml/min/1.73 sqM) Glucose 116 H (74-99) mg/dL Calcium 8.7 (8.4-10.2) mg/dL Total Bilirubin 0.7 (0.2-1.3) mg/dL AST 29 (17-59) U/L ALT 29 (21-72) U/L Alkaline Phosphatase 80 (38-126) U/L Total Protein 6.3 (6.3-8.2) g/dL Albumin 3.7 (3.5-5.0) g/dL Urine Color Light Yellow Urine Appearance Clear (Clear) Urine pH 6.5 (5.0-8.0) Ur Specific [place] 1.008 (1.001-1.035) Urine Protein Negative (Negative) Urine Glucose (UA) Negative (Negative) Urine Ketones Negative (Negative) Urine Blood Negative (Negative) Urine Nitrite Negative (Negative) Urine Bilirubin Negative (Negative) Urine Urobilinogen <2.0 (<2.0) mg/dL Ur Leukocyte Esterase Negative (Negative) Disposition Is patient prescribed a controlled substance at d/c from ED?: No - Out of Hospital Transfer - Req. Specs Out of Hospital Transfer - Requested Specifics: Other Emergency Center ([facility] ER) <Chantal Robertson - Last Filed: 01/22/19 23:24> <Jg Mclean - Last Filed: 01/24/19 08:11> Clinical Impression: Leg swelling, Post-op pain, Superficial bruising of lower leg Disposition: OTHER INSTITUTION NOT DEFINED Condition: Stable Instructions (If sedation given, give patient instructions): Hip Pain (ED) Referrals: Altaf Simms DO [Primary Care Provider] - 1-2 days
[2019-01-22 20:28] LABS: Appearance,Urine Clear (Clear); Bilirubin,Urine Negative (Negative); Blood,Urine Negative (Negative); Color,Urine Light Yellow; Glucose,Urine (UA) Negative (Negative); Ketones,Urine Negative (Negative); Leukocyte Esterase,Urine Negative (Negative); Nitrite,Urine Negative (Negative); PH, Urine 6.5 (5.0-8.0); Protein,Urine Negative (Negative); Specific Gravity,Urine 1.008 (1.001-1.035); Urobilinogen,Urine <2.0 mg/dL (<2.0)
[2019-01-22 20:30] LABS: Anisocytosis Slight; Basophils # (A) 0.1 k/uL (0-0.2); Basophils % (A) 1 %; Eosinophils # (A) 0.1 k/uL (0-0.7); Eosinophils % (A) 1 %; HCT 32.9 % (39.0-53.0); HGB 10.3 gm/dL (13.0-17.5); Lymphocytes # (A) 0.8 k/uL (1.0-4.8); Lymphocytes % (A) 13 %; MCH 27.8 pg (25.0-35.0); MCHC 31.3 g/dL (31.0-37.0); MCV 88.8 fL (80.0-100.0); Mean Platelet Volume 6.8; Monocytes # (A) 0.5 k/uL (0-1.0); Monocytes % (A) 7 %; Neutrophils # (A) 4.6 k/uL (1.3-7.7); Neutrophils % (A) 76 %; Platelet Count 227 k/uL (150-450); Poikilocytosis Slight; RBC 3.71 m/uL (4.30-5.90); RDW 16.3 % (11.5-15.5); WBC 6.1 k/uL (3.8-10.6)
[2019-01-22 20:39] LABS: Albumin 3.7 g/dL (3.5-5.0); Calcium 8.7 mg/dL (8.4-10.2); Potassium 4.6 mmol/L (3.5-5.1); Total Bilirubin 0.7 mg/dL (0.2-1.3); Total Protein 6.3 g/dL (6.3-8.2)
[2019-01-22] MEDS ORDERED: SODIUM CHLORIDE 0.9% 1,000 ML IV STA (20:52)
[2019-01-22] MEDS ORDERED: HYDROmorphone 0.5 MG/0.5 ML SYRINGE IVP STA ×2 (20:52→23:24)
--- NOTE | 2019-01-22 21:04 | XR ---
EXAMINATION: XR chest 2V DATE AND TIME: 01/22/2019 8:31 PM CLINICAL INDICATION: PHH; recent surgery TECHNIQUE: Departmental protocol COMPARISON: 02/28/2018 FINDINGS: The lungs are clear. The pleural spaces are negative. The cardiac silhouette is not enlarged. The remainder of the mediastinal silhouette is unremarkable. The skeletal structures and soft tissues are negative for acute findings. IMPRESSION: NO ACUTE PROCESS.
[2019-01-22 23:22] VITALS: TEMP 98
[2019-01-23 00:23] VITALS: BP 152/64; PULSE 79; RESP 16
== END 2019-01-23 00:37 | disposition other institution (70) ==
LOC: EC 19:05
DX: G89.18 Other acute postprocedural pain (principal); S80.11XA Contusion of right lower leg, initial encounter; M79.89 Other specified soft tissue disorders; M25.551 Pain in right hip; I25.119 Atherosclerotic heart disease of native coronary artery with unspecified angina pectoris; I10 Essential (primary) hypertension; Z95.5 Presence of coronary angioplasty implant and graft; Z98.84 Bariatric surgery status; Z96.651 Presence of right artificial knee joint; Z96.641 Presence of right artificial hip joint; Z98.890 Other specified postprocedural states
CPT/HCPCS: 36415; 80053; 85025; 81003; 71046; 99285; 96374; 96376; 96361; J1170

== ENCOUNTER 2019-03-11 14:41 | Emergency (ER) | payer MEDICARE ==
[2019-03-11 14:50] VITALS: BP 148/66; PULSE 84; RESP 18; TEMP 98.1
--- NOTE | 2019-03-11 15:01 | ED ---
General Adult HPI - General Stated complaint: Rash Time Seen by Provider: 03/11/19 14:47 Source: patient, RN notes reviewed Mode of arrival: ambulatory Limitations: no limitations - History of Present Illness Initial comments: 74-year-old male presented emergency from chief complaint rash his right side. He is not exactly sure when this started. Does when these had dry skin for several weeks but states this feels different. He states it slightly itchy slightly painful. He did have chickenpox as child denies any new soaps lotions detergents. Patient had surgery 3 weeks ago for right hip. - Related Data Home Medications Medication Instructions Recorded Confirmed Lisinopril [Prinivil] 20 mg PO BID 01/01/15 01/22/19 oxyCODONE-APAP 10-325MG [Percocet 1 tab PO Q4HR PRN 01/01/15 01/22/19 10-325 mg] Fish Oil/Dha/Epa [Fish Oil 1,200 1 cap PO DAILY 08/29/17 01/22/19 mg Fish Oil] Previous Rx's Medication Instructions Recorded Clopidogrel Bisulfate [Plavix] 75 mg PO DAILY #30 tab 08/02/17 amLODIPine [Norvasc] 10 mg PO DAILY #30 tablet 08/02/17 Furosemide [Lasix] 20 mg PO DAILY #5 tab 01/21/19 valACYclovir HCL [Valtrex] 1,000 mg PO Q8HR #30 tab 03/11/19 Allergies Allergy/AdvReac Type Severity Reaction Status Date / Time No Known Allergies Allergy Verified 03/11/19 14:50 Review of Systems ROS Statement: Those systems with pertinent positive or pertinent negative responses have been documented in the HPI. ROS Other: All systems not noted in ROS Statement are negative. Past Medical History Past Medical History: Coronary Artery Disease (CAD), Chest Pain / Angina, GERD/Reflux, Hyperlipidemia, Hypertension, Musculoskeletal Disorder, Osteoarthritis (OA), Prostate Disorder, Renal Disease, Vascular Disorder Additional Past Medical History / Comment(s): CHRONIC CONSTIPATION FROM PAIN MEDS. KIDNEY STONES. urinary frequency. chronic back pain. BPH, impotence status post penile implant. Bilateral lower extremity edema, WITH CHRONIC LEG PAIN (POST PAIN CLINIC PROCEDURE). History of Any Multi-Drug Resistant Organisms: None Reported Past Surgical History: Back Surgery, Bariatric Surgery, Heart Catheterization With Stent, Joint Replacement, Orthopedic Surgery Additional Past Surgical History / Comment(s): CARDIAC STENTS 1999. Lap band surgery 10 years ago. penile implant. RIGHT KNEE REPLACED X 2.cervical sx has titanium plate, colonoscopy, rt hip replacement Past Anesthesia/Blood Transfusion Reactions: Previous Problems w/ Anesthesia Additional Past Anesthesia/Blood Transfusion Reaction / Comment(s): had itchy skin and severe leg cramps after sx Date of Last Stent Placement:: 1999 Past Psychological History: No Psychological Hx Reported Smoking Status: Never smoker Past Alcohol Use History: None Reported Past Drug Use History: None Reported - Past Family History Mother Family Medical History: Cancer Additional Family Medical History / Comment(s): . Father History Unknown: Yes Family Medical History: No Reported History, Congestive Heart Failure (CHF) Additional Family Medical History / Comment(s): etoh, smoking Brother(s) Family Medical History: Coronary Artery Disease (CAD), Diabetes Mellitus Sister(s) Family Medical History: No Reported History Daughter(s) Family Medical History: No Reported History Additional Family Medical History / Comment(s): Daughter has peripheral artery disease. No history of stroke in mother or father General Exam Limitations: no limitations General appearance: alert, in no apparent distress Head exam: Present: atraumatic, normocephalic, normal inspection Neck exam: Present: normal inspection, full ROM. Absent: tenderness, meningismus, lymphadenopathy Respiratory exam: Present: normal lung sounds bilaterally. Absent: respiratory distress, wheezes, rales, rhonchi, stridor Cardiovascular Exam: Present: regular rate, normal rhythm, normal heart sounds. Absent: systolic murmur, diastolic murmur, rubs, gallop, clicks Neurological exam: Present: alert Skin exam: Present: warm, dry, intact, normal color, rash (Right mid torso region there is an erythematous slightly raised macular papular rash consistent with herpes zoster) Course Vital Signs 03/11/19 14:48 Temperature 98.1 F Pulse Rate 84 Respiratory 18 Rate Blood Pressure 148/66 O2 Sat by Pulse 98 Oximetry Medical Decision Making - Medical Decision Making Patient appears to have early is herpes zoster. Patient was started on Valtrex. Patient also has noted dry skin denies use some moisturizing lotion including Eucerin or Aveeno. Return parameters were discussed. Disposition Clinical Impression: Shingles Disposition: HOME SELF-CARE Condition: Stable Instructions (If sedation given, give patient instructions): Shingles (ED) Additional Instructions: Please return to the Emergency Department if symptoms worsen or any other concerns. Prescriptions: valACYclovir HCL [Valtrex] 1,000 mg PO Q8HR #30 tab Is patient prescribed a controlled substance at d/c from ED?: No Referrals: Altaf Simms DO [Primary Care Provider] - 1-2 days Time of Disposition: 15:01
== END 2019-03-11 15:04 | disposition home or self-care (01) ==
LOC: EC 14:41
DX: B02.9 Zoster without complications (principal); I25.119 Atherosclerotic heart disease of native coronary artery with unspecified angina pectoris; I10 Essential (primary) hypertension; M19.90 Unspecified osteoarthritis, unspecified site; G89.29 Other chronic pain; Z79.891 Long term (current) use of opiate analgesic; Z79.899 Other long term (current) drug therapy; Z95.5 Presence of coronary angioplasty implant and graft; Z96.651 Presence of right artificial knee joint; Z96.641 Presence of right artificial hip joint; Z86.19 Personal history of other infectious and parasitic diseases
CPT/HCPCS: 99282

== ENCOUNTER → 2019-03-11 | Outpatient (CLI) | payer MEDICARE ==
--- NOTE | 2019-03-11 15:49 | CT ---
EXAMINATION TYPE: CT abdomen pelvis w con DATE OF EXAM: 03/11/2019 COMPARISON: None INDICATION: intra-abdominal pelvic swelling, mass DLP: 1639 mGycm, Automated exposure control for dose reduction was used. CONTRAST: 100 ml mL of Isovue 300. Study performed with Oral Contrast TECHNIQUE: Axial images were obtained from above the diaphragm to the pubic rami in the axial plane a t 5 mm thick sections. Reconstructed images are reviewed on the computer in the coronal plane. FINDINGS: Limited CT sections are obtained the lung bases. The lung bases are clear. CT ABDOMEN: Liver: Normal Spleen: Normal Pancreas: Normal Adrenal glands: The adrenal glands are normal. Gallbladder: Normal Kidneys: No masses are evident. No hydronephrosis is present. No cysts are present. Delayed images were obtained through the kidneys, which remain unremarkable. Aorta: Vascular calcification is within the aorta. Inferior vena cava: Normal. CT PELVIS: Loops of bowel within the abdomen and pelvis are normal. There are loops of bowel which are incom pletely distended or lack oral contrast limiting their evaluation. No suspicious dilated loops of bow el are evident. Appendix: Not well visualized. No suspicious tubular structures or inflammatory changes are evident. Urinary bladder: Normal. Genitourinary structures: Penile prosthesis is present. Osseous structures: No suspicious lytic or sclerotic lesions. Right hip prosthesis is present. There are some pedicle screws and post lumbar spine changes present. IMPRESSIONS: 1. No suspicious abnormality, for abdominal swelling.
== END | disposition home or self-care (01) ==
LOC: RADCTMAIN 12:23
PROVIDERS: ATTEND Family Medicine
DX: N28.89 Other specified disorders of kidney and ureter (principal); R19.00 Intra-abdominal and pelvic swelling, mass and lump, unspecified site
CPT/HCPCS: 99282; 82565; 84520; 74177; 36415; Q9967

== ENCOUNTER 2020-11-12 12:31 | Inpatient (IN) | payer MEDICARE ==
--- NOTE | 2020-11-12 13:01 | ED ---
General Adult HPI - General Chief complaint: Arrhythmia/Palpitations Stated complaint: elevated heart rate Time Seen by Provider: 11/12/20 12:42 Source: patient, EMS, RN notes reviewed Mode of arrival: EMS Limitations: no limitations - History of Present Illness Initial comments: Patient is a pleasant 75-year-old male presenting to the emergency Department with complaints of chest discomfort. Onset was around 9:30 this morning while showering. Discomfort is improved at this point however still remains some. Discomfort feels like tightness. Patient has some associated dyspnea and sweating. Patient has been somewhat nauseated. Patient does have history of atrial fibrillation. Patient does not feel palpitations. No leg pain or leg swelling. - Related Data Home Medications Medication Instructions Recorded Confirmed lisinopriL [Prinivil] 20 mg PO BID 01/01/15 01/22/19 oxyCODONE-APAP 10-325MG [Percocet 1 tab PO Q4HR PRN 01/01/15 01/22/19 10-325 mg] Fish Oil/Dha/Epa [Fish Oil 1,200 1 cap PO DAILY 08/29/17 01/22/19 mg Fish Oil] Previous Rx's Medication Instructions Recorded Clopidogrel Bisulfate [Plavix] 75 mg PO DAILY #30 tab 08/02/17 amLODIPine [Norvasc] 10 mg PO DAILY #30 tablet 08/02/17 Furosemide [Lasix] 20 mg PO DAILY #5 tab 01/21/19 valACYclovir HCL [Valtrex] 1,000 mg PO Q8HR #30 tab 03/11/19 Allergies Allergy/AdvReac Type Severity Reaction Status Date / Time No Known Allergies Allergy Verified 11/12/20 12:55 Review of Systems ROS Statement: Those systems with pertinent positive or pertinent negative responses have been documented in the HPI. ROS Other: All systems not noted in ROS Statement are negative. Constitutional: Denies: fever Eyes: Denies: eye pain ENT: Denies: ear pain Respiratory: Reports: as per HPI. Denies: cough Cardiovascular: Reports: as per HPI, chest pain Endocrine: Denies: fatigue Gastrointestinal: Denies: abdominal pain Genitourinary: Denies: dysuria Musculoskeletal: Denies: back pain Skin: Denies: rash Neurological: Denies: weakness Past Medical History Past Medical History: Coronary Artery Disease (CAD), Chest Pain / Angina, GERD/Reflux, Hyperlipidemia, Hypertension, Musculoskeletal Disorder, Osteoarthritis (OA), Prostate Disorder, Renal Disease, Vascular Disorder Additional Past Medical History / Comment(s): CHRONIC CONSTIPATION FROM PAIN MEDS. KIDNEY STONES. urinary frequency. chronic back pain. BPH, impotence status post penile implant. Bilateral lower extremity edema, WITH CHRONIC LEG PAIN (POST PAIN CLINIC PROCEDURE). Covid Pneumonia History of Any Multi-Drug Resistant Organisms: None Reported Past Surgical History: Back Surgery, Bariatric Surgery, Heart Catheterization With Stent, Joint Replacement, Orthopedic Surgery Additional Past Surgical History / Comment(s): CARDIAC STENTS 1999. Lap band surgery 10 years ago. penile implant. RIGHT KNEE REPLACED X 2.cervical sx has titanium plate, colonoscopy, rt hip replacement Past Anesthesia/Blood Transfusion Reactions: Previous Problems w/ Anesthesia Additional Past Anesthesia/Blood Transfusion Reaction / Comment(s): had itchy skin and severe leg cramps after sx Date of Last Stent Placement:: 1999 Past Psychological History: No Psychological Hx Reported Smoking Status: Never smoker Past Alcohol Use History: None Reported Past Drug Use History: None Reported - Past Family History Mother Family Medical History: Cancer Additional Family Medical History / Comment(s): . Father History Unknown: Yes Family Medical History: No Reported History, Congestive Heart Failure (CHF) Additional Family Medical History / Comment(s): etoh, smoking Brother(s) Family Medical History: Coronary Artery Disease (CAD), Diabetes Mellitus Sister(s) Family Medical History: No Reported History Daughter(s) Family Medical History: No Reported History Additional Family Medical History / Comment(s): Daughter has peripheral artery disease. No history of stroke in mother or father General Exam Limitations: no limitations General appearance: alert, in no apparent distress Head exam: Present: normocephalic Eye exam: Present: normal appearance Neck exam: Present: normal inspection Respiratory exam: Present: normal lung sounds bilaterally Cardiovascular Exam: Present: tachycardia Expanded Peripheral pulses: 2+: Radial (R), Radial (L), Posterior Tibialis (R), Posterior Tibialis (L), Dorsalis Pedis (R), Dorsalis Pedis (L) GI/Abdominal exam: Present: soft. Absent: tenderness Extremities exam: Present: normal inspection. Absent: pedal edema, calf tenderness Neurological exam: Present: alert Psychiatric exam: Present: normal affect, normal mood Skin exam: Present: normal color Course Vital Signs 11/12/20 11/12/20 11/12/20 12:46 13:42 14:14 Temperature 98.0 F 98.8 F Pulse Rate 197 H 72 76 Respiratory 18 14 16 Rate Blood Pressure 108/84 105/69 109/66 O2 Sat by Pulse 98 98 99 Oximetry - Reevaluation(s) Reevaluation #1: 11/12/20 12:59 EKG #2 shows white count 6 tachycardia with rate of 196. QRS 126. QT 276. QTc 490. Normal axis. Nonspecific intraventricular block. Nonspecific T waves. Patient converted with irregular rhythm spontaneously. Repeat EKG shows atrial flutter with 2-1 conduction with a rate of 128. QRS 132. QT 356. QTc 519. Left axis. Right bundle branch block. Q wave in lead III. Patient presents with tachycardia of unknown origin. While this is slightly wide it is not typical appearance of V. tach. Patient did convert on his own and did have a regular rhythm during conversion. Repeat EKG were consistent with atrial flutter. 11/12/20 14:25 Case was discussed with Dr. Hahn and EKGs reviewed. He feels likely patient has atrial tachycardia. Patient was placed on Cardizem drip and rhythm has further improved. Heart rate is 78 this time. Patient reevaluated and updated. Case also discussed with Dr. Graham, who will admit his patient. EKG Findings - EKG Comments: EKG Findings:: White Tachycardia with rate of 196. QRS 126. QT 276. QTc 498. Normal axis. Nonspecific interventricular block. Nonspecific T waves. Medical Decision Making - Lab Data Result diagrams: 11/12/20 12:57 11/12/20 12:57 Lab Results 11/12/20 11/12/20 11/12/20 Range/Units 12:57 12:57 12:57 WBC 7.0 (3.8-10.6) k/uL RBC 4.28 L (4.30-5.90) m/uL Hgb 12.5 L (13.0-17.5) gm/dL Hct 38.9 L (39.0-53.0) % MCV 90.7 (80.0-100.0) fL MCH 29.2 (25.0-35.0) pg MCHC 32.2 (31.0-37.0) g/dL RDW 16.3 H (11.5-15.5) % Plt Count 139 L (150-450) k/uL MPV 8.4 Neutrophils % 71 % Lymphocytes % 18 % Monocytes % 7 % Eosinophils % 2 % Basophils % 0 % Neutrophils # 5.0 (1.3-7.7) k/uL Lymphocytes # 1.3 (1.0-4.8) k/uL Monocytes # 0.5 (0-1.0) k/uL Eosinophils # 0.2 (0-0.7) k/uL Basophils # 0.0 (0-0.2) k/uL Hypochromasia Slight Poikilocytosis Moderate Anisocytosis Slight PT 10.9 (9.0-12.0) sec INR 1.0 (<1.2) APTT 25.2 (22.0-30.0) sec Sodium 140 (137-145) mmol/L Potassium 4.6 (3.5-5.1) mmol/L Chloride 108 H (98-107) mmol/L Carbon Dioxide 25 (22-30) mmol/L Anion Gap 7 mmol/L BUN 13 (9-20) mg/dL Creatinine 1.03 (0.66-1.25) mg/dL Est GFR (CKD-EPI)AfAm 83 (>60 ml/min/1.73 sqM) Est GFR (CKD-EPI)NonAf 72 (>60 ml/min/1.73 sqM) Glucose 110 H (74-99) mg/dL Calcium 9.6 (8.4-10.2) mg/dL Magnesium 2.2 (1.6-2.3) mg/dL Total Bilirubin 0.4 (0.2-1.3) mg/dL AST 22 (17-59) U/L ALT 12 (4-49) U/L Alkaline Phosphatase 72 (38-126) U/L Troponin I (0.000-0.034) ng/mL Total Protein 6.6 (6.3-8.2) g/dL Albumin 4.0 (3.5-5.0) g/dL TSH 2.980 (0.465-4.680) mIU/L Free T4 0.96 (0.78-2.19) ng/dL Free T3 pg/mL 3.9 (2.8-5.3) pg/ml 11/12/20 Range/Units 12:57 WBC (3.8-10.6) k/uL RBC (4.30-5.90) m/uL Hgb (13.0-17.5) gm/dL Hct (39.0-53.0) % MCV (80.0-100.0) fL MCH (25.0-35.0) pg MCHC (31.0-37.0) g/dL RDW (11.5-15.5) % Plt Count (150-450) k/uL MPV Neutrophils % % Lymphocytes % % Monocytes % % Eosinophils % % Basophils % % Neutrophils # (1.3-7.7) k/uL Lymphocytes # (1.0-4.8) k/uL Monocytes # (0-1.0) k/uL Eosinophils # (0-0.7) k/uL Basophils # (0-0.2) k/uL Hypochromasia Poikilocytosis Anisocytosis PT (9.0-12.0) sec INR (<1.2) APTT (22.0-30.0) sec Sodium (137-145) mmol/L Potassium (3.5-5.1) mmol/L Chloride (98-107) mmol/L Carbon Dioxide (22-30) mmol/L Anion Gap mmol/L BUN (9-20) mg/dL Creatinine (0.66-1.25) mg/dL Est GFR (CKD-EPI)AfAm (>60 ml/min/1.73 sqM) Est GFR (CKD-EPI)NonAf (>60 ml/min/1.73 sqM) Glucose (74-99) mg/dL Calcium (8.4-10.2) mg/dL Magnesium (1.6-2.3) mg/dL Total Bilirubin (0.2-1.3) mg/dL AST (17-59) U/L ALT (4-49) U/L Alkaline Phosphatase (38-126) U/L Troponin I <0.012 (0.000-0.034) ng/mL Total Protein (6.3-8.2) g/dL Albumin (3.5-5.0) g/dL TSH (0.465-4.680) mIU/L Free T4 (0.78-2.19) ng/dL Free T3 pg/mL (2.8-5.3) pg/ml Critical Care Time Critical Care Time: Yes Total Critical Care Time: 32 Disposition Clinical Impression: Atrial tachycardia Disposition: ADMITTED IP TO THIS HOSP Is patient prescribed a controlled substance at d/c from ED?: No Referrals: Rocky Graham MD [Primary Care Provider] - 1-2 days Decision Time: 14:26
[2020-11-12 13:06] LABS: Anisocytosis Slight; Basophils % (A) 0 %; Eosinophils # (A) 0.2 k/uL (0-0.7); Eosinophils % (A) 2 %; HCT 38.9 % (39.0-53.0); HGB 12.5 gm/dL (13.0-17.5); Hypochromasia Slight; Lymphocytes # (A) 1.3 k/uL (1.0-4.8); Lymphocytes % (A) 18 %; MCH 29.2 pg (25.0-35.0); MCHC 32.2 g/dL (31.0-37.0); MCV 90.7 fL (80.0-100.0); Mean Platelet Volume 8.4; Monocytes # (A) 0.5 k/uL (0-1.0); Monocytes % (A) 7 %; Neutrophils % (A) 71 %; Platelet Count 139 k/uL (150-450); Poikilocytosis Moderate; RBC 4.28 m/uL (4.30-5.90); RDW 16.3 % (11.5-15.5)
--- NOTE | 2020-11-12 13:17 | XR ---
EXAMINATION TYPE: XR chest 2V DATE OF EXAM: 11/12/2020 COMPARISON: 10/08/2020 TECHNIQUE: PA and lateral views submitted. HISTORY: Dysrhythmia FINDINGS: Neuropathy of the shoulders. Postsurgical change overlying the cervical spine. Heart enlarged and the re is a coarsened interstitium with left basilar subsegmental consolidation. Degenerative change spin e. Atherosclerotic change aorta. IMPRESSION: 1. Cardiomegaly stable in appearance. 2. Probable left basilar atelectasis correlate clinically.
[2020-11-12 13:19] LABS: Calcium 9.6 mg/dL (8.4-10.2); Magnesium 2.2 mg/dL (1.6-2.3); Potassium 4.6 mmol/L (3.5-5.1); Total Bilirubin 0.4 mg/dL (0.2-1.3); Total Protein 6.6 g/dL (6.3-8.2)
[2020-11-12 13:20] LABS: Partial Thromboplastin Time 25.2 sec (22.0-30.0); Prothrombin Time 10.9 sec (9.0-12.0)
[2020-11-12] MEDS ORDERED: DILTIAZEM 125 MG in SODIUM CHLORIDE 0.9% 100 ML IV SCH (13:30)
[2020-11-12 13:35] LABS: T4, Free (Free Thyroxine) 0.96 ng/dL (0.78-2.19)
[2020-11-12] MEDS ORDERED: NALOXONE 0.4 MG/ML 1 ML VIAL IV PRN (14:26)
[2020-11-12] MEDS ORDERED: SODIUM CHLORIDE 0.9% 1,000 ML IV SCH (14:30)
[2020-11-12] MEDS: oxyCODONE-APAP 10-325MG 1 EACH TAB PO PRN ×3 (16:00→23:45)
[2020-11-12] MEDS ORDERED: FUROSEMIDE 40 MG TAB PO PRN (16:55)
[2020-11-12] MEDS ORDERED: oxyCODONE-APAP 10-325MG 1 EACH TAB PO PRN (16:55)
[2020-11-12] MEDS ORDERED: NITROGLYCERIN SL TABS 0.4 MG TAB SUBLINGUAL PRN (16:55)
[2020-11-12] MEDS ORDERED: TESTOSTERONE CYPIONATE 200 MG/ML 1ML VIAL IM SCH (18:00)
[2020-11-12] MEDS: APIXABAN 5 MG TAB PO SCH (20:17)
[2020-11-12] MEDS: METOPROLOL TARTRATE 25 MG TAB PO SCH (20:17)
[2020-11-12] MEDS: lisinopriL 20 MG TAB PO SCH (20:17)
[2020-11-12 20:48] VITALS: RESP 18
[2020-11-12] MEDS: IPRATROPIUM-ALBUTEROL 3 ML NEB INHALATION SCH (21:46)
[2020-11-13] MEDS: oxyCODONE-APAP 10-325MG 1 EACH TAB PO PRN (04:20)
[2020-11-13] MEDS: IPRATROPIUM-ALBUTEROL 3 ML NEB INHALATION SCH ×2 (07:41→11:09)
[2020-11-13] MEDS: APIXABAN 5 MG TAB PO SCH (08:15)
[2020-11-13] MEDS: lisinopriL 20 MG TAB PO SCH (08:15)
[2020-11-13] MEDS: METOPROLOL TARTRATE 25 MG TAB PO SCH (08:15)
[2020-11-13] MEDS ORDERED: DILTIAZEM ORAL 30 MG TAB PO SCH (09:00)
[2020-11-13] MEDS ORDERED: POTASSIUM CHLORIDE ER 10 MEQ TAB.ER.PRT PO SCH (09:00)
--- NOTE | 2020-11-13 12:05 | P.CRDCN ---
History of Present Illness History of present illness: HISTORY OF PRESENTING ILLNESS This is a pleasant 75-year-old male past medical history significant for paroxysmal atrial fibrillation on eliquis, coronary artery disease s/p PCI RCA, hypertension, dyslipidemia, recent COVID infection and carotid artery disease. He follows in the office with Dr. Hamilton. We have been asked to see in consultation for atrial tachycardia. He states his homecare nurse came to visit yesterday and upon taking his vital signs he was sent to ER. According to the patient he had taken a shower earlier that morning and upon getting out of the shower he felt diaphoretic, nauseated and palpitations. EKG on arrival revealed rapid atrial tachycardia. He was initiated on Cardizem infusion. His heart rate did currently he continues to be in atrial flutter with controlled ventricular rates. He has no further symptoms of palpitations or chest tightness. His breathing is stable. Chest x-ray reveals left basilar atelectasis with chronic cardiomegaly. Laboratory data reviewed, WBC 7, hemoglobin 12.5, platelets 139, sodium 140, potassium 4.6, creatinine 1.03, magnesium 2.2, troponin negative 1, 0.054, 0.058 and TSH 2.98. Current daily cardiac medications include diltiazem 30 mg 3 times a day, Lopressor 75 mg twice a day, Eliquis 5 mg twice a day, Lasix 40 mg daily as needed for lower extremity edema and lisinopril 20 mg twice a day. He had an echocardiogram performed in the office 08/2020 revealing preserved LV systolic function with EF 55%. REVIEW OF SYSTEMS At the time of my exam: CONSTITUTIONAL: Denies fever or chills. CARDIOVASCULAR: Denies chest pain, shortness of breath, orthopnea, PND or palpitations. RESPIRATORY: Denies cough. GASTROINTESTINAL: Denies abdominal pain, diarrhea, constipation, nausea or vomiting. MUSCULOSKELETAL: Denies myalgias. NEUROLOGIC: Denies numbness, tingling, headacbe or weakness. ENDOCRINE: Denies fatigue, weight change, polydipsia or polyurina. GENITOURINARY: Denies burning, hematuria or urgency with micturation. HEMATOLOGIC: Denies history of anemia or bleeding. PHYSICAL EXAMINATION Blood pressure 131/85 heart rate 64 afebrile and maintaining oxygen saturation on nasal cannula. CONSTITUTIONAL: No apparent distress. HEENT: Head is normocephalic. Pupils are equal, round. Sclerae anicteric. Mucous membranes of the mouth are moist. No JVD. No carotid bruit. CHEST EXAMINATION: Lungs are clear to auscultation. No chest wall tenderness is noted on palpation or with deep breathing. HEART EXAMINATION: Regular rate and rhythm. S1, S2 heard. No murmurs, gallops or rub. ABDOMEN: Soft, nontender. Positive bowel sounds. EXTREMITIES: 2+ peripheral pulses, no lower extremity edema and no calf tenderness. NEUROLOGIC EXAMINATION: Patient is awake, alert and oriented x3. ASSESSMENT Paroxysmal atrial tachycardia/atrial fibrillation with rapid ventricular rate Typical atrial flutter Troponin leak secondary to RVR, not primary cardiac injury. Coronary artery disease status post PCI Hypertension Dyslipidemia Peripheral vascular disease PLAN Continue Eliquis for thromboembolic protection. Increase metoprolol to 100 mg twice a day. Discontinue diltiazem. Patient does not require echocardiogram as he just had one completed in the office. He can be discharged in the afternoon from a cardiac perspective, follow-up in the office with Dr. Hamilton in 2 weeks. Thank you kindly for this consultation. Nurse Practitioner note has been reviewed, I agree with a documented findings and plan of care. Patient was seen and examined. Past Medical History Past Medical History: Atrial Fibrillation, Coronary Artery Disease (CAD), Chest Pain / Angina, GERD/Reflux, Hyperlipidemia, Hypertension, Musculoskeletal Disorder, Osteoarthritis (OA), Prostate Disorder, Renal Disease, Vascular Disorder Additional Past Medical History / Comment(s): CHRONIC CONSTIPATION FROM PAIN MEDS. KIDNEY STONES. urinary frequency. chronic back pain. BPH, impotence status post penile implant. Bilateral lower extremity edema, WITH CHRONIC LEG PAIN (POST PAIN CLINIC PROCEDURE). Covid Pneumonia History of Any Multi-Drug Resistant Organisms: None Reported Past Surgical History: Back Surgery, Bariatric Surgery, Heart Catheterization With Stent, Joint Replacement, Orthopedic Surgery Additional Past Surgical History / Comment(s): CARDIAC STENTS 1999. Lap band vallejo rgery 10 years ago. penile implant. RIGHT KNEE REPLACED X 2.cervical sx has titanium plate, colonoscopy, rt hip replacement Past Anesthesia/Blood Transfusion Reactions: Previous Problems w/ Anesthesia Additional Past Anesthesia/Blood Transfusion Reaction / Comment(s): had itchy skin and severe leg cramps after sx Date of Last Stent Placement:: 1999 Past Psychological History: No Psychological Hx Reported Additional Psychological History / Comment(s): pt independant. lives alone has 1 pet dog. lives in single level home that has 2 steps.home care nurse Smoking Status: Never smoker Past Alcohol Use History: None Reported Additional Past Alcohol Use History / Comment(s): used to drink occ but quit 2013 Past Drug Use History: None Reported - Past Family History Mother Family Medical History: Cancer Additional Family Medical History / Comment(s): . Father History Unknown: Yes Family Medical History: No Reported History, Congestive Heart Failure (CHF) Additional Family Medical History / Comment(s): etoh, smoking Brother(s) Family Medical History: Coronary Artery Disease (CAD), Diabetes Mellitus Sister(s) Family Medical History: No Reported History Daughter(s) Family Medical History: No Reported History Additional Family Medical History / Comment(s): Daughter has peripheral artery disease. No history of stroke in mother or father Medications and Allergies Home Medications Medication Instructions Recorded Confirmed Type lisinopriL [Prinivil] 20 mg PO BID 01/01/15 11/12/20 History oxyCODONE-APAP 10-325MG [Percocet 1 tab PO Q6H PRN 01/01/15 11/12/20 History 10-325 mg] Fish Oil/Dha/Epa [Fish Oil 1,200 1 cap PO DAILY 08/29/17 11/12/20 History mg Fish Oil] Apixaban [Eliquis] 5 mg PO BID 11/12/20 11/12/20 History Furosemide [Lasix] 40 mg PO DAILY PRN 11/12/20 11/12/20 History Ipratropium-Albuterol Nebulize 3 ml INHALATION RT-QID 11/12/20 11/12/20 History [Duoneb 0.5 mg-3 mg/3 ml Soln] Nitroglycerin Sl Tabs [Nitrostat] 0.4 mg SUBLINGUAL Q5M PRN 11/12/20 11/12/20 History Potassium Chloride ER [K-Dur 10] 10 meq PO DAILY 11/12/20 11/12/20 History Testosterone Cypionate 200 mg IM Q14D 11/12/20 11/12/20 History [Depo-Testosterone] Metoprolol Tartrate [Lopressor] 100 mg PO BID #360 tab 11/13/20 Rx Allergies Allergy/AdvReac Type Severity Reaction Status Date / Time No Known Allergies Allergy Verified 11/12/20 15:18 Physical Exam Vitals: Vital Signs Temp Pulse Pulse Resp BP BP Pulse Ox 11/13/20 04:00 66 18 117/80 98 11/13/20 01:25 18 11/12/20 23:46 67 18 119/75 98 11/12/20 21:55 68 11/12/20 21:46 60 11/12/20 20:00 98.4 F 64 18 115/59 99 11/12/20 16:15 78 20 117/92 98 11/12/20 16:00 97.8 F 65 18 126/75 100 11/12/20 15:46 18 11/12/20 15:08 74 117/92 11/12/20 14:14 98.8 F 76 16 109/66 99 11/12/20 13:42 72 14 105/69 98 11/12/20 12:46 98.0 F 197 H 18 108/84 98 Intake and Output 11/12/20 11/13/20 11/13/20 22:59 06:59 14:59 Intake Total 15 Balance 15 Intake: Intake, IV Titration 15 Amount Diltiazem 125 mg In 15 Sodium Chloride 0.9% 100 ml @ 5 MG/HR 5 mls/hr IV .Q24H [facility] Rx#:[id number] Other: Voiding Method Urinal # Voids 1 Weight 108.862 kg 107.5 kg Results 11/12/20 12:57 11/12/20 12:57 Cardiac Enzymes 11/12/20 11/12/20 11/12/20 Range/Units 12:57 12:57 16:46 AST 22 (17-59) U/L Troponin I <0.012 0.054 H* (0.000-0.034) ng/mL 11/12/20 Range/Units 18:42 AST (17-59) U/L Troponin I 0.058 H* (0.000-0.034) ng/mL Coagulation 11/12/20 Range/Units 12:57 PT 10.9 (9.0-12.0) sec APTT 25.2 (22.0-30.0) sec CBC 11/12/20 Range/Units 12:57 WBC 7.0 (3.8-10.6) k/uL RBC 4.28 L (4.30-5.90) m/uL Hgb 12.5 L (13.0-17.5) gm/dL Hct 38.9 L (39.0-53.0) % Plt Count 139 L (150-450) k/uL Comprehensive Metabolic Panel 11/12/20 Range/Units 12:57 Sodium 140 (137-145) mmol/L Potassium 4.6 (3.5-5.1) mmol/L Chloride 108 H (98-107) mmol/L Carbon Dioxide 25 (22-30) mmol/L BUN 13 (9-20) mg/dL Creatinine 1.03 (0.66-1.25) mg/dL Glucose 110 H (74-99) mg/dL Calcium 9.6 (8.4-10.2) mg/dL AST 22 (17-59) U/L ALT 12 (4-49) U/L Alkaline Phosphatase 72 (38-126) U/L Total Protein 6.6 (6.3-8.2) g/dL Albumin 4.0 (3.5-5.0) g/dL Current Medications Generic Name Dose Route Start Last Admin Trade Name Freq PRN Reason Stop Dose Admin Albuterol/Ipratropium 3 ml 11/12/20 20:00 11/13/20 07:41 Ipratropium-Albuterol 3 Ml Neb INHALATION Not Given RT-QID [facility] Apixaban 5 mg 11/12/20 21:00 11/12/20 20:17 Apixaban 5 Mg Tab PO 5 mg BID [facility] Administration Protocol Diltiazem HCl 30 mg 11/13/20 09:00 Diltiazem Oral 30 Mg Tab PO TID [facility] Furosemide 40 mg 11/12/20 16:55 Furosemide 40 Mg Tab PO DAILY PRN Edema Sodium Chloride 1,000 mls @ 20 mls/hr 11/12/20 14:30 11/12/20 16:18 Saline 0.9% IV Not Given .Q24H [facility] Lisinopril 20 mg 11/12/20 21:00 11/12/20 20:17 Lisinopril 20 Mg Tab PO 20 mg BID [facility] Administration Metoprolol Tartrate 75 mg 11/12/20 21:00 11/12/20 20:17 Metoprolol Tartrate 25 Mg Tab PO 75 mg BID [facility]COM Administration Naloxone HCl 0.2 mg 11/12/20 14:26 Naloxone 0.4 Mg/Ml 1 Ml Vial IV Q2M PRN Opioid Reversal Nitroglycerin 0.4 mg 11/12/20 16:55 Nitroglycerin Sl Tabs 0.4 Mg Tab SUBLINGUAL Q5M PRN Chest Pain Oxycodone/Acetaminophen 1 each 11/12/20 15:18 11/13/20 04:20 Oxycodone-Apap 10-325mg 1 Each Tab PO 1 each Q4H PRN Administration Pain Oxycodone/Acetaminophen 1 each 11/12/20 16:55 Oxycodone-Apap 10-325mg 1 Each Tab PO Q6H PRN Pain Potassium Chloride 10 meq 11/13/20 09:00 Potassium Chloride Er 10 Meq Tab.Er.Prt PO DAILY [facility] Testosterone Cypionate 200 mg 11/12/20 18:00 11/12/20 21:01 Testosterone Cypionate 200 Mg/Ml 1ml Vial IM 200 mg Q14D [facility] Administration Intake and Output 11/12/20 11/13/20 11/13/20 22:59 06:59 14:59 Intake Total 15 Balance 15 Intake: Intake, IV Titration 15 Amount Diltiazem 125 mg In 15 Sodium Chloride 0.9% 100 ml @ 5 MG/HR 5 mls/hr IV .Q24H [facility] Rx#:[id number] Other: Voiding Method Urinal # Voids 1 Weight 108.862 kg 107.5 kg 11/12/20 12:57 11/12/20 12:57
--- NOTE | 2020-11-13 12:25 | HP ---
HISTORY AND PHYSICAL DATE OF SERVICE: 11/12/2020 HISTORY OF PRESENT ILLNESS: A 75-year-old white male who came into the emergency room with chest discomfort, atrial fibrillation, rapid ventricular response up to the 200 level on the pulse rate. Was given Cardizem. He states he was taking his oral Cardizem at home. He was showering and came out and his pulse was in the 200s. He came to the emergency room and he was admitted for atrial fibrillation with rapid ventricular response. Started on Cardizem drip. Await for Cardiology recommendations. Daughter also states he was having abdominal pain real bad at home, worsening over the past few weeks. HOME MEDICINES: Prinivil 20 mg b.i.d., Percocet 10 q.4 hours, fish oil pills. He takes Plavix 75 mg daily, Norvasc 10 mg daily, Lasix 20 mg daily, Valtrex 1000 mg every 8 hours. ALLERGIES: None. REVIEW OF SYSTEMS: 14 point review of systems negative except for as mentioned in HPI. PAST MEDICAL HISTORY: Coronary artery disease, chest pain, angina, GERD, dyslipidemia, hypertension, osteoarthritis, prostate disorder, renal disease, vascular disorder, chronic constipation, kidney stones, chronic leg ulcers. SURGERIES: Back surgery, bariatric surgery, heart catheterizations with stents, cardiac stents, and knee replacements. FAMILY HISTORY: Mother with cancer. Father with congestive heart failure. Brother with coronary artery disease and diabetes mellitus. PHYSICAL EXAMINATION: Temp is 98, pulse was 197 in the ER, currently 70-72 on the last couple, cardiovascular S1, S2, tachy. Lungs show rales at the bases. Hematology negative Homans'. Psych fair mood and affect. Neurologic alert orient x3. INTEGUMENT: No rashes. ASSESSMENT: 1. Atrial fibrillation with rapid ventricular response. 2. Chronic obstructive pulmonary disease. 3. Severe osteoarthritis, degenerative disk disease. Wait for Cardiology get involved. Do a TSH. I also ordered an echo. Will do CT scan of the abdomen and pelvis in the future also. MMODL / IJN: [id number] /
[2020-11-13 12:51] VITALS: BP 121/78; PULSE 65; TEMP 97.8
--- NOTE | 2020-11-13 13:13 | CT ---
EXAMINATION TYPE: CT abdomen pelvis wo con DATE OF EXAM: 11/13/2020 COMPARISON: 03/11/2019 HISTORY: Generalized pain. CT DLP: 1306.4 mGycm Examination of the solid and hollow viscera is limited given the lack of contrast. FINDINGS: LUNG BASES: No evidence for nodule. Strandy basilar densities may reflect atelectasis versus developi ng infiltrate. LIVER/GB: The gallbladder is unremarkable. No space-occupying hepatic lesion. PANCREAS: No pancreatic mass identified. No inflammatory process seen. SPLEEN: No evidence for splenomegaly. No intrasplenic lesions seen. ADRENALS: No adrenal nodules identified. No evidence for thickening. KIDNEYS: Subcentimeter hyperdense lesion lower pole left kidney likely reflects a hemorrhagic cyst. N o nephrolithiasis. No hydronephrosis. BOWEL: Gastric banding device is in place. Appendix has a normal appearance. No evidence of bowel obs truction. No inflammatory process. Lymph nodes: No evidence for adenopathy greater than 1 cm. Abdominal aorta: Atheromatous changes seen. No evidence for aneurysm. Genital organs: No significant abnormality. Other: Lumbar laminectomy and fusion changes. Penile prosthesis noted. IMPRESSION: 1. No acute process to account for the patient's symptoms.
[2020-11-13] MEDS ORDERED: METOPROLOL TARTRATE 50 MG TAB PO SCH (21:00)
== END 2020-11-13 13:51 | disposition home or self-care (01) | DRG 310 ==
LOC: SUPCPDRO 12:31 → EC 12:31 → 3SCARD 14:26
PROVIDERS: ADMIT Family Medicine; ATTEND Family Medicine
DX: I47.1 Supraventricular tachycardia (principal); E78.5 Hyperlipidemia, unspecified; I10 Essential (primary) hypertension; I25.10 Atherosclerotic heart disease of native coronary artery without angina pectoris; K21.9 Gastro-esophageal reflux disease without esophagitis; K59.03 Drug induced constipation; G89.29 Other chronic pain; M54.9 Dorsalgia, unspecified; N40.1 Benign prostatic hyperplasia with lower urinary tract symptoms; R35.0 Frequency of micturition; N52.9 Male erectile dysfunction, unspecified; M19.90 Unspecified osteoarthritis, unspecified site; Z96.0 Presence of urogenital implants; M79.605 Pain in left leg; M79.604 Pain in right leg; R60.0 Localized edema; J44.9 Chronic obstructive pulmonary disease, unspecified; I73.9 Peripheral vascular disease, unspecified; I48.0 Paroxysmal atrial fibrillation; I48.3 Typical atrial flutter; Z98.84 Bariatric surgery status; Z95.5 Presence of coronary angioplasty implant and graft; Z96.651 Presence of right artificial knee joint; Z96.641 Presence of right artificial hip joint; Z79.899 Other long term (current) drug therapy; Z79.02 Long term (current) use of antithrombotics/antiplatelets; Z79.891 Long term (current) use of opiate analgesic; Z87.442 Personal history of urinary calculi; Z87.01 Personal history of pneumonia (recurrent); Z86.16 Personal history of COVID-19; Z82.49 Family history of ischemic heart disease and other diseases of the circulatory system; Z83.3 Family history of diabetes mellitus; Z80.9 Family history of malignant neoplasm, unspecified; Z81.1 Family history of alcohol abuse and dependence; Z79.01 Long term (current) use of anticoagulants
CPT/HCPCS: 36415; 71046; 74176; 80053; 83735; 84439; 84443; 84481; 84484; 85025; 85610; 85730; 93005; 94640; 96365; 99291

== ENCOUNTER 2020-11-27 07:54 | Observation (INO) | payer MEDICARE ==
[~2020-11-27 07:54] MED LIST changes: +ALPRAZolam 0.25 MG TAB PO PRN; +ALPRAZolam 0.5 MG TAB PO PRN; +ASPIRIN 325 MG TAB PO STA; +ATORVASTATIN 80 MG TAB PO STA; -LACTATED RINGERS 1,000 ML IV SCH; -LIDOCAINE 1% 20 ML VIAL (10MG/ML) FOR IV START INTRADERMA PRN; +SODIUM CHLORIDE 0.9% 1,000 ML in EMPTY BAG 1 BAG IV ONE
[2020-11-27] MEDS ORDERED: SODIUM CHLORIDE 0.9% 1,000 ML IV ONE (08:14)
[2020-11-27] MEDS ORDERED: LIDOCAINE 1% INJ 10MG/ML (20 ML MDV) ONE (09:02)
[2020-11-27] MEDS ORDERED: VERAPAMIL 2.5 MG/ML 2 ML AMP ONE (09:02)
[2020-11-27] MEDS ORDERED: fentaNYL (PF) 50 MCG/ML 2 ML AMP ONE (10:17)
[2020-11-27] MEDS ORDERED: HEPARIN SODIUM 1,000 UN/ML (10ML VL) ONE ×2 (10:17→11:34)
[2020-11-27] MEDS: fentaNYL (PF) 50 MCG/ML 2 ML AMP IVP ONE ×2 (10:24→11:14)
[2020-11-27] MEDS ORDERED: MIDAZOLAM 2 MG/2 ML VIAL IVP ONE (10:24)
[2020-11-27] MEDS ORDERED: LIDOCAINE 1% INJ 10MG/ML (20 ML MDV) SQ ONE (10:26)
[2020-11-27] MEDS ORDERED: VERAPAMIL SYRINGE (5 MG/10 ML) INTRAARTER ONE (10:29)
[2020-11-27] MEDS ORDERED: HEPARIN SODIUM 1,000 UN/ML (10ML VL) IV ONE ×2 (10:38→11:35)
[2020-11-27] MEDS ORDERED: CLOPIDOGREL 75 MG TAB ONE (10:38)
[2020-11-27] MEDS ORDERED: CLOPIDOGREL 75 MG TAB PO ONE (10:42)
[2020-11-27] MEDS ORDERED: HYDROmorphone 0.5 MG/0.5 ML SYRINGE IVP ONE (10:45)
[2020-11-27] MEDS: MIDAZOLAM 2 MG/2 ML VIAL IVP ONE ×2 (10:56→11:13)
[2020-11-27] MEDS ORDERED: IOPAMIDOL-370 125ML BTL INJ ONE (11:31)
[2020-11-27] MEDS ORDERED: oxyCODONE-APAP 10-325MG 1 EACH TAB PO PRN (11:36)
[2020-11-27] MEDS ORDERED: NITROGLYCERIN SL TABS 0.4 MG TAB SUBLINGUAL PRN ×2 (11:36→11:37)
[2020-11-27] MEDS ORDERED: FUROSEMIDE 40 MG TAB PO PRN (11:36)
[2020-11-27] MEDS ORDERED: ATROPINE SULFATE 0.1 MG/ML 10ML SYRINGE IV PRN (11:37)
[2020-11-27] MEDS ORDERED: MAG HYDROX/AL HYDROX/SIMETH 30 ML CUP PO PRN (11:37)
[2020-11-27] MEDS ORDERED: ZOLPIDEM 5 MG TAB PO PRN (11:37)
[2020-11-27] MEDS ORDERED: RX INFO: IV CONTRAST WAS GIVEN 1 EACH MISC MISCELLANE PRN (11:37)
[2020-11-27] MEDS ORDERED: SODIUM CHLORIDE 0.9% 1,000 ML IV SCH (11:45)
[2020-11-27] MEDS ORDERED: HYDROmorphone 0.5 MG/0.5 ML SYRINGE IVP STA (11:59)
[2020-11-27] MEDS: IPRATROPIUM-ALBUTEROL 3 ML NEB INHALATION SCH ×3 (14:59→21:37)
[2020-11-27 15:26] VITALS: BMI 35.0
[2020-11-27] MEDS: METOPROLOL TARTRATE 50 MG TAB PO SCH (20:50)
[2020-11-27] MEDS: lisinopriL 20 MG TAB PO SCH (20:50)
[2020-11-27] MEDS: DILTIAZEM ORAL 30 MG TAB PO SCH ×2 (23:30→23:41)
[2020-11-28] MEDS: NITROGLYCERIN SL TABS 0.4 MG TAB SUBLINGUAL PRN ×2 (03:59→11:25)
[2020-11-28] MEDS: HYDROmorphone 1 MG/ML 1 ML SYRINGE IVP PRN ×2 (05:14→11:35)
[2020-11-28] MEDS: IPRATROPIUM-ALBUTEROL 3 ML NEB INHALATION SCH ×2 (07:34→11:23)
[2020-11-28 07:58] VITALS: TEMP 97.9
[2020-11-28 08:12] LABS: Basophils % (A) 0 %; Eosinophils # (A) 0.1 k/uL (0-0.7); Eosinophils % (A) 1 %; HCT 35.3 % (39.0-53.0); HGB 11.4 gm/dL (13.0-17.5); Hypochromasia Marked; Lymphocytes # (A) 1.1 k/uL (1.0-4.8); Lymphocytes % (A) 18 %; MCH 28.9 pg (25.0-35.0); MCHC 32.3 g/dL (31.0-37.0); MCV 89.4 fL (80.0-100.0); Mean Platelet Volume 10.9; Monocytes # (A) 0.3 k/uL (0-1.0); Monocytes % (A) 5 %; Neutrophils # (A) 4.7 k/uL (1.3-7.7); Neutrophils % (A) 75 %; Platelet Count 106 k/uL (150-450); Poikilocytosis Moderate; RBC 3.95 m/uL (4.30-5.90); RDW 15.6 % (11.5-15.5); WBC 6.3 k/uL (3.8-10.6)
[2020-11-28 08:22] LABS: African American GFR (CKD) >90 (>60 ml/min/1.73 sqM); Anion Gap 4 mmol/L; Blood Urea Nitrogen 17 mg/dL (9-20); Calcium 8.8 mg/dL (8.4-10.2); Carbon Dioxide 29 mmol/L (22-30); Chloride 104 mmol/L (98-107); Glucose 148 mg/dL (74-99); Magnesium 2.1 mg/dL (1.6-2.3); Non-African American GFR(CKD) 85 (>60 ml/min/1.73 sqM); Potassium 4.5 mmol/L (3.5-5.1); Sodium 137 mmol/L (137-145)
[2020-11-28] MEDS: lisinopriL 20 MG TAB PO SCH (08:53)
[2020-11-28] MEDS: METOPROLOL TARTRATE 50 MG TAB PO SCH (08:53)
[2020-11-28] MEDS: DILTIAZEM ORAL 30 MG TAB PO SCH (08:53)
[2020-11-28] MEDS ORDERED: CLOPIDOGREL 75 MG TAB PO SCH (09:00)
[2020-11-28] MEDS ORDERED: POTASSIUM CHLORIDE ER 10 MEQ TAB.ER.PRT PO SCH (09:00)
[2020-11-28] MEDS ORDERED: NON FORMULARY DRUG (Fish Oil/Dha/Epa [Fish Oil 1,200 Mg Fish Oil] 1 EACH Capsule) PO SCH (09:00)
[2020-11-28 10:55] VITALS: RESP 18
[2020-11-28 11:33] VITALS: BP 110/74; PULSE 83
[2020-11-28] MEDS ORDERED: ASPIRIN 81 MG PO SCH (12:15)
--- NOTE | 2020-11-28 12:42 | XR ---
EXAMINATION TYPE: XR chest 2V DATE OF EXAM: 11/28/2020 COMPARISON: 11/12/2020 INDICATION: Short of breath TECHNIQUE: Frontal and lateral views of the chest are obtained. FINDINGS: The heart size is normal. The pulmonary vasculature is normal. Minimal fluid may be within the costophrenic angles.. IMPRESSION: 1. Very small pleural effusions may be present. Follow up exams can be performed as clinically indica sandrita
--- NOTE | 2020-11-28 12:55 | CONS ---
CONSULTATION DATE OF SERVICE: 11/27/2020 A 75-year-old white male who had a PTCA done x2. HOME MEDICATIONS: Have been reordered, which include Xanax 0.25 q.6 hours, Plavix 75 mg daily, Cardizem 30 mg t.i.d., Lasix 40 mg daily, DuoNeb updraft q.i.d., Zestril 20 mg b.i.d., Lopressor 100 b.i.d., nitroglycerin sublingual p.r.n., Percocet 10 every 6 hours, potassium chloride 10 mEq daily. PAST MEDICAL HISTORY: Coronary artery disease, diastolic heart failure, hypertension, atrial fibrillation, rapid ventricular response, COPD, prior COVID pneumonia 6 months ago, anxiety. REVIEW OF SYSTEMS: Fourteen-point review of systems negative except for severe pain. PHYSICAL EXAMINATION: Temperature 97.9, blood pressure 131/70, O2 99 on room air, and pulse 96, respiratory 18-20. CARDIOVASCULAR: S1, S2. LUNGS: Clear GI: Soft. PSYCH: Flat mood and affect. NEUROLOGIC: Alert orient x3. OPHTHALMOLOGIC: Pupils equal, round, reactive. ASSESSMENT: 1. Status post PTCA. 2. Coronary artery disease. 3. Hypertension. 4. Chronic obstructive pulmonary disease. 5. Prior COVID. 6. Possible sleep apnea. 7. Acute on chronic anemia. 8. Diabetes mellitus. Continue current treatments. Monitor electrolytes. Prognosis guarded. Follow up in next 24 to 48 hours. Home medications are reordered. Pain medications were ordered overnight. MMODL / IJN: [id number] /
[2020-11-28] MEDS ORDERED: APIXABAN 5 MG TAB PO SCH (13:15)
[2020-11-28] MEDS ORDERED: APIXABAN 2.5 MG TABLET PO SCH (13:30)
--- NOTE | 2020-11-28 13:58 | P.DS ---
Providers Date of admission: 11/28/20 13:08 Expected date of discharge: 11/28/20 Attending physician: Jairo Hamilton Consults: 11/27/20 11:37 Consult Physician Routine Consulting Provider: [facility] Reason/Comments: Post Interventional patient Do you want consulting provider notified?: Already Contacted 11/27/20 14:30 Consult Physician Routine Consulting Provider: Rocky Graham Reason/Comments: Medical management Do you want consulting provider notified?: Yes [facility] [place] Course: This is a 75-year-old male who underwent stenting of the RCA [address] Hamilton. Patient is doing well post procedure. Patient initially was complaining of chest pain. EKG completed revealing some ST-T wave changes in inferior leads. Upon further evaluation of patient, he states he is not having chest pain. He states he feels like he cant "get a full breath". He states this has been chronic since having Covid 4 months ago. Another repeat EKG was completed with resolution of changes in inferior leads. He reports chronic back pain that radiates to both of his arms. Patient did have an episode of atrial tachycardia this morning while walking to the bathroom. Patient was asymptomatic. The patient was deemed stable for discharge home today per Dr. Hamilton. The patient has been discharged home on triple therapy including aspirin 81 mg daily, Plavix 75 mg daily and Eliquis 2.5 mg twice a day. He is to follow up on an outpatient basis. Please see EMR for further hospital course details. Discharge diagnosis #1 coronary artery disease status post PCI to RCA 2 #2 atrial tachycardia Nurse practitioner note has been reviewed by physician. Signing provider agrees with the documented findings, assessment, and plan of care. Plan - Discharge Summary Discharge Rx Participant: No New Discharge Prescriptions: New Aspirin 81 mg PO DAILY #90 chew Clopidogrel [Plavix] 75 mg PO DAILY #90 tab Apixaban [Eliquis] 2.5 mg PO BID #60 tab Continue lisinopriL [Prinivil] 20 mg PO BID oxyCODONE-APAP 10-325MG [Percocet 10-325 mg] 1 tab PO Q6H PRN PRN Reason: Pain Fish Oil/Dha/Epa [Fish Oil 1,200 mg Fish Oil] 1 cap PO DAILY Potassium Chloride ER [K-Dur 10] 10 meq PO DAILY Metoprolol Tartrate [Lopressor] 100 mg PO BID #360 tab Ipratropium-Albuterol Nebulize [Duoneb 0.5 mg-3 mg/3 ml Soln] 3 ml INHALATION RT-QID Nitroglycerin Sl Tabs [Nitrostat] 0.4 mg SUBLINGUAL Q5M PRN PRN Reason: Chest Pain Furosemide [Lasix] 40 mg PO DAILY PRN PRN Reason: Edema Testosterone Cypionate [Depo-Testosterone] 200 mg IM Q14D Diltiazem Oral [Cardizem*] 30 mg PO TID Discontinued Apixaban [Eliquis] 5 mg PO BID Aspirin 325 mg PO ONCE Discharge Medication List lisinopriL [Prinivil] 20 mg PO BID 01/01/15 [History] oxyCODONE-APAP 10-325MG [Percocet 10-325 mg] 1 tab PO Q6H PRN 01/01/15 [History] Fish Oil/Dha/Epa [Fish Oil 1,200 mg Fish Oil] 1 cap PO DAILY 08/29/17 [History] Furosemide [Lasix] 40 mg PO DAILY PRN 11/12/20 [History] Ipratropium-Albuterol Nebulize [Duoneb 0.5 mg-3 mg/3 ml Soln] 3 ml INHALATION RT-QID 11/12/20 [History] Nitroglycerin Sl Tabs [Nitrostat] 0.4 mg SUBLINGUAL Q5M PRN 11/12/20 [History] Potassium Chloride ER [K-Dur 10] 10 meq PO DAILY 11/12/20 [History] Testosterone Cypionate [Depo-Testosterone] 200 mg IM Q14D 11/12/20 [History] Metoprolol Tartrate [Lopressor] 100 mg PO BID #360 tab 11/13/20 [Rx] Diltiazem Oral [Cardizem*] 30 mg PO TID 11/27/20 [History] Apixaban [Eliquis] 2.5 mg PO BID #60 tab 11/28/20 [Rx] Aspirin 81 mg PO DAILY #90 chew 11/28/20 [Rx] Clopidogrel [Plavix] 75 mg PO DAILY #90 tab 11/28/20 [Rx] Follow up Appointment(s)/Referral(s): Jairo Hamilton MD [STAFF PHYSICIAN] - 12/04/20 10:30 am Patient Instructions/Handouts: After Radial Heart Catheterization (GEN)
[2020-12-04] MEDS ORDERED: TESTOSTERONE CYPIONATE 200 MG/ML 1ML VIAL IM SCH (09:00)
== END 2020-11-28 14:01 | disposition home or self-care (01) ==
LOC: CATHCVL 07:54 → 3SCARD 11:36 → CATHCVL 11-28 13:02 → 3SCARD 11-28 13:08
PROVIDERS: ADMIT Internal Medicine Interventional Cardiology; ATTEND Internal Medicine Interventional Cardiology
DX: I25.110 Atherosclerotic heart disease of native coronary artery with unstable angina pectoris (principal); I11.0 Hypertensive heart disease with heart failure; I50.32 Chronic diastolic (congestive) heart failure; I48.91 Unspecified atrial fibrillation; J44.9 Chronic obstructive pulmonary disease, unspecified; Z86.16 Personal history of COVID-19; Z87.01 Personal history of pneumonia (recurrent); F41.9 Anxiety disorder, unspecified; D64.9 Anemia, unspecified; E11.9 Type 2 diabetes mellitus without complications; G89.29 Other chronic pain; M54.9 Dorsalgia, unspecified; I47.1 Supraventricular tachycardia; E78.00 Pure hypercholesterolemia, unspecified; I65.23 Occlusion and stenosis of bilateral carotid arteries; E78.2 Mixed hyperlipidemia; I70.212 Atherosclerosis of native arteries of extremities with intermittent claudication, left leg; I70.211 Atherosclerosis of native arteries of extremities with intermittent claudication, right leg; Z86.73 Personal history of transient ischemic attack (TIA), and cerebral infarction without residual deficits; Z79.02 Long term (current) use of antithrombotics/antiplatelets; Z79.899 Other long term (current) drug therapy; Z79.891 Long term (current) use of opiate analgesic; Z88.5 Allergy status to narcotic agent
CPT/HCPCS: 94640; 93458; 83880; 80048; 83735; 85025; 71046; G0378; C9600; C1769 ×4; C1894 ×2; C1887 ×2; C1725 ×4; C1874; J2250; J2001; J3010; J1644; J1170 ×2; Q9967

== ENCOUNTER 2020-12-23 12:42 | Observation (INO) | payer MEDICARE ==
[2020-12-23] MEDS ORDERED: FUROSEMIDE 10 MG/ML 4 ML VIAL IV STA (13:09)
--- NOTE | 2020-12-23 13:21 | ED ---
Chest Pain HPI - General Chief Complaint: Chest Pain Stated Complaint: Chest Pain Time Seen by Provider: 12/23/20 12:59 Source: patient, RN notes reviewed Mode of arrival: ambulatory Limitations: no limitations - History of Present Illness Initial Comments: This is a 75-year-old male who was post coated in August of this year who presents with complaints of shortness of breath exertional dyspnea some chest discomfort peripheral edema also in August weight gain overnight. No fevers chills nausea vomiting sweats at this time. He was instructed to come the emergency department by his doctor. MD Complaint: chest pain, other - Related Data Home Medications Medication Instructions Recorded Confirmed lisinopriL [Prinivil] 20 mg PO BID 01/01/15 11/27/20 oxyCODONE-APAP 10-325MG [Percocet 1 tab PO Q6H PRN 01/01/15 11/27/20 10-325 mg] Fish Oil/Dha/Epa [Fish Oil 1,200 1 cap PO DAILY 08/29/17 11/27/20 mg Fish Oil] Furosemide [Lasix] 40 mg PO DAILY PRN 11/12/20 11/27/20 Ipratropium-Albuterol Nebulize 3 ml INHALATION RT-QID 11/12/20 11/27/20 [Duoneb 0.5 mg-3 mg/3 ml Soln] Nitroglycerin Sl Tabs [Nitrostat] 0.4 mg SUBLINGUAL Q5M PRN 11/12/20 11/27/20 Potassium Chloride ER [K-Dur 10] 10 meq PO DAILY 11/12/20 11/27/20 Testosterone Cypionate 200 mg IM Q14D 11/12/20 11/27/20 [Depo-Testosterone] Previous Rx's Medication Instructions Recorded Metoprolol Tartrate [Lopressor] 100 mg PO BID #360 tab 11/13/20 Apixaban [Eliquis] 2.5 mg PO BID #60 tab 11/28/20 Aspirin 81 mg PO DAILY #90 chew 11/28/20 Clopidogrel [Plavix] 75 mg PO DAILY #90 tab 11/28/20 Diltiazem Oral [Cardizem*] 30 mg PO TID #90 tab 11/28/20 Allergies Allergy/AdvReac Type Severity Reaction Status Date / Time No Known Allergies Allergy Verified 12/23/20 12:50 Review of Systems ROS Statement: Those systems with pertinent positive or pertinent negative responses have been documented in the HPI. ROS Other: All systems not noted in ROS Statement are negative. EKG Findings - EKG Results: EKG: interpreted by JANNET, sinus rhythm (Sinus rate of 84 QRS 112 QT since QTC 364/4:30 nonspecific inferior configuration evidence of second-degree AV block) Past Medical History Past Medical History: Atrial Fibrillation, Coronary Artery Disease (CAD), Chest Pain / Angina, GERD/Reflux, Hyperlipidemia, Hypertension, Musculoskeletal Disorder, Osteoarthritis (OA), Prostate Disorder, Renal Disease, Vascular Disorder Additional Past Medical History / Comment(s): having to take nitro daily,Covid Pneumonia-[facility] 2020-[facility]-still having breathing problems on oxygen 2 "something"L NCCHRONIC CONSTIPATION FROM PAIN MEDS. KIDNEY STONES. urinary frequency. chronic back pain. BPH, impotence status post penile implant. Bilateral lower extremity edema, WITH CHRONIC LEG PAIN (POST PAIN CLINIC PROCEDURE). History of Any Multi-Drug Resistant Organisms: None Reported Past Surgical History: Back Surgery, Bariatric Surgery, Heart Catheterization With Stent, Joint Replacement, Orthopedic Surgery Additional Past Surgical History / Comment(s): CARDIAC STENTS 1999. Lap band surgery 10 years ago. penile implant. RIGHT KNEE REPLACED X 2.cervical sx has titanium plate, colonoscopy, rt hip replacement, Cardiac stent x 2 11/2020 Past Anesthesia/Blood Transfusion Reactions: Previous Problems w/ Anesthesia Additional Past Anesthesia/Blood Transfusion Reaction / Comment(s): had itchy skin and severe leg cramps after cage in back sx Date of Last Stent Placement:: 2020 Past Psychological History: No Psychological Hx Reported Smoking Status: Never smoker Past Alcohol Use History: None Reported Past Drug Use History: None Reported - Past Family History Mother Family Medical History: Cancer Additional Family Medical History / Comment(s): . Father History Unknown: Yes Family Medical History: No Reported History, Congestive Heart Failure (CHF) Additional Family Medical History / Comment(s): etoh, smoking Brother(s) Family Medical History: Coronary Artery Disease (CAD), Diabetes Mellitus Sister(s) Family Medical History: No Reported History Daughter(s) Family Medical History: No Reported History Additional Family Medical History / Comment(s): Daughter has peripheral artery disease. No history of stroke in mother or father General Exam - General Exam Comments Initial Comments: This is a well-developed well-nourished awake alert oriented 3 male Limitations: no limitations General appearance: alert, anxious Head exam: Present: atraumatic, normocephalic, normal inspection Eye exam: Present: normal appearance, PERRL, EOMI. Absent: scleral icterus, conjunctival injection, periorbital swelling ENT exam: Present: normal exam, mucous membranes moist Neck exam: Present: normal inspection, full ROM, other (No stridor JVD or bruits). Absent: tenderness, meningismus, lymphadenopathy Respiratory exam: Present: rales, decreased breath sounds. Absent: respiratory distress, wheezes, rhonchi, stridor Cardiovascular Exam: Present: regular rate, normal rhythm, normal heart sounds. Absent: systolic murmur, diastolic murmur, rubs, gallop, clicks GI/Abdominal exam: Present: soft, normal bowel sounds. Absent: distended, tenderness, guarding, rebound, rigid Extremities exam: Present: full ROM, normal capillary refill, pedal edema, other (Stasis changes noted). Absent: tenderness, joint swelling, calf tenderness Back exam: Present: normal inspection Neurological exam: Present: alert, oriented X3, CN II-XII intact Psychiatric exam: Present: normal affect, normal mood Skin exam: Present: warm, dry, intact, normal color. Absent: rash Course Vital Signs 12/23/20 12/23/20 12/23/20 12:44 13:09 13:26 Temperature 98.3 F Pulse Rate 89 90 Respiratory 24 20 20 Rate Blood Pressure 105/62 98/67 O2 Sat by Pulse 98 96 Oximetry 12/23/20 12/23/20 14:00 14:48 Temperature Pulse Rate 59 L 71 Respiratory 20 20 Rate Blood Pressure 98/53 112/64 O2 Sat by Pulse 98 100 Oximetry Chest Pain MDM - MDM Imaging reviewed with respect x-ray increased interstitial markings CAT scan for PE results pending. I did discuss case the patient and with Dr. Graham patient will be admitted with cardiology consultation. The presentation is consistent with CHF Disposition Clinical Impression: Congestive heart failure (CHF) Disposition: ADMITTED IP TO THIS [facility] Condition: Fair Referrals: Rocky Graham MD [Primary Care Provider] - 1-2 days
[2020-12-23 13:25] LABS: Anisocytosis Slight; Basophils % (A) 1 %; Eosinophils # (A) 0.2 k/uL (0-0.7); Eosinophils % (A) 2 %; HCT 40.7 % (39.0-53.0); HGB 12.9 gm/dL (13.0-17.5); Hypochromasia Moderate; Lymphocytes # (A) 1.3 k/uL (1.0-4.8); Lymphocytes % (A) 17 %; MCH 27.3 pg (25.0-35.0); MCHC 31.7 g/dL (31.0-37.0); MCV 86.1 fL (80.0-100.0); Mean Platelet Volume 9.6; Monocytes # (A) 0.8 k/uL (0-1.0); Monocytes % (A) 10 %; Neutrophils # (A) 5.4 k/uL (1.3-7.7); Neutrophils % (A) 69 %; Platelet Count 148 k/uL (150-450); Poikilocytosis Slight; RBC 4.73 m/uL (4.30-5.90); RDW 16.3 % (11.5-15.5); WBC 7.8 k/uL (3.8-10.6)
[2020-12-23] MEDS ORDERED: SODIUM CHLORIDE 0.9% 500 ML 500 ML IV ONE (13:34)
--- NOTE | 2020-12-23 13:36 | XR ---
EXAMINATION TYPE: XR chest 2V DATE OF EXAM: 12/23/2020 COMPARISON: 11/28/2020 TECHNIQUE: PA and lateral views submitted. HISTORY: Difficulty breathing FINDINGS: The lungs are clear and there is no pneumothorax, pleural effusion, or focal pneumonia. Patchy inte rstitial infiltrates. Postsurgical change overlying the cervical spine. Arthropathy of the shoulders. Heart enlarged and there is atherosclerotic change aorta. IMPRESSION: 1. Patchy interstitial infiltrates could represent chronic interstitial lung disease or interstitial pneumonitis correlate clinically..
[2020-12-23 13:38] LABS: Calcium 9.1 mg/dL (8.4-10.2); Magnesium 2.5 mg/dL (1.6-2.3); Potassium 4.3 mmol/L (3.5-5.1); Total Bilirubin 0.7 mg/dL (0.2-1.3); Total Protein 6.5 g/dL (6.3-8.2)
[2020-12-23 13:45] LABS: Partial Thromboplastin Time 25.6 sec (22.0-30.0); Prothrombin Time 10.9 sec (9.0-12.0)
[2020-12-23 13:58] LABS: Appearance,Urine Clear (Clear); Bilirubin,Urine Negative (Negative); Blood,Urine Negative (Negative); Color,Urine Yellow; Glucose,Urine (UA) Negative (Negative); Hyaline Casts,Urine 1 /lpf (0-2); Ketones,Urine Negative (Negative); Leukocyte Esterase,Urine Trace (Negative); Nitrite,Urine Negative (Negative); Protein,Urine Negative (Negative); Specific Gravity,Urine 1.014 (1.001-1.035); Squamous Epithelial Cell,Urine <1 /hpf (0-4); Urobilinogen,Urine <2.0 mg/dL (<2.0); WBC,Urine 2 /hpf (0-5)
--- NOTE | 2020-12-23 14:55 | CT ---
EXAMINATION TYPE: CT angio chest DATE OF EXAM: 12/23/2020 COMPARISON: Chest x-ray same date HISTORY: Difficulty breathing, elevated d-dimer. CT DLP: 574.6 mGycm Automated exposure control for dose reduction was used. CONTRAST: CTA scan of the thorax is performed with IV Contrast, patient injected with 100 mL of Isovue 370, pul monary embolism protocol. MIP images are created and reviewed. 3D reconstructed images are created on an independent workstation and reviewed. FINDINGS: LUNGS: The lungs are showing some interstitial changes, interlobular septal pleural lines at the lung bases but also noted in the upper lobes right greater than left, some parenchymal bands are noted, t here is no concerning parenchymal mass or nodule identified. There is no pleural effusion or pneumo thorax seen. The tracheobronchial tree is patent. AORTA: Ascending aorta is aneurysmal at 4.2 cm. MEDIASTINUM: There is satisfactory enhancement of the pulmonary artery and its branches, there is no CT evidence for pulmonary embolism. There are no greater than 1 cm hilar or mediastinal lymph nodes. No pericardial effusion is seen. The heart is enlarged. There are extensive coronary artery calcif ications. Pulmonary artery is dilated. OTHER: Patient is post lap band. Postop change noted in the cervical spine. Low dense focus in the r ight lobe of the thyroid consistent with thyroid nodule measuring 2.4 cm, smaller left lobe thyroid n odule suspected IMPRESSION: CARDIAC MEGALY, CORONARY ARTERY DISEASE, CORRELATE FOR PULMONARY ARTERY HYPERTENSION. AORTIC ANEURYSM . Interstitial lung disease. Postop changes. No evident pulmonary embolism.
[2020-12-23] MEDS ORDERED: FUROSEMIDE 40 MG TAB PO PRN (14:58)
[2020-12-23] MEDS ORDERED: NITROGLYCERIN SL TABS 0.4 MG TAB SUBLINGUAL PRN (14:58)
[2020-12-23] MEDS: FUROSEMIDE 10 MG/ML 4 ML VIAL IV SCH ×2 (15:24→22:12)
[2020-12-23] MEDS: DILTIAZEM ORAL 30 MG TAB PO SCH ×2 (16:03→21:43)
[2020-12-23] MEDS: APIXABAN 2.5 MG TABLET PO SCH (21:43)
[2020-12-23] MEDS: METOPROLOL TARTRATE 50 MG TAB PO SCH (21:43)
[2020-12-23] MEDS: oxyCODONE-APAP 10-325MG 1 EACH TAB PO PRN (22:10)
[2020-12-23] MEDS: IPRATROPIUM-ALBUTEROL 3 ML NEB INHALATION SCH ×2 (22:14→22:23)
[2020-12-24] MEDS ORDERED: AZITHROMYCIN 500 MG in SODIUM CHLORIDE 0.9% 250 ML IVPB SCH ×2
[2020-12-24] MEDS: lisinopriL 20 MG TAB PO SCH ×2 (01:28→11:19)
--- NOTE | 2020-12-24 01:41 | HP ---
HISTORY AND PHYSICAL HISTORY OF PRESENT ILLNESS: This is a 75-year-old white male presents for shortness of breath, exertional dyspnea with chest discomfort, peripheral edema. No fever, chills, nausea, vomiting. Was advised to go to the Emergency room by his doctor. HOME MEDICATIONS: Lisinopril 20 mg b.i.d., Percocet 10/325 every 6 hours, Lasix 40 mg daily, DuoNeb q.i.d.. Nitro sublingual p.r.n., K-Dur 10 mEq daily, testosterone 200 IM every 14 days. ALLERGIES: No known drug allergies. REVIEW OF SYMPTOMS: 14-point review of system is negative except for mentioned in HPI. EKG shows sinus rhythm. PAST MEDICAL HISTORY: Atrial fibrillation, coronary artery disease, chest pain, angina, GERD, dyslipidemia, hypertension, osteoarthritis, renal disease, vascular disorder, renal stones, urinary frequency, chronic back pain. BPH. SURGERIES: Back surgery, bariatric surgery, heart catheterization with stent, joint replacement orthopedic surgery, right knee replaced, cardiac stents, lap band surgery. SOCIAL HISTORY: No smoking. No alcohol. No drugs. FAMILY HISTORY: Mother cancer. Father with CHF. Brother, coronary artery disease, diabetes mellitus. Daughter has peripheral vascular disease. PHYSICAL EXAMINATION: Temp 93, pulse 80s to 90s, respiratory 20-24, blood pressure 98 to 105 over 62 to 67. CARDIOVASCULAR: S1, S2. LUNGS are clear. HEMATOLOGY: Negative Homans. PSYCH: Fair mood and affect. NEUROLOGIC: Alert and orient x3. GI soft, nontender. Pupils equal, round, react to light and accommodation. ASSESSMENT: 1. Congestive heart failure. 2. Chronic obstructive pulmonary disease. CT scan is negative for PE. Cardiology consult. IV Lasix. Prognosis guarded. Follow up in the next 24 to 48 hours. MMODL / IJN: [id number] /
[2020-12-24] MEDS: oxyCODONE-APAP 10-325MG 1 EACH TAB PO PRN ×2 (05:44→11:23)
[2020-12-24] MEDS: IPRATROPIUM-ALBUTEROL 3 ML NEB INHALATION SCH ×2 (07:28→11:47)
[2020-12-24 08:30] VITALS: TEMP 98.3
[2020-12-24] MEDS ORDERED: CLOPIDOGREL 75 MG TAB PO SCH (09:00)
[2020-12-24] MEDS ORDERED: NON FORMULARY DRUG (Fish Oil/Dha/Epa [Fish Oil 1,200 Mg Fish Oil] 1 EACH Capsule) PO SCH (09:00)
[2020-12-24] MEDS ORDERED: ASPIRIN 81 MG PO SCH (09:00)
[2020-12-24] MEDS ORDERED: POTASSIUM CHLORIDE ER 10 MEQ TAB.ER.PRT PO SCH (09:00)
--- NOTE | 2020-12-24 09:20 | US ---
EXAMINATION TYPE: US thyroid st tissue head/neck DATE OF EXAM: 12/23/2020 COMPARISON: 10/30/2018 CLINICAL HISTORY: 75-year-old male nodules. Follow up GLAND SIZE: Right Lobe: 5.8 x 2.6 x 2.5 cm Overall Parenchyma: heterogenous Left Lobe: 3.3 x 1.5 x 1.9 cm Overall Parenchyma: heterogeneous Isthmus Thickness: 0.4 cm NODULES RIGHT: # of nodules measured on right: 2 1. 1.3 X 0.8 x 1.0 cm, upper mid, mixed solid cystic TR3, nodule, which is wider than tall, with smo oth margins, without echogenic foci. Prior size: 1.1 x 0.8 x 0.8 cm 2. 2.7 X 2.3 x 2.2 cm, mid , solid or almost completely solid, isoechoic TR3 nodule, which is wider than tall, with smooth margins, without echogenic foci. Prior size: 1.9 x 1.6 x 2.1 cm LEFT: # of nodules measured on left: 1 1. 1.4 X 1.1 x 1.4 cm, mid , solid or almost completely solid, hypoechoic TR4 nodule, which is as t all as it is wide, with smooth margins, without echogenic foci. Prior size: 1.2 x 1.2 x 1.2 cm ISTHMUS: # of nodules measured in the isthmus: 0 Bilateral neck scanned, no evidence of lymphadenopathy. IMPRESSION: 1. Dominant 2.7 cm solid TR3 nodule at the right midpole increased from 2.1 cm, previously. FNA recom mended. 2. The other right-sided TR3 nodule currently measures 1.3 cm and should continue to be followed. FNA s if it reaches 2.5 cm. 3. The solid TR4 nodule on the left shows slight increase in size currently 1.4 cm versus 1.2 cm, pre viously. Continued follow-up and FNA if it reaches 1.5 cm.
[2020-12-24 09:32] VITALS: BMI 35.5
[2020-12-24] MEDS: FUROSEMIDE 10 MG/ML 4 ML VIAL IV SCH (09:32)
[2020-12-24] MEDS: APIXABAN 2.5 MG TABLET PO SCH (09:32)
[2020-12-24] MEDS: METOPROLOL TARTRATE 50 MG TAB PO SCH (09:33)
--- NOTE | 2020-12-24 10:50 | P.CRDCN ---
History of Present Illness Consult date: 12/24/20 History of present illness: HISTORY OF PRESENT ILLNESS: This is a 75-year-old male with a past medical history significant for with paroxysmal atrial fibrillation, coronary artery disease with recent PCI to the RCA, hypertension, hyperlipidemia, carotid artery disease, and congestive heart failure. Patient follows in the office with Dr. Hamilton. We have been asked to see the patient in consultation for shortness of breath and chest pain. Patient was recently hospitalized in November 2020. He underwent cardiac catheterization with Dr. Mccurdy on 11/27/2020 which revealed critical disease involving a very calcified RCA. He underwent successful stenting of the RCA which was quite challenging but at the end he had excellent angiographic results per Dr. Mccurdy's documentation. Patient examined at the bedside. Patient states he has been having some chest discomfort on and off since having his stents placed. He states he had chest pain prior to having his stents placed and he thought after he had a stent his symptoms would resolve but they didn't. Patient states he has been having some shortness of breath recently as well. He states he used to take Lasix 40mg BID, but when he saw Dr. Hamilton recently his dose was changed to 40mg daily. The patient states since that time he has been having increased shortness of breath and lower extremity edema which prompted him to come to the hospital yesterday. The patient was started on IV Lasix 40mg every 8 hours. The patient this morning states his shortness of breath has resolved. He denies having any chest pain. The patient is adamant about going home this morning and states his IV Lasix is not working and the pain medication they're giving him here is not the same that he takes at home and he would like to be discharged as soon as possible. EKG reveals atrial fibrillation with controlled ventricular rate Chest xray patchy interstitial infiltrates could represent chronic interstitial lung disease or interstitial pneumonitis. Laboratory data: WBC 7.8. Hemoglobin 12.9. Platelet count 148. D-dimer 1.26. Sodium 137. Potassium 4.3. BUN 36. Creatinine 1.17. Troponin negative 1. ProBNP 903. Current home cardiac medications include lisinopril 20 mg twice a day, potassium chloride 10 milliequivalents daily, metoprolol tartrate 100 mg twice a day, Lasix 40 mg daily, Cardizem 39 g 3 times a day, Plavix 75 mg daily, aspirin 81 mg daily, and Eliquis 2.5 mg twice a day Most recent echocardiogram obtained in August 2020 revealed normal ejection fraction 55%, mild mitral regurgitation, and mild tricuspid regurgitation Cardiac catheterization history: November 2020 with PCI to RCA REVIEW OF SYSTEMS: At the time of my exam: CONSTITUTIONAL: Denies fever or chills. HEENT: Denies blurred vision, vision changes, or eye pain. Denies hemoptysis CARDIOVASCULAR: Denies chest pain. Denies orthopnea. Denies PND. Denies palpitations RESPIRATORY: Denies shortness of breath. GASTROINTESTINAL: Denies abdominal pain. Denies nausea or vomiting. HEMATOLOGIC: Denies bleeding disorders. GENITOURINARY: Denies any blood in urine. SKIN: Denies pruitis. Denies rash. PHYSICAL EXAM: VITAL SIGNS: Reviewed. GENERAL: Well-developed in no acute distress. HEENT: Head is normocephalic. Pupils are equal, round. Sclerae anicteric. Mucous membranes of the mouth are moist. Neck supple. No JVD or thyromegaly LUNGS: Respirations even and unlabored. Lungs diminished bilaterally. HEART: Irregular rate and rhythm. S1 and S2 heard. ABDOMEN: Soft. Nondistended. Nontender. EXTREMITIES: Normal range of motion. No clubbing or cyanosis. Peripheral pulses intact. 1+ bilateral lower extremity edema NEUROLOGIC: Awake and alert. Oriented x 3. ASSESSMENT: Shortness of breath with recent decrease in lasix dosage outpatient, resolved Chest pain, resolved Coronary artery disease with PCI to RCA, November 2020 Chronic persistent atrial fibrillation, on Eliquis Hypertension Hyperlipidemia COPD PLAN: No need to repeat echocardiogram as this was performed in August 2020 Resume home cardiac medications Continue anticoagulation with Eliquis Patient offered cardiac cath versus stress test. Patient declining to have either performed and is adamant about being discharged home today. Discharge per medicine. He is to follow up on an outpatient basis. Nurse practitioner note has been reviewed by physician. Signing provider agrees with the documented findings, assessment, and plan of care. Past Medical History Past Medical History: Atrial Fibrillation, Coronary Artery Disease (CAD), Chest Pain / Angina, GERD/Reflux, Hyperlipidemia, Hypertension, Musculoskeletal Disorder, Osteoarthritis (OA), Prostate Disorder, Renal Disease, Vascular Disorder Additional Past Medical History / Comment(s): having to take nitro daily,Covid Pneumonia-[facility] 2020-[facility]-still having breathing problems on oxygen 2 "something"L NCCHRONIC CONSTIPATION FROM PAIN MEDS. KIDNEY STONES. urinary frequency. chronic back pain. BPH, impotence status post penile implant. Bilateral lower extremity edema, WITH CHRONIC LEG PAIN (POST PAIN CLINIC PROCEDURE). History of Any Multi-Drug Resistant Organisms: None Reported Past Surgical History: Back Surgery, Bariatric Surgery, Heart Catheterization With Stent, Joint Replacement, Orthopedic Surgery Additional Past Surgical History / Comment(s): CARDIAC STENTS 1999. Lap band surgery 10 years ago. penile implant. RIGHT KNEE REPLACED X 2.cervical sx has titanium plate, colonoscopy, rt hip replacement, Cardiac stent x 2 11/2020 Past Anesthesia/Blood Transfusion Reactions: Previous Problems w/ Anesthesia Additional Past Anesthesia/Blood Transfusion Reaction / Comment(s): had itchy skin and severe leg cramps after cage in back sx Date of Last Stent Placement:: 2020 Past Psychological History: No Psychological Hx Reported Additional Psychological History / Comment(s): pt independant. lives alone has 1 pet dog. 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 Father History Unknown: Yes Family Medical History: No Reported History, Congestive Heart Failure (CHF) Additional Family Medical History / Comment(s): etoh, smoking Brother(s) Family Medical History: Coronary Artery Disease (CAD), Diabetes Mellitus Sister(s) Family Medical History: No Reported History Daughter(s) Family Medical History: No Reported History Additional Family Medical History / Comment(s): Daughter has peripheral artery disease. No history of stroke in mother or father Medications and Allergies Home Medications Medication Instructions Recorded Confirmed Type lisinopriL [Prinivil] 20 mg PO BID 01/01/15 12/23/20 History oxyCODONE-APAP 10-325MG [Percocet 1 tab PO Q6H PRN 01/01/15 12/23/20 History 10-325 mg] Fish Oil/Dha/Epa [Fish Oil 1,200 1 cap PO DAILY 08/29/17 12/23/20 History mg Fish Oil] Furosemide [Lasix] 40 mg PO DAILY PRN 11/12/20 12/23/20 History Ipratropium-Albuterol Nebulize 3 ml INHALATION RT-QID 11/12/20 12/23/20 History [Duoneb 0.5 mg-3 mg/3 ml Soln] Nitroglycerin Sl Tabs [Nitrostat] 0.4 mg SL Q5M PRN 11/12/20 12/23/20 History Potassium Chloride ER [K-Dur 10] 10 meq PO DAILY 11/12/20 12/23/20 History Testosterone Cypionate 200 mg IM Q14D 11/12/20 12/23/20 History [Depo-Testosterone] Metoprolol Tartrate [Lopressor] 100 mg PO BID #360 tab 11/13/20 12/23/20 Rx Apixaban [Eliquis] 2.5 mg PO BID #60 tab 11/28/20 12/23/20 Rx Aspirin 81 mg PO DAILY #90 chew 11/28/20 12/23/20 Rx Clopidogrel [Plavix] 75 mg PO DAILY #90 tab 11/28/20 12/23/20 Rx Diltiazem Oral [Cardizem*] 30 mg PO TID #90 tab 11/28/20 12/23/20 Rx Allergies Allergy/AdvReac Type Severity Reaction Status Date / Time No Known Allergies Allergy Verified 12/23/20 15:19 Physical Exam Vitals: Vital Signs Temp Pulse Pulse Pulse Resp BP BP 12/24/20 08:46 93 12/24/20 07:00 98.3 F 84 17 12/24/20 04:35 62 98/67 12/24/20 02:00 98.9 F 81 63 16 88/55 12/23/20 20:00 81 16 12/23/20 18:45 97.4 F L 89 18 106/71 12/23/20 16:57 97.8 F 63 16 120/70 12/23/20 15:40 69 20 116/98 12/23/20 14:48 71 20 112/64 12/23/20 14:00 59 L 20 98/53 12/23/20 13:26 90 20 98/67 12/23/20 13:09 20 12/23/20 12:44 98.3 F 89 24 105/62 BP Pulse Ox 12/24/20 08:46 135/91 12/24/20 07:00 96/63 95 12/24/20 04:35 12/24/20 02:00 95 12/23/20 20:00 12/23/20 18:45 94 L 12/23/20 16:57 100 12/23/20 15:40 99 12/23/20 14:48 100 12/23/20 14:00 98 12/23/20 13:26 96 12/23/20 13:09 12/23/20 12:44 98 Intake and Output 12/23/20 12/24/20 12/24/20 22:59 06:59 14:59 Intake Total 300 0 Output Total 1300 400 Balance -1000 -400 Intake: Oral 300 0 Output: Urine 1300 400 Uretheral (Villa) 400 Other: Voiding Method Urinal Urinal Weight 112.264 kg 112.264 kg Results 12/23/20 13:15 12/23/20 13:15 Cardiac Enzymes 12/23/20 12/23/20 Range/Units 13:15 13:15 AST 32 (17-59) U/L Troponin I <0.012 (0.000-0.034) ng/mL Coagulation 12/23/20 Range/Units 13:15 PT 10.9 (9.0-12.0) sec APTT 25.6 (22.0-30.0) sec CBC 12/23/20 Range/Units 13:15 WBC 7.8 (3.8-10.6) k/uL RBC 4.73 (4.30-5.90) m/uL Hgb 12.9 L (13.0-17.5) gm/dL Hct 40.7 (39.0-53.0) % Plt Count 148 L (150-450) k/uL Comprehensive Metabolic Panel 12/23/20 Range/Units 13:15 Sodium 137 (137-145) mmol/L Potassium 4.3 (3.5-5.1) mmol/L Chloride 102 (98-107) mmol/L Carbon Dioxide 26 (22-30) mmol/L BUN 36 H (9-20) mg/dL Creatinine 1.17 (0.66-1.25) mg/dL Glucose 104 H (74-99) mg/dL Calcium 9.1 (8.4-10.2) mg/dL AST 32 (17-59) U/L ALT 18 (4-49) U/L Alkaline Phosphatase 55 (38-126) U/L Total Protein 6.5 (6.3-8.2) g/dL Albumin 4.0 (3.5-5.0) g/dL Current Medications Generic Name Dose Route Start Last Admin Trade Name Freq PRN Reason Stop Dose Admin Albuterol/Ipratropium 3 ml 12/23/20 16:00 12/24/20 07:28 Ipratropium-Albuterol 3 Ml Neb INHALATION Not Given RT-QID MALCOM Apixaban 2.5 mg 12/23/20 21:00 12/24/20 09:32 Apixaban 2.5 Mg Tablet PO 2.5 mg BID MALCOM Administration Protocol Aspirin 81 mg 12/24/20 09:00 12/24/20 09:32 Aspirin 81 Mg PO 81 mg DAILY MALCOM Administration Clopidogrel Bisulfate 75 mg 12/24/20 09:00 12/24/20 09:33 Clopidogrel 75 Mg Tab PO 75 mg DAILY MALCOM Administration Diltiazem HCl 30 mg 12/23/20 16:00 12/23/20 21:43 Diltiazem Oral 30 Mg Tab PO 30 mg TID MALCOM Administration Furosemide 40 mg 12/23/20 15:00 12/24/20 09:32 Furosemide 10 Mg/Ml 4 Ml Vial IV 40 mg Q8H MALCOM Administration Furosemide 40 mg 12/23/20 14:58 Furosemide 40 Mg Tab PO DAILY PRN Edema Azithromycin 500 mg/ Sodium 250 mls @ 250 mls/hr 12/24/20 00:00 12/24/20 00:52 Chloride IVPB 250 mls/hr Q24H MALCOM Administration Lisinopril 20 mg 12/23/20 21:00 12/24/20 01:28 Lisinopril 20 Mg Tab PO Not Given BID MALCOM Metoprolol Tartrate 100 mg 12/23/20 21:00 12/24/20 09:33 Metoprolol Tartrate 50 Mg Tab PO 100 mg BID MALCOM Administration Nitroglycerin 0.4 mg 12/23/20 14:58 Nitroglycerin Sl Tabs 0.4 Mg Tab SUBLINGUAL Q5M PRN Chest Pain Oxycodone/Acetaminophen 1 each 12/23/20 14:58 12/24/20 05:44 Oxycodone-Apap 10-325mg 1 Each Tab PO 1 each Q6H PRN Administration Pain Potassium Chloride 10 meq 12/24/20 09:00 12/24/20 09:32 Potassium Chloride Er 10 Meq Tab.Er.Prt PO 10 meq DAILY MALCOM Administration Intake and Output 12/23/20 12/24/20 12/24/20 22:59 06:59 14:59 Intake Total 300 0 Output Total 1300 400 Balance -1000 -400 Intake: Oral 300 0 Output: Urine 1300 400 Uretheral (Villa) 400 Other: Voiding Method Urinal Urinal Weight 112.264 kg 112.264 kg Patient Weight 12/25/20 06:59 Weight 112.264 kg 12/23/20 13:15 12/23/20 13:15
[2020-12-24 11:19] VITALS: BP 110/67; PULSE 80; RESP 16
[2020-12-24] MEDS: DILTIAZEM ORAL 30 MG TAB PO SCH (11:19)
== END 2020-12-24 13:36 ==
LOC: EC 12:42 → 6NMEDSUR 14:56
PROVIDERS: ADMIT Family Medicine; ATTEND Family Medicine
DX: I50.9 Heart failure, unspecified (principal); I11.0 Hypertensive heart disease with heart failure; J44.9 Chronic obstructive pulmonary disease, unspecified; E78.5 Hyperlipidemia, unspecified; I25.10 Atherosclerotic heart disease of native coronary artery without angina pectoris; I25.84 Coronary atherosclerosis due to calcified coronary lesion; I48.19 Other persistent atrial fibrillation; N40.0 Benign prostatic hyperplasia without lower urinary tract symptoms; G89.29 Other chronic pain; K21.9 Gastro-esophageal reflux disease without esophagitis; M19.90 Unspecified osteoarthritis, unspecified site; M54.9 Dorsalgia, unspecified; K59.03 Drug induced constipation; M79.606 Pain in leg, unspecified; N28.9 Disorder of kidney and ureter, unspecified; N42.9 Disorder of prostate, unspecified; R25.2 Cramp and spasm; R35.0 Frequency of micturition; N52.9 Male erectile dysfunction, unspecified; Z79.01 Long term (current) use of anticoagulants; Z79.82 Long term (current) use of aspirin; Z79.02 Long term (current) use of antithrombotics/antiplatelets; Z79.899 Other long term (current) drug therapy; Z98.84 Bariatric surgery status; Z87.01 Personal history of pneumonia (recurrent); Z86.16 Personal history of COVID-19; Z87.442 Personal history of urinary calculi; Z96.641 Presence of right artificial hip joint; Z95.5 Presence of coronary angioplasty implant and graft; Z83.3 Family history of diabetes mellitus; Z82.49 Family history of ischemic heart disease and other diseases of the circulatory system
CPT/HCPCS: 99285; 96376 ×2; 96365; 96375; 36415; 93005; 85379; 83880; 80053; 82550; 83605; 83735; 84484 ×2; 85025; 85610; 85730; 81001; 84145; 71046; 76536; 71275; G0378 ×2; J1940 ×2; J0456; Q9967

== ENCOUNTER 2021-03-04 11:11 | Emergency (ER) | payer MEDICARE ==
[2021-03-04] MEDS ORDERED: FUROSEMIDE 10 MG/ML 4 ML VIAL IV STA (12:17)
--- NOTE | 2021-03-04 12:24 | ED ---
General Adult HPI - General Chief complaint: Shortness of Breath Stated complaint: swelling & pain in legs Time Seen by Provider: 03/04/21 11:40 Source: patient, family, RN notes reviewed Mode of arrival: ambulatory Limitations: no limitations - History of Present Illness Initial comments: Patient is a pleasant 76-year-old male presenting to the emergency department with family with concerns for left calf discomfort. Onset of symptoms was yesterday. Discomfort is been persistent since that time. Patient does have bilateral leg swelling which is somewhat chronic. Patient does have chronic dyspnea which is secondary to heart failure. Patient states it is no worse than normal, somewhat better. Family would like this further evaluated. - Related Data Home Medications Medication Instructions Recorded Confirmed lisinopriL [Prinivil] 20 mg PO BID 01/01/15 12/23/20 oxyCODONE-APAP 10-325MG [Percocet 1 tab PO Q6H PRN 01/01/15 12/23/20 10-325 mg] Fish Oil/Dha/Epa [Fish Oil 1,200 1 cap PO DAILY 08/29/17 12/23/20 mg Fish Oil] Furosemide [Lasix] 40 mg PO DAILY PRN 11/12/20 12/23/20 Ipratropium-Albuterol Nebulize 3 ml INHALATION RT-QID 11/12/20 12/23/20 [Duoneb 0.5 mg-3 mg/3 ml Soln] Nitroglycerin Sl Tabs [Nitrostat] 0.4 mg SL Q5M PRN 11/12/20 12/23/20 Potassium Chloride ER [K-Dur 10] 10 meq PO DAILY 11/12/20 12/23/20 Testosterone Cypionate 200 mg IM Q14D 11/12/20 12/23/20 [Depo-Testosterone] Previous Rx's Medication Instructions Recorded Metoprolol Tartrate [Lopressor] 100 mg PO BID #360 tab 11/13/20 Apixaban [Eliquis] 2.5 mg PO BID #60 tab 11/28/20 Aspirin 81 mg PO DAILY #90 chew 11/28/20 Clopidogrel [Plavix] 75 mg PO DAILY #90 tab 11/28/20 Diltiazem Oral [Cardizem*] 30 mg PO TID #90 tab 11/28/20 Allergies Allergy/AdvReac Type Severity Reaction Status Date / Time No Known Allergies Allergy Verified 03/04/21 11:44 Review of Systems ROS Statement: Those systems with pertinent positive or pertinent negative responses have been documented in the HPI. ROS Other: All systems not noted in ROS Statement are negative. Constitutional: Denies: fever Eyes: Denies: eye pain ENT: Denies: ear pain Respiratory: Reports: as per HPI Cardiovascular: Denies: chest pain Endocrine: Denies: fatigue Gastrointestinal: Denies: abdominal pain Genitourinary: Denies: dysuria Musculoskeletal: Denies: back pain Skin: Denies: rash Neurological: Denies: weakness Past Medical History Past Medical History: Atrial Fibrillation, Coronary Artery Disease (CAD), Chest Pain / Angina, GERD/Reflux, Hyperlipidemia, Hypertension, Musculoskeletal Disorder, Osteoarthritis (OA), Prostate Disorder, Renal Disease, Vascular Disorder Additional Past Medical History / Comment(s): having to take nitro daily,Covid Pneumonia-[place] 2020-[facility]-still having breathing problems on oxygen 2 "something"L NCCHRONIC CONSTIPATION FROM PAIN MEDS. KIDNEY STONES. urinary frequency. chronic back pain. BPH, impotence status post penile implant. Bilateral lower extremity edema, WITH CHRONIC LEG PAIN (POST PAIN CLINIC PROCEDURE). History of Any Multi-Drug Resistant Organisms: None Reported Past Surgical History: Back Surgery, Bariatric Surgery, Heart Catheterization With Stent, Joint Replacement, Orthopedic Surgery Additional Past Surgical History / Comment(s): CARDIAC STENTS 1999. Lap band surgery 10 years ago. penile implant. RIGHT KNEE REPLACED X 2.cervical sx has titanium plate, colonoscopy, rt hip replacement, Cardiac stent x 2 11/2020 Past Anesthesia/Blood Transfusion Reactions: Previous Problems w/ Anesthesia Additional Past Anesthesia/Blood Transfusion Reaction / Comment(s): had itchy skin and severe leg cramps after cage in back sx Date of Last Stent Placement:: 2020 Past Psychological History: No Psychological Hx Reported Smoking Status: Never smoker Past Alcohol Use History: None Reported Past Drug Use History: None Reported - Past Family History Mother Family Medical History: Cancer Additional Family Medical History / Comment(s): . Father History Unknown: Yes Family Medical History: No Reported History, Congestive Heart Failure (CHF) Additional Family Medical History / Comment(s): etoh, smoking Brother(s) Family Medical History: Coronary Artery Disease (CAD), Diabetes Mellitus Sister(s) Family Medical History: No Reported History Daughter(s) Family Medical History: No Reported History Additional Family Medical History / Comment(s): Daughter has peripheral artery disease. No history of stroke in mother or father General Exam Limitations: no limitations General appearance: alert, in no apparent distress Head exam: Present: normocephalic Eye exam: Present: normal appearance Neck exam: Present: normal inspection Respiratory exam: Present: normal lung sounds bilaterally Cardiovascular Exam: Present: regular rate, normal rhythm Expanded Peripheral pulses: 2+: Posterior Tibialis (R), Posterior Tibialis (L) GI/Abdominal exam: Present: soft. Absent: tenderness Extremities exam: Present: pedal edema, calf tenderness (Left-sided) Neurological exam: Present: alert Psychiatric exam: Present: normal affect, normal mood Skin exam: Present: normal color Course Vital Signs 03/04/21 03/04/21 03/04/21 11:44 12:37 12:51 Temperature 99.4 F Pulse Rate 100 68 Respiratory 20 20 18 Rate Blood Pressure 125/81 111/62 O2 Sat by Pulse 94 L 100 Oximetry 03/04/21 13:00 Temperature Pulse Rate 79 Respiratory 18 Rate Blood Pressure 121/65 O2 Sat by Pulse 99 Oximetry EKG Findings - EKG Comments: EKG Findings:: A. fib with rate of 64. QRS 106. QT 406. QTc 14. Normal axis. Normal QRS. No acute ST change. Medical Decision Making - Medical Decision Making Patient reevaluated and standing at bedside urinating without difficulty. Patient updated on results. Patient is comfortable with discharge home. - Lab Data Result diagrams: 03/04/21 12:50 03/04/21 12:50 Lab Results 03/04/21 03/04/21 03/04/21 Range/Units 12:50 12:50 12:50 WBC 8.6 (3.8-10.6) k/uL RBC 4.89 (4.30-5.90) m/uL Hgb 12.3 L (13.0-17.5) gm/dL Hct 40.8 (39.0-53.0) % MCV 83.4 (80.0-100.0) fL MCH 25.1 (25.0-35.0) pg MCHC 30.0 L (31.0-37.0) g/dL RDW 16.8 H (11.5-15.5) % Plt Count 120 L (150-450) k/uL MPV 9.5 Neutrophils % 79 % Lymphocytes % 10 % Monocytes % 8 % Eosinophils % 1 % Basophils % 0 % Neutrophils # 6.8 (1.3-7.7) k/uL Lymphocytes # 0.9 L (1.0-4.8) k/uL Monocytes # 0.7 (0-1.0) k/uL Eosinophils # 0.1 (0-0.7) k/uL Basophils # 0.0 (0-0.2) k/uL Hypochromasia Marked Poikilocytosis Slight Anisocytosis Slight PT 11.1 (9.0-12.0) sec INR 1.1 (<1.2) APTT 27.1 (22.0-30.0) sec Sodium 136 L (137-145) mmol/L Potassium 5.0 (3.5-5.1) mmol/L Chloride 98 (98-107) mmol/L Carbon Dioxide 30 (22-30) mmol/L Anion Gap 8 mmol/L BUN 25 H (9-20) mg/dL Creatinine 1.37 H (0.66-1.25) mg/dL Est GFR (CKD-EPI)AfAm 58 (>60 ml/min/1.73 sqM) Est GFR (CKD-EPI)NonAf 50 (>60 ml/min/1.73 sqM) Glucose 96 (74-99) mg/dL Plasma Lactic Acid Jeffry (0.7-2.0) mmol/L Calcium 9.2 (8.4-10.2) mg/dL Total Bilirubin 1.3 (0.2-1.3) mg/dL AST 36 (17-59) U/L ALT 16 (4-49) U/L Alkaline Phosphatase 61 (38-126) U/L Troponin I (0.000-0.034) ng/mL NT-Pro-B Natriuret Pep pg/mL Total Protein 7.1 (6.3-8.2) g/dL Albumin 4.2 (3.5-5.0) g/dL 03/04/21 03/04/21 03/04/21 Range/Units 12:50 12:50 12:50 WBC (3.8-10.6) k/uL RBC (4.30-5.90) m/uL Hgb (13.0-17.5) gm/dL Hct (39.0-53.0) % MCV (80.0-100.0) fL MCH (25.0-35.0) pg MCHC (31.0-37.0) g/dL RDW (11.5-15.5) % Plt Count (150-450) k/uL MPV Neutrophils % % Lymphocytes % % Monocytes % % Eosinophils % % Basophils % % Neutrophils # (1.3-7.7) k/uL Lymphocytes # (1.0-4.8) k/uL Monocytes # (0-1.0) k/uL Eosinophils # (0-0.7) k/uL Basophils # (0-0.2) k/uL Hypochromasia Poikilocytosis Anisocytosis PT (9.0-12.0) sec INR (<1.2) APTT (22.0-30.0) sec Sodium (137-145) mmol/L Potassium (3.5-5.1) mmol/L Chloride (98-107) mmol/L Carbon Dioxide (22-30) mmol/L Anion Gap mmol/L BUN (9-20) mg/dL Creatinine (0.66-1.25) mg/dL Est GFR (CKD-EPI)AfAm (>60 ml/min/1.73 sqM) Est GFR (CKD-EPI)NonAf (>60 ml/min/1.73 sqM) Glucose (74-99) mg/dL Plasma Lactic Acid Jeffry 1.4 (0.7-2.0) mmol/L Calcium (8.4-10.2) mg/dL Total Bilirubin (0.2-1.3) mg/dL AST (17-59) U/L ALT (4-49) U/L Alkaline Phosphatase (38-126) U/L Troponin I <0.012 (0.000-0.034) ng/mL NT-Pro-B Natriuret Pep 1790 pg/mL Total Protein (6.3-8.2) g/dL Albumin (3.5-5.0) g/dL - Radiology Data Radiology results: report reviewed (Ultrasound negative for DVT), image reviewed Disposition Clinical Impression: Calf pain, Edema Disposition: HOME SELF-CARE Condition: Stable Instructions (If sedation given, give patient instructions): Leg Edema (ED), Leg Pain (ED) Additional Instructions: Please do follow-up with your primary care physician in the next day or 2 for recheck. Return for difficulty breathing, fever, increased discomfort, worsening symptoms or other concerns. Is patient prescribed a controlled substance at d/c from ED?: No Referrals: Rocky Graham MD [Primary Care Provider] - 1-2 days Time of Disposition: 14:17
[2021-03-04 12:56] VITALS: RESP 18
[2021-03-04 13:08] LABS: Anisocytosis Slight; Basophils % (A) 0 %; Eosinophils # (A) 0.1 k/uL (0-0.7); Eosinophils % (A) 1 %; HCT 40.8 % (39.0-53.0); HGB 12.3 gm/dL (13.0-17.5); Hypochromasia Marked; Lymphocytes # (A) 0.9 k/uL (1.0-4.8); Lymphocytes % (A) 10 %; MCH 25.1 pg (25.0-35.0); MCV 83.4 fL (80.0-100.0); Mean Platelet Volume 9.5; Monocytes # (A) 0.7 k/uL (0-1.0); Monocytes % (A) 8 %; Neutrophils # (A) 6.8 k/uL (1.3-7.7); Neutrophils % (A) 79 %; Platelet Count 120 k/uL (150-450); Poikilocytosis Slight; RBC 4.89 m/uL (4.30-5.90); RDW 16.8 % (11.5-15.5); WBC 8.6 k/uL (3.8-10.6)
[2021-03-04 13:22] LABS: Albumin 4.2 g/dL (3.5-5.0); Calcium 9.2 mg/dL (8.4-10.2); Total Bilirubin 1.3 mg/dL (0.2-1.3); Total Protein 7.1 g/dL (6.3-8.2)
[2021-03-04 13:27] LABS: INR 1.1 (<1.2); Partial Thromboplastin Time 27.1 sec (22.0-30.0); Prothrombin Time 11.1 sec (9.0-12.0)
--- NOTE | 2021-03-04 13:28 | US ---
EXAMINATION TYPE: US venous doppler duplex LE LT DATE OF EXAM: 03/04/2021 1:09 PM COMPARISON: NONE CLINICAL HISTORY: swelling. SIDE PERFORMED: Left TECHNIQUE: The lower extremity deep venous system is examined utilizing real time linear array sonog temi with graded compression, doppler sonography and color-flow sonography. VESSELS IMAGED: Common Femoral Vein Deep Femoral Vein Greater Saphenous Vein * Femoral Vein Popliteal Vein Small Saphenous Vein * Proximal Calf Veins (* superficial vessels) Technically difficult study, patient of large body habitus with extensive swelling. Left Leg: Negative for DVT IMPRESSION: No evidence for DVT at this time.
--- NOTE | 2021-03-04 14:18 | XR ---
EXAMINATION TYPE: XR chest 2V DATE OF EXAM: 03/04/2021 COMPARISON: December 23, 2020 HISTORY: Shortness of breath TECHNIQUE: Frontal and lateral views of the chest are obtained. FINDINGS: Scattered senescent parenchymal changes noted. Hyperinflation compatible with COPD. No evidence for infiltrate. No evidence for atelectasis. Heart size is stable. Mediastinal structures are stable and grossly unremarkable. No evidence for hilar prominence. Degenerative changes dorsal spine. IMPRESSION: 1. No evidence for acute pulmonary disease.
[2021-03-04 14:26] VITALS: BP 130/62; PULSE 70; TEMP 98.8
== END 2021-03-04 14:59 | disposition home or self-care (01) ==
LOC: EC 11:11
DX: M79.662 Pain in left lower leg (principal); R60.0 Localized edema; I11.9 Hypertensive heart disease without heart failure; I25.10 Atherosclerotic heart disease of native coronary artery without angina pectoris; K21.9 Gastro-esophageal reflux disease without esophagitis; I48.91 Unspecified atrial fibrillation; E78.5 Hyperlipidemia, unspecified; M19.90 Unspecified osteoarthritis, unspecified site; Z79.01 Long term (current) use of anticoagulants; Z79.82 Long term (current) use of aspirin; Z79.02 Long term (current) use of antithrombotics/antiplatelets; Z79.899 Other long term (current) drug therapy; Z86.16 Personal history of COVID-19; Z87.442 Personal history of urinary calculi; Z98.84 Bariatric surgery status; Z96.641 Presence of right artificial hip joint; Z95.5 Presence of coronary angioplasty implant and graft
CPT/HCPCS: 99284; 96374; 36415; 93005; 83880; 80053; 83605; 84484; 85025; 85610; 85730; 71046; 93971; J1940

== ENCOUNTER → 2021-11-17 | Outpatient (CLI) | payer MEDICARE ==
--- NOTE | 2021-11-17 11:24 | FL ---
EXAMINATION TYPE: FL barium swallow DATE OF EXAM: 11/17/2021 8:34 AM CLINICAL INDICATION:Male, 76 years old with history of K95.09 Other complications of gastric band pro cedure. Gastric band procedure and 2011. Abdominal pain and acid reflux. COMPARISON: Chest radiograph 03/04/2021 CT abdomen pelvis 11/13/2020 TECHNIQUE: The procedure was explained and patient history elicited. All patient questions were ans wered prior to start of procedure. Multiple spot fluoroscopic images of the esophagus were obtained a fter the oral ingestion of effervescent crystals and liquid barium as the contrast agent. A greenhouse staff ra diograph of the chest was obtained and reviewed. Fluoroscopic time: 1 minute 7 seconds Radiographs taken: 8 FINDINGS: The greenhouse staff radiograph of the chest demonstrates no evidence of focal consolidation, pneumoth orax or pleural effusion. The cardiomediastinal silhouette is unremarkable. No acute osseous patholog y. Gastric band is identified and appears to be slightly flattened and positioning. Fixation hardware within the lower lumbar spine with discectomy changes are present. There is partial visualization of right hip arthroplasty. There is a nonobstructive bowel gas pattern. Gastric band angle measures up to 71 degrees. The esophagus demonstrates normal flow contrast into the gastric lumen from the esophagus. There is s uggestion of gastroesophageal reflux during the leg The esophageal mucosa is smooth without evidence of focal stricture, ulceration, or abnormal outpouching. There was gastroesophageal reflux disease wa s identified during the left portion of the exam. IMPRESSION: 1. Normal transit of oral contrast from the esophagus into the gastric lumen. 2. Gastroesophageal reflux was visualized during the live portion of the exam. 3. Flattened angulation/position of the gastric band suggesting migration.
== END | disposition home or self-care (01) ==
LOC: RADFLMAIN 07:47
PROVIDERS: ATTEND Family Medicine
DX: K21.9 Gastro-esophageal reflux disease without esophagitis (principal); K95.09 Other complications of gastric band procedure
CPT/HCPCS: 74220

== ENCOUNTER → 2022-02-07 | Outpatient (CLI) | payer MEDICARE ==
[2022-02-07 13:29] VITALS: BP 151/86; PULSE 64; BMI 41.1
--- NOTE | 2022-02-22 12:36 | P.HPBAR ---
Bariatric H&P - History & Physicial H&P Date: 02/07/22 History & Physicial: Visit/CC: lap band Patient initial contact: Initial weight: Initial weight in pounds: Height: 5 ft 5 in Initial BMI: Last weight: Current weight: 112.037 kg Current weight in pounds: 247.00 Current BMI: 41.1 [place] body weight (based on NIH guidelines): 61.689 kg Excess body weight loss: The patient is a 77 year-old M who presents for Bariatric Assessment. Patient presents today for 6 gastric band follow. He's had some complaints of dysphagia. Past Medical History Past Medical History: Atrial Fibrillation, Coronary Artery Disease (CAD), Chest Pain / Angina, GERD/Reflux, Hyperlipidemia, Hypertension, Musculoskeletal Disorder, Osteoarthritis (OA), Prostate Disorder, Renal Disease, Vascular Disorder Additional Past Medical History / Comment(s): having to take nitro daily,Covid Pneumonia-[facility] 2020-[facility]-still having breathing problems on oxygen 2 "something"L NCCHRONIC CONSTIPATION FROM PAIN MEDS. KIDNEY STONES. urinary frequency. chronic back pain. BPH, impotence status post penile implant. Bilateral lower extremity edema, WITH CHRONIC LEG PAIN (POST PAIN CLINIC PROCEDURE). History of Any Multi-Drug Resistant Organisms: None Reported Past Surgical History: Back Surgery, Bariatric Surgery, Heart Catheterization With Stent, Joint Replacement, Orthopedic Surgery Additional Past Surgical History / Comment(s): CARDIAC STENTS 1999. Lap band surgery 10 years ago. penile implant. RIGHT KNEE REPLACED X 2.cervical sx has titanium plate, colonoscopy, rt hip replacement, Cardiac stent x 2 11/2020 Past Anesthesia/Blood Transfusion Reactions: Previous Problems w/ Anesthesia Additional Past Anesthesia/Blood Transfusion Reaction / Comm: had itchy skin and severe leg cramps after cage in back sx Date of Last Stent Placement:: 2020 Past Psychological History: No Psychological Hx Reported Additional Psychological History / Comment(s): pt independant. lives alone has 1 pet dog. 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 Father History Unknown: Yes Family Medical History: No Reported History, Congestive Heart Failure (CHF) Additional Family Medical History / Comment(s): etoh, smoking Brother(s) Family Medical History: Coronary Artery Disease (CAD), Diabetes Mellitus Sister(s) Family Medical History: No Reported History Daughter(s) Family Medical History: No Reported History Additional Family Medical History / Comment(s): Daughter has peripheral artery disease. No history of stroke in mother or father Surgical - Exam Vital Signs Pulse BP 64 151/86 02/07/22 13:23 02/07/22 13:23 - General well developed, well nourished - Eyes PERRL - ENT normal pinna - Neck no masses - Respiratory normal expansion - Cardiovascular Rhythm: regular - Abdomen Abdomen: soft, non tender Bariatric Assessment & Plan Plan: The patient's LAP-BAND was empty. 5 mL removed from the band. Patient would like to convert to sleeve gastrectomy due to chronic issues with dysphagia and GERD. I discussed the possibility of removing the band or converting the sleeve gastrectomy. The patient will follow-up in 4 weeks. Bariatric Checklist Checklist: Plan: Checklist: EGD: 1. Hiatal hernia: 2. H. Pylori: HgbA1c: Vitamin D: Smoking: Never smoker Primary care physician referral: [place] Psychiatry clearance: Cardiology clearance: Sleep study: Diet journal: VTE risk score: VTE risk level: Rehab needs at discharge:
== END ==
LOC: BARWHC3 12:57
PROVIDERS: ATTEND Surgery
DX: E66.01 Morbid (severe) obesity due to excess calories (principal); Z68.41 Body mass index [BMI] 40.0-44.9, adult
CPT/HCPCS: 99212

== ENCOUNTER → 2022-02-14 | Outpatient (CLI) | payer MEDICARE ==
[2022-02-14 13:26] VITALS: BP 157/90; PULSE 65; TEMP 98.4; BMI 41.1
--- NOTE | 2022-02-14 15:07 | P.HPBAR ---
Bariatric H&P - History & Physicial H&P Date: 02/14/22 History & Physicial: Visit/CC: lab band Patient initial contact: Initial weight: Initial weight in pounds: Height: 5 ft 5 in Initial BMI: Last weight: Current weight: 112.037 kg Current weight in pounds: 247.00 Current BMI: 41.1 [place] body weight (based on NIH guidelines): 61.689 kg Excess body weight loss: The patient is a 76 year-old M who presents for Bariatric Assessment. Patient resents today for bariatric follow-up. Patient had his fluid removed recently. He still has some complaints of GERD and dysphagia. Patient requesting to convert to sleeve gastrectomy. Apparently he is seeing someone at [facility] regarding his foot pain. Past Medical History Past Medical History: Atrial Fibrillation, Coronary Artery Disease (CAD), Chest Pain / Angina, GERD/Reflux, Hyperlipidemia, Hypertension, Musculoskeletal Disorder, Osteoarthritis (OA), Prostate Disorder, Renal Disease, Vascular Disorder Additional Past Medical History / Comment(s): having to take nitro daily,Covid Pneumonia-[facility] 2020-[facility]-still having breathing problems on oxygen 2 "something"L NCCHRONIC CONSTIPATION FROM PAIN MEDS. KIDNEY STONES. urinary frequency. chronic back pain. BPH, impotence status post penile implant. Bilateral lower extremity edema, WITH CHRONIC LEG PAIN (POST PAIN CLINIC PROCEDURE). History of Any Multi-Drug Resistant Organisms: None Reported Past Surgical History: Back Surgery, Bariatric Surgery, Heart Catheterization With Stent, Joint Replacement, Orthopedic Surgery Additional Past Surgical History / Comment(s): CARDIAC STENTS 1999. Lap band surgery 10 years ago. penile implant. RIGHT KNEE REPLACED X 2.cervical sx has titanium plate, colonoscopy, rt hip replacement, Cardiac stent x 2 11/2020 Past Anesthesia/Blood Transfusion Reactions: Previous Problems w/ Anesthesia Additional Past Anesthesia/Blood Transfusion Reaction / Comm: had itchy skin and severe leg cramps after cage in back sx Date of Last Stent Placement:: 2020 Past Psychological History: No Psychological Hx Reported Additional Psychological History / Comment(s): pt independant. lives alone has 1 pet dog. 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 Father History Unknown: Yes Family Medical History: No Reported History, Congestive Heart Failure (CHF) Additional Family Medical History / Comment(s): etoh, smoking Brother(s) Family Medical History: Coronary Artery Disease (CAD), Diabetes Mellitus Sister(s) Family Medical History: No Reported History Daughter(s) Family Medical History: No Reported History Additional Family Medical History / Comment(s): Daughter has peripheral artery disease. No history of stroke in mother or father Surgical - Exam Vital Signs Temp Pulse BP 98.4 F 65 157/90 02/14/22 13:16 02/14/22 13:16 02/14/22 13:16 - General well developed, well nourished, no distress - Eyes PERRL - ENT normal pinna - Neck no masses - Respiratory normal expansion - Cardiovascular Rhythm: regular - Abdomen Abdomen: soft, non tender Bariatric Assessment & Plan Plan: GERD, dysphagia. Patient will follow-up after he sees his foot consultation at [facility]. He'll follow-up the office in 6 weeks. Bariatric Checklist Checklist: Plan: Checklist: EGD: 1. Hiatal hernia: 2. H. Pylori: HgbA1c: Vitamin D: Smoking: Never smoker Primary care physician referral: [facility] Psychiatry clearance: Cardiology clearance: Sleep study: Diet journal: VTE risk score: VTE risk level: Rehab needs at discharge:
== END ==
LOC: BARWHC3 12:44
PROVIDERS: ATTEND Surgery
DX: E66.01 Morbid (severe) obesity due to excess calories (principal); Z68.41 Body mass index [BMI] 40.0-44.9, adult; K21.9 Gastro-esophageal reflux disease without esophagitis; I48.91 Unspecified atrial fibrillation; I25.119 Atherosclerotic heart disease of native coronary artery with unspecified angina pectoris; E78.5 Hyperlipidemia, unspecified; I10 Essential (primary) hypertension; M19.90 Unspecified osteoarthritis, unspecified site
CPT/HCPCS: 99211

== ENCOUNTER → 2022-03-04 | Outpatient (CLI) | payer MEDICARE ==
--- NOTE | 2022-03-08 08:58 | US ---
EXAMINATION TYPE: US arterial LE single level DATE OF EXAM: 03/04/2022 2:34 PM CLINICAL HISTORY: I73.9 PAD. Leg swelling, discoloration to bilateral legs Doppler Waveforms: Right: Multiphasic Left: Multiphasic Ankle-Brachial Indices: Right: CNO Left: CNO Toe Brachial Indices: Right: Unable to obtain pressures due to large toe Left: 0.8 IMPRESSION: Limitations as described
== END | disposition home or self-care (01) ==
LOC: RADUSWWP 13:54
PROVIDERS: ATTEND Family Medicine
DX: I73.9 Peripheral vascular disease, unspecified (principal)
CPT/HCPCS: 93922

== ENCOUNTER → 2022-08-22 | Outpatient (CLI) | payer MEDICARE ==
[2022-08-22 15:10] VITALS: BP 123/80; PULSE 69; TEMP 98.1; BMI 41.1
--- NOTE | 2022-08-22 15:47 | P.HPBAR ---
Bariatric H&P - History & Physicial H&P Date: 08/22/22 History & Physicial: Visit/CC: lap band F/U Patient initial contact: Initial weight: Initial weight in pounds: Height: 5 ft 5 in Initial BMI: Last weight: Current weight: 112.037 kg Current weight in pounds: 247.00 Current BMI: 41.1 [place] body weight (based on NIH guidelines): 61.689 kg Excess body weight loss: The patient is a 77 year-old M who presents for Bariatric Assessment.patient has complaints of hunger. His band is empty. He received to have a fill Past Medical History Past Medical History: Atrial Fibrillation, Coronary Artery Disease (CAD), Chest Pain / Angina, GERD/Reflux, Hyperlipidemia, Hypertension, Musculoskeletal Disorder, Osteoarthritis (OA), Prostate Disorder, Renal Disease, Vascular Disorder Additional Past Medical History / Comment(s): having to take nitro daily,Covid Pneumonia-[facility] 2020-[facility]-still having breathing problems on oxygen 2 "something"L NCCHRONIC CONSTIPATION FROM PAIN MEDS. KIDNEY STONES. urinary frequency. chronic back pain. BPH, impotence status post penile implant. Bilateral lower extremity edema, WITH CHRONIC LEG PAIN (POST PAIN CLINIC PROCEDURE). History of Any Multi-Drug Resistant Organisms: None Reported Past Surgical History: Back Surgery, Bariatric Surgery, Heart Catheterization With Stent, Joint Replacement, Orthopedic Surgery Additional Past Surgical History / Comment(s): CARDIAC STENTS 1999. Lap band surgery 10 years ago. penile implant. RIGHT KNEE REPLACED X 2.cervical sx has titanium plate, colonoscopy, rt hip replacement, Cardiac stent x 2 11/2020 Past Anesthesia/Blood Transfusion Reactions: Previous Problems w/ Anesthesia Additional Past Anesthesia/Blood Transfusion Reaction / Comm: had itchy skin and severe leg cramps after cage in back sx Date of Last Stent Placement:: 2020 Past Psychological History: No Psychological Hx Reported Additional Psychological History / Comment(s): pt independant. lives alone has 1 pet dog. 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 Father History Unknown: Yes Family Medical History: No Reported History, Congestive Heart Failure (CHF) Additional Family Medical History / Comment(s): etoh, smoking Brother(s) Family Medical History: Coronary Artery Disease (CAD), Diabetes Mellitus Sister(s) Family Medical History: No Reported History Daughter(s) Family Medical History: No Reported History Additional Family Medical History / Comment(s): Daughter has peripheral artery disease. No history of stroke in mother or father Surgical - Exam Vital Signs Temp Pulse BP 98.1 F 69 123/80 08/22/22 15:05 08/22/22 15:05 08/22/22 15:05 - General well developed, well nourished, no distress - Eyes PERRL - ENT normal pinna - Neck no masses - Respiratory normal expansion - Cardiovascular Rhythm: regular - Abdomen Abdomen: soft, non tender Bariatric Assessment & Plan Plan: the patient's LAP-BAND was adjusted. He had 2 mL added to the band. Bariatric Checklist Checklist: Plan: Checklist: EGD: 1. Hiatal hernia: 2. H. Pylori: HgbA1c: Vitamin D: Smoking: Never smoker Primary care physician referral: [facility] Psychiatry clearance: Cardiology clearance: Sleep study: Diet journal: VTE risk score: VTE risk level: Rehab needs at discharge:
== END ==
LOC: BARWHC3 14:47
PROVIDERS: ATTEND Surgery
DX: E66.01 Morbid (severe) obesity due to excess calories (principal); Z46.51 Encounter for fitting and adjustment of gastric lap band; I48.91 Unspecified atrial fibrillation; I25.10 Atherosclerotic heart disease of native coronary artery without angina pectoris; K21.9 Gastro-esophageal reflux disease without esophagitis; E78.5 Hyperlipidemia, unspecified; I10 Essential (primary) hypertension; M19.90 Unspecified osteoarthritis, unspecified site; Z68.41 Body mass index [BMI] 40.0-44.9, adult
CPT/HCPCS: 99212

== ENCOUNTER → 2022-10-03 | Outpatient (CLI) | payer MEDICARE ==
[2022-10-03 19:52] LABS: Basophils # (A) 0.03 X 10*3/uL (0.00-0.10); Basophils % (A) 0.5 %; Eosinophils # (A) 0.08 X 10*3/uL (0.04-0.35); Eosinophils % (A) 1.3 %; HCT 46.4 % (39.6-50.0); Immature Grans, Automated 0.3 %; Lymphocytes % (A) 27.7 %; MCH 29.6 pg (27.0-32.0); MCHC 32.3 g/dL (32.0-37.0); MCV 91.5 fL (80.0-97.0); Mean Platelet Volume 11.4 fL (9.5-12.2); Monocytes # (A) 0.56 X 10*3/uL (0.20-1.00); Monocytes % (A) 9.1 %; NRBC Per 100 WBC 0 /100 WBCS (0.0-0.0); Neutrophils # (A) 3.74 X 10*3/uL (1.80-7.70); Neutrophils % (A) 61.1 %; Platelet Count 146 X 10*3/uL (140-440); RBC 5.07 X 10*6/uL (4.40-5.60); WBC 6.13 X 10*3/uL (4.50-10.00)
[2022-10-03 20:29] LABS: African American GFR (CKD) 67.7 (60.0-200.0); Albumin 4.3 g/dL (3.8-4.9); Albumin/Globulin Ratio 2.15 (1.60-3.17); Anion Gap 11.3 mmol/L (10.00-18.00); BUN/Creat Ratio 21.42 Ratio (12.00-20.00); Blood Urea Nitrogen 25.7 mg/dL (9.0-27.0); Calcium 9.7 mg/dL (8.7-10.3); Carbon Dioxide 24.7 mmol/L (20.0-27.5); Non-African American GFR(CKD) 58.4 (60.0-200.0); Potassium 4.4 mmol/L (3.5-5.5); Total Protein 6.3 g/dL (6.2-8.2)
== END | disposition home or self-care (01) ==
LOC: LABPAT 14:40
PROVIDERS: ATTEND Surgery
DX: Z01.818 Encounter for other preprocedural examination (principal); I45.10 Unspecified right bundle-branch block; I49.1 Atrial premature depolarization; I48.91 Unspecified atrial fibrillation; R94.31 Abnormal electrocardiogram [ECG] [EKG]
CPT/HCPCS: 80053; 85025; 93005

== ENCOUNTER → 2022-10-03 | Outpatient (CLI) | payer MEDICARE ==
[2022-10-03 14:40] VITALS: BP 153/89; PULSE 70; TEMP 98.2; BMI 40.9
--- NOTE | 2022-10-18 11:55 | P.HPBAR ---
Bariatric H&P - History & Physicial H&P Date: 10/03/22 History & Physicial: Visit/CC: lap band follow up Patient initial contact: Initial weight: Initial weight in pounds: Height: 5 ft 5 in Initial BMI: Last weight: Current weight: 111.584 kg Current weight in pounds: 246.00 Current BMI: 40.9 [place] body weight (based on NIH guidelines): 61.689 kg Excess body weight loss: The patient is a 77 year-old M who presents for Bariatric Assessment. This is a 77-year-old male who has had complaints of chronic abdominal pain. Patient states he has some minimal GERD and dysphagia. He has been seen at [facility] for his pain. He is requesting have his LAP-BAND removed. Past Medical History Past Medical History: Atrial Fibrillation, Coronary Artery Disease (CAD), Chest Pain / Angina, GERD/Reflux, Hyperlipidemia, Hypertension, Musculoskeletal Disorder, Osteoarthritis (OA), Prostate Disorder, Renal Disease, Vascular Disorder Additional Past Medical History / Comment(s): having to take nitro daily,Olegario Haley 2020-[facility]-still having breathing problems on oxygen 2 "something"L NCCHRONIC CONSTIPATION FROM PAIN MEDS. KIDNEY STONES. urinary frequency. chronic back pain. BPH, impotence status post penile implant. Bilateral lower extremity edema, WITH CHRONIC LEG PAIN (POST PAIN CLINIC PROCEDURE). History of Any Multi-Drug Resistant Organisms: None Reported Past Surgical History: Back Surgery, Bariatric Surgery, Heart Catheterization With Stent, Joint Replacement, Orthopedic Surgery Additional Past Surgical History / Comment(s): CARDIAC STENTS 1999. Lap band surgery 10 years ago. penile implant. RIGHT KNEE REPLACED X 2.cervical sx has titanium plate, colonoscopy, rt hip replacement, Cardiac stent x 2 11/2020 Past Anesthesia/Blood Transfusion Reactions: Previous Problems w/ Anesthesia Additional Past Anesthesia/Blood Transfusion Reaction / Comm: had itchy skin and severe leg cramps after cage in back sx Date of Last Stent Placement:: 2020 Past Psychological History: No Psychological Hx Reported Additional Psychological History / Comment(s): pt independant. lives alone has 1 pet dog. 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 Father History Unknown: Yes Family Medical History: No Reported History, Congestive Heart Failure (CHF) Additional Family Medical History / Comment(s): etoh, smoking Brother(s) Family Medical History: Coronary Artery Disease (CAD), Diabetes Mellitus Sister(s) Family Medical History: No Reported History Daughter(s) Family Medical History: No Reported History Additional Family Medical History / Comment(s): Daughter has peripheral artery disease. No history of stroke in mother or father Surgical - Exam Vital Signs Temp Pulse BP 98.2 F 70 153/89 10/03/22 14:38 10/03/22 14:38 10/03/22 14:38 - General well developed, well nourished, no distress - Eyes PERRL - ENT normal pinna - Neck no masses - Respiratory normal expansion - Cardiovascular Rhythm: regular - Abdomen Abdomen: soft, non tender Bariatric Assessment & Plan Plan: I'm unsure of etiology the patient's pain. He does have some minimal GERD and dysphagia. Patient will have his LAP-BAND removed. Bariatric Checklist Checklist: Plan: Checklist: EGD: 1. Hiatal hernia: 2. H. Pylori: HgbA1c: Vitamin D: Smoking: Never smoker Primary care physician referral: Gladys Psychiatry clearance: Cardiology clearance: Sleep study: Diet journal: VTE risk score: VTE risk level: Rehab needs at discharge:
== END ==
LOC: BARWHC3 14:01
PROVIDERS: ATTEND Surgery
DX: E66.01 Morbid (severe) obesity due to excess calories (principal); Z46.51 Encounter for fitting and adjustment of gastric lap band; K21.9 Gastro-esophageal reflux disease without esophagitis; R13.10 Dysphagia, unspecified; I48.91 Unspecified atrial fibrillation; I25.10 Atherosclerotic heart disease of native coronary artery without angina pectoris; E78.5 Hyperlipidemia, unspecified; I10 Essential (primary) hypertension
CPT/HCPCS: 99211

== ENCOUNTER 2022-10-17 09:12 | Day surgery (SDC) | payer MEDICARE ==
[2022-10-17] MEDS ORDERED: LIDOCAINE 1% (10MG/ML) FOR IV START INTRADERMA PRN (09:19)
[2022-10-17] MEDS ORDERED: MIDAZOLAM 2 MG/2 ML VIAL IV PRN (09:19)
[2022-10-17] MEDS ORDERED: HYDROmorphone 0.5 MG/0.5 ML SYRINGE IVP PRN (09:19)
[2022-10-17] MEDS ORDERED: DEXAMETHASONE SOD PHOSPHATE 4 MG/ML 1 ML VIAL IV ONE (09:19)
[2022-10-17] MEDS ORDERED: ONDANSETRON 4 MG/2 ML VIAL IVP ONE (09:19)
[2022-10-17] MEDS: LACTATED RINGERS 1,000 ML IV SCH ×2 (10:10→13:25)
[2022-10-17] MEDS ORDERED: HEPARIN SODIUM,PORCINE/PF 5,000 UNIT/0.5 ML SYRINGE SQ ONE (10:50)
--- NOTE | 2022-10-17 10:53 | P.GSHP ---
History of Present Illness H&P Date: 10/17/22 Chief Complaint: Abdominal pain, dysphagia This a 77-year-old male who is chronic abdominal pain and dysphagia related to his LAP-BAND. Patient presents today for removal of LAP-BAND system. Past Medical History Past Medical History: Atrial Fibrillation, Coronary Artery Disease (CAD), Chest Pain / Angina, CVA/TIA, GERD/Reflux, Hyperlipidemia, Hypertension, Musculoskeletal Disorder, Osteoarthritis (OA), Pneumonia, Prostate Disorder, Renal Disease, Skin Disorder, Vascular Disorder Additional Past Medical History / Comment(s): Covid Pneumonia-Easter 2020-[facility]-used O2 @home after Covid, 2l, rare use now, maybe @[facility] but not often, occasional CONSTIPATION FROM PAIN MEDS. KIDNEY STONES. urinary frequency. chronic back pain & right hip pain, BPH, impotence status post penile implant. TIA's x3-no residual effects, Bilateral lower extremity edema, WITH CHRONIC LEG PAIN (POST PAIN CLINIC PROCEDURE). dry skin marilou lower legs, some scabs-not weeping currently per daughter History of Any Multi-Drug Resistant Organisms: None Reported Past Surgical History: Back Surgery, Bariatric Surgery, Heart Catheterization With Stent, Joint Replacement, Orthopedic Surgery Additional Past Surgical History / Comment(s): CARDIAC STENTS 1999. Lap band surgery 10 years ago. penile implant. RIGHT KNEE REPLACED X 2.cervical sx has titanium plate, colonoscopy, rt hip replacement x2, Cardiac stent x 2 11/2020 Past Anesthesia/Blood Transfusion Reactions: Previous Problems w/ Anesthesia, Blood Transfusion Reaction Additional Past Anesthesia/Blood Transfusion Reaction / Comment(s): had itchy skin and severe leg cramps after cage in back sx, had severe itching for several weeks after transfusion per daughter Date of Last Stent Placement:: 2020 Smoking Status: Never smoker - Past Family History Mother Family Medical History: Cancer Additional Family Medical History / Comment(s): . Father History Unknown: Yes Family Medical History: No Reported History, Congestive Heart Failure (CHF) Additional Family Medical History / Comment(s): etoh, smoking Brother(s) Family Medical History: Coronary Artery Disease (CAD), Diabetes Mellitus Sister(s) Family Medical History: No Reported History Daughter(s) Family Medical History: No Reported History Additional Family Medical History / Comment(s): Daughter has peripheral artery disease. No history of stroke in mother or father Medications and Allergies Home Medications Medication Instructions Recorded Confirmed Type lisinopriL [Prinivil] 20 mg PO BID 01/01/15 10/17/22 History oxyCODONE-APAP 10-325MG [Percocet 1 tab PO Q6H PRN 01/01/15 10/17/22 History 10-325 mg] Fish Oil/Dha/Epa [Fish Oil 1,200 1 cap PO DAILY 08/29/17 10/17/22 History mg Fish Oil] Furosemide [Lasix] 40 mg PO DAILY PRN 11/12/20 10/17/22 History Ipratropium-Albuterol Nebulize 3 ml INHALATION RT-QID PRN 11/12/20 10/17/22 History [Duoneb 0.5 mg-3 mg/3 ml Soln] Nitroglycerin Sl Tabs [Nitrostat] 0.4 mg SL Q5M PRN 11/12/20 10/17/22 History Potassium Chloride ER [K-Dur 10] 99 mg PO DAILY 11/12/20 10/17/22 History Metoprolol Tartrate [Lopressor] 100 mg PO BID #360 tab 11/13/20 10/17/22 Rx Apixaban [Eliquis] 2.5 mg PO BID #60 tab 11/28/20 10/17/22 Rx Clopidogrel [Plavix] 75 mg PO DAILY #90 tab 11/28/20 10/17/22 Rx Zinc Gluconate [Zinc] 50 mg PO DAILY 10/13/22 10/17/22 History Allergies Allergy/AdvReac Type Severity Reaction Status Date / Time No Known Allergies Allergy Verified 10/17/22 09:48 Surgical - Exam Vital Signs Temp Pulse Resp BP Pulse Ox 96.3 F L 78 16 122/55 98 10/17/22 09:34 10/17/22 09:34 10/17/22 09:34 10/17/22 09:34 10/17/22 09:34 - General well developed, well nourished, no distress - Eyes PERRL - ENT normal pinna - Neck no masses - Respiratory normal expansion - Cardiovascular Rhythm: regular - Abdomen Abdomen: soft, non tender Results - Labs 10/17/22 10:10 Diabetes panel 10/17/22 Range/Units 10:10 Potassium 4.4 (3.5-5.1) mmol/L Pituitary panel 10/17/22 Range/Units 10:10 Potassium 4.4 (3.5-5.1) mmol/L Adrenal panel 10/17/22 Range/Units 10:10 Potassium 4.4 (3.5-5.1) mmol/L Assessment and Plan Assessment: Chronic dysphagia abdominal pain We'll perform removal of LAP-BAND system.
[2022-10-17] MEDS ORDERED: ROCURONIUM 10 MG/ML (5 ML VIAL) IV ONE (10:54)
[2022-10-17] MEDS ORDERED: fentaNYL (PF) 50 MCG/ML 2 ML AMP ONE (10:54)
[2022-10-17] MEDS ORDERED: GLYCOPYRROLATE 0.2 MG/ML 2 ML VIAL ONE (10:54)
[2022-10-17] MEDS ORDERED: NEOSTIGMINE 1 MG/ML 10 ML VIAL ONE (10:54)
[2022-10-17] MEDS ORDERED: PHENYLEPHRINE-0.9% NACL SYG 1,000 MCG/10 ML SYRINGE ONE (10:54)
[2022-10-17] MEDS ORDERED: PROPOFOL 10 MG/ML 20 ML VIAL IV ONE (10:54)
[2022-10-17] MEDS ORDERED: BUPIVACAINE (PF) 0.25% 30 ML VIAL SQ ONE (11:25)
--- NOTE | 2022-10-17 11:59 | P.OP ---
Date of Procedure: 10/17/22 Preoperative Diagnosis: Dysphagia Postoperative Diagnosis: Dysphagia Procedure(s) Performed: Removal LAP-BAND system Anesthesia: WISAM Surgeon: Edmundo Singh Estimated Blood Loss (ml): 5 Pathology: none sent Condition: stable Disposition: PACU Description of Procedure: The patient's placed on the operative table in supine position. He received general endotracheal tube anesthesia. He was then placed in dorsal lithotomy position. His abdomen was prepped and draped in usual sterile fashion. The skin was anesthetized the trocar sites. Then using a 11 blade the skin was incised at the LAP-BAND port site. Using blunt and sharp dissection with cautery the LAP-BAND port was dissected free. The PEG tube was then cut and withdrawn. Next using a 15 mm optical trocar the peritoneal cavity is entered. The abdomen was insufflate. Adequate insufflation the laparoscope placed back the pleural cavity. Next a 5 mm trocar was placed in the left upper quadrant, right lateral, left lateral and right midabdomen position. The adhesions to the LAP-BAND device were visualized . The adhesions were lysed using left cautery. The LAP-BAND buckle was then freed. The LAP-BAND was then cut and the withdrawn from around stomach. Care was taken to identify and preserve the gastric wall. No gastric injury was seen. Sim device then withdrawn through the 15 mm trocar site. The abdomen was irrigated is no bleeding seen. The trochars withdrawn. The skin was closed interrupted 3-0 Monocryl suture. Dermabond was applied. Patient top she will was sent to recovery room stable condition.
[2022-10-17 12:22] VITALS: TEMP 96
[2022-10-17] MEDS ORDERED: TAMSULOSIN 0.4 MG CAP.ER.24H PO ONE (14:52)
[2022-10-17] MEDS ORDERED: HYDROmorphone 0.5 MG/0.5 ML SYRINGE IVP ONE (14:52)
[2022-10-17 14:54] VITALS: BP 137/78; PULSE 67; RESP 18
== END 2022-10-17 16:26 | disposition home or self-care (01) ==
LOC: OR 09:12
PROVIDERS: ATTEND Surgery
DX: R13.10 Dysphagia, unspecified (principal); I48.91 Unspecified atrial fibrillation; I25.10 Atherosclerotic heart disease of native coronary artery without angina pectoris; E78.5 Hyperlipidemia, unspecified; K21.9 Gastro-esophageal reflux disease without esophagitis; I10 Essential (primary) hypertension; M19.90 Unspecified osteoarthritis, unspecified site; N40.0 Benign prostatic hyperplasia without lower urinary tract symptoms; N20.0 Calculus of kidney; J18.9 Pneumonia, unspecified organism; Z86.73 Personal history of transient ischemic attack (TIA), and cerebral infarction without residual deficits; Z86.16 Personal history of COVID-19; Z98.84 Bariatric surgery status; Z79.899 Other long term (current) drug therapy; Z95.5 Presence of coronary angioplasty implant and graft; Z98.890 Other specified postprocedural states; Z82.49 Family history of ischemic heart disease and other diseases of the circulatory system; Z83.3 Family history of diabetes mellitus; Z79.01 Long term (current) use of anticoagulants; Z79.02 Long term (current) use of antithrombotics/antiplatelets
CPT/HCPCS: 84132; 43774; J1100; J0690; J2405; J1170; J1644

== ENCOUNTER → 2022-10-24 | Outpatient (CLI) | payer MEDICARE ==
[2022-10-24 13:53] VITALS: BP 126/86; PULSE 66; TEMP 98; BMI 40.9
--- NOTE | 2022-11-21 09:07 | P.HPBAR ---
Bariatric H&P - History & Physicial H&P Date: 10/24/22 History & Physicial: Visit/CC: lap band removal F/U Patient initial contact: Initial weight: Initial weight in pounds: Height: 5 ft 5 in Initial BMI: Last weight: Current weight: 111.584 kg Current weight in pounds: 246.00 Current BMI: 40.9 [place] body weight (based on NIH guidelines): 61.689 kg Excess body weight loss: The patient is a 77 year-old M who presents for Bariatric Assessment.(77-year-old male who is status post lap band removal. Patient is doing fairly well. He has minimal complaints of incisional pain. Past Medical History Past Medical History: Atrial Fibrillation, Coronary Artery Disease (CAD), Chest Pain / Angina, GERD/Reflux, Hyperlipidemia, Hypertension, Musculoskeletal Disorder, Osteoarthritis (OA), Prostate Disorder, Renal Disease, Vascular Disorder Additional Past Medical History / Comment(s): having to take nitro daily,Covid Pneumonia-[facility] 2020-[facility]-still having breathing problems on oxygen 2 "something"L NCCHRONIC CONSTIPATION FROM PAIN MEDS. KIDNEY STONES. urinary frequency. chronic back pain. BPH, impotence status post penile implant. Bilateral lower extremity edema, WITH CHRONIC LEG PAIN (POST PAIN CLINIC PROCEDURE). History of Any Multi-Drug Resistant Organisms: None Reported Past Surgical History: Back Surgery, Bariatric Surgery, Heart Catheterization With Stent, Joint Replacement, Orthopedic Surgery Additional Past Surgical History / Comment(s): CARDIAC STENTS 1999. Lap band surgery 10 years ago. penile implant. RIGHT KNEE REPLACED X 2.cervical sx has titanium plate, colonoscopy, rt hip replacement, Cardiac stent x 2 11/2020, lap band removed 10/17/22 Past Anesthesia/Blood Transfusion Reactions: Previous Problems w/ Anesthesia Additional Past Anesthesia/Blood Transfusion Reaction / Comm: had itchy skin and severe leg cramps after cage in back sx Date of Last Stent Placement:: 2020 Past Psychological History: No Psychological Hx Reported Additional Psychological History / Comment(s): pt independant. lives alone has 1 pet dog. 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 Father History Unknown: Yes Family Medical History: No Reported History, Congestive Heart Failure (CHF) Additional Family Medical History / Comment(s): etoh, smoking Brother(s) Family Medical History: Coronary Artery Disease (CAD), Diabetes Mellitus Sister(s) Family Medical History: No Reported History Daughter(s) Family Medical History: No Reported History Additional Family Medical History / Comment(s): Daughter has peripheral artery disease. No history of stroke in mother or father Surgical - Exam Vital Signs Temp Pulse BP 98.0 F 66 126/86 10/24/22 13:44 10/24/22 13:44 10/24/22 13:44 - General well developed, well nourished, no distress - Eyes PERRL - ENT normal pinna - Neck no masses - Respiratory normal expansion - Cardiovascular Rhythm: regular - Abdomen Incision sites clean dry intact Abdomen: soft, non tender Bariatric Assessment & Plan Plan: Status post lap band removal. Patient will follow-up as needed. Bariatric Checklist Checklist: Plan: Checklist: EGD: 1. Hiatal hernia: 2. H. Pylori: HgbA1c: Vitamin D: Smoking: Never smoker Primary care physician referral: [facility] Psychiatry clearance: Cardiology clearance: Sleep study: Diet journal: VTE risk score: VTE risk level: Rehab needs at discharge:
== END ==
LOC: BARWHC3 13:23
PROVIDERS: ATTEND Surgery
DX: Z48.815 Encounter for surgical aftercare following surgery on the digestive system (principal); E66.01 Morbid (severe) obesity due to excess calories; I48.91 Unspecified atrial fibrillation; I25.10 Atherosclerotic heart disease of native coronary artery without angina pectoris; K21.9 Gastro-esophageal reflux disease without esophagitis; E78.5 Hyperlipidemia, unspecified; I10 Essential (primary) hypertension; M19.90 Unspecified osteoarthritis, unspecified site; N20.0 Calculus of kidney; G89.29 Other chronic pain; N40.0 Benign prostatic hyperplasia without lower urinary tract symptoms; Z85.46 Personal history of malignant neoplasm of prostate; Z98.84 Bariatric surgery status; Z68.41 Body mass index [BMI] 40.0-44.9, adult; Z79.899 Other long term (current) drug therapy; Z79.01 Long term (current) use of anticoagulants
CPT/HCPCS: 99211

== ENCOUNTER 2023-02-26 12:16 | Emergency (ER) | payer MEDICARE ==
[2023-02-26 12:51] LABS: Glucose,Whole Blood 95 mg/dL (70-110)
[2023-02-26 12:58] LABS: Basophils % (A) 0 %; Eosinophils # (A) 0.1 k/uL (0-0.7); Eosinophils % (A) 1 %; HCT 41.8 % (39.0-53.0); HGB 14.2 gm/dL (13.0-17.5); Lymphocytes # (A) 1.4 k/uL (1.0-4.8); Lymphocytes % (A) 17 %; MCH 31.4 pg (25.0-35.0); MCV 92.5 fL (80.0-100.0); Mean Platelet Volume 10.1; Monocytes # (A) 0.4 k/uL (0-1.0); Monocytes % (A) 5 %; Neutrophils % (A) 74 %; Platelet Count 133 k/uL (150-450); Poikilocytosis Slight; RBC 4.52 m/uL (4.30-5.90); WBC 8.1 k/uL (3.8-10.6)
--- NOTE | 2023-02-26 13:07 | ED ---
Altered Mental Status HPI - General Chief Complaint: Altered Mental Status Stated Complaint: AMS Time Seen by Provider: 02/26/23 12:19 Source: EMS Mode of arrival: EMS Limitations: altered mental status, physical limitation - History of Present Illness Initial Comments: 78-year-old male with multiple medical conditions including A. fib, coronary artery disease, hypertension presents emergency room with altered mental status. His daughter is at bedside and helps provide history. The patient lives alone. Daughter states that he was his normal self Monday night. He has been more sleepy throughout the day yesterday and this morning it was difficult to wake him up. She states that he has trouble sleeping at night and therefore it is not abnormal for him to sleep throughout the day and therefore she did not concerned immediately. However this morning he was a lot more difficult to arouse and therefore she called EMS. Patient arrives and is extremely fatigued. He denies any headaches or visual changes. No chest pain or shortness of breat h. Does admit to some abdominal pain however this is chronic he does take pain medications. Denies any excess use. No alcohol intake. She denies any fevers. No sick contacts. No known falls. No other alleviating, yarn man modifying factors - Related Data Home Medications Medication Instructions Recorded Confirmed lisinopriL [Prinivil] 20 mg PO BID 01/01/15 10/24/22 oxyCODONE-APAP 10-325MG [Percocet 1 tab PO Q6H PRN 01/01/15 10/24/22 10-325 mg] Fish Oil/Dha/Epa [Fish Oil 1,200 1 cap PO DAILY 08/29/17 10/24/22 mg Fish Oil] Furosemide [Lasix] 40 mg PO DAILY PRN 11/12/20 10/24/22 Ipratropium-Albuterol Nebulize 3 ml INHALATION RT-QID PRN 11/12/20 10/24/22 [Duoneb 0.5 mg-3 mg/3 ml Soln] Nitroglycerin Sl Tabs [Nitrostat] 0.4 mg SL Q5M PRN 11/12/20 10/24/22 Potassium Chloride ER [K-Dur 10] 99 mg PO DAILY 11/12/20 10/24/22 Zinc Gluconate [Zinc] 50 mg PO DAILY 10/13/22 10/24/22 Previous Rx's Medication Instructions Recorded Metoprolol Tartrate [Lopressor] 100 mg PO BID #360 tab 11/13/20 Apixaban [Eliquis] 2.5 mg PO BID #60 tab 11/28/20 Clopidogrel [Plavix] 75 mg PO DAILY #90 tab 11/28/20 Acetaminophen Tab [Tylenol] 650 mg PO Q6H #30 tab 10/17/22 Docusate [Colace] 100 mg PO BID #20 capsule 10/17/22 Ibuprofen [Motrin] 600 mg PO Q6HR PRN #40 tab 10/17/22 oxyCODONE HCL [OxyIR] 5 mg PO Q6H PRN 3 Days #10 tab 10/17/22 Cephalexin [Keflex] 500 mg PO Q6HR #28 cap 02/26/23 Allergies Allergy/AdvReac Type Severity Reaction Status Date / Time No Known Allergies Allergy Verified 02/26/23 12:41 Review of Systems ROS Statement: Those systems with pertinent positive or pertinent negative responses have been documented in the HPI. ROS Other: All systems not noted in ROS Statement are negative. Past Medical History Past Medical History: Atrial Fibrillation, Coronary Artery Disease (CAD), Chest Pain / Angina, GERD/Reflux, Hyperlipidemia, Hypertension, Musculoskeletal Disorder, Osteoarthritis (OA), Prostate Disorder, Renal Disease, Vascular Disorder Additional Past Medical History / Comment(s): having to take nitro daily,Covid Pneumonia-[facility] 2020-[facility]-still having breathing problems on oxygen 2 "something"L [employer]ATION FROM PAIN MEDS. KIDNEY STONES. urinary frequency. chronic back pain. BPH, impotence status post penile implant. Bilateral lower extremity edema, WITH CHRONIC LEG PAIN (POST PAIN CLINIC PROCEDURE). History of Any Multi-Drug Resistant Organisms: None Reported Past Surgical History: Back Surgery, Bariatric Surgery, Heart Catheterization With Stent, Joint Replacement, Orthopedic Surgery Additional Past Surgical History / Comment(s): CARDIAC STENTS 1999. Lap band surgery 10 years ago. penile implant. RIGHT KNEE REPLACED X 2.cervical sx has titanium plate, colonoscopy, rt hip replacement, Cardiac stent x 2 11/2020, lap band removed 10/17/22 Past Anesthesia/Blood Transfusion Reactions: Previous Problems w/ Anesthesia Additional Past Anesthesia/Blood Transfusion Reaction / Comment(s): had itchy skin and severe leg cramps after cage in back sx Date of Last Stent Placement:: 2020 Past Psychological History: No Psychological Hx Reported Smoking Status: Never smoker Past Alcohol Use History: None Reported Past Drug Use History: None Reported - Past Family History Mother Family Medical History: Cancer Additional Family Medical History / Comment(s): . Father History Unknown: Yes Family Medical History: No Reported History, Congestive Heart Failure (CHF) Additional Family Medical History / Comment(s): etoh, smoking Brother(s) Family Medical History: Coronary Artery Disease (CAD), Diabetes Mellitus Sister(s) Family Medical History: No Reported History Daughter(s) Family Medical History: No Reported History Additional Family Medical History / Comment(s): Daughter has peripheral artery disease. No history of stroke in mother or father General Exam Limitations: altered mental status, physical limitation General appearance: lethargic Head exam: Present: atraumatic, normocephalic, normal inspection Eye exam: Present: normal appearance, PERRL, EOMI. Absent: scleral icterus, conjunctival injection, periorbital swelling ENT exam: Present: mucous membranes dry Respiratory exam: Present: normal lung sounds bilaterally. Absent: respiratory distress, wheezes, rales, rhonchi, stridor Cardiovascular Exam: Present: regular rate, normal rhythm, normal heart sounds. Absent: systolic murmur, diastolic murmur, rubs, gallop, clicks GI/Abdominal exam: Present: soft, normal bowel sounds. Absent: distended, tenderness, guarding, rebound, rigid Extremities exam: Present: normal inspection, full ROM, normal capillary refill. Absent: tenderness, pedal edema, joint swelling, calf tenderness Back exam: Present: normal inspection Neurological exam: Present: altered (Upon hospital arrival. After multiple re-evaluations the patient does return to his normal baseline and is alert and oriented 3) Psychiatric exam: Present: agitated Course Vital Signs 02/26/23 02/26/23 12:21 17:05 Temperature 97.8 F 98.4 F Pulse Rate 64 68 Respiratory 18 20 Rate Blood Pressure 181/100 O2 Sat by Pulse 100 99 Oximetry Medical Decision Making - Medical Decision Making Was pt. sent in by a medical professional or institution (, PA, HOME HEALTH [facility], urgent care, hospital, or usp...) When possible be specific @ -No Did you speak to anyone other than the patient for history (EMS, parent, family, police, friend...)? What history was obtained from this source @ -EMS and the patient's daughter Did you review nursing and triage notes (agree or disagree)? Why? @ -I reviewed and agree with nursing and triage notes Were old charts reviewed (outside hosp., previous admission, EMS record, old EKG, old radiological studies, urgent care reports/EKG's, usp records)? Report findings @ -No old charts were reviewed Differential Diagnosis (chest pain, altered mental status, abdominal pain women, abdominal pain men, vaginal bleeding, weakness, fever, dyspnea, syncope, headache, dizziness, GI bleed, back pain, seizure, CVA, palpatations, mental health, musculoskeletal)? @ -Differential Altered Mental Status: Hypoglycemia, DKA, hypercapnia, ETOH, overdose, CO poisoning, trauma, myxedema coma, HTN encephalopathy, infection, encephalitis, psychosis, intercranial hemorrhage, hepatic encephalopathy, meningitis, CVA, this is not meant to be an all-inclusive list EKG interpreted by me (3pts min.). @ -Yes and demonstrates A. fib with a rate of 66. QRS 157. QTC 463. Right bundle branch block. No acute ST segment elevations X-rays interpreted by me (1pt min.). @ -Yes and demonstrates possible early primary vascular congestion CT interpreted by me (1pt min.). @ -Yes and does not demonstrate acute intracranial process U/S interpreted by me (1pt. min.). @ -None done What testing was considered but not performed or refused? (CT, X-rays, U/S, labs)? Why? @ -I highly recommended hospital admission with IV antibiotics however patient is adamant that he wants to go home. Family admits that the patient is back to his baseline and therefore can refuse What meds were considered but not given or refused? Why? @ -IV antibiotics Did you discuss the management of the patient with other professionals (professionals i.e. , PA, HOME HEALTH LVN, lab, RT, psych nurse, social media director, underground distribution engineer, teacher, loan service officer, trimming caser)? Give summary @ -No Was smoking cessation discussed for >3mins.? @ -No Was critical care preformed (if so, how long)? @ -No Were there social determinants of health that impacted care today? How? (Homelessness, low income, unemployed, alcoholism, drug addiction, transportation, low edu. Level, literacy, decrease access to med. care, assisted, rehab)? @ -No Was there de-escalation of care discussed even if they declined (Discuss DNR or withdrawal of care, Hospice)? DNR status @ -No What co-morbidities impacted this encounter? (DM, HTN, Smoking, COPD, CAD, Cancer, CVA, ARF, Chemo, Hep., AIDS, mental health diagnosis, sleep apnea, morbid obesity)? @ -Chronic back pain, chronic abdominal pain, home O2 use Was patient admitted / discharged? Hospital course, mention meds given and route, prescriptions, significant lab abnormalities, going to OR and other pertinent info. @ -Upon arrival patient was placed into room 28. Thorough history and physical exam was performed. The patient does become more arousable during his stay. He is able to answer questions for me and his family members. Laboratory studies are conducted. Patient does provide a urine sample. He does go over for a CT of his head as well as a chest x-ray. I did discuss results with the patient and his family at bedside. I did recommend admission for urinary tract infection. Patient refused. States that he doesn't want to be admitted because we are "all being manipulated by [employer] and the government". He continues to provide history in regards to his Covid infection a couple of years ago and how it made him sicker. He attributes his strokes to Covid and his hospitalization. Family is at bedside. They feel that the patient is capable of making his own decisions and if he wishes to go home, they are agreeable to that. They state that he is back to his normal baseline. Patient is alert and oriented 3 at this time. We did get the patient up to walk. He is able to walk 20 feet w ithout becoming short of breath and without significant assistance. Patient is agitated that we are requiring him to do this. He would like no further testing and would like to be discharged home. I do have the patient in for an abdominal CT due to his chronic abdominal pain. This is canceled. I did voice my concern to family that the patient will need assistance at home due to his weakened state. I do allow the family to make a joint decision and they all agree that the patient would like to go home. He did receive a dose of Rocephin in the emergency department. He will be placed on Keflex 4 times daily. Instructed to take the medications as directed. If he is agreeable to admissi on, I recommended that he return to the emergency department. Patient understood this however continued to remain argumentative and left in stable condition with a guarded prognosis Undiagnosed new problem with uncertain prognosis? @ -Yes Drug Therapy requiring intensive monitoring for toxicity (Heparin, Nitro, Insulin, Cardizem)? @ -No Were any procedures done? @ -No Diagnosis/symptom? @ -Acute transient encephalopathy, acute UTI Acute, or Chronic, or Acute on Chronic? @ -Acute Uncomplicated (without systemic symptoms) or Complicated (systemic symptoms)? @ -Complicated Side effects of treatment? @ -No Exacerbation, Progression, or Severe Exacerbation? @ -No Poses a threat to life or bodily function? How? (Chest pain, USA, MD, pneumonia, PE, COPD, DKA, ARF, appy, cholecystitis, CVA, Diverticulitis, Homicidal, Suicidal, threat to staff... and all critical care pts) @ -Yes I feel that due to the patient's weakness that he should be admitted to the hospital however the patient is adamant that he wants to go home. Family is at bedside and is aware of the risks of the patient leaving. Patient is aware the risks. He continues to remain agitated and states that his health problems are all due to the Hospital and health care workers. Patient states he would like to go home at this time and is threatening to caitie the hospital for his care - Lab Data Result diagrams: 02/26/23 12:51 02/26/23 14:44 Lab Results 02/26/23 02/26/23 02/26/23 Range/Units 12:49 12:51 12:51 WBC 8.1 (3.8-10.6) k/uL RBC 4.52 (4.30-5.90) m/uL Hgb 14.2 (13.0-17.5) gm/dL Hct 41.8 (39.0-53.0) % MCV 92.5 (80.0-100.0) fL MCH 31.4 (25.0-35.0) pg MCHC 34.0 (31.0-37.0) g/dL RDW 15.0 (11.5-15.5) % Plt Count 133 L (150-450) k/uL MPV 10.1 Neutrophils % 74 % Lymphocytes % 17 % Monocytes % 5 % Eosinophils % 1 % Basophils % 0 % Neutrophils # 6.0 (1.3-7.7) k/uL Lymphocytes # 1.4 (1.0-4.8) k/uL Monocytes # 0.4 (0-1.0) k/uL Eosinophils # 0.1 (0-0.7) k/uL Basophils # 0.0 (0-0.2) k/uL Poikilocytosis Slight PT 12.3 (10.0-12.5) sec INR 1.1 (<1.2) APTT 28.3 (22.0-30.0) sec Sodium (137-145) mmol/L Potassium (3.5-5.1) mmol/L Chloride (98-107) mmol/L Carbon Dioxide (22-30) mmol/L Anion Gap mmol/L BUN (9-20) mg/dL Creatinine (0.66-1.25) mg/dL Est GFR (CKD-EPI)AfAm (>60 ml/min/1.73 sqM) Est GFR (CKD-EPI)NonAf (>60 ml/min/1.73 sqM) Glucose (74-99) mg/dL POC Glucose (mg/dL) 95 (70-110) mg/dL POC Glu Manager [employer] ID Jayla Perez Calcium (8.4-10.2) mg/dL Total Bilirubin (0.2-1.3) mg/dL AST (17-59) U/L ALT (4-49) U/L Alkaline Phosphatase (38-126) U/L Troponin I (0.000-0.034) ng/mL Total Protein (6.3-8.2) g/dL Albumin (3.5-5.0) g/dL TSH (0.465-4.680) mIU/L Urine Color Urine Appearance (Clear) Urine pH (5.0-8.0) Ur Specific [place] (1.001-1.035) Urine Protein (Negative) Urine Glucose (UA) (Negative) Urine Ketones (Negative) Urine Blood (Negative) Urine Nitrite (Negative) Urine Bilirubin (Negative) Urine Urobilinogen (<2.0) mg/dL Ur Leukocyte Esterase (Negative) Urine RBC (0-5) /hpf Urine WBC (0-5) /hpf Ur Squamous Epith Cells (0-4) /hpf Urine Bacteria (None) /hpf Hyaline Casts (0-2) /lpf Urine Mucus (None) /hpf Urine Opiates Screen (NotDetected) Ur Oxycodone Screen (NotDetected) Urine Methadone Screen (NotDetected) Ur Propoxyphene Screen (NotDetected) Acetaminophen ug/mL Ur Barbiturates Screen (NotDetected) U Tricyclic Antidepress (NotDetected) Ur Phencyclidine Scrn (NotDetected) Ur Amphetamines Screen (NotDetected) U Methamphetamines Scrn (NotDetected) U Benzodiazepines Scrn (NotDetected) Urine Cocaine Screen (NotDetected) U Marijuana (THC) Screen (NotDetected) Serum Alcohol mg/dL 02/26/23 02/26/23 02/26/23 Range/Units 13:32 13:32 14:44 WBC (3.8-10.6) k/uL RBC (4.30-5.90) m/uL Hgb (13.0-17.5) gm/dL Hct (39.0-53.0) % MCV (80.0-100.0) fL MCH (25.0-35.0) pg MCHC (31.0-37.0) g/dL RDW (11.5-15.5) % Plt Count (150-450) k/uL MPV Neutrophils % % Lymphocytes % % Monocytes % % Eosinophils % % Basophils % % Neutrophils # (1.3-7.7) k/uL Lymphocytes # (1.0-4.8) k/uL Monocytes # (0-1.0) k/uL Eosinophils # (0-0.7) k/uL Basophils # (0-0.2) k/uL Poikilocytosis PT (10.0-12.5) sec INR (<1.2) APTT (22.0-30.0) sec Sodium (137-145) mmol/L Potassium (3.5-5.1) mmol/L Chloride (98-107) mmol/L Carbon Dioxide (22-30) mmol/L Anion Gap mmol/L BUN (9-20) mg/dL Creatinine (0.66-1.25) mg/dL Est GFR (CKD-EPI)AfAm (>60 ml/min/1.73 sqM) Est GFR (CKD-EPI)NonAf (>60 ml/min/1.73 sqM) Glucose (74-99) mg/dL POC Glucose (mg/dL) (70-110) mg/dL POC Glu Manager [employer] ID Calcium (8.4-10.2) mg/dL Total Bilirubin (0.2-1.3) mg/dL AST (17-59) U/L ALT (4-49) U/L Alkaline Phosphatase (38-126) U/L Troponin I 0.015 (0.000-0.034) ng/mL Total Protein (6.3-8.2) g/dL Albumin (3.5-5.0) g/dL TSH (0.465-4.680) mIU/L Urine Color Yellow Urine Appearance Cloudy (Clear) Urine pH 5.5 (5.0-8.0) Ur Specific [place] 1.028 (1.001-1.035) Urine Protein Trace H (Negative) Urine Glucose (UA) Negative (Negative) Urine Ketones Trace H (Negative) Urine Blood Negative (Negative) Urine Nitrite Positive (Negative) Urine Bilirubin Negative (Negative) Urine Urobilinogen <2.0 (<2.0) mg/dL Ur Leukocyte Esterase Trace H (Negative) Urine RBC 1 (0-5) /hpf Urine WBC 8 H (0-5) /hpf Ur Squamous Epith Cells <1 (0-4) /hpf Urine Bacteria Many H (None) /hpf Hyaline Casts 7 H (0-2) /lpf Urine Mucus Rare H (None) /hpf Urine Opiates Screen Detected H (NotDetected) Ur Oxycodone Screen Detected H (NotDetected) Urine Methadone Screen Not Detected (NotDetected) Ur Propoxyphene Screen Not Detected (NotDetected) Acetaminophen ug/mL Ur Barbiturates Screen Not Detected (NotDetected) U Tricyclic Antidepress Not Detected (NotDetected) Ur Phencyclidine Scrn Not Detected (NotDetected) Ur Amphetamines Screen Not Detected (NotDetected) U Methamphetamines Scrn Not Detected (NotDetected) U Benzodiazepines Scrn Not Detected (NotDetected) Urine Cocaine Screen Not Detected (NotDetected) U Marijuana (THC) Screen Not Detected (NotDetected) Serum Alcohol mg/dL 02/26/23 Range/Units 14:44 WBC (3.8-10.6) k/uL RBC (4.30-5.90) m/uL Hgb (13.0-17.5) gm/dL Hct (39.0-53.0) % MCV (80.0-100.0) fL MCH (25.0-35.0) pg MCHC (31.0-37.0) g/dL RDW (11.5-15.5) % Plt Count (150-450) k/uL MPV Neutrophils % % Lymphocytes % % Monocytes % % Eosinophils % % Basophils % % Neutrophils # (1.3-7.7) k/uL Lymphocytes # (1.0-4.8) k/uL Monocytes # (0-1.0) k/uL Eosinophils # (0-0.7) k/uL Basophils # (0-0.2) k/uL Poikilocytosis PT (10.0-12.5) sec INR (<1.2) APTT (22.0-30.0) sec Sodium 138 (137-145) mmol/L Potassium 4.3 (3.5-5.1) mmol/L Chloride 105 (98-107) mmol/L Carbon Dioxide 27 (22-30) mmol/L Anion Gap 6 mmol/L BUN 25 H (9-20) mg/dL Creatinine 1.21 (0.66-1.25) mg/dL Est GFR (CKD-EPI)AfAm 67 (>60 ml/min/1.73 sqM) Est GFR (CKD-EPI)NonAf 58 (>60 ml/min/1.73 sqM) Glucose 96 (74-99) mg/dL POC Glucose (mg/dL) (70-110) mg/dL POC Glu Manager [employer] ID Calcium 8.9 (8.4-10.2) mg/dL Total Bilirubin 1.3 (0.2-1.3) mg/dL AST 33 (17-59) U/L ALT 23 (4-49) U/L Alkaline Phosphatase 89 (38-126) U/L Troponin I (0.000-0.034) ng/mL Total Protein 6.1 L (6.3-8.2) g/dL Albumin 3.7 (3.5-5.0) g/dL TSH 2.340 (0.465-4.680) mIU/L Urine Color Urine Appearance (Clear) Urine pH (5.0-8.0) Ur Specific [place] (1.001-1.035) Urine Protein (Negative) Urine Glucose (UA) (Negative) Urine Ketones (Negative) Urine Blood (Negative) Urine Nitrite (Negative) Urine Bilirubin (Negative) Urine Urobilinogen (<2.0) mg/dL Ur Leukocyte Esterase (Negative) Urine RBC (0-5) /hpf Urine WBC (0-5) /hpf Ur Squamous Epith Cells (0-4) /hpf Urine Bacteria (None) /hpf Hyaline Casts (0-2) /lpf Urine Mucus (None) /hpf Urine Opiates Screen (NotDetected) Ur Oxycodone Screen (NotDetected) Urine Methadone Screen (NotDetected) Ur Propoxyphene Screen (NotDetected) Acetaminophen 14.6 ug/mL Ur Barbiturates Screen (NotDetected) U Tricyclic Antidepress (NotDetected) Ur Phencyclidine Scrn (NotDetected) Ur Amphetamines Screen (NotDetected) U Methamphetamines Scrn (NotDetected) U Benzodiazepines Scrn (NotDetected) Urine Cocaine Screen (NotDetected) U Marijuana (THC) Screen (NotDetected) Serum Alcohol <10 mg/dL Disposition Clinical Impression: Encephalopathy acute, UTI (urinary tract infection) Disposition: HOME SELF-CARE Condition: Stable Instructions (If sedation given, give patient instructions): Urinary Tract Infection in Men (ED) Additional Instructions: Please follow-up with your doctor in 2-4 days. I strongly recommended that you be admitted to the hospital. Please return should you have new or worsening symptoms Prescriptions: Cephalexin [Keflex] 500 mg PO Q6HR #28 cap Is patient prescribed a controlled substance at d/c from ED?: No Referrals: Rocky Graham MD [Primary Care Provider] - 1-2 days Time of Disposition: 16:33
--- NOTE | 2023-02-26 13:10 | CT ---
EXAMINATION TYPE: CT brain wo con DATE OF EXAM: 02/26/2023 COMPARISON: 02/28/2018 HISTORY: AMS CT DLP: 1202.[address] of the brain was performed. The ventricles, basal cisterns and sulci overlying the cerebral convexities demonstrate mild enlargem ent. Note is made of septum cavum pellucidum and vergae. There is no evidence for intracranial hemorrhage or sulcal effacement. There is decreased attenuation about the periventricular white matter and deep white matter of both c erebral hemispheres, compatible with chronic small vessel ischemia. Differential diagnosis does inclu de demyelination. No mass effects are seen.No midline shift. Osseous calvarium is intact. If symptoms persist consider MRI. IMPRESSION: 1. Age related atrophic and chronic small vessel ischemic change without acute intracranial process s een at this time.
[2023-02-26 13:28] LABS: INR 1.1 (<1.2); Partial Thromboplastin Time 28.3 sec (22.0-30.0); Prothrombin Time 12.3 sec (10.0-12.5)
--- NOTE | 2023-02-26 13:46 | XR ---
EXAMINATION TYPE: XR chest 2V DATE OF EXAM: 02/26/2023 COMPARISON: 03/04/2021 HISTORY: Shortness of breath TECHNIQUE: Frontal and lateral views of the chest are obtained. FINDINGS: Scattered senescent parenchymal changes noted. Hyperinflation compatible with COPD. No evidence for infiltrate. No evidence for atelectasis. There is pulmonary venous congestion with cardiomegaly. Mild congestive failure not excluded. Mediastinal structures are stable and grossly unremarkable. No evidence for hilar prominence. Degenerative changes dorsal spine. IMPRESSION: 1. There is pulmonary venous congestion with cardiomegaly. Mild congestive failure not excluded.
[2023-02-26 14:17] LABS: Appearance,Urine Cloudy (Clear); Bacteria,Urine Many /hpf; Bilirubin,Urine Negative (Negative); Blood,Urine Negative (Negative); Color,Urine Yellow; Glucose,Urine (UA) Negative (Negative); Hyaline Casts,Urine 7 /lpf (0-2); Ketones,Urine Trace (Negative); Leukocyte Esterase,Urine Trace (Negative); Mucus,Urine Rare /hpf; Nitrite,Urine Positive (Negative); PH, Urine 5.5 (5.0-8.0); Protein,Urine Trace (Negative); RBC,Urine 1 /hpf (0-5); Specific Gravity,Urine 1.028 (1.001-1.035); Squamous Epithelial Cell,Urine <1 /hpf (0-4); Urobilinogen,Urine <2.0 mg/dL (<2.0); WBC,Urine 8 /hpf (0-5)
[2023-02-26 14:40] LABS: Amphetamine Screen,Urine Not Detected (NotDetected); Barbiturate Screen,Urine Not Detected (NotDetected); Benzodiazepines Screen,Urine Not Detected (NotDetected); Cocaine Screen,Urine Not Detected (NotDetected); Methadone Screen, Urine Not Detected (NotDetected); Opiate Screen,Urine Detected (NotDetected); Oxycodone Screen, Urine Detected (NotDetected); Phencyclidine Screen,Urine Not Detected (NotDetected); Tricyclic Antidepressant,Urine Not Detected (NotDetected); Urn Cannabinoid Scrn Not Detected (NotDetected)
[2023-02-26] MEDS ORDERED: cefTRIAXone IN SWFI 1,000 MG/10 ML SYRINGE IVP STA (14:53)
[2023-02-26 15:18] LABS: ALT 23 U/L (4-49); AST 33 U/L (17-59); Acetaminophen 14.6 ug/mL; African American GFR (CKD) 67 (>60 ml/min/1.73 sqM); Albumin 3.7 g/dL (3.5-5.0); Alcohol <10 mg/dL; Alkaline Phosphatase 89 U/L (38-126); Anion Gap 6 mmol/L; Blood Urea Nitrogen 25 mg/dL (9-20); Calcium 8.9 mg/dL (8.4-10.2); Carbon Dioxide 27 mmol/L (22-30); Chloride 105 mmol/L (98-107); Glucose 96 mg/dL (74-99); Non-African American GFR(CKD) 58 (>60 ml/min/1.73 sqM); Potassium 4.3 mmol/L (3.5-5.1); Sodium 138 mmol/L (137-145); Total Bilirubin 1.3 mg/dL (0.2-1.3); Total Protein 6.1 g/dL (6.3-8.2)
[2023-02-26 17:14] VITALS: BP 181/100; PULSE 68; RESP 20; TEMP 98.4
== END 2023-02-26 17:07 | disposition home or self-care (01) ==
LOC: EC 12:16
DX: N39.0 Urinary tract infection, site not specified (principal); G93.40 Encephalopathy, unspecified; I45.10 Unspecified right bundle-branch block; I48.91 Unspecified atrial fibrillation; I25.10 Atherosclerotic heart disease of native coronary artery without angina pectoris; I10 Essential (primary) hypertension; M19.90 Unspecified osteoarthritis, unspecified site; Z79.899 Other long term (current) drug therapy; Z95.5 Presence of coronary angioplasty implant and graft; Z86.16 Personal history of COVID-19
CPT/HCPCS: 36415; 93005; 80053; 84443; 84484; 85025; 85610; 85730; 81001; 87040; 80306; 80143; 71046; 70450; 99285; 96374; G0480; J0696; 80320

== ENCOUNTER → 2023-08-15 | Outpatient (CLI) | payer MEDICARE ==
--- NOTE | 2023-08-15 14:17 | FL ---
EXAMINATION TYPE: FL UGI air w esophagus DATE OF EXAM: 08/15/2023 12:34 PM COMPARISON: NONE CLINICAL HISTORY: Difficulty in swallowing. A total of 120 seconds of fluoroscopic time was utilized during procedure and 15 images obtained. Preliminary view of the abdomen reveals a normal bowel gas pattern. Upper GI examination was performed according to the single contrast technique. Thin liquid barium was ingested without difficulty or delay. Cathi contractions are noted throughout the esophagus compatib le with presbyesophagus. There is hang-up of contrast within the esophagus to the midthoracic level. No evidence for hiatal hernia, stricture or mass. The stomach has a normal appearance in terms of its size, shape and location. No gastric filling defects or ulcer craters are seen. The duodenal bulb and sweep are also free of intraluminal lesion or ulcer crater. IMPRESSION: 1. Presbyesophagus with pain up of contrast within the esophagus. The remainder of the study is unrem arkable.
== END | disposition home or self-care (01) ==
LOC: RADUSWWP 11:09
PROVIDERS: ATTEND Surgery
DX: R13.10 Dysphagia, unspecified (principal); K22.89 Other specified disease of esophagus
CPT/HCPCS: 74246

== ENCOUNTER 2023-12-05 05:46 | Day surgery (SDC) | payer MEDICARE ==
[~2023-12-05 05:46] MED LIST changes: -ASPIRIN 325 MG TAB PO STA; -ATORVASTATIN 80 MG TAB PO STA; +HEPARIN SODIUM,PORCINE (1 ML) 2,500 UNIT in SODIUM CHLORIDE 0.9% 250 ML IRRIGATION PRN; +HEPARIN SODIUM,PORCINE 10,000 UNIT in SODIUM CHLORIDE 0.9% 1,000 ML IRRIGATION PRN; +NITROGLYCERIN SL TABS 0.4 MG TAB SUBLINGUAL PRN; -SODIUM CHLORIDE 0.9% 1,000 ML in EMPTY BAG 1 BAG IV ONE
[2023-12-05] MEDS: SODIUM CHLORIDE 0.9% 1,000 ML IV ONE (06:13)
[2023-12-05 06:26] LABS: Basophils % (A) 1 %; Eosinophils # (A) 0.2 k/uL (0-0.7); Eosinophils % (A) 3 %; HCT 43.9 % (39.0-53.0); HGB 13.9 gm/dL (13.0-17.5); Hypochromasia Moderate; Lymphocytes # (A) 1.3 k/uL (1.0-4.8); Lymphocytes % (A) 21 %; MCHC 31.6 g/dL (31.0-37.0); MCV 88.7 fL (80.0-100.0); Mean Platelet Volume 9.4; Monocytes # (A) 0.5 k/uL (0-1.0); Monocytes % (A) 8 %; Neutrophils % (A) 66 %; Platelet Count 122 k/uL (150-450); RBC 4.95 m/uL (4.30-5.90); RDW 15.1 % (11.5-15.5); WBC 6.1 k/uL (3.8-10.6)
[2023-12-05 06:36] LABS: African American GFR (CKD) 67 (>60 ml/min/1.73 sqM); Anion Gap 5 mmol/L; Blood Urea Nitrogen 22 mg/dL (9-20); Calcium 9.3 mg/dL (8.4-10.2); Carbon Dioxide 30 mmol/L (22-30); Chloride 106 mmol/L (98-107); Glucose 100 mg/dL (74-99); Non-African American GFR(CKD) 58 (>60 ml/min/1.73 sqM); Sodium 141 mmol/L (137-145)
[2023-12-05] MEDS ORDERED: HEPARIN SODIUM 1,000 UN/ML (10ML VL) ONE ×2 (07:15→09:36)
[2023-12-05] MEDS ORDERED: LIDOCAINE 1% INJ 10MG/ML (20 ML MDV) ONE (07:16)
[2023-12-05] MEDS ORDERED: VERAPAMIL 2.5 MG/ML 2 ML AMP ONE (07:16)
[2023-12-05] MEDS ORDERED: MAG HYDROX/AL HYDROX/SIMETH 30 ML CUP PO PRN ×2 (07:24→10:35)
[2023-12-05] MEDS ORDERED: fentaNYL (PF) 50 MCG/ML 2 ML AMP ONE (09:36)
[2023-12-05] MEDS: MIDAZOLAM 2 MG/2 ML VIAL IVP ONE (09:52)
[2023-12-05] MEDS: fentaNYL (PF) 50 MCG/ML 2 ML AMP IVP ONE (09:52)
[2023-12-05] MEDS: LIDOCAINE 1% INJ 10MG/ML (20 ML MDV) SQ ONE (09:54)
[2023-12-05] MEDS: VERAPAMIL SYRINGE (5 MG/10 ML) INTRAARTER ONE (09:55)
[2023-12-05] MEDS: HEPARIN SODIUM 1,000 UN/ML (10ML VL) IV ONE (09:57)
[2023-12-05] MEDS ORDERED: MORPHINE SULFATE 4 MG/ML SYRINGE ONE (10:12)
[2023-12-05] MEDS: MORPHINE SULFATE 4 MG/ML SYRINGE IVP ONE (10:16)
[2023-12-05] MEDS ORDERED: CLOPIDOGREL 75 MG TAB ONE (10:21)
[2023-12-05] MEDS: NITROGLYCERIN 1000MCG/10ML SYRINGE INTRACORON ONE (10:22)
[2023-12-05] MEDS: CLOPIDOGREL 75 MG TAB PO ONE (10:22)
[2023-12-05] MEDS: IOPAMIDOL-370 100ML BTL INJ ONE ×2 (10:23)
[2023-12-05] MEDS ORDERED: IPRATROPIUM-ALBUTEROL 3 ML NEB INHALATION PRN (10:34)
[2023-12-05] MEDS ORDERED: NITROGLYCERIN SL TABS 0.4 MG TAB SUBLINGUAL PRN (10:35)
[2023-12-05] MEDS ORDERED: ATROPINE SULFATE 0.1 MG/ML 10ML SYRINGE IV PRN (10:35)
[2023-12-05] MEDS ORDERED: RX INFO: IV CONTRAST WAS GIVEN 1 EACH MISC MISCELLANE PRN (10:35)
[2023-12-05] MEDS ORDERED: ZOLPIDEM 5 MG TAB PO PRN (10:35)
--- NOTE | 2023-12-05 10:40 | P.PCN ---
Date of Procedure: 12/05/23 Operative Findings: CARDIAC CATHETERIZATION AND PERCUTANEOUS CORONARY INTERVENTION PERFORMING PHYSICIAN: Jairo Hamilton MD, [facility] PROCEDURE PERFORMED: 1. Selective right and left coronary angiogram 2. Left heart catheterization 3. Successful stenting of first diagonal branch using 2.0 x 12 Cheo CARITO with an excellent angiographic results INDICATION: Chest discomfort concerning for angina COMPLICATION: None APPROACH: Right radial artery LEVEL OF SEDATION: Moderate with the sedation time off 38 minutes PROCEDURE DESCRIPTION: After obtaining informed consent the patient was brought to the cardiac Stapler Coil Unit and the right radial artery was cannulated using micropuncture technique under ultrasound guidance a micropuncture wire passed easily then I placed a 6 Kyrgyz 11 cm sheath at the right radial artery with at that point I did selective right and left coronary angiogram using JR4 and JL 3.5 catheters. Left heart catheterization was performed using the JR4 catheter which crossed the aortic valve then I did pullback across the valve. After that I decided to intervene on the leg. Anticoagulation was initiated using heparin with continuous ACT monitoring. Subsequently I did engage the left main using CLS 3.5 guiding catheter. I did wired the diagonal branch using 2 whisper wires. Subsequently predilatation was performed using 2.5 mm balloon before I deployed 2.0 x 12 mm Cheo CARITO where the stent was positioned under fluoroscopy guidance and deployed under fluoroscopy guidance. Final angiogram showed excellent angiographic results and the procedure was completed with no complication. SELECTIVE CORONARY ANGIOGRAM: The right coronary artery: Large-caliber vessel and a dominant vessel. The RCA is stented in the midportion and the stent is patent. Distal to the stented segment there is Denovo lesion appears to be in the range of 40 to 50% Left main: Has mild disease only The left circumflex: Large-caliber vessel nondominant vessel appears to have mild disease only The left anterior descending artery: Large-caliber vessel with mild disease only. Gives rise into a large diagonal branch which has severe lesion HEMODYNAMICS: LVEDP was 14 mmHg with no significant gradient across aortic valve CONCLUSION: Patent stent in the mid RCA. Intermediate de tariq lesion involving the mid to distal RCA Severe disease involving the first diagonal branch. I performed PCI of the first diagonal branch as described above POSTPROCEDURE MANAGEMENT: 1. Dual antiplatelet therapy using aspirin and Plavix for at least 6 month 2. Aggressive cholesterol control 3. Follow-up with the patient
[2023-12-05] MEDS: ASPIRIN 325 MG TAB PO STA (12:28)
[2023-12-05] MEDS: SODIUM CHLORIDE 0.9% 1,000 ML in EMPTY BAG 1 BAG IV SCH ×2 (12:28→12:29)
[2023-12-05] MEDS: amLODIPine 10 MG TAB PO SCH (12:57)
[2023-12-05] MEDS: FUROSEMIDE 40 MG TAB PO PRN (12:57)
[2023-12-05] MEDS ORDERED: MORPHINE SULFATE 2 MG/ML SYRINGE IVP PRN (17:04)
[2023-12-05] MEDS: METOPROLOL TARTRATE 50 MG TAB PO SCH (20:06)
[2023-12-05] MEDS: lisinopriL 20 MG TAB PO SCH (20:06)
[2023-12-06] MEDS: hydrALAZINE HCL 20 MG/ML 1 ML VIAL IVP PRN (04:27)
[2023-12-06] MEDS: MORPHINE SULFATE 4 MG/ML SYRINGE IVP PRN (04:27)
[2023-12-06] MEDS: ASPIRIN 81 MG PO SCH (08:09)
[2023-12-06] MEDS: NON FORMULARY DRUG (Fish Oil/Dha/Epa [Fish Oil 1,200 Mg Fish Oil] 1 EACH Capsule) PO SCH (08:10)
[2023-12-06] MEDS: POTASSIUM CHLORIDE ER 10 MEQ TAB.ER.PRT PO SCH (08:10)
[2023-12-06] MEDS: CLOPIDOGREL 75 MG TAB PO SCH (08:10)
[2023-12-06 08:16] VITALS: BP 126/54; PULSE 85; RESP 18; TEMP 97.5
[2023-12-06 10:41] LABS: African American GFR (CKD) 75 (>60 ml/min/1.73 sqM); Non-African American GFR(CKD) 65 (>60 ml/min/1.73 sqM)
--- NOTE | 2023-12-06 14:23 | P.DS ---
Providers Attending physician: Jairo Hamilton Consults: 12/05/23 10:35 Consult Physician Routine Consulting Provider: [facility] Consult Reason/Comments: Post Interventional patient Do you want consulting provider notified?: Already Contacted Primary care physician: [facility] Hospital Course: This is a 78-year-old male who underwent cardiac catheterization yesterday with Dr. Hamilton with stenting of the first diagonal branch. Patient is doing well post procedure with no complications. He denies chest pain or pressure. He denies SOB. Vital signs are stable. He was deemed stable for discharge home today by Dr. Hamilton. Please see EMR for further hospital course details Discharge Diagnosis 1. Coronary artery disease s/p PCI first diagonal branch Nurse practitioner note has been reviewed by physician. Signing provider agrees with the documented findings, assessment, and plan of care documented by [employer] as a scribe. Plan - Discharge Summary Discharge Rx Participant: No New Discharge Prescriptions: New amLODIPine [Norvasc] 10 mg PO DAILY #90 tab Continue lisinopriL [Prinivil] 20 mg PO BID Fish Oil/Dha/Epa [Fish Oil 1,200 mg Fish Oil] 1 cap PO DAILY Potassium Chloride ER [K-Dur 10] 99 mg PO DAILY Metoprolol Tartrate [Lopressor] 100 mg PO BID #360 tab Morphine Sulfate ER [Ms Contin] 30 mg PO Q8H Ipratropium-Albuterol Nebulize [Duoneb 0.5 mg-3 mg/3 ml Soln] 3 ml INHALATION RT-QID PRN PRN Reason: Shortness Of Breath Nitroglycerin Sl Tabs [Nitrostat] 0.4 mg SL Q5M PRN PRN Reason: Chest Pain Furosemide [Lasix] 40 mg PO DAILY PRN PRN Reason: Edema Clopidogrel [Plavix] 75 mg PO DAILY #90 tab Apixaban [Eliquis] 2.5 mg PO BID #60 tab Aspirin 81 mg PO ONCE Discharge Medication List lisinopriL [Prinivil] 20 mg PO BID 01/01/15 [History] Fish Oil/Dha/Epa [Fish Oil 1,200 mg Fish Oil] 1 cap PO DAILY 08/29/17 [History] Furosemide [Lasix] 40 mg PO DAILY PRN 11/12/20 [History] Ipratropium-Albuterol Nebulize [Duoneb 0.5 mg-3 mg/3 ml Soln] 3 ml INHALATION RT-QID PRN 11/12/20 [History] Nitroglycerin Sl Tabs [Nitrostat] 0.4 mg SL Q5M PRN 11/12/20 [History] Potassium Chloride ER [K-Dur 10] 99 mg PO DAILY 11/12/20 [History] Metoprolol Tartrate [Lopressor] 100 mg PO BID #360 tab 11/13/20 [Rx] Apixaban [Eliquis] 2.5 mg PO BID #60 tab 11/28/20 [Rx] Clopidogrel [Plavix] 75 mg PO DAILY #90 tab 11/28/20 [Rx] Morphine Sulfate ER [Ms Contin] 30 mg PO Q8H 12/01/23 [History] Aspirin 81 mg PO ONCE 12/05/23 [History] amLODIPine [Norvasc] 10 mg PO DAILY #90 tab 12/06/23 [Rx] Follow up Appointment(s)/Referral(s): Jairo Hamilton MD [STAFF PHYSICIAN] - 1 Week (THE OFFICE WILL CALL YOU WITH AN APPOINTMENT DATE AND TIME) Patient Instructions/Handouts: Moderate Sedation (DC), After Radial Heart Catheterization (GEN) Activity/Diet/Wound Care/Special Instructions: *NO LIFTING, PUSHING, PULLING ANYTHING OVER 5 POUNDS FOR 5 DAYS *NO DRIVING FOR 3 DAYS *YOU CAN REMOVE YOUR DRESSING TOMORROW BUT DO NOT SUBMERSE YOUR PUNCTURE SITE IN WATER FOR AT LEAST A FEW DAYS TO PREVENT INFECTION - SO NO TUB BATHS, POOLS, HOT TUBS, DISHES...ETC *ANY SIGNS OF BLEEDING (HARDNESS, SWELLING, OR EXCESSIVE BRUISING) HOLD DIRECT PRESSURE ON YOUR PUNCTURE SITE AND COME TO THE NEAREST EMERGENCY ROOM TO GET YOUR PUNCTURE SITE LOOKED AT - DO NOT DRIVE YOURSELF! EITHER CALL EMS OR HAVE SOMEONE DRIVE YOU! Discharge/Stand Alone Forms: Area PCPs Discharge Disposition: HOME SELF-CARE
== END 2023-12-06 10:02 | disposition home or self-care (01) ==
LOC: CATHCVL 05:46 → 3SCARD 10:23 → CATHCVL 12-06 10:02
PROVIDERS: ATTEND Internal Medicine Interventional Cardiology
DX: I25.10 Atherosclerotic heart disease of native coronary artery without angina pectoris (principal); I10 Essential (primary) hypertension; E78.5 Hyperlipidemia, unspecified; Z86.73 Personal history of transient ischemic attack (TIA), and cerebral infarction without residual deficits; E78.2 Mixed hyperlipidemia; I48.21 Permanent atrial fibrillation; I73.9 Peripheral vascular disease, unspecified; I65.23 Occlusion and stenosis of bilateral carotid arteries; Z79.01 Long term (current) use of anticoagulants; Z79.02 Long term (current) use of antithrombotics/antiplatelets
CPT/HCPCS: 93458; C9600; 80048; 82565; 85025

== ENCOUNTER → 2024-06-11 | Outpatient (CLI) | payer MEDICARE | END | disposition home or self-care (01) | LOC: LABWHC1 13:03 | PROVIDERS: ATTEND Anesthesiology | DX: E29.1 Testicular hypofunction (principal) | CPT/HCPCS: 36415; 84403 ==

== ENCOUNTER 2024-07-10 09:53 | Inpatient (IN) | payer MEDICARE ==
--- NOTE | 2024-07-10 10:14 | ED ---
Abdominal Pain HPI - General Chief Complaint: Abdominal Pain Stated Complaint: abdominal and back pain, headache Time Seen by Provider: 07/10/24 09:58 Source: patient, family, RN notes reviewed Mode of arrival: wheelchair Limitations: no limitations - History of Present Illness Initial Comments: 79-year-old male presents emergency department chief complaint of abdominal pain, dysuria, hematuria. Patient states she has had symptoms of the last several days up to a week. Patient states that he has burning discomfort with urination and states there is blood and states pain radiates to his left flank. No history of kidney stones. Patient is on Eliquis for atrial fibrillation. He denies chest pain shortness of breath no noted fever at home. - Related Data Home Medications Medication Instructions Recorded Confirmed lisinopriL [Prinivil] 20 mg PO BID 01/01/15 07/10/24 Fish Oil/Dha/Epa [Fish Oil 1,200 1 cap PO DAILY 08/29/17 07/10/24 mg Fish Oil] Morphine Sulfate ER [Ms Contin] 30 mg PO Q8H 12/01/23 07/10/24 Metoprolol Tartrate [Lopressor] 100 mg PO BID 07/10/24 07/10/24 traZODone HCL 150 mg PO HS 07/10/24 07/10/24 Previous Rx's Medication Instructions Recorded Apixaban [Eliquis] 2.5 mg PO BID #60 tab 11/28/20 Clopidogrel [Plavix] 75 mg PO DAILY #90 tab 11/28/20 Allergies Allergy/AdvReac Type Severity Reaction Status Date / Time No Known Allergies Allergy Verified 07/10/24 11:34 Review of Systems ROS Statement: Those systems with pertinent positive or pertinent negative responses have been documented in the HPI. ROS Other: All systems not noted in ROS Statement are negative. Past Medical History Past Medical History: Atrial Fibrillation, Coronary Artery Disease (CAD), Chest Pain / Angina, GERD/Reflux, Hyperlipidemia, Hypertension, Musculoskeletal Disorder, Osteoarthritis (OA), Prostate Disorder, Renal Disease, Vascular Disorder Additional Past Medical History / Comment(s): ,Covid Pneumonia-Easter 2020-[facility]-still having breathing problems on oxygen 2 "something"L prn, NCCHRONIC CONSTIPATION FROM PAIN MEDS. KIDNEY STONES. urinary frequency. chronic back pain. BPH, impotence status post penile implant. Bilateral lower extremity edema, WITH CHRONIC LEG PAIN (POST PAIN CLINIC PROCEDURE). History of Any Multi-Drug Resistant Organisms: None Reported Past Surgical History: Back Surgery, Bariatric Surgery, Heart Catheterization With Stent, Joint Replacement, Orthopedic Surgery Additional Past Surgical History / Comment(s): CARDIAC STENTS 1999. Lap band surgery 10 years ago. penile implant. RIGHT KNEE REPLACED X 2.cervical sx has titanium plate, colonoscopy, rt hip replacement, Cardiac stent x 2 11/2020, lap band removed 10/17/22 Past Anesthesia/Blood Transfusion Reactions: Previous Problems w/ Anesthesia Additional Past Anesthesia/Blood Transfusion Reaction / Comment(s): had itchy skin and severe leg cramps after cage in back sx Date of Last Stent Placement:: 2020 Past Psychological History: No Psychological Hx Reported Smoking Status: Never smoker Past Alcohol Use History: None Reported Past Drug Use History: None Reported - Past Family History Mother Family Medical History: Cancer Additional Family Medical History / Comment(s): . Father History Unknown: Yes Family Medical History: No Reported History, Congestive Heart Failure (CHF) Additional Family Medical History / Comment(s): etoh, smoking Brother(s) Family Medical History: Coronary Artery Disease (CAD), Diabetes Mellitus Sister(s) Family Medical History: No Reported History Daughter(s) Family Medical History: No Reported History Additional Family Medical History / Comment(s): Daughter has peripheral artery disease. No history of stroke in mother or father General Exam Limitations: no limitations General appearance: alert, in no apparent distress Head exam: Present: atraumatic, normocephalic, normal inspection Eye exam: Present: normal appearance, PERRL, EOMI. Absent: scleral icterus, conjunctival injection, periorbital swelling Neck exam: Present: normal inspection, full ROM. Absent: tenderness, meningismus, lymphadenopathy Respiratory exam: Present: normal lung sounds bilaterally. Absent: respiratory distress, wheezes, rales, rhonchi, stridor Cardiovascular Exam: Present: regular rate, normal rhythm, normal heart sounds. Absent: systolic murmur, diastolic murmur, rubs, gallop, clicks GI/Abdominal exam: Present: soft, tenderness, normal bowel sounds. Absent: distended, guarding, rebound, rigid Back exam: Present: CVA tenderness (L). Absent: CVA tenderness (R) Neurological exam: Present: alert, oriented X3 Skin exam: Present: warm, dry, intact, normal color. Absent: rash Course Vital Signs 07/10/24 07/10/24 07/10/24 09:55 10:59 11:52 Temperature 99.8 F H 99.2 F Pulse Rate 66 63 Respiratory 20 18 Rate Blood Pressure 144/70 135/77 O2 Sat by Pulse 97 95 Oximetry Medical Decision Making - Medical Decision Making Was pt. sent in by a medical professional or institution (, [facility], [employer], urgent care, hospital, or correction...) When possible be specific @ -No Did you speak to anyone other than the patient for history (EMS, parent, family, police, friend...)? What history was obtained from this source @ -No Did you review nursing and triage notes (agree or disagree)? Why? @ -I reviewed and agree with nursing and triage notes Were old charts reviewed (outside hosp., previous admission, EMS record, old EKG, old radiological studies, urgent care reports/EKG's, correction records)? Report findings @ -No old charts were reviewed Differential Diagnosis (chest pain, altered mental status, abdominal pain women, abdominal pain men, vaginal bleeding, weakness, fever, dyspnea, syncope, headache, dizziness, GI bleed, back pain, seizure, CVA, palpatations, mental health, musculoskeletal)? @ -Differential Abdominal Pain Men: Appendicitis, cholecystitis, diverticulosis, ischemic bowel, pancreatitis, hepatitis, UTI, gastroenteritis, AAA, incarcerated hernia, bowel obstruction, constipation, inflammatory bowel, hepatitis, peptic ulcer disease, splenic infarction, perforated viscus, testicular torsion, this is not meant to be an all-inclusive list EKG interpreted by me (3pts min.). @ -[None X-rays interpreted by me (1pt min.). @ -None done CT interpreted by me (1pt min.). @ -CT abdomen pelvis showing evidence of bilateral pyelonephritic stranding, no stones U/S interpreted by me (1pt. min.). @ -None done What testing was considered but not performed or refused? (CT, X-rays, U/S, labs)? Why? @ -None What meds were considered but not given or refused? Why? @ -None Did you discuss the management of the patient with other professionals (professionals i.e. , PA, [employer], lab, RT, psych nurse, manager social, air traffic control manager, teacher, energy control officer, supportive employment case manager)? Give summary @ -Dr. Graham for admission Was smoking cessation discussed for >3mins.? @ -No Was critical care preformed (if so, how long)? @ -No Were there social determinants of health that impacted care today? How? (Ho melessness, low income, unemployed, alcoholism, drug addiction, transportation, low edu. Level, literacy, decrease access to med. care, alf, rehab)? @ -No Was there de-escalation of care discussed even if they declined (Discuss DNR or withdrawal of care, Hospice)? DNR status @ -No What co-morbidities impacted this encounter? (DM, HTN, Smoking, COPD, CAD, Cancer, CVA, ARF, Chemo, Hep., AIDS, mental health diagnosis, sleep apnea, morbid obesity)? @ -None Was patient admitted / discharged? Hospital course, mention meds given and route, prescriptions, significant lab abnormalities, going to OR and other pertinent info. @ -Admitted the patient is found to have fever, leukocytosis and bilateral p yelonephritis on CT. Patient was started on IV antibiotics blood cultures were drawn Undiagnosed new problem with uncertain prognosis? @ -No Drug Therapy requiring intensive monitoring for toxicity (Heparin, Nitro, Insulin, Cardizem)? @ -No Were any procedures done? @ -No Diagnosis/symptom? @ -Pyelonephritis, hematuria Acute, or Chronic, or Acute on Chronic? @ -[Acute Uncomplicated (without systemic symptoms) or Complicated (systemic symptoms)? @ -complicated Side effects of treatment? @ -No Exacerbation, Progression, or Severe Exacerbation? @ -No Poses a threat to life or bodily function? How? (Chest pain, [place], [place], pneumonia, PE, COPD, DKA, ARF, appy, cholecystitis, CVA, Diverticulitis, Homicidal, Suicidal, threat to staff... and all critical care pts) @ -Yes pyelonephritis possible sepsis leading to endorgan failure - Lab Data Result diagrams: 07/10/24 10:33 07/10/24 10:33 Lab Results 07/10/24 07/10/24 07/10/24 Range/Units 10:33 10:33 10:33 WBC 17.5 H (3.8-10.6) k/uL RBC 4.84 (4.30-5.90) m/uL Hgb 13.9 (13.0-17.5) gm/dL Hct 43.5 (39.0-53.0) % MCV 89.9 (80.0-100.0) fL MCH 28.7 (25.0-35.0) pg MCHC 32.0 (31.0-37.0) g/dL RDW 14.8 (11.5-15.5) % Plt Count 72 L (150-450) k/uL MPV 9.8 Neutrophils % 88 % Lymphocytes % 5 % Monocytes % 6 % Eosinophils % 0 % Basophils % 0 % Neutrophils # 15.4 H (1.3-7.7) k/uL Lymphocytes # 0.9 L (1.0-4.8) k/uL Monocytes # 1.1 H (0-1.0) k/uL Eosinophils # 0.1 (0-0.7) k/uL Basophils # 0.0 (0-0.2) k/uL Manual Slide Review Performed RBC Morphology Normal Sodium 136 L (137-145) mmol/L Potassium 3.6 (3.5-5.1) mmol/L Chloride 101 (98-107) mmol/L Carbon Dioxide 25 (22-30) mmol/L Anion Gap 10 mmol/L BUN 24 H (9-20) mg/dL Creatinine 1.13 (0.66-1.25) mg/dL Est GFR (CKD-EPI)AfAm 72 (>60 ml/min/1.73 sqM) Est GFR (CKD-EPI)NonAf 62 (>60 ml/min/1.73 sqM) Glucose 158 H (74-99) mg/dL Lactic Ac Sepsis Rflx Plasma Lactic Acid Jeffry 2.9 H* (0.7-2.0) mmol/L Calcium 9.1 (8.4-10.2) mg/dL Total Bilirubin 2.1 H (0.2-1.3) mg/dL AST 22 (17-59) U/L ALT 14 (4-49) U/L Alkaline Phosphatase 87 (38-126) U/L Total Protein 6.0 L (6.3-8.2) g/dL Albumin 3.7 (3.5-5.0) g/dL Lipase 19 L (23-300) U/L Urine Color Urine Appearance (Clear) Urine pH (5.0-8.0) Ur Specific Wade (1.001-1.035) Urine Protein (Negative) Urine Glucose (UA) (Negative) Urine Ketones (Negative) Urine Blood (Negative) Urine Nitrite (Negative) Urine Bilirubin (Negative) Urine Urobilinogen (<2.0) mg/dL Ur Leukocyte Esterase (Negative) Urine RBC (0-5) /hpf Urine WBC (0-5) /hpf Ur Squamous Epith Cells (0-4) /hpf Urine Bacteria (None) /hpf Urine Mucus (None) /hpf 07/10/24 07/10/24 Range/Units 11:17 13:55 WBC (3.8-10.6) k/uL RBC (4.30-5.90) m/uL Hgb (13.0-17.5) gm/dL Hct (39.0-53.0) % MCV (80.0-100.0) fL MCH (25.0-35.0) pg MCHC (31.0-37.0) g/dL RDW (11.5-15.5) % Plt Count (150-450) k/uL MPV Neutrophils % % Lymphocytes % % Monocytes % % Eosinophils % % Basophils % % Neutrophils # (1.3-7.7) k/uL Lymphocytes # (1.0-4.8) k/uL Monocytes # (0-1.0) k/uL Eosinophils # (0-0.7) k/uL Basophils # (0-0.2) k/uL Manual Slide Review RBC Morphology Sodium (137-145) mmol/L Potassium (3.5-5.1) mmol/L Chloride (98-107) mmol/L Carbon Dioxide (22-30) mmol/L Anion Gap mmol/L BUN (9-20) mg/dL Creatinine (0.66-1.25) mg/dL Est GFR (CKD-EPI)AfAm (>60 ml/min/1.73 sqM) Est GFR (CKD-EPI)NonAf (>60 ml/min/1.73 sqM) Glucose (74-99) mg/dL Lactic Ac Sepsis Rflx Y Plasma Lactic Acid Jeffry (0.7-2.0) mmol/L Calcium (8.4-10.2) mg/dL Total Bilirubin (0.2-1.3) mg/dL AST (17-59) U/L ALT (4-49) U/L Alkaline Phosphatase (38-126) U/L Total Protein (6.3-8.2) g/dL Albumin (3.5-5.0) g/dL Lipase (23-300) U/L Urine Color Red Urine Appearance Cloudy (Clear) Urine pH 5.5 (5.0-8.0) Ur Specific Wade 1.026 (1.001-1.035) Urine Protein 1+ H (Negative) Urine Glucose (UA) Negative (Negative) Urine Ketones Negative (Negative) Urine Blood Large H (Negative) Urine Nitrite Negative (Negative) Urine Bilirubin Negative (Negative) Urine Urobilinogen <2.0 (<2.0) mg/dL Ur Leukocyte Esterase Moderate H (Negative) Urine RBC >182 H (0-5) /hpf Urine WBC 45 H (0-5) /hpf Ur Squamous Epith Cells 1 (0-4) /hpf Urine Bacteria Rare H (None) /hpf Urine Mucus Moderate H (None) /hpf Disposition Clinical Impression: Pyelonephritis, Hematuria Disposition: ADMITTED IP TO THIS HOSP Condition: Fair Referrals: Rocky Graham MD [Primary Care Provider] - 1-2 days Time of Disposition: 15:02
[2024-07-10 10:53] LABS: Basophils % (A) 0 %; Eosinophils # (A) 0.1 k/uL (0-0.7); Eosinophils % (A) 0 %; HCT 43.5 % (39.0-53.0); HGB 13.9 gm/dL (13.0-17.5); Lymphocytes # (A) 0.9 k/uL (1.0-4.8); Lymphocytes % (A) 5 %; MCH 28.7 pg (25.0-35.0); MCV 89.9 fL (80.0-100.0); Mean Platelet Volume 9.8; Monocytes # (A) 1.1 k/uL (0-1.0); Monocytes % (A) 6 %; Neutrophils # (A) 15.4 k/uL (1.3-7.7); Neutrophils % (A) 88 %; RBC 4.84 m/uL (4.30-5.90); RDW 14.8 % (11.5-15.5); WBC 17.5 k/uL (3.8-10.6)
[2024-07-10] MEDS: SODIUM CHLORIDE 0.9% 500 ML 500 ML IV STA (10:54)
[2024-07-10] MEDS: ACETAMINOPHEN TAB 325 MG TAB PO STA (10:55)
[2024-07-10] MEDS: HYDROmorphone 0.5 MG/0.5 ML SYRINGE IVP STA (10:55)
[2024-07-10 11:06] LABS: ALT 14 U/L (4-49); AST 22 U/L (17-59); African American GFR (CKD) 72 (>60 ml/min/1.73 sqM); Albumin 3.7 g/dL (3.5-5.0); Alkaline Phosphatase 87 U/L (38-126); Anion Gap 10 mmol/L; Blood Urea Nitrogen 24 mg/dL (9-20); Calcium 9.1 mg/dL (8.4-10.2); Carbon Dioxide 25 mmol/L (22-30); Chloride 101 mmol/L (98-107); Glucose 158 mg/dL (74-99); Lipase 19 U/L (23-300); Non-African American GFR(CKD) 62 (>60 ml/min/1.73 sqM); Potassium 3.6 mmol/L (3.5-5.1); Sodium 136 mmol/L (137-145); Total Bilirubin 2.1 mg/dL (0.2-1.3)
[2024-07-10 11:17] LABS: Platelet Count 72 k/uL (150-450)
[2024-07-10 11:18] LABS: RBC Morphology Normal
--- NOTE | 2024-07-10 11:30 | CT ---
EXAMINATION TYPE: CT abdomen pelvis wo con DATE OF EXAM: 07/10/2024 10:51 AM COMPARISON: 11/13/2020 CLINICAL INDICATION: Male, 79 years old with history of Pain, hematuria, Pain, hematuria TECHNIQUE: Axial images were obtained from above the diaphragm to the pubic rami in the axial plane a t 5 mm thick sections. Reconstructed images are reviewed on the computer in the coronal plane. CONTRAST: mL of . Study performed without Oral Contrast DLP: 935.5 mGycm, Automated exposure control for dose reduction was used. FINDINGS: Limited CT sections are obtained the lung bases. The lung bases are clear. CT ABDOMEN: Liver: Normal Spleen: Normal Pancreas: Normal Adrenal glands: The adrenal glands are normal. Gallbladder: Surgically absent Kidneys: No masses are evident. No hydronephrosis is present. No cysts are present. There is a hyp erdense 1.6 cm lesion posterior lateral inferior pole left kidney measuring 58 Hounsfield units. This has enlarged from 1.3 cm. Ultrasound is recommended for additional evaluation. Some bilateral perine phric stranding is present. Correlate for pyelonephritis. Aorta: Vascular calcification is within the aorta. Inferior vena cava: Normal. CT PELVIS: Loops of bowel within the abdomen and pelvis are normal. Diverticulosis without acute diverticulitis is present. This study is bilateral contrast limiting bowel evaluation. Appendix: Normal as visualized. Urinary bladder: Normal. Genitourinary structures: Prostate calcification is present. Penile implant is present. Reservoirs ou t left Osseous structures: No suspicious lytic or sclerotic lesions. IMPRESSION: 1. Some mild bilateral perinephric stranding may be present. Consider some pyelonephritis. 2. Diverticulosis without acute diverticulitis. 3. Slightly enlarged hyperdense lesion posterior lateral inferior pole left kidney. Additional workup with ultrasound is recommended. [facility], , 07/10/2024 11:28 AM
[2024-07-10] MEDS: SODIUM CHLORIDE 0.9% 500 ML 500 ML IV ONE (12:31)
[2024-07-10] MEDS: MORPHINE SULFATE ER 30 MG TABLET PO STA (13:18)
[2024-07-10 14:09] LABS: Appearance,Urine Cloudy (Clear); Bacteria,Urine Rare /hpf; Bilirubin,Urine Negative (Negative); Blood,Urine Large (Negative); Color,Urine Red; Glucose,Urine (UA) Negative (Negative); Ketones,Urine Negative (Negative); Leukocyte Esterase,Urine Moderate (Negative); Mucus,Urine Moderate /hpf; Nitrite,Urine Negative (Negative); PH, Urine 5.5 (5.0-8.0); Protein,Urine 1+ (Negative); RBC,Urine >182 /hpf (0-5); Specific Gravity,Urine 1.026 (1.001-1.035); Squamous Epithelial Cell,Urine 1 /hpf (0-4); Urobilinogen,Urine <2.0 mg/dL (<2.0); WBC,Urine 45 /hpf (0-5)
[2024-07-10] MEDS ORDERED: NALOXONE 0.4 MG/ML 1 ML VIAL IV PRN (14:58)
[2024-07-10] MEDS ORDERED: ONDANSETRON 4 MG/2 ML VIAL IVP PRN (14:58)
[2024-07-10] MEDS: SODIUM CHLORIDE 0.9% 1,000 ML IV SCH (15:45)
[2024-07-10] MEDS: IPRATROPIUM-ALBUTEROL 3 ML NEB INHALATION STA (18:14)
[2024-07-10] MEDS: APIXABAN 2.5 MG TABLET PO SCH (20:26)
[2024-07-10] MEDS: traZODone HCL 50 MG TAB PO SCH (20:26)
[2024-07-10] MEDS: lisinopriL 20 MG TAB PO SCH (20:26)
[2024-07-10] MEDS: MORPHINE SULFATE ER 30 MG TABLET PO SCH (20:27)
[2024-07-10] MEDS: METOPROLOL TARTRATE 50 MG TAB PO SCH (20:27)
--- NOTE | 2024-07-10 21:05 | HP ---
HISTORY AND PHYSICAL HISTORY OF PRESENT ILLNESS: Wicho Michael is a 79-year-old, who came with pyelonephritis, abdominal pain, flank pain, dysuria, frequency, urgency, and hesitancy. He has a history of chronic pain and sees a pain specialist [place] Dr. Pedersen. He is on Eliquis for AFib. Denies shortness of breath and fever at this time. Left flank pain and abdominal pain. ALLERGIES: Please see further orders. REVIEW OF SYSTEMS: 14-point review of systems otherwise negative. PAST MEDICAL HISTORY: AFib, coronary artery disease, GERD, hypertension, dyslipidemia, musculoskeletal disorder, osteoarthritis, prostate disorder, renal disease, vascular disorder, COVID pneumonia, renal stones. PAST SURGICAL HISTORY: Back surgery, bariatric surgery, heart catheterization with stent, orthopedic surgery. FAMILY HISTORY: Father with congestive heart failure. Brother with coronary artery disease and diabetes mellitus in sister. PHYSICAL EXAMINATION: VITAL SIGNS: Stable. Afebrile. GENERAL: He is lying comfortably in bed. HEENT: Normocephalic, atraumatic. CARDIOVASCULAR: S1, S2. GI: Soft. HEMATOLOGY: Negative Homans. PSYCHIATRIC: Fair mood and affect. NEUROLOGIC: Alert and oriented x3. OPHTHALMOLOGICAL: Pupils are equal, round, and reactive. ABDOMEN: Soft. Tenderness to palpation in the flanks bilaterally. White count is17.5, hemoglobin is 13.9 sodium 136, potassium 3.6, high neutrophils, left shift, pyelonephritis, hematuria, flank pain, dehydration, chronic pain control, history of PE, osteoarthritic conditions. Continue current treatment. IV antibiotics. Urine culture. Await for Infectious Disease consult. He has a lesion on the kidney. We are going to check that out. Prognosis is guarded. Do an ultrasound of that area. Please see further orders. MMODL / IJN: [id number] /
--- NOTE | 2024-07-10 21:58 | P.CONS ---
History of Present Illness - Reason for Consult Consult date: 07/10/24 Pyelonephritis Requesting physician: Rocky Graham - Chief Complaint Abdominal pain burning urine and hematuria x days - History of Present Illness Patient is a 79-year-old male with a past medical history significant for atrial fibrillation coronary artery disease hypertension hyperlipidemia reflux prostate disorder presenting to the hospital for evaluation of lower abdominal discomfort dysuria and hematuria in this patient symptom has been going on for couple of days to week and has progressed to get worse patient complaining of pain to the lower abdominal 8 to be excruciating almost entire time without any radiation with associated burning or urination as well as some blood in the urine patient did have some nausea and decreased oral intake but no vomiting some chest pain but denies any worsening shortness of breath or cough and no diarrhea on presentation to the hospital patient did have a temperature of 99.8 F patient was nontachycardic hypotensive or hypoxic no need for supplemental oxygen did have white count of 17.5 with a left shift creatinine is 1.13 lactic acid 2.9 liver enzymes bilirubin is 2.1 rest of the liver enzymes are normal did have a positive UA with moderate ascites trace 45 WBC patient did have abdominal pelvis CT some mild bilateral perinephric stranding diverticulosis without acute diverticulitis and large hyperdense lesion posterior lateral inferior pole of the kidney patient was started on Rocephin infectious disease was consulted for further management of antibiotic therapy Review of Systems Positive point and negatives has been mentioned in the HPI, complete review of systems was performed and all other systems are negative Past Medical History Past Medical History: Atrial Fibrillation, Coronary Artery Disease (CAD), Chest Pain / Angina, GERD/Reflux, Hyperlipidemia, Hypertension, Musculoskeletal Disorder, Osteoarthritis (OA), Prostate Disorder, Renal Disease, Vascular Disorder Additional Past Medical History / Comment(s): ,[place]ov[place] Pneumonia-[facility] 2020-[facility]-still having breathing problems on oxygen 2 "something"L prn, NCCHRONIC CONSTIPATION FROM PAIN MEDS. KIDNEY STONES. urinary frequency. chronic back pain. BPH, impotence status post penile implant. Bilateral lower extremity edema, WITH CHRONIC LEG PAIN (POST PAIN CLINIC PROCEDURE). History of Any Multi-Drug Resistant Organisms: None Reported Past Surgical History: Back Surgery, Bariatric Surgery, Heart Catheterization With Stent, Joint Replacement, Orthopedic Surgery Additional Past Surgical History / Comment(s): CARDIAC STENTS 1999. Lap band surgery 10 years ago. penile implant. RIGHT KNEE REPLACED X 2.cervical sx has titanium plate, colonoscopy, rt hip replacement, Cardiac stent x 2 11/2020, lap band removed 10/17/22 Past Anesthesia/Blood Transfusion Reactions: Previous Problems w/ Anesthesia Additional Past Anesthesia/Blood Transfusion Reaction / Comm: had itchy skin and severe leg cramps after cage in back sx Date of Last Stent Placement:: 2020 Past Psychological History: No Psychological Hx Reported Smoking Status: Never smoker Past Alcohol Use History: None Reported Past Drug Use History: None Reported - Past Family History Mother Family Medical History: Cancer Additional Family Medical History / Comment(s): . Father History Unknown: Yes Family Medical History: No Reported History, Congestive Heart Failure (CHF) Additional Family Medical History / Comment(s): etoh, smoking Brother(s) Family Medical History: Coronary Artery Disease (CAD), Diabetes Mellitus Sister(s) Family Medical History: No Reported History Daughter(s) Family Medical History: No Reported History Additional Family Medical History / Comment(s): Daughter has peripheral artery disease. No history of stroke in mother or father Medications and Allergies Home Medications Medication Instructions Recorded Confirmed Type lisinopriL [Prinivil] 20 mg PO BID 01/01/15 07/10/24 History Fish Oil/Dha/Epa [Fish Oil 1,200 1 cap PO DAILY 08/29/17 07/10/24 History mg Fish Oil] Apixaban [Eliquis] 2.5 mg PO BID #60 tab 11/28/20 07/10/24 Rx Clopidogrel [Plavix] 75 mg PO DAILY #90 tab 11/28/20 07/10/24 Rx Morphine Sulfate ER [Ms Contin] 30 mg PO Q8H 12/01/23 07/10/24 History Metoprolol Tartrate [Lopressor] 100 mg PO BID 07/10/24 07/10/24 History traZODone HCL 150 mg PO HS 07/10/24 07/10/24 History Allergies Allergy/AdvReac Type Severity Reaction Status Date / Time No Known Allergies Allergy Verified 07/10/24 11:34 Physical Exam Vitals: Vital Signs Temp Pulse Resp BP Pulse Ox 07/10/24 15:44 97.8 F 60 18 142/77 100 07/10/24 11:52 99.2 F 07/10/24 10:59 63 18 135/77 95 07/10/24 09:55 99.8 F H 66 20 144/70 97 Intake and Output 07/10/24 07/10/24 07/10/24 06:59 14:59 22:59 Other: Weight 99.79 kg GENERAL DESCRIPTION: Elderly male lying in bed, no distress. No tachypnea or accessory muscle of respiration use. HEENT: Shows Pallor , no scleral icterus. Oral mucous membrane is dry. NECK: Trachea central, no thyromegaly. LUNGS: Unlabored breathing. Clear to auscultation anteriorly. No wheeze or crackle. HEART: S1, S2, regular rate and rhythm. No loud murmur ABDOMEN: Soft, lower abdominal tenderness EXTREMITIES: No edema of feet. SKIN: No rash, no masses palpable. NEUROLOGICAL: The patient is awake, alert, oriented x3, mood and affect normal. Results CBC & Chem 7: 07/10/24 10:33 07/10/24 10:33 Labs: Abnormal Lab Results - Last 24 Hours (Table) 07/10/24 07/10/24 07/10/24 Range/Units 10:33 10:33 10:33 WBC 17.5 H (3.8-10.6) k/uL Plt Count 72 L (150-450) k/uL Neutrophils # 15.4 H (1.3-7.7) k/uL Lymphocytes # 0.9 L (1.0-4.8) k/uL Monocytes # 1.1 H (0-1.0) k/uL Sodium 136 L (137-145) mmol/L BUN 24 H (9-20) mg/dL Glucose 158 H (74-99) mg/dL Plasma Lactic Acid Jeffry 2.9 H* (0.7-2.0) mmol/L Total Bilirubin 2.1 H (0.2-1.3) mg/dL Total Protein 6.0 L (6.3-8.2) g/dL Lipase 19 L (23-300) U/L Urine Protein (Negative) Urine Blood (Negative) Ur Leukocyte Esterase (Negative) Urine RBC (0-5) /hpf Urine WBC (0-5) /hpf Urine Bacteria (None) /hpf Urine Mucus (None) /hpf 07/10/24 Range/Units 13:55 WBC (3.8-10.6) k/uL Plt Count (150-450) k/uL Neutrophils # (1.3-7.7) k/uL Lymphocytes # (1.0-4.8) k/uL Monocytes # (0-1.0) k/uL Sodium (137-145) mmol/L BUN (9-20) mg/dL Glucose (74-99) mg/dL Plasma Lactic Acid Jeffry (0.7-2.0) mmol/L Total Bilirubin (0.2-1.3) mg/dL Total Protein (6.3-8.2) g/dL Lipase (23-300) U/L Urine Protein 1+ H (Negative) Urine Blood Large H (Negative) Ur Leukocyte Esterase Moderate H (Negative) Urine RBC >182 H (0-5) /hpf Urine WBC 45 H (0-5) /hpf Urine Bacteria Rare H (None) /hpf Urine Mucus Moderate H (None) /hpf Assessment and Plan (1) Sepsis Current Visit: Yes Status: Acute Code(s): A41.9 - SEPSIS, UNSPECIFIED ORG ANISM SNOMED Code(s): 54660871 (2) Pyelonephritis Current Visit: Yes Status: Acute Code(s): N12 - TUBULO-INTERSTITIAL NEPHRITIS, NOT SPCF ACUTE OR CHRONIC SNOMED Code(s): 40441196 Plan: 1patient was in the hospital with sepsis in this patient who did have fever tachycardia elevated lactic acid source is likely UTI in this patient who did have symptoms of abdominal pain burning as well as hematuria likely from enteric gram-negative pathogen 2-Rocephin 2 g daily should provide adequate antibiotic coverage while waiting for the culture to finalize 3we will obtain ultrasound of the kidney on the basis of abnormality seen on the CT as per radiology recommendation We will follow on clinical condition and cultures to further adjust medication if needed Thank you for this consultation we will follow the patient along with you Dictation was produced using [employer] dictation software. please excuse any grammatical, word or spelling errors. Time with Patient: Less than 30
--- NOTE | 2024-07-10 22:55 | US ---
EXAMINATION TYPE: US kidneys/renal and bladder DATE OF EXAM: 07/10/2024 COMPARISON: Same day CT abdomen and pelvis CLINICAL INDICATION: Male, 79 years old with history of renal cyst; renal cyst. TECHNIQUE: Grayscale imaging of the bilateral kidneys and urinary bladder: FINDINGS: EXAM MEASUREMENTS: Right Kidney: 11.6 x 6.5 x 5.1 cm Left Kidney: 11.1 x 6.0 x 4.1 cm Right Kidney: No hydronephrosis or masses seen Left Kidney: echogenic area seen laterally 9 mm with twinkle sign. No corresponding calculus on CT wh ich is more sensitive. Hypoechoic round area lower pole 1.6 x 1.3 x 1.2 cm Bladder: Not fully distended Bilateral Jets seen: no There is no evidence for hydronephrosis at this point in time. Cortical thinning left kidney. A small proteinaceous or hemorrhagic 1.6 cm exophytic thin-walled cyst from the lower pole left kidney is co nfirmed. The urinary bladder is poorly distended. IMPRESSION: Confirmation of small size 1.6 cm exophytic proteinaceous or hemorrhagic cyst lower pole of the left kidney. [facility], , 07/10/2024 10:53 PM
[2024-07-11] MEDS ORDERED: hydrALAZINE HCL 20 MG/ML 1 ML VIAL IVP PRN (04:38)
[2024-07-11] MEDS: CEFEPIME 2 GM in SODIUM CHLORIDE 0.9% 100 ML IVPB SCH ×2 (06:49→20:13)
[2024-07-11] MEDS: CLOPIDOGREL 75 MG TAB PO SCH (09:28)
[2024-07-11] MEDS: ACETAMINOPHEN TAB 325 MG TAB PO PRN (16:28)
--- NOTE | 2024-07-11 20:14 | PN ---
PROGRESS NOTE He is positive for infection. Blood culture, unclear etiology. Repeat blood cultures have been ordered, IV antibiotics has been ordered per Dr. Galaviz to treat bacteremia of unclear etiology, complaining of lower abdominal pain, so far the urine culture was negative for 18 hours. Elevated white count with left shift on admission. He has been complaining of diffuse abdominal pain. OBJECTIVE: CARDIOVASCULAR: S1, S2. LUNGS: Transmitted upper airway sounds. EXTREMITIES: No cyanosis, clubbing, or edema. Sepsis, pyelonephritis, bacteremia. Repeat blood cultures. Broad-spectrum antibiotics for positive blood cultures per Dr. Galaviz. Wait for further. Ultrasound has been ordered of the abdomen and bladder. Prognosis guarded. MMODL / IJN: [id number] /
--- NOTE | 2024-07-12 07:15 | P.PN ---
Subjective Progress Note Date: 07/11/24 Principal diagnosis: Reason for follow up sepsis/UTI Patient is a 79-year-old male with a past medical history significant for atrial fibrillation coronary artery disease hypertension hyperlipidemia reflux prostate disorder presenting to the hospital for evaluation of lower abdominal discomfort dysuria and hematuria, patient be diagnosed with sepsis secondary to pyelonephritis subsequent blood cultures came back positive with Enterobacter On today's evaluation that is 07/11/2024,the patient did have resolution of his fever and is afebrile today, patient is on room air not requiring supplemental oxygen and denies any shortness of breath no chest pain or cough.Patient did have some nausea around discomfort but no vomiting or diarrhea urinary symptom has slightly improved. Patient did have a lactic acid of 1.9 no CBC or BMP was done blood culture positive for Enterobacter Objective - Vital Signs Vital signs: Vital Signs Temp 98.0 F 07/11/24 08:00 Pulse 70 07/11/24 08:00 Resp 18 07/11/24 08:00 BP 164/82 07/11/24 08:00 Pulse Ox 96 07/11/24 08:00 FiO2 Intake & Output 07/10/24 07/11/24 07/11/24 18:59 06:59 18:59 Intake Total 221 Balance 221 Weight 99.79 kg 99.79 kg Intake: Oral 221 Other: Voiding Method Toilet Toilet # Voids 2 1 - Exam GENERAL DESCRIPTION: An elderly male up in the chair in no distress RESPIRATORY SYSTEM: Unlabored breathing , decreased breath sounds at bases HEART: S1 S2 regular rate and rhythm , ABDOMEN: Soft , no tenderness EXTREMITIES: No edema feet - Labs CBC & Chem 7: 07/10/24 10:33 07/10/24 10:33 Labs: Abnormal Lab Results - Last 24 Hours (Table) 07/10/24 Range/Units 13:55 Urine Protein 1+ H (Negative) Urine Blood Large H (Negative) Ur Leukocyte Esterase Moderate H (Negative) Urine RBC >182 H (0-5) /hpf Urine WBC 45 H (0-5) /hpf Urine Bacteria Rare H (None) /hpf Urine Mucus Moderate H (None) /hpf Microbiology - Last 24 Hours (Table) 07/10/24 10:33 Blood Culture Gram Stain - Preliminary Blood Blood Culture - Preliminary Molecular ID Assessment and Plan (1) Sepsis Current Visit: Yes Status: Acute Code(s): A41.9 - SEPSIS, UNSPECIFIED ORGANISM SNOMED Code(s): 19945864 (2) Pyelonephritis Current Visit: Yes Status: Acute Code(s): N12 - TUBULO-INTERSTITIAL NEPHRITIS, NOT SPCF ACUTE OR CHRONIC SNOMED Code(s): 32126984 Plan: 1patient was in the hospital with sepsis in this patient who did have fever tachycardia elevated lactic acid source is likely UTI in this patient who did have symptoms of abdominal pain burning as well as hematuria likely from enteric gram-negative pathogen 2-patient did have a CT abdominal pelvis Showing abnormality to the left kidney subsequently did have ultrasound and possible hemorrhagic cyst on the left kidney. Blood culture positive for Enterobacter source likely urinary. 3blood cultures will be document clearance of his bacteremia. 4antibiotic has been adjusted to cefepime 2 g every 8 hours. Daughter at the bedside question concern were answered Dictation was produced using [employer] dictation software. please excuse any grammatical, word or spelling errors. Time with Patient: Less than 30
[2024-07-12 09:00] LABS: Blood Urea Nitrogen 20.9 mg/dL (9.0-27.0); Chloride 104 mmol/L (96-109); Glucose 151 mg/dL (70-110); Potassium 3.7 mmol/L (3.5-5.5); Sodium 136 mmol/L (135-145)
[2024-07-12 09:01] LABS: ALT 16 U/L (10-49); AST 27 U/L (14-35); Albumin 3.3 g/dL (3.8-4.9); Albumin/Globulin Ratio 1.74 Ratio (1.60-3.17); Alkaline Phosphatase 101 U/L (41-126); Carbon Dioxide 22.3 mmol/L (21.6-31.8); Globulin 1.9 g/dL (1.6-3.3); Total Protein 5.2 g/dL (6.2-8.2)
[2024-07-12 09:17] LABS: Acanthocytes 2+ (None Seen); Basophils # (A) 0.02 X 10*3/uL (0.00-0.10); Basophils % (A) 0.2 %; Eosinophils # (A) 0.05 X 10*3/uL (0.04-0.35); Eosinophils % (A) 0.6 %; HCT 38.5 % (39.6-50.0); HGB 12.6 g/dL (13.0-17.0); Immature Platelet Fraction 8.1 % (1.1-6.1); Lymphocytes # (A) 0.84 X 10*3/uL (0.90-5.00); Lymphocytes % (A) 9.8 %; MCH 29.1 pg (27.0-32.0); MCHC 32.7 g/dL (32.0-37.0); MCV 88.9 FL (80.0-97.0); Monocytes # (A) 0.89 X 10*3/uL (0.20-1.00); Monocytes % (A) 10.3 %; NRBC Per 100 WBC 0 X 10*3/uL (0.00-0.01); Neutrophils # (A) 6.78 X 10*3/uL (1.80-7.70); Neutrophils % (A) 78.8 %; Platelet Count 53 X 10*3/uL (140-440); RBC 4.33 X 10*6/uL (4.40-5.60); RDW 14.5 % (11.5-14.5); WBC 8.61 X 10*3/uL (4.50-10.00)
--- NOTE | 2024-07-12 15:22 | P.PN ---
Subjective Progress Note Date: 07/12/24 Principal diagnosis: Reason for follow up sepsis/UTI Patient is a 79-year-old male with a past medical history significant for atrial fibrillation coronary artery disease hypertension hyperlipidemia reflux prostate disorder presenting to the hospital for evaluation of lower abdominal discomfort dysuria and hematuria, patient be diagnosed with sepsis secondary to pyelonephritis subsequent blood cultures came back positive with Enterobacter On today's evaluation that is 07/12/2024, the patient continues to be afebrile, the patient is on room air and breathing comfortably, the Pt still complaining of chest pain shortness of breath and cough also complains lower abdominal discomfort mostly in the left side and does have decreased urine output. Patient white count is normalized to 8.61, creatinine is 1.1 blood culture repeat currently pending Objective - Vital Signs Vital signs: Vital Signs Temp 99.2 F 07/12/24 14:12 Pulse 73 07/12/24 14:12 Resp 16 07/12/24 14:12 BP 147/81 07/12/24 14:12 Pulse Ox 98 07/12/24 14:12 FiO2 Intake & Output 07/11/24 07/12/24 07/12/24 18:59 06:59 18:59 Intake Total 562 118 Balance 562 118 Intake: Oral 562 118 Other: Voiding Method Toilet Toilet Toilet Urinal # Voids 1 2 - Exam GENERAL DESCRIPTION: An elderly male up in the chair in no distress RESPIRATORY SYSTEM: Unlabored breathing , decreased breath sounds at bases HEART: S1 S2 regular rate and rhythm , ABDOMEN: Soft , no tenderness EXTREMITIES: No edema feet - Labs CBC & Chem 7: 07/12/24 03:26 07/12/24 03:26 Labs: Abnormal Lab Results - Last 24 Hours (Table) 07/12/24 07/12/24 Range/Units 03:26 03:26 RBC 4.33 L (4.40-5.60) X 10*6/uL Hgb 12.6 L (13.0-17.0) g/dL Hct 38.5 L (39.6-50.0) % Plt Count 53 L (140-440) X 10*3/uL Lymphocytes # 0.84 L (0.90-5.00) X 10*3/uL Immature Plt Fraction 8.1 H (1.1-6.1) % Acanthocytes (Spur) 2+ A (None Seen) Glucose 151 H (70-110) mg/dL Calcium 8.0 L (8.7-10.3) mg/dL Total Protein 5.2 L (6.2-8.2) g/dL Albumin 3.3 L (3.8-4.9) g/dL Microbiology - Last 24 Hours (Table) 07/10/24 10:33 Blood Culture Gram Stain - Preliminary Blood Blood Culture - Preliminary Enterobacter cloacae Complex Molecular ID 07/10/24 13:55 Urine Culture - Final Urine,Voided Assessment and Plan (1) Sepsis Current Visit: Yes Status: Acute Code(s): A41.9 - SEPSIS, UNSPECIFIED ORGANISM SNOMED Code(s): 43212055 (2) Pyelonephritis Current Visit: Yes Status: Acute Code(s): N12 - TUBULO-INTERSTITIAL NEPHRITIS, NOT SPCF ACUTE OR CHRONIC SNOMED Code(s): 49462175 Plan: 1patient was in the hospital with sepsis in this patient who did have fever tachycardia elevated lactic acid source is likely UTI in this patient who did have symptoms of abdominal pain burning as well as hematuria likely from enteric gram-negative pathogen 2-patient did have a CT abdominal pelvis Showing abnormality to the left kidney subsequently did have ultrasound and possible hemorrhagic cyst on the left kidney. Blood culture positive for Enterobacter source likely urinary. 3blood cultures has been repeated which are currently pending 4patient white count has normalized continue with the cefepime 2 g every 8 ho urs while waiting for the culture to finalize. Question concern were answered Dictation was produced using [employer] dictation software. please excuse any grammatical, word or spelling errors. Time with Patient: Less than 30
--- NOTE | 2024-07-13 03:11 | PN ---
PROGRESS NOTE SUBJECTIVE: A 79-year-old white male came in with bacteremia with pyelonephritis. OBJECTIVE: CARDIOVASCULAR: S1, S2. LUNGS: Clear. GI: Soft. HEMATOLOGY: Negative Homans. PSYCH: Fair mood and affect. VITAL SIGNS: Blood pressure 170s over 98, O2 97 on room air, temp 98.2, pulse 76, respiratory rate is 18. LABORATORY DATA: White count is 8.61, hemoglobin is 12.6. Lactic acid is 1.9. Sodium 136 and potassium 3.7. Most recent . Continue on broad-spectrum antibiotics per Dr. Galaviz until further cultures back. Make sure bacteremia is cleared before discharge . MMODL / IJN: [id number] /
[2024-07-13 10:06] LABS: ALT 16 U/L (10-49); AST 22 U/L (14-35); Albumin 3.3 g/dL (3.8-4.9); Albumin/Globulin Ratio 1.65 Ratio (1.60-3.17); Alkaline Phosphatase 99 U/L (41-126); Blood Urea Nitrogen 15.6 mg/dL (9.0-27.0); Calcium 8.2 mg/dL (8.7-10.3); Carbon Dioxide 23.6 mmol/L (21.6-31.8); Chloride 105 mmol/L (96-109); Glucose 118 mg/dL (70-110); Potassium 3.8 mmol/L (3.5-5.5); Sodium 138 mmol/L (135-145); Total Bilirubin 0.8 mg/dL (0.3-1.2); Total Protein 5.3 g/dL (6.2-8.2)
[2024-07-13 11:08] LABS: Basophils # (A) 0.02 X 10*3/uL (0.00-0.10); Basophils % (A) 0.3 %; Eosinophils # (A) 0.07 X 10*3/uL (0.04-0.35); Eosinophils % (A) 0.9 %; HCT 39.2 % (39.6-50.0); HGB 12.8 g/dL (13.0-17.0); Immature Platelet Fraction 8.3 % (1.1-6.1); Lymphocytes # (A) 1.05 X 10*3/uL (0.90-5.00); Lymphocytes % (A) 13.6 %; MCHC 32.7 g/dL (32.0-37.0); MCV 88.9 FL (80.0-97.0); Monocytes # (A) 1.03 X 10*3/uL (0.20-1.00); Monocytes % (A) 13.3 %; NRBC Per 100 WBC 0 X 10*3/uL (0.00-0.01); Neutrophils # (A) 5.54 X 10*3/uL (1.80-7.70); Neutrophils % (A) 71.5 %; Platelet Count 65 X 10*3/uL (140-440); RBC 4.41 X 10*6/uL (4.40-5.60); RDW 14.6 % (11.5-14.5); WBC 7.74 X 10*3/uL (4.50-10.00)
--- NOTE | 2024-07-13 15:28 | P.PN ---
Subjective Progress Note Date: 07/13/24 Principal diagnosis: Reason for follow up sepsis/UTI Patient is a 79-year-old male with a past medical history significant for atrial fibrillation coronary artery disease hypertension hyperlipidemia reflux prostate disorder presenting to the hospital for evaluation of lower abdominal discomfort dysuria and hematuria, patient be diagnosed with sepsis secondary to pyelonephritis subsequent blood cultures came back positive with Enterobacter On today's evaluation that is 07/13/2024, patient did not have any fever and denies any chills, patient is breathing comfortably on room air, patient with no chest pain or cough patient still complaining of pain to the left flank area but no worsening no diarrhea. Patient white count is 7.74, creatinine is 1.0 lipids with Enterobacter sensitivity is still pending Objective - Vital Signs Vital signs: Vital Signs Temp 98.0 F 07/13/24 07:33 Pulse 72 07/13/24 07:33 Resp 18 07/13/24 07:33 BP 155/79 07/13/24 07:33 Pulse Ox 96 07/13/24 07:33 FiO2 Intake & Output 07/12/24 07/13/24 07/13/24 18:59 06:59 18:59 Intake Total 118 540 Output Total 600 Balance 118 -60 Intake: Oral 118 540 Output: Urine 600 Other: Voiding Method Toilet Toilet Toilet Urinal Urinal Urinal # Voids 0 - Exam GENERAL DESCRIPTION: An elderly male up in the chair in no distress RESPIRATORY SYSTEM: Unlabored breathing , decreased breath sounds at bases HEART: S1 S2 regular rate and rhythm , ABDOMEN: Soft , no tenderness EXTREMITIES: No edema feet - Labs CBC & Chem 7: 07/13/24 03:40 07/13/24 03:40 Labs: Abnormal Lab Results - Last 24 Hours (Table) 07/13/24 07/13/24 Range/Units 03:40 03:40 Hgb 12.8 L (13.0-17.0) g/dL Hct 39.2 L (39.6-50.0) % RDW 14.6 H (11.5-14.5) % Plt Count 65 L (140-440) X 10*3/uL MPV 13.0 H (9.5-12.2) FL Monocytes # 1.03 H (0.20-1.00) X 10*3/uL Immature Plt Fraction 8.3 H (1.1-6.1) % Glucose 118 H (70-110) mg/dL Calcium 8.2 L (8.7-10.3) mg/dL Total Protein 5.3 L (6.2-8.2) g/dL Albumin 3.3 L (3.8-4.9) g/dL Microbiology - Last 24 Hours (Table) 07/10/24 10:33 Blood Culture Gram Stain - Preliminary Blood Blood Culture - Preliminary Enterobacter cloacae Complex Molecular ID Assessment and Plan (1) Sepsis Current Visit: Yes Status: Acute Code(s): A41.9 - SEPSIS, UNSPECIFIED ORGANISM SNOMED Code(s): 41859518 (2) Pyelonephritis Current Visit: Yes Status: Acute Code(s): N12 - TUBULO-INTERSTITIAL NEPHRITIS, NOT SPCF ACUTE OR CHRONIC SNOMED Code(s): 72683675 Plan: 1patient was in the hospital with sepsis in this patient who did have fever tachycardia elevated lactic acid source is likely UTI in this patient who did have symptoms of abdominal pain burning as well as hematuria likely from enteric gram-negative pathogen 2-patient did have a CT abdominal pelvis Showing abnormality to the left kidney subsequently did have ultrasound and possible hemorrhagic cyst on the left kidney. Blood culture positive for Enterobacter source likely urinary. 3blood cultures has been repeated which are currently pending 4patient white count has normalized currently being treated with cefepime while waiting for the sensitivity to finalize Dictation was produced using [employer] software. please excuse any grammatical, word or spelling errors.
[2024-07-13] MEDS: CEFEPIME 2 GM in SODIUM CHLORIDE 0.9% 100 ML IVPB SCH (18:21)
[2024-07-14 07:51] VITALS: RESP 16
[2024-07-14 14:27] VITALS: BP 191/94; PULSE 109; TEMP 98.9
--- NOTE | 2024-07-14 15:29 | P.PN ---
Subjective Progress Note Date: 07/14/24 Principal diagnosis: Reason for follow up sepsis/UTI Patient is a 79-year-old male with a past medical history significant for atrial fibrillation coronary artery disease hypertension hyperlipidemia reflux prostate disorder presenting to the hospital for evaluation of lower abdominal discomfort dysuria and hematuria, patient be diagnosed with sepsis secondary to pyelonephritis subsequent blood cultures came back positive with Enterobacter On today's evaluation that is 07/14/2024, Patient is afebrile patient is currently on room air and denies having any shortness of breath, the patient denies any chest pain or cough, the patient denies any nausea vomiting, some pain to the left flank area but no worsening wants to go home. No lab draw today Enterobacter sensitive finally sensitive to Cipro and cefepime Objective - Vital Signs Vital signs: Vital Signs Temp 97.6 F 07/14/24 07:50 Pulse 72 07/14/24 07:50 Resp 16 07/14/24 07:50 BP 152/78 07/14/24 07:50 Pulse Ox 99 07/14/24 07:50 FiO2 Intake & Output 07/13/24 07/14/24 07/14/24 18:59 06:59 18:59 Intake Total 118 118 Output Total 600 175 Balance -482 -57 Intake: Oral 118 118 Output: Urine 600 175 Other: Voiding Method Toilet Toilet Toilet Urinal Urinal Urinal # Bowel Movements 1 - Exam GENERAL DESCRIPTION: An elderly male up in the chair in no distress RESPIRATORY SYSTEM: Unlabored breathing , clear auscultation anteriorly HEART: S1 S2 regular rate and rhythm , ABDOMEN: Soft , no tenderness EXTREMITIES: Bilateral extremity swelling no redness - Labs CBC & Chem 7: 07/13/24 03:40 07/13/24 03:40 Labs: Microbiology - Last 24 Hours (Table) 07/12/24 13:03 Blood Culture - Preliminary Blood 07/10/24 10:33 Blood Culture Gram Stain - Final Blood Blood Culture - Final Enterobacter cloacae Complex Molecular ID Assessment and Plan (1) Sepsis Current Visit: Yes Status: Acute Code(s): A41.9 - SEPSIS, UNSPECIFIED ORGAN ISM SNOMED Code(s): 11814326 (2) Pyelonephritis Current Visit: Yes Status: Acute Code(s): N12 - TUBULO-INTERSTITIAL NEPHRITIS, NOT SPCF ACUTE OR CHRONIC SNOMED Code(s): 41993384 Plan: 1patient was in the hospital with sepsis in this patient who did have fever tachycardia elevated lactic acid source is likely UTI in this patient who did have symptoms of abdominal pain burning as well as hematuria likely from enteric gram-negative pathogen 2-patient did have a CT abdominal pelvis Showing abnormality to the left kidney subsequently did have ultrasound and possible hemorrhagic cyst on the left kidney. Blood culture positive for Enterobacter source likely urinary. 3blood cultures has been repeated which are negative so far 4patient white count has normalized sensitivities on Enterobacter has been finalized it is Cipro sensitive pathogen prescription for oral Cipro has been sent to the pharmacy Dictation was produced using [employer] dictation software. please excuse any grammatical, word or spelling errors.
--- NOTE | 2024-07-15 08:17 | PN ---
PROGRESS NOTE A 79-year-old white male, admitted with pyelonephritis, bacteremia with blood cultures positive. Treating for pyelonephritis clinically. Hemoglobin is 12.8, sodium 138, potassium 3.8. Urine shows 182 white cells. His repeat blood culture appears to be back, so far negative. Previous blood culture sensitive to Cipro and Levaquin, but he has drug resistance. Wait for Dr. Galaviz's recommendation on treating his pyelonephritis with antibiotics. OBJECTIVE: GENERAL: He is sitting up in bed. VITAL SIGNS: Reviewed. CARDIOVASCULAR: S1, S2. LUNGS: Clear. GI: Soft. Tenderness to palpation in the right flank and right lower quadrant. Follow up in next 24 to 48 hours for antibiotics for going home. Prognosis is guarded. MMODL / IJN: [id number] /
== END 2024-07-14 15:36 | disposition home or self-care (01) | DRG 872 ==
LOC: EC 09:53 → 5NMEDONC 15:04 → 6NMEDSUR 17:25
PROVIDERS: ADMIT Family Medicine; ATTEND Family Medicine
DX: A41.9 Sepsis, unspecified organism (principal); E78.5 Hyperlipidemia, unspecified; I10 Essential (primary) hypertension; I48.91 Unspecified atrial fibrillation; E86.0 Dehydration; N12 Tubulo-interstitial nephritis, not specified as acute or chronic; R31.9 Hematuria, unspecified; I25.10 Atherosclerotic heart disease of native coronary artery without angina pectoris; Z96.641 Presence of right artificial hip joint; Z79.01 Long term (current) use of anticoagulants; Z79.02 Long term (current) use of antithrombotics/antiplatelets; Z86.16 Personal history of COVID-19; Z87.01 Personal history of pneumonia (recurrent); Z79.899 Other long term (current) drug therapy; Z87.442 Personal history of urinary calculi; Z95.5 Presence of coronary angioplasty implant and graft
CPT/HCPCS: 36415; 74176; 76770; 80053; 81001; 83605; 83690; 85025; 87040; 87077; 87086; 87186; 96361; 96365; 96366; 96375; 99285